=== PATIENT | female | born 1950 | race Caucasian/White ===

== ENCOUNTER 2020-08-17 14:20 | Outpatient (REF) | payer MEDICARE, OTHER, SELFPAY | END 2020-08-17 14:21 | disposition home or self-care (01) | LOC: HO.LAB 14:20 | PROVIDERS: PCP Internal Medicine; Visit Provider Internal Medicine | DX: Z20.828 Contact with and (suspected) exposure to other viral communicable diseases (principal) | CPT/HCPCS: C9803; U0003 ==

== ENCOUNTER → 2020-08-18 10:15 | Outpatient (BNVA) | payer MEDICARE, OTHER, SELFPAY | PROVIDERS: PCP Internal Medicine; Visit Provider Physician Assistant | DX: M17.12 Unilateral primary osteoarthritis, left knee (principal) | CPT/HCPCS: 20610; 99212; J1040 ==

== ENCOUNTER 2020-10-30 09:42 | Outpatient (REF) | payer MEDICARE, OTHER, SELFPAY ==
[2020-10-30 11:23] LABS: Estimated Average Glucose 154 mg/dL
[2020-10-30 11:26] LABS: Alanine Aminotransferase 20 U/L (0-31); Albumin Level 3.9 g/dL (3.5-5.0); Alkaline Phosphatase 103 U/L (39-117); Aspartate Amino Transferase 19 U/L (5-31); Bilirubin Direct 0.3 mg/dL (0.0-0.5); Bilirubin Total 0.6 mg/dL (0.0-1.0); Cholesterol 126 mg/dL; Glucose Fasting 143 mg/dL (60-99); HDL Cholesterol 45 mg/dL; LDL Cholesterol Calculated 60 mg/dl; Total Protein 6.6 g/dL (6.5-8.0); Triglycerides 105 mg/dL
[2020-10-30 12:01] LABS: Reflex LDLD? No
== END 2020-10-30 09:43 | disposition home or self-care (01) ==
LOC: HO.LAB 09:42
PROVIDERS: PCP Internal Medicine; Visit Provider Internal Medicine
DX: E11.9 Type 2 diabetes mellitus without complications (principal); I25.10 Atherosclerotic heart disease of native coronary artery without angina pectoris
CPT/HCPCS: 36415; 80061; 80076; 82947; 83036

== ENCOUNTER → 2020-12-13 09:00 | Outpatient (BNVA) | payer MEDICARE, OTHER, SELFPAY | PROVIDERS: PCP Internal Medicine; Visit Provider Physician Assistant | DX: M17.12 Unilateral primary osteoarthritis, left knee (principal) | CPT/HCPCS: 20610; 99212; J1040 ==

== ENCOUNTER → 2021-01-17 13:59 | Outpatient (BNVA) | payer MEDICARE, OTHER, SELFPAY | PROVIDERS: PCP Internal Medicine; Visit Provider Physician Assistant | DX: M17.12 Unilateral primary osteoarthritis, left knee (principal) | CPT/HCPCS: 99212 ==

== ENCOUNTER 2021-02-01 13:39 | Outpatient (REF) | payer MEDICARE, OTHER, SELFPAY ==
--- NOTE | ~2021-02-01 | XR_ITS ---
EXAMINATION: KNEE X-RAY CLINICAL INFORMATION: Right knee pain COMPARISON: Previous exam most recent February 2018 TECHNIQUE: Standing AP view of both knees and lateral and sunrise view of the left knee FINDINGS: There is leg length discrepancy. The right knee is higher than the left. There is joint space narrowing and osteophyte formation at the right medial femoral tibial joint. Left: Bone alignment is normal. No fracture or dislocation is seen. There is arthritis at the medial femoral tibial joint with joint space narrowing and osteophyte formation. There are small osteophytes at the patellofemoral joint. There is a large joint effusion. This is a heterogeneous attenuation with several lucent foci questionable for air. Fat fluid level is not seen. XR/XR knee standing BI IMPRESSION: Left knee: Arthritis at the medial femoral tibial and patellofemoral joints. Large joint effusion. Leg length discrepancy. The right knee joint is higher than the left. This is increased from February 2019 exam.
--- NOTE | ~2021-02-01 | XR_ITS ---
EXAMINATION: KNEE X-RAY CLINICAL INFORMATION: Right knee pain COMPARISON: Previous exam most recent February 2018 TECHNIQUE: Standing AP view of both knees and lateral and sunrise view of the left knee FINDINGS: There is leg length discrepancy. The right knee is higher than the left. There is joint space narrowing and osteophyte formation at the right medial femoral tibial joint. Left: Bone alignment is normal. No fracture or dislocation is seen. There is arthritis at the medial femoral tibial joint with joint space narrowing and osteophyte formation. There are small osteophytes at the patellofemoral joint. There is a large joint effusion. This is a heterogeneous attenuation with several lucent foci questionable for air. Fat fluid level is not seen. XR/XR knee LT 2V IMPRESSION: Left knee: Arthritis at the medial femoral tibial and patellofemoral joints. Large joint effusion. Leg length discrepancy. The right knee joint is higher than the left. This is increased from February 2019 exam.
== END 2021-02-01 13:40 | disposition home or self-care (01) ==
LOC: HO.HOSX 13:39
PROVIDERS: Visit Provider Physician Assistant
DX: M17.12 Unilateral primary osteoarthritis, left knee (principal); M25.562 Pain in left knee; M25.561 Pain in right knee
CPT/HCPCS: 73560; 73565; 99212

== ENCOUNTER → 2021-02-12 13:25 | Outpatient (BNVA) | payer MEDICARE, OTHER, SELFPAY | PROVIDERS: PCP Internal Medicine; Referring Provider Internal Medicine; Visit Provider Internal Medicine Cardiovascular Disease | DX: Z01.810 Encounter for preprocedural cardiovascular examination (principal); I25.10 Atherosclerotic heart disease of native coronary artery without angina pectoris | CPT/HCPCS: 93005; 99212 ==

== ENCOUNTER 2021-02-20 10:04 | Outpatient (REF) | payer MEDICARE, OTHER, SELFPAY ==
[2021-02-20 14:23] LABS: Estimated Average Glucose 163 mg/dL; Hemoglobin A1c % 7.3 %
== END 2021-02-20 10:05 | disposition home or self-care (01) ==
LOC: HO.10HDL 10:04
PROVIDERS: Visit Provider Physician Assistant
DX: E13.9 Other specified diabetes mellitus without complications (principal)
CPT/HCPCS: 36415; 83036

== ENCOUNTER → 2021-03-02 09:00 | Outpatient (REF) | payer MEDICARE, OTHER, SELFPAY ==
--- NOTE | ~2021-03-02 | NM_ITS ---
Lexiscan Myocardial perfusion study Indication: Preoperative evaluation, assess for coronary disease and ischemia Technique: The patient was brought in for a Lexiscan perfusion study on 03/02/2021 and was injected 0.4 mg of Lexiscan intravenously. Within a minute of this injection 30 mCi of sestamibi was given intravenously. Images were obtained using the SPECT gamma camera interlaced with the gating device. Images were obtained in supine position. Resting perfusion study was performed on 03/05/2021. Patient was administered 30 mCi of sestamibi intravenously at rest. Images were then obtained in supine position. Total DLP 206mGy-cm. Images were processed with the software and compared side to side in short axis, horizontal long axis and vertical long axis views. Findings: Raw acquisition was reviewed. Right arm by the patient's side. The stress perfusion study showed markedly diminished tracer uptake in the mid to distal anteroseptal wall. There is also diminished tracer uptake in the basal lateral wall. With CT attenuation correction, there is improved uptake in the mid to distal anterior septum but it does not normalize. Lateral wall also seems improved. The gated study shows normal LV systolic function with calculated LVEF of 70%. LV cavity is normal in size. The gated study shows diminished contractility in the distal anterior septum. Resting study shows no significant perfusion abnormality. Gating at rest reveals normal wall motion with ejection fraction at 54%. The findings are consistent with ischemia in the distal anterior septum. NM/NM lul perf SPECT rest & str Impression: 1. Myocardial perfusion imaging study shows probable ischemia in the distal anterior septum. Basal lateral perfusion defect could be artifactual. 2. Gated LVEF is 70% during stress and 52% during rest. 3. Transient ischemic dilatation not present. EKG component of the test reported separately.
--- NOTE | 2021-03-02 09:03 | CA_ITS ---
Acquisition Time: 2021-03-02 09:12:46 Total Exercise Time: 00:02:00 Test Indications: Screening for CAD Medications: AMLODIPINE ASA METFORMIN METOPROLOL OMEPRAZOLE PAROXETINE Protocol: LEXISCAN Max HR: 102 BPM 68% of Pred: 149 BPM Max BP: 132/080 mmHG Max Work Load: 1.0 METS Pharmacological stress test with Lexiscan injection while sitting and kicking her legs, without anginal symptoms, without arrythmia, with normotensive response to injection, with downsloping ST inferiorly with bordeline depression in setting of baseline scooping ST segements inferiorly, nondiagnostic for ischemia. Nuclear images pending. Test reviewed with Dr Christine. Referred By: Irving Grant Overread By: LEVI BRITTON
== END ==
LOC: HO.CARD 09:00
PROVIDERS: Visit Provider Internal Medicine Cardiovascular Disease
DX: Z01.810 Encounter for preprocedural cardiovascular examination (principal); Z79.82 Long term (current) use of aspirin; Z79.899 Other long term (current) drug therapy
CPT/HCPCS: 78452; 93017; A9500; J0280; J2785

== ENCOUNTER 2021-03-22 10:11 | Outpatient (REF) | payer MEDICARE, OTHER, SELFPAY ==
[2021-03-22 11:37] LABS: Iron 43 mcg/dL (30-160); Percent Iron Saturation 14 % (15-50); Total Iron Binding Capacity 309 mcg/dL (228-428); Unsaturated Iron Binding 266 ug/dL
== END 2021-03-22 10:12 | disposition home or self-care (01) ==
LOC: HO.LNP 10:11
PROVIDERS: Visit Provider Internal Medicine
DX: D50.9 Iron deficiency anemia, unspecified (principal)
CPT/HCPCS: 83540

== ENCOUNTER 2021-03-23 12:27 | Outpatient (REF) | payer MEDICARE, OTHER, SELFPAY ==
[2021-03-23 12:55] LABS: Glucose Urine UA NEG (NEG); Leukocyte Esterase Urine TRACE (NEG); Nitrite Urine POS (NEG); PH 6.5 (5.0-8.0); Specific Gravity - Urine 1.015 (1.005-1.025); Urine Blood NEG (NEG); Urine Ketones NEG (NEG); Urine Protein NEG (NEG-TRACE)
[2021-03-23 13:11] LABS: Appearance Urine HAZY; Color Urine YELLOW
[2021-03-23 13:14] LABS: Bacteria Urine 3+ /LPF; RBC Urine 0 /HPF (0)
== END 2021-03-23 12:28 | disposition home or self-care (01) ==
LOC: HO.LNP 12:27
PROVIDERS: Visit Provider Internal Medicine
DX: E11.9 Type 2 diabetes mellitus without complications (principal); I10 Essential (primary) hypertension; R35.0 Frequency of micturition
CPT/HCPCS: 81001; 87086; 87088; 87186

== ENCOUNTER 2021-04-05 10:13 | Outpatient (REF) | payer MEDICARE, OTHER, SELFPAY ==
[2021-04-05 10:58] LABS: Glucose Urine UA NEG (NEG); Leukocyte Esterase Urine NEG (NEG); Nitrite Urine NEG (NEG); PH 6.5 (5.0-8.0); Specific Gravity - Urine <= 1.005 (1.005-1.025); Urine Blood NEG (NEG); Urine Ketones NEG (NEG); Urine Protein NEG (NEG-TRACE)
[2021-04-05 11:18] LABS: Appearance Urine CLEAR; Color Urine YELLOW
== END 2021-04-05 10:14 | disposition home or self-care (01) ==
LOC: HO.LNP 10:13
PROVIDERS: Visit Provider Internal Medicine
DX: Z87.440 Personal history of urinary (tract) infections (principal)
CPT/HCPCS: 81003; 87086

== ENCOUNTER 2021-06-28 11:04 | Outpatient (REF) | payer MEDICARE, OTHER, SELFPAY ==
[2021-06-28 11:10] LABS: MANUAL DIFF FLAG NO
[2021-06-28 11:43] LABS: Basophils Percent Auto 0.7 % (0-2); Eosinophils Absolute Auto 0.1 X10*3/uL (0.0-0.4); Eosinophils Percent Auto 2.3 % (0-4); Hematocrit 37.2 % (37-47); Hemoglobin 11.5 g/dl (12.0-16.0); Imm Gran Abs Auto 0.02 X10*3/uL (0.00-0.03); Imm Gran Pct Auto 0.3 % (0.0-0.4); Lymphocytes Absolute Auto 1.3 X10*3/uL (1.2-4.9); Lymphocytes Percent Auto 21.8 % (20-40); Mean Corpuscular HGB Conc 30.9 g/dl (31.0-35.0); Mean Corpuscular Hemoglobin 25.8 pg (27.0-33.0); Mean Corpuscular Volume 83.6 fL (80-98); Mean Platelet Volume 11.8 fL (9.4-12.3); Monocytes Absolute Auto 0.6 X10*3/uL (0.1-1.2); Monocytes Percent Auto 9.9 % (2-11); Neutrophils Absolute Auto 3.9 X10*3/uL (2.0-8.3); Platelet Count 369 X10*3/uL (160-400); Red Blood Count 4.45 X10*6/uL (4.20-5.50); Red Cell Distribution Width 13.7 % (11.0-16.0); White Blood Count 6.1 X10*3/uL (4.8-10.8)
[2021-06-28 11:52] LABS: Estimated Average Glucose 140 mg/dL; Hemoglobin A1c % 6.5 %
[2021-06-28 11:57] LABS: Appearance Urine CLEAR; Color Urine YELLOW; Glucose Urine UA NEG (NEG); Leukocyte Esterase Urine 3+ (NEG); Nitrite Urine NEG (NEG); Urine Blood NEG (NEG); Urine Ketones NEG (NEG); Urine Protein NEG (NEG-TRACE)
[2021-06-28 12:03] LABS: Alanine Aminotransferase 13 U/L (0-31); Albumin Level 3.9 g/dL (3.5-5.0); Alkaline Phosphatase 91 U/L (39-117); Anion Gap 12 (12-20); Aspartate Amino Transferase 19 U/L (5-31); Bilirubin Total 0.5 mg/dL (0.0-1.0); Blood Urea Nitrogen 11 mg/dL (9-16); Calcium 9.8 mg/dL (8.4-10.2); Carbon Dioxide 30 mmol/L (22-29); Chloride 102 mmol/L (96-108); Cholesterol 120 mg/dL; Estimated Glomerular Filt Rate > 60; Glucose Fasting 139 mg/dL (60-99); HDL Cholesterol 40 mg/dL; LDL Cholesterol Calculated 55 mg/dl; Potassium 4.1 mmol/L (3.3-5.1); Sodium 140 mmol/L (135-145); Total Protein 6.7 g/dL (6.5-8.0); Triglycerides 129 mg/dL
[2021-06-28 12:04] LABS: Reflex LDLD? No
[2021-06-28 12:08] LABS: Bacteria Urine 2+ /LPF; RBC Urine 0 /HPF (0); Squamous Epithelial Cell Urine 1+ /LPF; WBC Urine 30-49 /HPF (0-4)
[2021-06-28 12:30] LABS: Creatinine Urine 56.99 mg/dL; Microalbumin Urine < 5.0 mg/L
== END 2021-06-28 11:05 | disposition home or self-care (01) ==
LOC: HO.LNP 11:04
PROVIDERS: PCP Internal Medicine; Visit Provider Internal Medicine
DX: E11.9 Type 2 diabetes mellitus without complications (principal); I10 Essential (primary) hypertension; E78.00 Pure hypercholesterolemia, unspecified; I25.10 Atherosclerotic heart disease of native coronary artery without angina pectoris; D72.829 Elevated white blood cell count, unspecified; D50.9 Iron deficiency anemia, unspecified
CPT/HCPCS: 80053; 80061; 81001; 81003; 82043; 83036; 85025

== ENCOUNTER 2021-08-06 11:16 | Outpatient (REF) | payer MEDICARE, OTHER, SELFPAY ==
--- NOTE | ~2021-08-06 | MM_ITS ---
EXAMINATION: MM SCREENING DIGITAL BREAST TOMOSYNTHESIS, BILATERAL CLINICAL INFORMATION: Screening. Asymptomatic. The lifetime risk of breast cancer based on the Tyrer-Cuzick Model is 4%. COMPARISON: Mammography: 06/02/2020, 10/15/2018, 10/06/2017 TECHNIQUE: Digital breast tomosynthesis is performed in both the craniocaudal and mediolateral oblique views along with computer-aided detection (CAD). Synthesized 2D images are generated from the tomosynthesis. Additional bilateral CC and left MLO views are provided. FINDINGS: There are scattered areas of fibroglandular density (ACR BI-RADS breast composition Category b). There are no significant masses, abnormal calcifications, or other abnormalities. There is chronic bilateral mild nipple retraction. Scattered dermal lesions are again seen overlying both breasts. There are scattered benign round and a few small ductal secretory calcifications as an incidental finding. No significant changes. MM/MM tomosynthesis screening BI IMPRESSION: No mammographic evidence of malignancy. ASSESSMENT: BI-RADS 2: Benign RECOMMENDATION: Routine annual mammography screening. This patient's information was entered into a reminder system with a target due date for their next mammogram.
== END 2021-08-06 11:17 | disposition home or self-care (01) ==
LOC: HO.MAMMO 11:16
PROVIDERS: Visit Provider Internal Medicine
DX: Z12.31 Encounter for screening mammogram for malignant neoplasm of breast (principal)
CPT/HCPCS: 77063; 77067

== ENCOUNTER 2021-12-28 10:40 | Outpatient (REF) | payer MEDICARE, OTHER, SELFPAY ==
[2021-12-28 11:08] LABS: Alanine Aminotransferase 12 U/L (0-31); Albumin Level 3.8 g/dL (3.5-5.0); Alkaline Phosphatase 86 U/L (39-117); Aspartate Amino Transferase 16 U/L (5-31); Bilirubin Direct 0.3 mg/dL (0.0-0.5); Bilirubin Total 0.7 mg/dL (0.0-1.0); Cholesterol 131 mg/dL; Estimated Average Glucose 146 mg/dL; Glucose Fasting 120 mg/dL (60-99); HDL Cholesterol 44 mg/dL; Hemoglobin A1c % 6.7 %; LDL Cholesterol Calculated 69 mg/dl; Total Protein 6.7 g/dL (6.5-8.0); Triglycerides 92 mg/dL
[2021-12-28 11:21] LABS: Reflex LDLD? No
== END 2021-12-28 10:41 | disposition home or self-care (01) ==
LOC: HO.LNP 10:40
PROVIDERS: PCP Internal Medicine; Visit Provider Internal Medicine
DX: I10 Essential (primary) hypertension (principal); E11.9 Type 2 diabetes mellitus without complications
CPT/HCPCS: 80061; 80076; 82947; 83036

== ENCOUNTER → 2022-02-12 12:22 | Outpatient (BNVA) | payer MEDICARE, OTHER, SELFPAY | PROVIDERS: PCP Internal Medicine; Referring Provider Internal Medicine; Visit Provider Internal Medicine Cardiovascular Disease | DX: I25.10 Atherosclerotic heart disease of native coronary artery without angina pectoris (principal); Z79.82 Long term (current) use of aspirin | CPT/HCPCS: 93005; 99212 ==

== ENCOUNTER 2022-07-04 11:51 | Outpatient (REF) | payer MEDICARE, OTHER, SELFPAY ==
[2022-07-04 11:55] LABS: MANUAL DIFF FLAG NO
[2022-07-04 12:11] LABS: Basophils Absolute Auto 0.1 X10*3/uL (0.0-0.2); Basophils Percent Auto 1.1 % (0-2); Eosinophils Absolute Auto 0.2 X10*3/uL (0.0-0.4); Eosinophils Percent Auto 3.4 % (0-4); Hematocrit 36.4 % (37.0-47.0); Hemoglobin 11.2 g/dl (12.0-16.0); Imm Gran Abs Auto 0.02 X10*3/uL (0.00-0.03); Imm Gran Pct Auto 0.3 % (0.0-0.4); Lymphocytes Absolute Auto 1.6 X10*3/uL (1.2-4.9); Lymphocytes Percent Auto 25.2 % (20-40); Mean Corpuscular HGB Conc 30.8 g/dl (31.0-35.0); Mean Corpuscular Hemoglobin 25.7 pg (27.0-33.0); Mean Corpuscular Volume 83.5 fL (80.0-98.0); Mean Platelet Volume 11.9 fL (9.4-12.3); Monocytes Absolute Auto 0.7 X10*3/uL (0.1-1.2); Monocytes Percent Auto 11.4 % (2-11); Neutrophils Absolute Auto 3.6 x10*3/uL (2.0-8.3); Neutrophils Percent Auto 58.6 % (45-73); Platelet Count 372 X10*3/uL (160-400); Red Blood Count 4.36 X10*6/uL (4.20-5.50); Red Cell Distribution Width 14.9 % (11.0-16.0); White Blood Count 6.2 X10*3/uL (4.8-10.8)
[2022-07-04 12:16] LABS: Appearance Urine Cloudy; Color Urine Yellow; Glucose Urine UA Negative (Negative); Leukocyte Esterase Urine Large (3+) (Negative); Nitrite Urine Negative (Negative); UMIC TRIGGER UA YES; Urine Blood Negative (Negative); Urine Ketones Negative (Negative); Urine Protein Negative (Neg-Trace)
[2022-07-04 12:19] LABS: Bacteria Urine None Seen (None Seen); Hyaline Casts Urine 0-2 /LPF (0-2); RBC Urine 0-2 /HPF (0-2); WBC Urine >50 /HPF (0-5)
[2022-07-04 12:26] LABS: Estimated Average Glucose 134 mg/dL; Hemoglobin A1c % 6.3 %
[2022-07-04 12:29] LABS: Alanine Aminotransferase 13 U/L (0-31); Albumin Level 3.9 g/dL (3.5-5.0); Alkaline Phosphatase 96 U/L (39-117); Anion Gap 14 (12-20); Aspartate Amino Transferase 21 U/L (5-31); Bilirubin Total 0.2 mg/dL (0.0-1.0); Blood Urea Nitrogen 18 mg/dL (9-16); Calcium 9.8 mg/dL (8.4-10.2); Carbon Dioxide 30 mmol/L (22-29); Chloride 100 mmol/L (96-108); Cholesterol 100 mg/dL; Estimated Glomerular Filt Rate > 60; Glucose Fasting 120 mg/dL (60-99); HDL Cholesterol 39 mg/dL; LDL Cholesterol Calculated 44 mg/dl; Sodium 140 mmol/L (135-145); Total Protein 7.2 g/dL (6.5-8.0); Triglycerides 86 mg/dL
[2022-07-04 13:09] LABS: Creatinine Urine 79.69 mg/dL; Microalbum/Creatinine Ratio Ur 13.8 ug/mg cr
== END 2022-07-04 11:52 | disposition home or self-care (01) ==
LOC: HO.LNP 11:51
PROVIDERS: Visit Provider Internal Medicine
DX: I10 Essential (primary) hypertension (principal); E11.9 Type 2 diabetes mellitus without complications; E78.00 Pure hypercholesterolemia, unspecified; D72.829 Elevated white blood cell count, unspecified; D50.9 Iron deficiency anemia, unspecified
CPT/HCPCS: 80053; 80061; 81001; 82043; 83036; 85025

== ENCOUNTER 2022-08-14 09:51 | Outpatient (REF) | payer MEDICARE, OTHER, SELFPAY ==
--- NOTE | ~2022-08-14 | MM_ITS ---
EXAMINATION: MM SCREENING DIGITAL BREAST TOMOSYNTHESIS, BILATERAL CLINICAL INFORMATION: Screening. Asymptomatic. The lifetime risk of breast cancer based on the Tyrer-Cuzick Model is 4%. COMPARISON: Mammography: 08/06/2021, 06/02/2020, 10/15/2018 TECHNIQUE: Digital breast tomosynthesis is performed in both the craniocaudal and mediolateral oblique views along with computer-aided detection (CAD). Synthesized 2D images are generated from the tomosynthesis. Additional right cleavage and left CC and views are provided. FINDINGS: There are scattered areas of fibroglandular density (ACR BI-RADS breast composition Category b). There is mild bilateral chronic rib nipple retraction similar to prior studies. Again, there are scattered benign round and some ductal secretory calcifications as well as overlying dermal lesions. Parenchymal pattern is similar to prior studies. There is no developing density or architectural abnormality. The axilla are unremarkable. No significant changes. MM/MM tomosynthesis screening BI IMPRESSION: No mammographic evidence of malignancy. ASSESSMENT: BI-RADS 2: Benign RECOMMENDATION: Routine annual mammography screening. This patient's information was entered into a reminder system with a target due date for their next mammogram.
== END 2022-08-14 09:52 | disposition home or self-care (01) ==
LOC: HO.MAMMO 09:51
PROVIDERS: Visit Provider Internal Medicine
DX: Z12.31 Encounter for screening mammogram for malignant neoplasm of breast (principal)
CPT/HCPCS: 77063; 77067

== ENCOUNTER 2022-10-07 10:00 | Outpatient (RCR) | payer MEDICARE, OTHER, SELFPAY ==
[2022-08-07 11:09] VITALS: BP 141/62; PULSE 55; O2SAT 98
== END 2022-11-05 08:34 | disposition home or self-care (01) ==
LOC: HO.PT 10:00
PROVIDERS: PCP Internal Medicine; Visit Provider Physician Assistant
DX: R60.0 Localized edema (principal); Z96.652 Presence of left artificial knee joint
CPT/HCPCS: 97110; 97140; 97161; 97530

== ENCOUNTER 2023-01-03 10:28 | Outpatient (REF) | payer MEDICARE, OTHER, SELFPAY ==
[2023-01-03 11:03] LABS: Estimated Average Glucose 131 mg/dL; Hemoglobin A1c % 6.2 %
[2023-01-03 11:27] LABS: Alanine Aminotransferase 10 U/L (0-31); Albumin Level 3.6 g/dL (3.5-5.0); Alkaline Phosphatase 89 U/L (39-117); Aspartate Amino Transferase 15 U/L (5-31); Bilirubin Direct 0.1 mg/dL (0.0-0.5); Bilirubin Total 0.4 mg/dL (0.0-1.0); Cholesterol 110 mg/dL; Glucose Fasting 110 mg/dL (60-99); HDL Cholesterol 36 mg/dL; LDL Cholesterol Calculated 61 mg/dl; Total Protein 6.3 g/dL (6.5-8.0); Triglycerides 66 mg/dL
[2023-01-03 11:56] LABS: Reflex LDLD? No
== END 2023-01-03 10:29 | disposition home or self-care (01) ==
LOC: HO.LNP 10:28
PROVIDERS: Visit Provider Internal Medicine
DX: E11.9 Type 2 diabetes mellitus without complications (principal); E78.00 Pure hypercholesterolemia, unspecified
CPT/HCPCS: 80061; 80076; 82947; 83036

== ENCOUNTER → 2023-02-13 12:15 | Outpatient (BNVA) | payer MEDICARE, OTHER, SELFPAY | PROVIDERS: PCP Internal Medicine; Referring Provider Internal Medicine; Visit Provider Internal Medicine Cardiovascular Disease | DX: I25.10 Atherosclerotic heart disease of native coronary artery without angina pectoris (principal) | CPT/HCPCS: 93005; 99212 ==

== ENCOUNTER 2023-02-25 14:59 | Outpatient (REF) | payer MEDICARE, OTHER, SELFPAY ==
--- NOTE | ~2023-02-25 | US_ITS ---
EXAMINATION: US VENOUS ULTRASOUND WITH DOPPLER LOWER EXTREMITY, LEFT CLINICAL INFORMATION: Left calf pain COMPARISON: None available. TECHNIQUE: Ultrasound of the deep veins is performed from the hip to the calf with compression sonography and color and pulse Doppler assessment. Spectral analysis with color-flow imaging is performed. FINDINGS: There is normal venous compression and respiratory variation and augmented flow. The visualized common femoral vein, superficial femoral vein, profunda femoral vein, popliteal vein, and the trifurcation region shows no evidence of deep venous thrombosis. There is a complex fluid collection in the medial proximal and mid calf measuring 10.7 x 4.1 x 3.5 cm. It is uncertain whether this represents a ruptured Bailon's cyst or could be related to a muscle tear. This could be further evaluated with MRI if clinically indicated. US/US venous duplex LE LT IMPRESSION: No DVT demonstrated in the left lower extremity. Large complex fluid collection in the medial proximal and mid calf corresponding to patient pain. Differential would include ruptured Bailon's cyst and muscle tear. Clinical correlation recommended. This could be further evaluated with MR if clinically indicated.
== END 2023-02-25 15:00 | disposition home or self-care (01) ==
LOC: HO.US 14:59
PROVIDERS: PCP Internal Medicine; Visit Provider Internal Medicine
DX: I82.412 Acute embolism and thrombosis of left femoral vein (principal)
CPT/HCPCS: 93971

== ENCOUNTER 2023-05-30 12:16 | Outpatient (REF) | payer MEDICARE, OTHER, SELFPAY ==
--- NOTE | ~2023-05-30 | US_ITS ---
EXAMINATION: US VENOUS ULTRASOUND WITH DOPPLER LOWER EXTREMITY, LEFT CLINICAL INFORMATION: Calf pain. History of Bailon's cyst. COMPARISON: Radiographs of knee from 02/01/2021. Prior ultrasound imaging from 02/25/2023. TECHNIQUE: Ultrasound of the deep veins is performed from the hip to the calf with compression sonography and color and pulse Doppler assessment. Spectral analysis with color-flow imaging is performed. FINDINGS: The common femoral vein is compressible and exhibits a normal phasic waveform; this suggests that the iliac veins are widely patent above. Within the proximal thigh, the visualized profunda femoris vein is normal. The examined greater saphenous vein and saphenofemoral junction are normal. Superficial femoral vein is patent in the proximal, mid and distal thigh. Popliteal vein is normal to the level of the trifurcation. On compression lopez scale and color Doppler images, the visualized deep calf veins are grossly patent. At the popliteal fossa, again noted is a complex septated Bailon's cyst. This tracks inferiorly into the proximal calf. The Bailon's cyst is measuring up to 3.2 cm AP at the popliteal fossa; it extends over a craniocaudal distance of approximately 11-12 cm (compared to approximately 11 cm on 02/25/2023). US/US venous duplex LE LT IMPRESSION: * No evidence of deep vein thrombosis in the left lower extremity. 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
== END 2023-05-30 12:17 | disposition home or self-care (01) ==
LOC: HO.US 12:16
PROVIDERS: PCP Internal Medicine; Visit Provider Internal Medicine
DX: M79.662 Pain in left lower leg (principal); M66.0 Rupture of popliteal cyst
CPT/HCPCS: 93971

== ENCOUNTER → 2023-08-22 10:30 | Outpatient (BNV) | payer MEDICARE, OTHER, SELFPAY | PROVIDERS: PCP Internal Medicine; Visit Provider Radiology Diagnostic Radiology | DX: Z12.31 Encounter for screening mammogram for malignant neoplasm of breast (principal) | CPT/HCPCS: 77063; 77067 ==

== ENCOUNTER 2023-08-22 10:32 | Outpatient (REF) | payer MEDICARE, OTHER, SELFPAY | END 2023-08-22 10:33 | disposition home or self-care (01) | LOC: HO.MAMMO 10:32 | PROVIDERS: PCP Internal Medicine; Visit Provider Internal Medicine | DX: Z12.31 Encounter for screening mammogram for malignant neoplasm of breast (principal) | CPT/HCPCS: 77063; 77067 ==

== ENCOUNTER 2023-09-11 10:56 | Outpatient (REF) | payer MEDICARE, OTHER, SELFPAY | END 2023-09-11 10:57 | disposition home or self-care (01) | LOC: HO.LNP 10:56 | PROVIDERS: Visit Provider Internal Medicine | DX: I10 Essential (primary) hypertension (principal); E78.00 Pure hypercholesterolemia, unspecified; E11.9 Type 2 diabetes mellitus without complications; R82.90 Unspecified abnormal findings in urine | CPT/HCPCS: 80053; 80061; 81001; 82043; 82570; 83036; 84153; 85025; 87086; 87147 ==

== ENCOUNTER 2023-10-17 11:45 | Outpatient (REF) | payer MEDICARE, OTHER, SELFPAY ==
[2023-10-17 12:09] LABS: Appearance Urine Clear; Color Urine Yellow; Glucose Urine UA Negative (Negative); Leukocyte Esterase Urine Small (1+) (Negative); Nitrite Urine Negative (Negative); UMIC TRIGGER UACC YES; Urine Blood Negative (Negative); Urine Ketones Negative (Negative); Urine Protein Negative (Neg-Trace)
[2023-10-17 12:24] LABS: Bacteria Urine None Seen (None Seen); Hyaline Casts Urine 0-2 /LPF (0-2); RBC Urine 0-2 /HPF (0-2); Squamous Epithelial Cell Urine 0-2 /HPF (0-2); UACC Culture Trigger YES; WBC Urine 0-5 /HPF (0-5)
== END 2023-10-17 11:46 | disposition home or self-care (01) ==
LOC: HO.LNP 11:45
PROVIDERS: Visit Provider Internal Medicine
DX: R31.9 Hematuria, unspecified (principal)
CPT/HCPCS: 81001; 87086; 87147

== ENCOUNTER 2024-01-19 20:55 | Emergency (ER) | payer MEDICARE, OTHER, SELFPAY ==
--- NOTE | ~2024-01-19 | CT_ITS ---
EXAMINATION: CT HEAD WITHOUT CONTRAST CT CERVICAL SPINE WITHOUT CONTRAST CT FACIAL BONES WITHOUT CONTRAST CLINICAL INFORMATION: Trauma. Pain. COMPARISON: None available. TECHNIQUE: Contiguous noncontrast CT scan images of the head, cervical spine and facial bones were obtained. Sagittal and coronal reformatted images also obtained. This CT examination was performed using dose optimization techniques as appropriate, variously including the following: *Automated exposure control *Adjustment of mA and/or kV according to patient size (this includes techniques or standardized protocols for targeted exams where dose is matched to indication/reason for exam; i.e. extremities or head) *Use of iterative reconstruction technique DLP: 1091+266 mGy-cm FINDINGS: There is mild cerebral volume loss with prominence of the lateral and the third ventricles. The cortical sulci are widened appropriately. The fourth ventricle and basal cisterns are normally outlined. There is mild bilateral periventricular and central white matter image attenuation. There is no acute territorial defect, hemorrhage or midline shift. The extra-axial spaces are unremarkable. Calvarium/scalp: Intact. Facial bones: Minimally displaced nasal bone fracture. No other fracture is seen. The maxillofacial sinuses are clear. There is apparent nasal soft tissue swelling and upper labial soft tissue swelling. Cervical spine: There is straightening of the expected cervical spine curvature. There is mild C5-C6 and C6-C7 disc degenerative change with loss of disc space, endplate change and mild posterior osteophytes associated with mild diffuse facet osteoarthritic hypertrophic change with minimal spinal canal and neural foraminal narrowing. The bony structures are osteopenic. No acute fractures seen. The soft tissues are unremarkable. The visualized upper lung esquivel are clear. CT/CT cervical spine wo IV con IMPRESSION: HEAD CT: No acute intracranial process seen. MAXILLOFACIAL CT: Minimally displaced nasal bone fracture with nasal and upper labial soft tissue swelling. CERVICAL SPINE: Straightening of the expected cervical spine curvature likely spasm. No acute fracture or dislocation seen.
--- NOTE | ~2024-01-19 | XR_ITS ---
EXAMINATION: LEFT ELBOW, LEFT KNEE CLINICAL INFORMATION: Fall COMPARISON: Left knee 02/01/2021 TECHNIQUE: 4 views left knee, 3 views left elbow FINDINGS: Left elbow: No bone, joint or soft tissue abnormality is seen. Left knee: A left total knee prosthesis is present. A small joint effusion is seen. There is no evidence of prosthetic loosening. There is a lucency through the lateral aspect of the tibia with sclerotic margins probably secondary to degenerative changes or old disease. No acute fracture is seen. XR/XR elbow LT 2V IMPRESSION: 1. No evidence of an acute osseous injury. 2. Left total knee prosthesis without evidence of loosening.
--- NOTE | ~2024-01-19 | XR_ITS ---
EXAMINATION: LEFT ELBOW, LEFT KNEE CLINICAL INFORMATION: Fall COMPARISON: Left knee 02/01/2021 TECHNIQUE: 4 views left knee, 3 views left elbow FINDINGS: Left elbow: No bone, joint or soft tissue abnormality is seen. Left knee: A left total knee prosthesis is present. A small joint effusion is seen. There is no evidence of prosthetic loosening. There is a lucency through the lateral aspect of the tibia with sclerotic margins probably secondary to degenerative changes or old disease. No acute fracture is seen. XR/XR knee LT 4V IMPRESSION: 1. No evidence of an acute osseous injury. 2. Left total knee prosthesis without evidence of loosening.
--- NOTE | ~2024-01-19 | CT_ITS ---
EXAMINATION: CT HEAD WITHOUT CONTRAST CLINICAL INFORMATION: Head trauma COMPARISON: None available. TECHNIQUE: Contiguous axial imaging was performed from the skull base to vertex without intravenous administration of contrast. This CT examination was performed using dose optimization techniques as appropriate, variously including the following: *Automated exposure control *Adjustment of mA and/or kV according to patient size (this includes techniques or standardized protocols for targeted exams where dose is matched to indication/reason for exam; i.e. extremities or head) *Use of iterative reconstruction technique DLP: 1091 mGy-cm FINDINGS: There is no evidence of intracranial hemorrhage, hemorrhagic or ischemic infarct. There are no masses, midline shift. Ventricles and sulci are appropriate for age. There is no abnormal periventricular white matter changes. There is no evidence of skull fracture. Partially visualized paranasal sinuses and mastoids are well aerated. CT/CT head/brain wo IV con IMPRESSION: No acute intracranial pathology.
[2024-01-19 21:21] VITALS: BP 183/84; PULSE 66; RESP 20; TEMP 36.6; O2SAT 98; BMI 30.2
[2024-01-19 22:14] LABS: Basophils Absolute Auto 0.1 X10*3/uL (0.0-0.2); Basophils Percent Auto 0.8 % (0-2); Eosinophils Absolute Auto 0.2 X10*3/uL (0.0-0.4); Eosinophils Percent Auto 2.3 % (0-4); Hematocrit 36.9 % (37.0-47.0); Hemoglobin 11.7 g/dl (12.0-16.0); Imm Gran Abs Auto 0.03 X10*3/uL (0.00-0.03); Imm Gran Pct Auto 0.3 % (0.0-0.4); Lymphocytes Absolute Auto 1.4 X10*3/uL (1.2-4.9); Lymphocytes Percent Auto 15.1 % (20-40); MANUAL DIFF FLAG NO; Mean Corpuscular HGB Conc 31.7 g/dl (31.0-35.0); Mean Corpuscular Hemoglobin 25.1 pg (27.0-33.0); Mean Platelet Volume 10.4 fL (9.4-12.3); Monocytes Absolute Auto 0.9 X10*3/uL (0.1-1.2); Monocytes Percent Auto 9.2 % (2-11); Neutrophils Absolute Auto 6.8 x10*3/uL (2.0-8.3); Neutrophils Percent Auto 72.3 % (45-73); Platelet Count 421 X10*3/uL (160-400); Red Blood Count 4.67 X10*6/uL (4.20-5.50); Red Cell Distribution Width 15.2 % (11.0-16.0); White Blood Count 9.4 X10*3/uL (4.8-10.8)
[2024-01-19 22:30] LABS: Alanine Aminotransferase 11 U/L (0-31); Albumin Level 4.1 g/dL (3.5-5.0); Alkaline Phosphatase 125 U/L (39-117); Anion Gap 18 (12-20); Aspartate Amino Transferase 16 U/L (5-31); Bilirubin Total 0.3 mg/dL (0.0-1.0); Blood Urea Nitrogen 18 mg/dL (9-16); Calcium 9.9 mg/dL (8.4-10.2); Carbon Dioxide 28 mmol/L (22-29); Chloride 98 mmol/L (96-108); Creatinine Clr Calc Pharmacy 77.4; Estimated Glomerular Filt Rate > 60; Glucose Random 127 mg/dL (60-115); Sodium 140 mmol/L (135-145)
[2024-01-20 00:18] VITALS: BP 182/74; PULSE 59; RESP 16; TEMP 36.9; O2SAT 99
--- OUTSIDE RECORDS SUMMARY | 2024-01-20 00:48 | XMS_ITS | Continuity of Care Document ---
Author Organization [facility] [employer] [facility] Address [address] [place] [address]- Care Team Providers Care Supervisor [employer] Name Role Phone Karen HEWITT, Homero Primary Care Physician [phone] [place] [facility] [place] [facility] [employer] [facility] [address] [place] [address]- Allergies, Adverse Reactions, Alerts Substance Reaction Severity Status NKA Active Medications acetaminophen 325 mg oral tablet 650 mg, By Mouth, Every 6 hours, May take OTC, follow dierctions on bottle, Refills 0, Maintenance,04/14/21 9:26:00 EDT, Partial fill upon patient request if the prescription is for a schedule II opioid drug. Start Date: 04/14/21 Status: Ordered Amlodipine 5 mg, By Mouth, Daily, Maintenance, 09/05/14 1:59:24 Start Date: 09/05/14 Status: Ordered aspirin 162.5 mg oral capsule, extended release = 325 mg, By Mouth, 2 times a day, enteric coated, 0 Refills, Maintenance, 04/14/21 9:26:00 EDT, ERCapsule, Partial fill upon patient request if the prescription is for a schedule II opioid drug. Start Date: 04/14/21 Status: Ordered atorvastatin 10 mg oral tablet = 40 mg, By Mouth, Daily at bedtime, 0 Refills, Maintenance, 07/21/19 11:30:01 EST Start Date: 07/21/19 Status: Ordered celecoxib 200 mg oral capsule 1 capsule = 200 mg, By Mouth, Daily, 0 Refills, Maintenance, 04/14/21 9:26:00 EDT, Capsule, Partialfill upon patient request if the prescription is for a schedule II opioid drug. Start Date: 04/14/21 Status: Ordered clobetasol 0.05% topical cream See Instructions, 1 application sparingly to affected area once a day x one week, then twice weeklyonly if needed, # 45 Gm, 2 Refills, Maintenance, 12/08/20 14:24:00 EDT, Cream, [facility]/pharmacy #[id number], 1 application sparingly to affected area once a day... Start Date: 12/08/20 Status: Ordered Colace Capsule 100 mg, 1, capsule, By Mouth, 2 times a day, hold for loose stool, Refills 0, Maintenance, :27:00 EDT, Partial fill upon patient request if the prescription is for a schedule II opioid drug. Start Date: 04/14/21 Status: Ordered Diovan HCT 12.5 mg-160 mg oral tablet 160mg/12.5 mg, By Mouth, Daily, 0 Refills, Maintenance, 07/07/12 14:41:20 EDT Start Date: 07/07/12 Status: Ordered Estrace Vaginal Cream 0.1 mg/g See Instructions, 1 gram Vaginally at bedtime twice per week, # 42 Gm, 4 Refills, Maintenance, 04/05/21 10:33:00 EDT, [facility]/pharmacy #[id number], Partial fill upon patient request if the prescription is for a schedule II opioid drug., 162.3, cm, 04/05/21 10:... Start Date: 04/05/21 Status: Ordered Maalox Plus Liquid 30 mL, By Mouth, Every 4 hours, PRN Other, Heartburn, 0 Refills, Maintenance, 04/14/21 9:26:00 EDT,Suspension, Partial fill upon patient request if the prescription is for a schedule II opioid drug. Start Date: 04/14/21 Status: Ordered metFORMIN 500 mg oral tablet 1 tablet = 500 mg, By Mouth, Daily at supper, # 60 tablet, 0 Refills, Maintenance, 04/13/21 7:27:00EDT, Tablet, Partial fill upon patient request if the prescription is for a schedule II opioid drug. Start Date: 04/13/21 Status: Ordered metformin 500 mg oral tablet = 1,000 mg, By Mouth, Daily in AM, 0 Refills, Maintenance, 07/07/12 14:40:54 EDT Start Date: 07/07/12 Status: Ordered Metoprolol Succinate ER 50 mg oral tablet, extended release 25, By Mouth, Daily, 25mg, # 30 tablet, 0 Refills, Maintenance, 10/20/13 6:35:46 EST, ER Tablet Start Date: 10/20/13 Status: Ordered Milk of Magnesia Liquid 30 mL, By Mouth, Daily, PRN Constipation, 0 Refills, Maintenance, 04/14/21 9:27:00 EDT, Suspension,Partial fill upon patient request if the prescription is for a schedule II opioid drug. Start Date: 04/14/21 Status: Ordered MiraLax Powder 1 pack/packet = 17 Gm, By Mouth, Daily, PRN Constipation, 0 Refills, Maintenance, 04/14/21 9:28:00 EDT, Powder, Partial fill upon patient request if the prescription is for a schedule II opioid drug. Start Date: 04/14/21 Status: Ordered omeprazole 40 mg oral enteric coated capsule 1 capsule = 40 mg, By Mouth, 2 times a day, # 60 capsule, 1 Refills, Maintenance, 08/30/15 10:38:48, EC Capsule, 1 capsule By Mouth 2 times a day,x30 days Start Date: 08/30/15 Stop Date: 10/29/15 Status: Ordered oxybutynin 10 mg/24 hr oral tablet, extended release 1 tablet = 10 mg, By Mouth, Daily, # 30 tablet, 5 Refills, Maintenance, 05/02/21 8:32:00 EDT, ER Tablet, [facility]/pharmacy #[id number], Partial fill upon patient request if the prescription is for a schedule IIopioid drug., 162, cm, 04/14/21 7:01:00 EDT, Height... Start Date: 05/02/21 Status: Ordered paroxetine 20 mg oral tablet 0.5 tablet = 10 mg, By Mouth, Daily, # 30 tablet, 0 Refills, Maintenance, 10/20/13 6:33:33 EST, Tablet Start Date: 10/20/13 Status: Ordered senna 187 mg oral tablet 1 tablet = 8.6 mg, By Mouth, Daily at bedtime, PRN as needed for constipation, 0 Refills, Maintenance, 04/14/21 9:28:00 EDT, Tablet, Partial fill upon patient request if the prescription is for a schedule II opioid drug. Start Date: 04/14/21 Status: Ordered Triamcinolone Once, 0 Refills, Maintenance, 04/05/21 10:19:00 EDT, Partial fill upon patient request if the prescription is for a schedule II opioid drug. Start Date: 04/05/21 Status: Ordered Problem List Condition Effective Dates Status Health Status Inform ant Abnormal cervical Papanicola ou smear with positive human papillomavirus deoxyribonucleic acid (DNA) test(Confirmed) Active Female urinary stress incontinence(Confirmed) Active Hernia, hiatal(Confirmed) Active Menopause(Confirmed) Active Pure hypercholesterolemia(Confirmed) Active Urge urinary incontinence(Confirmed) Active Social History Social History Type Response Smoking Status Former smoker; Tobac co user in household: No entered on: 03/04/16 Sex
--- OUTSIDE RECORDS SUMMARY | 2024-01-20 00:48 | XMS_ITS | Continuity of Care Document ---
Author Organization [facility] [employer] [facility] Address [address] [place] [address], [address] [place] [address]- Care Team Providers Care Supervisor Pastry Name Role Phone Karen HEWITT, Homero Primary Care Physician [phone] [id number] 11[facility]27/23 [facility] [employer] [facility] [address] [place], [place] [address] Allergies, Adverse Reactions, Alerts No Known Allergies Medications acetaminophen 325 mg oral tablet 650 [...] opioid drug. Start Date: 04/14/21 Status: Ordered Clobetasol (Eqv-Temovate) 0.05% topical cream See Instructions, APPLY SPARINGLY TO AFFECTED AREA ONCE A DAY X ONE WEEK, THEN TWICE WEEKLY ONLY IFNEEDED, # 45 Gm, 2 Refills, [id number], 30, APPLY SPARINGLY TO AFFECTED AREA ONCE A DAY X ONE WEEK, THEN TWICE WEEKLY ONLY IF NEEDED, 162, cm, 08/... Start Date: 08/08/21 Status: Ordered Colace Capsule 100 mg, 1, capsule, By Mouth, 2 times a day, hold for loose stool, Refills 0, Maintenance, 219:27:00 EDT, Partial fill upon patient request if [...] Gm, 4 Refills, Maintenance, 04/05/21 10:33:00 EDT, [facility]/pharmacy #[id number], Partial fill upon patient request if [...] mg/24 hr oral tablet, extended release 1 tablet, By Mouth, Daily, # 90 tablet, 3 Refills, Maintenance, 08/29/22 14:39:00 EST, [facility]/pharmacy#[id number], 162, cm, 04/14/21 7:01:00 EDT, Height, 91.3, kg, 04/13/21 8:10:00 EDT, Dry Weight Start Date: 08/29/22 Status: Ordered paroxetine 20 mg oral tablet [...] Date: 04/05/21 Status: Ordered Problem List Condition Confirmation Course Effective Dates Status Health Status Informant Abnormal cervical Papanicolaou smear with positive human papillomavirus deoxyribonucleic acid (DNA) test Confirmed Active Female urinary stress incontinence Confirmed Active Hernia, hiatal Confirmed Active Menopause Confirmed Active Pure hypercholesterolemia Confirmed Active Urge urinary incontinence Confirmed Active Social History Social History Type Response Smoking Status Former smoker; Tobac co user in household: No entered on: 03/04/16 Sex Patient Care team information Care Team Personnel Name: Homero Jones MD Position: Reference Physician Member Role: PCP Address: Address: [address] [place] [address] [place] [address]- Name: Milvia Ugalde RN Position: [facility] RN Member Role: Primary Care Nurse Name: Eunice Pierre RN Position: [facility] Investment Consultant Member Role: Primary Care Nurse Care Team Related Persons Name: HUGO BURRIS Name: JUAN CEDILLO Address: [address] [address]
--- OUTSIDE RECORDS SUMMARY | 2024-01-20 00:48 | XMS_ITS | Continuity of Care Document ---
Author Organization [facility] Amanaalma carlsonAuro [facility] [employer] [facility] Address [address] [place] [address], 4[address] [place] [address]- Care Team Providers Care Patient Accounts Coordinator Name Role Phone Karen HEWITT, Homero Primary Care Physician [phone] [id number] Date[facility]s): 08/20/23 - 09/19/23 [facility] Amanaalma DurhamAuro [facility] [employer] [facility] [address] [facility], [address]th [place], [place] [address] Allergies, Adverse Reactions, Alerts No Known Allergies [...] # 45 Gm, 2 Refills, [id number], 30, APPLY SPARINGLY TO AFFECTED AREA ONCE [...] Gm, 4 Refills, Maintenance, 04/05/21 10:33:00 EDT, [facility]/pharmacy #[id number], Partial fill upon patient request if [...] tablet, 3 Refills, Maintenance, 08/29/22 14:39:00 EST, [facility]/pharmacy#[id number], 162, cm, 04/14/21 7:01:00 EDT, Height, 91.3, [...] Reference Physician Member Role: PCP Address: Address: [address] [place] [address] [place] [address]- Name: Milvia Ugalde RN Position: [facility] RN Member Role: Primary Care Nurse Name: Eunice Pierre RN Position: [facility] Telecommunications Analyst Member Role: Primary Care Nurse Care Team Related Persons Name: HUGO BURRIS Name: JUAN CEDILLO Address: [address] [address]
--- OUTSIDE RECORDS SUMMARY | 2024-01-20 00:48 | XMS_ITS | Continuity of Care Document ---
Author Organization [facility] ter Address [address] [place] [address]- Care Team Providers Care Brim Flexer Name Role Phone Homero Jones MD Primary Care Physician [phone] Encounter [facility] [place] Date(s): 04/13/21 - 05/13/[address] [address]- Attending Physician: Rod Ford Admitting Physician: AdmRod mcdonald Referring Physician: AdmtrRod Allergies, Adverse Reactions, Alerts Substance Reaction Severity [...] 2 Refills, Maintenance, 12/08/20 14:24:00 EDT, Cream, [facility]/pharmacy #[id number], 1 application sparingly to affected area [...] Gm, 4 Refills, Maintenance, 04/05/21 10:33:00 EDT, [id number], Partial fill upon patient request if [...] Refills, Maintenance, 05/02/21 8:32:00 EDT, ER Tablet, [facility]/pharmacy #[id number], Partial fill upon patient [...]
--- OUTSIDE RECORDS SUMMARY | 2024-01-20 00:48 | XMS_ITS | Continuity of Care Document ---
Author Organization [facility] Address [address] [place] [address], 4[address] [place] [address]- Care Team Providers Care Machine Tracer Name Role Phone Homero Jones MD Primary Care Physician [phone] Encounter [facility] Date(s): 08/29/22 - 09/28/22 [facility] [address] [facility], 4th [place], [place] [address] Attending Physician: Rod Ford Admitting Physician: Rod Ford Referring Physician: Rod Ford Allergies, Adverse Reactions, Alerts No Known Allergies [...] # 45 Gm, 2 Refills, [id number], 30, APPLY SPARINGLY TO AFFECTED AREA ONCE [...] Gm, 4 Refills, Maintenance, 04/05/21 10:33:00 EDT, [facility]/pharmacy #[id number], Partial fill upon patient request [...] tablet, 3 Refills, Maintenance, 08/29/22 14:39:00 EST, [facility]/pharmacy#[id number], 162, cm, 04/14/21 7:01:00 EDT, Height, [...] Reference Physician Member Role: PCP Address: Address: [address] [place] [address] [place] [address]- Name: Milvia Ugalde RN Position: [facility] RN Member Role: Primary Care Nurse Name: Eunice Pierre RN Position: [facility] Hospital Glost Tile Shader Member Role: Primary Care Nurse Care Team Related Persons Name: HUGO BURRIS Name: JUAN CEDILLO Address: [address] [address]
--- OUTSIDE RECORDS SUMMARY | 2024-01-20 00:48 | XMS_ITS | Continuity of Care Document ---
Author Organization [facility] ter Address [address] [place] [address]- Care Team Providers Care Wood Fence Erector Name Role Phone Homero Jones MD Primary Care Physician [phone] [place] [facility] [place] 04/07/21 - 05/13/[address] [address]- Attending Physician: Ruddy Elise MD Admitting Physician: Ruddy Elise MD Referring Physician: Ruddy Elise MD Allergies, Adverse Reactions, Alerts Substance Reaction Severity [...] 2 Refills, Maintenance, 12/08/20 14:24:00 EDT, Cream, [facility]/pharmacy #[id number], 1 application sparingly to affected [...] Gm, 4 Refills, Maintenance, 04/05/21 10:33:00 EDT, [facility]/pharmacy #[id number], Partial fill upon patient request [...] Refills, Maintenance, 05/02/21 8:32:00 EDT, ER Tablet, [facility]/pharmacy #[id number], Partial fill upon patient request [...]
--- OUTSIDE RECORDS SUMMARY | 2024-01-20 00:48 | XMS_ITS | Continuity of Care Document ---
Author Organization [facility] Address [address] [place] [address], 4[address] [place] [address]- Care Team Providers Care Radio Interference Supervisor Name Role Phone Karen HEWITT, Homero Primary Care Physician [phone] [place] [facility] Date(s[place] 03/05/21 - 04/04/21 [facility] Durhamfro[facility] [address] [facility], [address]th [place], [place] [address] Allergies, Adverse Reactions, Alerts Substance Reaction Severity Status NKA Active Medications Amlodipine 5 mg, By Mouth, Daily, Maintenance, 09/05/14 1:59:24 Start Date: 09/05/14 Status: Ordered aspirin 81 mg oral tablet 1 tablet = 81 mg, By Mouth, Daily, # 30 tablet, 0 Refills, Maintenance, 10/20/13 6:32:34, Tablet Start Date: 10/20/13 Status: Ordered atorvastatin 10 mg oral tablet 1 tablet = 10 mg, By Mouth, Daily, 0 Refills, Maintenance, 07/21/19 11:30:01 EST Start Date: 07/21/19 Status: Ordered clobetasol 0.05% topical cream See Instructions, 1 application sparingly to affected area once a day x one week, then twice weeklyonly if needed, # 45 Gm, 2 Refills, Maintenance, 12/08/20 14:24:00 EDT, Cream, [id number], 1 application sparingly to affected area once a day... Start Date: 12/08/20 Status: Ordered Diovan HCT 12.5 mg-160 mg oral tablet 1 tablet, By Mouth, Daily, 0 Refills, Maintenance Start Date: 07/07/12 Status: Ordered metformin 500 mg oral tablet 1 tablet = 500 mg, By Mouth, 3 times a day, 0 Refills, Maintenance, 07/07/12 14:40:54 Start Date: 07/07/12 Status: Ordered Metoprolol Succinate ER 50 mg oral tablet, extended release 1 tablet = 50 mg, By Mouth, Daily, 25mg, # 30 tablet, 0 Refills, Maintenance, 10/20/13 6:35:46, ER Tablet Start Date: 10/20/13 Status: Ordered mometasone 0.1% topical lotion 1 application, Topically, Daily, # 30 mL, 3 Refills, Maintenance, 07/21/19 11:57:51 EST, Lotion, 1 application Topically Daily Start Date: 07/21/19 Status: Ordered Nitrostat 0.4 mg sublingual tablet 1 tablet = 0.4 mg, Sublingual, Every 5 minutes, PRN for chest pain, # 100 tablet, 0 Refills, Maintenance, 10/20/13 6:36:39, Tablet Start Date: 10/20/13 Status: Ordered omeprazole 40 mg oral enteric coated capsule 1 capsule = 40 mg, By Mouth, 2 times a day, # 60 capsule, 1 Refills, Maintenance, 08/30/15 10:38:48, EC Capsule, 1 capsule By Mouth 2 times a day,x30 days Start Date: 08/30/15 Stop Date: 10/29/15 Status: Ordered paroxetine 20 mg oral tablet 0.5 tablet = 10 mg, By Mouth, Daily, # 30 tablet, 0 Refills, Maintenance, 10/20/13 6:33:33, Tablet Start Date: 10/20/13 Status: Ordered Problem List Condition Effective Dates [...]
--- OUTSIDE RECORDS SUMMARY | 2024-01-20 00:48 | XMS_ITS | Continuity of Care Document ---
Author Organization [facility] Address [address] [place] [address], 4[place] [address]- Care Team Providers Care Addictions Counselor Assistant Name Role Phone Homero Jones MD Primary Care Physician [phone] En[place] [facility] [place] Date(s): 10/30/23 - 11/29/23 [facility] Lindseyalma DurhamTutti [facility] [address] [facility], [address] [place], [place] [address] Attending Physician: Rod Ford Admitting Physician: Rod Ford Referring Physician: AdmtrRod Allergies, Adverse Reactions, Alerts No Known Allergies [...] # 45 Gm, 2 Refills, [facility], 30, APPLY SPARINGLY TO AFFECTED AREA ONCE A DAY X ONE WEEK, THEN TWICE WEEKLY ONLY IF NEEDED, 162, cm, ... Start Date: 08/08/21 Status: Ordered Colace Capsule [...] Gm, 4 Refills, Maintenance, 04/05/21 10:33:00 EDT, [facility]/pharmacy #[id number], Partial fill upon [...] tablet, 3 Refills, Maintenance, 08/29/22 14:39:00 EST, [facility]/pharmacy#[id number], 162, cm, 04/14/21 7:01:00 [...] Reference Physician Member Role: PCP Address: Address: [address] [place] [address] [place] [address]- Name: Milvia Ugalde RN Position: [facility] RN Member Role: Primary Care Nurse Name: Eunice Pierre RN Position: [facility] Hospital Supervisor Carbon Electrodes Member Role: Primary Care Nurse Care Team Related Persons Name: HUGO BURRIS Name: JUAN CEDILLO Address: [address] [address]
--- OUTSIDE RECORDS SUMMARY | 2024-01-20 00:48 | XMS_ITS | Continuity of Care Document ---
Author Organization [facility] Paxton Wallace n[employer] [facility] Address [address] [place] [address], 4[place] [address]- Care Team Providers Care Passenger Locomotive Engineer Name Role Phone Homero Jones MD Primary Care Physician [phone] [id number] Date(s): 01/02[facility]24 - 01/09/24 [facility] Glen[facility]al[facility] DurhamSongHi [employer] [address] [facility], [address]th [place] [address]- Attending Physician: Sophia Arshad MD Referring Physician: Homero Jones MD Allergies, Adverse Reactions, Alerts No Known Allergies [...] ONLY IFNEEDED, # 45 Gm, 2 Refills, Physician Stop 01/02/25 14:23:00 EDT, 01/02/24 14:23:00 EDT, [facility]/pharmacy #[id number], 30, APPLY SPARINGLY TO AFFECTED AREA ONCE... Start Date: 01/02/24 Stop Date: 01/02/25 Status: Ordered Colace Capsule 100 mg, 1, [...] Gm, 4 Refills, Maintenance, 04/05/21 10:33:00 EDT, [facility]/pharmacy #[id number], Partial fill upon patient [...] tablet, 3 Refills, Maintenance, 08/29/22 14:39:00 EST, [facility]/pharmacy#0373, 162, cm, 04/14/21 7:01:00 EDT, [...] Hernia, hiatal Confirmed Active Menopause Confirmed Active Obese class I Confirmed Active Pure hypercholesterolemia Confirmed Active Urge urinary incontinence Confirmed Active Vital Signs Most recent to oldest [Reference Range]: 1 Height 162 cm (01/02/24 1:32 PM) Weight 88.18 kg (01/02/24 1:32 PM) Body Mass Index [18.5-24.99 kg/m2] 33.6 kg/m2 *>HHI* (01/02/24 1:32 PM) Blood Pressure [90-138/55-84 mm Hg] 146/ 68mm Hg *H* (01/02/24 1:32 PM) Blood pressure sites Arm, right (01/02/24 1:32 PM) Dry Weight 88.18 kg (01/02/24 1:32 PM) Weight Obtained Via Standing scale (01/02/24 1:32 PM) Dry Weight Obtained Via Standing scale (01/02/24 1:32 PM) Social History Social History Type Response Smoking Status Former smoker; Tobac co user in household: No entered on: 03/04/16 Sex Patient Care team information Care Team Personnel Name: Homero Jones MD Position: Reference Physician Member Role: PCP Address: Address: [address] [place] [address]- Name: Milvia Ugalde RN Position: [facility] RN Member Role: Primary Care Nurse Name: Eunice Pierre RN Position: [facility] Hospital Slide Developer Member Role: Primary Care Nurse Care Team Related Persons Name: HUGO BURRIS Name: JUAN CEDILLO Address: home [address] [place] [address]
--- OUTSIDE RECORDS SUMMARY | 2024-01-20 00:48 | XMS_ITS | Continuity of Care Document ---
Author Organization [facility] Durantalma carlsonSmart [employer]cosystem[employer] [facility] Address [address] [place] [address], 4[address] [place] [address]- Care Team Providers Care Railroad Hand Name Role Phone Homero Jones MD Primary Care Physician [phone] [id number] Date(s): 10/30/23 - 11/06/23 [facility] Paxtonalma DurhamSmart [employer]cosystem[employer] [facility] [address] [facility], [address] [place], [place] [address] Attending Physician: Deepali Varma MD Referring Physician: Not on Staff, Referring MD Allergies, Adverse Reactions, Alerts No Known [...] # 45 Gm, 2 Refills, [facility], 30, APPLY SPARINGLY TO AFFECTED AREA ONCE [...] 4 Refills, Maintenance, 04/05/21 10:33:00 EDT, [facility]/pharmacy #[id number], Partial fill upon patient [...] tablet, 3 Refills, Maintenance, 08/29/22 14:39:00 EST, [facility]/pharmacy#[id number], 162, cm, 04/14/21 7:01:00 EDT, Height, 91.3, [...] Reference Physician Member Role: PCP Address: Address: [address] [place] [address] [place] [address]- Name: Milvia Ugalde RN Position: [facility] RN Member Role: Primary Care Nurse Name: Eunice Pierre RN Position: [facility] Hospital Policy Loan Calculator Member Role: Primary Care Nurse Care Team Related Persons Name: HUGO BURRIS Name: JUAN CEDILLO Address: [address] [address]
--- OUTSIDE RECORDS SUMMARY | 2024-01-20 00:48 | XMS_ITS | Continuity of Care Document ---
Author Organization [facility] Paxton Wallace n[employer] [facility] Address [address] [facility], 4[address] [place] [address]- Care Team Providers Care Delivery Manager Name Role Phone Karen HEWITT, Homero Primary Care Physician [phone] [place] [facility] [place](s): 04/30/21 - 05/30/21 [facility] Paxtonalma DurhamIVFXPERTs [facility] [address] [facility], 4[address] [place] [address]- Allergies, Adverse Reactions, Alerts Substance Reaction Severity [...] 2 Refills, Maintenance, 12/08/20 14:24:00 EDT, Cream, [facility]/pharmacy #0373, 1 application sparingly to affected area [...] Gm, 4 Refills, Maintenance, 04/05/21 10:33:00 EDT, [facility]/pharmacy #[id number], Partial fill upon patient request if [...] Refills, Maintenance, 05/02/21 8:32:00 EDT, ER Tablet, [facility]/pharmacy #[id number], Partial fill upon patient request if [...]
--- OUTSIDE RECORDS SUMMARY | 2024-01-20 00:48 | XMS_ITS | Continuity of Care Document ---
Author Organization [facility] Address [address] [place] [address]- Care Team Providers Care Piping Supervisor Name Role Phone Homero Jones MD Primary Care Physician [phone] En[place] [facility] [place] Date(s): 09/18/22 - 10/18/22 [facility] [address] [place] [address] Allergies, Adverse Reactions, Alerts No Known Allergies [...] # 45 Gm, 2 Refills, [facility], 30, APPLY SPARINGLY TO AFFECTED AREA ONCE [...] 4 Refills, Maintenance, 04/05/21 10:33:00 EDT, [facility]/pharmacy #[id number], Partial fill upon patient request [...] 3 Refills, Maintenance, 08/29/22 14:39:00 EST, [facility]/pharmacy#0373, 162, cm, 04/14/21 7:01:00 EDT, Height, [...] Reference Physician Member Role: PCP Address: Address: [address] [place] [address] [place] [address]- Name: Milvia Ugalde RN Position: [facility] RN Member Role: Primary Care Nurse Name: Eunice Pierre RN Position: [facility] Hospital Pot Operator Member Role: Primary Care Nurse Care Team Related Persons Name: HUGO BURRIS Name: JUAN CEDILLO Address: [address] [address]
--- OUTSIDE RECORDS SUMMARY | 2024-01-20 00:48 | XMS_ITS | Continuity of Care Document ---
Author Organization [facility] Address [address] [place] [address], 4t [place] [address]- Care Team Providers Care Extruding Press Adjuster Name Role Phone Homero Jones MD Primary Care Physician [phone] [place] [facility] [place]): [place] - 09/05/21 [email or web address] [facility] [address] [facility], 4th [place], [place] [address] Attending Physician: Rod Ford Admitting Physician: Rod Ford Referring Physician: AdmRod mcdonald Allergies, Adverse Reactions, Alerts Substance Reaction Severity [...] # 45 Gm, 2 Refills, [facility], 30, APPLY SPARINGLY TO AFFECTED AREA ONCE [...] Gm, 4 Refills, Maintenance, 04/05/21 10:33:00 EDT, [facility]/pharmacy #[id number], Partial fill upon patient request if [...] mg, By Mouth, Daily, # 30 tablet, 11 Refills, Maintenance, 08/06/21 8:23:00 EST, ER Tablet, [facility]/pharmacy #[id number], Partial fill upon patient request if the prescription is for a schedule II opioid drug., 162, cm, 04/14/21 7:01:00 EDT, Andie. Start Date: 08/06/21 Status: Ordered paroxetine 20 mg oral tablet [...]
--- OUTSIDE RECORDS SUMMARY | 2024-01-20 00:48 | XMS_ITS | Continuity of Care Document ---
Author Organization [facility] ter Address [address] [place] [address]- Care Team Providers Care Applications Engineering Manager Name Role Phone Homero Jones MD Primary Care Physician [phone] En[place] [facility] [place] Date(s): 04/13/21 - 04/14/[address] [address]- Discharge Disposition: A-Transfer VNA/Home Health Attending Physician: Ruddy Elise MD Admitting Physician: [...] opioid drug. Start Date: 04/14/21 Status: Ordered Acetaminophen Tablet 650 mg, Tablet, By Mouth, 04/14/21 12:00:00 EDT Start Date: 04/14/21 Stop Date: 04/14/21 Status: Completed Amlodipine 5 mg, By Mouth, Daily, Maintenance, [...] 2 Refills, Maintenance, 12/08/20 14:24:00 EDT, Cream, [facility]/pharmacy #0373, 1 application sparingly to affected [...] Gm, 4 Refills, Maintenance, 04/05/21 10:33:00 EDT, [facility]/pharmacy #[id number], Partial fill upon patient [...] Date: 08/30/15 Stop Date: 10/29/15 Status: Ordered oxyCODONE 5 mg oral tablet See Instructions, PRN, Take 1-2 tablets By Mouth Every 4 hours as needed, # 84 tablet, Refills 0, Tot. Refills 0, Acute 04/21/21 9:27:00 EDT, Pain , Moderate, 04/14/21 9:27:00 EDT, Instructions Replace Required Details, Route to Pharmacy Electronicall... Start Date: 04/14/21 Stop Date: 04/21/21 Status: Ordered oxyCODONE 5 mg oral tablet 5 mg, Tablet, By Mouth, Every 4 hours, PRN for Pain , Moderate, Routine, 04/13/21 17:58:00 EDT Start Date: 04/13/21 Stop Date: 04/20/21 Status: Ordered paroxetine 20 mg oral tablet [...] Pure hypercholesterolemia(Confirmed) Active Urge urinary incontinence(Confirmed) Active Results Radiology Reports * Exam Date Time Procedure Performing Provider Status 04/13/21 10:46 PM Knee 1 or 2 Views Left Christa Alas ; Auth (Verified) Notes: (Knee 1 or 2 Views Left) Reason For Exam: Postop RESULT: Knee 1 or 2 Views Left Knee 1 or 2 Views Left Reason: Postop; Clinical Question(s): Other:; Implant Position; Special Instructions: Do today at 2200, No flexed knee in the lateral position. Keep leg straight; 2 Views COMPARISON: None. FINDINGS: Status post total left knee arthroplasty. The distal femoral and proximal tibial cemented components are well-positioned without complication. Postsurgical soft tissue changes. IMPRESSION: Total left knee arthroplasty without complication. WSN: [id number] Ordering Physician: Jonny Schuler Dictated By: Bi Alicea DO Dictated Date/Time: 04/13/21 10:57 p Reviewed By: Bi Alicea DO Signed By: Bi Alicea DO Signed Date/Time: 04/13/21 10:57 pm Transcribed By: PASCUAL Transcribed Date/Time: 04/13/21 10:57 pm Vital Signs Most recent to oldest [Reference Range]: 1 2 3 Height 162 cm (04/14/21 7:01 AM) 162 cm (04/13/21 3:34 PM) 162 cm (04/13/21 11:44 AM) Weight 91.3 kg (04/13/21 8:10 AM) 91.3 kg (04/13/21 6:49 AM) 91.3 kg (04/13/21 6:15 AM) Oxygen Saturation [94-100 %] 100 % (04/14/21 2:00 PM) 100 % (04/14/21 10:00 AM) 100 % (04/14/21 6:00 AM) Pulse Rate [55-90 bpm] 58 bpm (04/14/21 2:00 PM) 55 bpm (04/14/21 10:00 AM) 54 bpm *L* (04/14/21 7:01 AM) Body Mass Index [18.5-24.99] 34.79 *>HHI* (04/13/21 8:10 AM) 34.79 *>HHI* (04/13/21 6:49 AM) Blood Pressure [90-138/55-84 mm Hg] 115/66mm Hg (04/14/21 2:00 PM) 111/51mm Hg (04/14/21 10:00 AM) 128/55mm Hg (04/14/21 7:01 AM) Respiratory Rate [16-30 br/min] 18 br/min (04/14/21 4:27 PM) 18 br/min (04/14/21 2:00 PM) 18 br/min (04/14/21 12:42 PM) Temperature [96.8-100.4 DegF] 97.8 DegF (04/14/21 2:00 PM) 97.8 DegF (04/14/21 10:00 AM) 97.8 DegF (04/14/21 6:00 AM) Liters per Minute 4 L/min (04/13/21 8:30 AM) 4 L/min (04/13/21 8:20 AM) Mode of Delivery (Oxygen) Room air (04/14/21 2:00 PM) Room air (04/14/21 10:00 AM) Room air (04/14/21 6:00 AM) Blood pressure sites Arm, right (04/14/21 2:00 PM) Arm, right (04/14/21 10:00 AM) Arm, right (04/14/21 7:01 AM) Temperature Route Oral (04/14/21 2:00 PM) Oral (04/14/21 10:00 AM) Oral (04/14/21 6:00 AM) Dry Weight 91.3 kg (04/13/21 8:10 AM) 91.3 kg (04/13/21 6:49 AM) 91.3 kg (04/13/21 6:15 AM) Weight Obtained Via Standing scale (04/13/21 6:15 AM) Dry Weight Obtained Via Standing scale (04/13/21 6:15 AM) Social History Social History Type Response Smoking Status Former smoker; Tobac co user in household: No entered on: 03/04/16 Sex
--- OUTSIDE RECORDS SUMMARY | 2024-01-20 00:48 | XMS_ITS | Patient Health Record ---
Author Organization Homero Jones MD Address [address] [place] [phone] Care Team Providers Care Toolroom Keeper Name Role Phone Homero Jones Primary Care Provider ALLERGIES No Known Allergies RESULTS Component Value Reference Range Notes Hemoglobin A1c Reviewed date:05/30/2023 11:32:23 AM Interpretation: Performing Lab: Notes/Report: Value Hemoglobin A1c 6.3 US venous duplex LE LT Reviewed date:02/25/2023 08:49:14 PM Interpretation: Performing Lab: Notes/Report: [address] [address] Ultrasound Report Signed Patient: Swati Coreas MR#: [id number] 1 : 1950 Acct:[id number] Age/Sex: 72 / F ADM Date: 02/25/23 Loc: HO.US Attending Dr: Homero Jones MD Ordering Physician: Homero Jones MD Date of Service: 02/25/23 Procedure(s): US venous duplex LE LT Accession Number(s): [id number] cc: Homero Jones MD EXAMINATION: US VENOUS ULTRASOUND WITH DOPPLER LOWER EXTREMITY, LEFT CLINICAL INFORMATION: Left calf pain COMPARISON: None available. TECHNIQUE: Ultrasound of the deep veins is performed from the hip to the calf with compression sonography and color and pulse Doppler assessment. Spectral analysis with color-flow imaging is performed. FINDINGS: There is normal venous compression and respiratory variation and augmented flow. The visualized common femoral vein, superficial femoral vein, profunda femoral vein, popliteal vein, and the trifurcation region shows no evidence of deep venous thrombosis. There is a complex fluid collection in the medial proximal and mid calf measuring 10.7 x 4.1 x 3.5 cm. It is uncertain whether this represents a ruptured Bailon's cyst or could be related to a muscle tear. This could be further evaluated with MRI if clinically indicated. US/US venous duplex LE LT IMPRESSION: No DVT demonstrated in the left lower extremity. Large complex fluid collection in the medial proximal and mid calf corresponding to patient pain. Differential would include ruptured Bailon's cyst and muscle tear. Clinical correlation recommended. This could be further evaluated with MR if clinically indicated. Dictated By: Cielo Short MD Signed By: <Electronically signed by Cielo Short MD in OV> 02/25/23 1634 DD/ 1615 TD/TT: Equipment Records Supervisor: NAZ Diabetic Eye Exam Reviewed date:06/20/2023 11:05:13 AM Interpretation:Negative Performing Lab: Notes/Report: Negative Glucose, finger stick Reviewed date:05/30/2023 11:27:40 AM Interpretation: Performing Lab: Notes/Report: Value 154 US venous duplex LE LT Reviewed date:06/02/2023 01:57:13 PM Interpretation: Performing Lab: Notes/Report: [address] [address] Ultrasound Report Signed Patient: Swati Coreas MR#: [id number] 1 : 1950 Acct:[id number] Age/Sex: 73 / F ADM Date: 05/30/23 Loc: HO.US Attending Dr: Homero Jones MD Ordering Physician: Homero Jones MD Date of Service: 05/30/23 Procedure(s): US venous duplex LE LT Accession Number(s): [id number] cc: Homero Jones MD EXAMINATION: US VENOUS ULTRASOUND WITH DOPPLER LOWER EXTREMITY, LEFT CLINICAL INFORMATION: Calf pain. History of Bailon's cyst. COMPARISON: Radiographs of knee from 02/01/2021. Prior ultrasound imaging from 02/25/2023. TECHNIQUE: Ultrasound of the deep veins is performed from the hip to the calf with compression sonography and color and pulse Doppler assessment. Spectral analysis with color-flow imaging is performed. FINDINGS: The common femoral vein is compressible and exhibits a normal phasic waveform; this suggests that the iliac veins are widely patent above. Within the proximal thigh, the visualized profunda femoris vein is normal. The examined greater saphenous vein and saphenofemoral junction are normal. Superficial femoral vein is patent in the proximal, mid and distal thigh. Popliteal vein is normal to the level of the trifurcation. On compression lopez scale and color Doppler images, the visualized deep calf veins are grossly patent. At the popliteal fossa, again noted is a complex septated Bailon's cyst. This tracks inferiorly into the proximal calf. The Bailon's cyst is measuring up to 3.2 cm AP at the popliteal fossa; it extends over a craniocaudal distance of approximately 11-12 cm (compared to approximately 11 cm on 02/25/2023). US/US venous duplex LE LT IMPRESSION: * No evidence of deep vein thrombosis in the left lower extremity. 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 Dictated By: Lee Brock MD Signed By: <Electronically signed by Lee Brock MD in OV> 05/30/23 1543 DD/ 1330 TD/TT: Equipment Records Supervisor: PD SRINIVASAN tomosynthesis screening B I Reviewed date:09/05/2023 06:32:12 PM Interpretation: Performing Lab: Notes/Report: [facility] [address] [place] [address] Mammography Report Signed Patient: Swati Coreas MR#: [id number] 1 : 1950 Acct:[id number] Age/Sex: 73 / F ADM Date: 08/22/23 Loc: HO.MAMMO Attending Dr: Homero Jones MD Ordering Physician: Homero Jones MD Results: 1Ne gative Date of Service: 08/22/23 Follow Up: 1 Year From Orig ina Mammogram Procedure(s): MM tomosynthesis screening BI Accession Number(s): [id number] cc: Homero Jones MD EXAMINATION: MM SCREENING DIGITAL BREAST TOMOSYNTHESIS, BILATERAL CLINICAL INFORMATION: Screening. Asymptomatic. COMPARISON: Mammography: This study is compared with prior exams dating back to 2018. TECHNIQUE: Digital breast tomosynthesis is performed in both the craniocaudal and mediolateral oblique views along with computer-aided detection (CAD). Synthesized 2D images are generated from the tomosynthesis. FINDINGS: There are scattered areas of fibroglandular density (ACR BI-RADS breast composition Category b). There are no significant masses, abnormal calcifications, or other abnormalities. MM/MM tomosynthesis screening BI IMPRESSION: No mammographic evidence of malignancy. ASSESSMENT: BI-RADS BI-RADS 1 - Negative RECOMMENDATION: Routine annual mammography screening. 1 year F/U This examination should not preclude the clinical evaluation of a suspicious palpable abnormality. This patient's information was entered into a reminder system with a target due date for their next mammogram. Dictated By: Claudia Sarabia MD Signed By: <Electronically signed by Claudia Sarabia MD in OV> 09/05/23 1544 DD/ 1059 TD/TT: Equipment Records Supervisor: Urine Culture Reviewed date:09/12/2023 12:25:55 PM Interpretation: Performing Lab:[address] [address] Notes/Report: O:STRAGA Strep agalactiae (Gr p B) Urine Culture Quant Urine Culture 10,000 to 50,000 cfu/mL [place] [facility] [place] Urine Culture Susceptibility not routinely performed on this isolate. Complete Blood Count Auto Di ff Reviewed date:09/11/2023 04:24:05 PM Interpretation: Performing Lab:[address] [address] Notes/Report: White Blood Count 7.0 4.8-10.8 X10*3/uL Red Blood Count 4.56 4.20-5.50 X10*6/uL Hemoglobin 11.2 12.0-16.0 g/dl Hematocrit 37.0 37.0-47.0 % Mean Corpuscular Volume 81.1 80.0-98.0 fL Mean Corpuscular Hemoglobin 24.6 27.0-33.0 pg Mean Corpuscular HGB Conc 30.3 31.0-35.0 g/dl Red Cell Distribution Width 15.2 11.0-16.0 % Platelet Count 492 160-400 X10*3/uL Mean Platelet Volume 11.2 9.4-12.3 fL Neutrophils Percent Auto 63.6 45-73 % Imm Gran Pct Auto 0.3 0.0-0.4 % Lymphocytes Percent Auto 22.9 20-40 % Monocytes Percent Auto 10.2 2-11 % Eosinophils Percent Auto 2.3 0-4 % Basophils Percent Auto 0.7 0-2 % NRBC Pct Auto 0.0 0.0-0.2 /100WBC Neutrophils Absolute Auto 4.5 2.0-8.3 x10*3/u L Imm Gran Abs Auto 0.02 0.00-0.03 X10*3/uL Lymphocytes Absolute Auto 1.6 1.2-4.9 X10*3/u L Monocytes Absolute Auto 0.7 0.1-1.2 X10*3/uL Eosinophils Absolute Auto 0.2 0.0-0.4 X10*3/u L Basophils Absolute Auto 0.1 0.0-0.2 X10*3/uL NRBC Abs Auto 0.000 0.0-0.012 X10*3/uL Comprehensive [place]. Panel Fa st Reviewed date:09/11/2023 04:23:00 PM Interpretation: Performing Lab:[facility], [address] [place] [phone] Notes/Report: Sodium 138 135-145 mmol/L Potassium 3.9 3.3-5.1 mmol/L Chloride 101 96-108 mmol/L Carbon Dioxide 28 22-29 mmol/L Anion Gap 13 12-20 Blood Urea Nitrogen 14 9-16 mg/dL Creatinine 0.75 0.5-1.4 mg/dL Estimated Glomerular Filt Rate > 60 NOTE: For -Croatian individuals, multiply the result by 1.210. Chronic Kidney Disease: Estimated GFR < 60 mL/min/1.73m2 Severe Kidney Disease: Estimated GFR < 15 mL/min/1.73m2 Glucose Fasting 107 60-99 mg/dL A fasting glucose from 100-125 mg/dl is considered impaired (pre-diabetes). Calcium 9.8 8.4-10.2 mg/dL Bilirubin Total 0.6 0.0-1.0 mg/dL Aspartate Amino Transferase 19 5-31 U/L Alanine Aminotransferase 13 0-31 U/L Total Protein 7.4 6.5-8.0 g/dL Albumin Level 3.9 3.5-5.0 g/dL Alkaline Phosphatase 95 39-117 U/L Lipid Panel Reviewed date:09/11/2023 12:40:33 PM Interpretation: Performing Lab:[facility], [address] [place] [phone] Notes/Report: Triglycerides 64 <150 mg/dL Desirable Triglyceride: less than 150 mg/dL Borderline High Triglyceride 150-199 mg/dL High Triglyceride: 200-499 mg/dL Very High Triglyceride: greater than or equal to 5OO mg/dL Cholesterol 114 <200 mg/dL Desirable Cholesterol: less than 200 mg/dL Borderline High Cholesterol: 200-239 mg/dL High Cholesterol: greater than 239 mg/dL LDL Cholesterol Calculated 56 <100 mg/dL Desirable LDL: less than 100 mg/dL Near Optimal/Above Optimal LDL: 110-129 mg/dL Borderline High LDL: 130-159 mg/dL High LDL: 160-189 mg/dL Very High LDL: greater than or equal to 190 mg/dL HDL Cholesterol 46 >40 mg/dL Desirable HDL: greater than 40 mg/dL Note: This HDL assay may give artificially low results in patients with liver disease. PSA,Total (Free>4and<10) Reviewed date:09/11/2023 01:35:51 PM Interpretation: Performing Lab:[facility], [address] [place] [phone] Notes/Report: PSA,Total (Free>4and<10) TNP Keysha ting ordered in error Microalbumin, Random Reviewed date:09/11/2023 02:52:28 PM Interpretation: Performing Lab:[facility], [address] [place] [phone] Notes/Report: Creatinine Urine 117.26 Microalbumin Urine 12.0 Microalbum/Creatinine Ratio Ur 10.2 <30 ug/mg cr Albumin/Creatinine Ratio Reference Ranges: Normal: < 30 ug/mg creatinine Microalbuminuria: 30 - 300 ug/mg creatinine Clinical Albuminuria: > 300 ug/mg creatinine Hemoglobin A1c Reviewed date:09/11/2023 12:41:16 PM Interpretation: Performing Lab:[address] [phone] Notes/Report: Hemoglobin A1c % 6.1 <6.0 % Hemoglobin A1C Reference Range Adults: 4.8 - 6.0 % Non diabetic: < 6.0 % Goal: < 7.0 % Additional Action Suggested: > 8.0 % Note: Hemoglobin A1c results are invalid for patients with abnormal amounts of HbF. Blood transfusions may impact the HbA1c concentration in the patient sample. Estimated Average Glucose 128 eAG = Estimated average glucose which is %A1C expressed as average glucose, using the formula of the T7D-Undmrie Average Glucose study (ADAG), Diabetes Care, Vol.31,#8, 2007 UA ClnCatch+Micro w/rflx Cul t Reviewed date:09/19/2023 01:20:20 PM Interpretation:see back 09-19-23 Performing Lab:[address] [phone] Notes/Report: Urine, Clean Catch Color Urine Yellow Appearance Urine Hazy PH 6.0 5.0-9.0 Glucose Urine UA Negative Negative mg/dL Urine Blood Negative Negative Specific Reading - Urine 1.020 1.005-1.025 Urine Protein Negative Neg-Trace mg/dL Urine Ketones Negative Negative mg/dL Nitrite Urine Negative Negative Leukocyte Esterase Urine Large (3+) Negative RBC Urine 6-10 0-2 /HPF WBC Urine 21-50 0-5 /HPF Squamous Epithelial Cell Urine 6-10 0-2 /HPF Bacteria Urine None Seen None Seen Hyaline Casts Urine 0-2 0-2 /LPF Urine Culture Reviewed date:10/18/2023 06:38:38 PM Interpretation: Performing Lab:[address] [address] Notes/Report: O:STRAGA Strep agalactiae (Gr p B) Urine Culture Quant Urine Culture 10,000 to 50,000 cfu/mL Urine Culture Susc N/A Urine Culture Susceptibility not routinely performed on this isolate. UA ClnCatch+Micro w/rflx Cul t Reviewed date:10/18/2023 06:49:42 PM Interpretation: Performing Lab:[facility], [address] [place] [phone] Notes/Report: [id number] Urine, Clean Catch Color Urine Yellow Appearance Urine Clear PH 6.0 5.0-9.0 Glucose Urine UA Negative Negative mg/dL Urine Blood Negative Negative Specific Reading - Urine 1.010 1.005-1.025 Urine Protein Negative Neg-Trace mg/dL Urine Ketones Negative Negative mg/dL Nitrite Urine Negative Negative Leukocyte Esterase Urine Small (1+) Negative RBC Urine 0-2 0-2 /HPF WBC Urine 0-5 0-5 /HPF Squamous Epithelial Cell Urine 0-2 0-2 /HPF Bacteria Urine None Seen None Seen Hyaline Casts Urine 0-2 0-2 /LPF Complete Blood Count Auto Di ff (Not yet reviewed by provider) Interpretation: Performing Lab:[facility], [address] [place] [phone] Notes/Report: White Blood Count 9.4 4.8-10.8 X10*3/uL Red Blood Count 4.67 4.20-5.50 X10*6/uL Hemoglobin 11.7 12.0-16.0 g/dl Hematocrit 36.9 37.0-47.0 % Mean Corpuscular Volume 79.0 80.0-98.0 fL Mean Corpuscular Hemoglobin 25.1 27.0-33.0 pg Mean Corpuscular HGB Conc 31.7 31.0-35.0 g/dl Red Cell Distribution Width 15.2 11.0-16.0 % Platelet Count 421 160-400 X10*3/uL Mean Platelet Volume 10.4 9.4-12.3 fL Neutrophils Percent Auto 72.3 45-73 % Imm Gran Pct Auto 0.3 0.0-0.4 % Lymphocytes Percent Auto 15.1 20-40 % Monocytes Percent Auto 9.2 2-11 % Eosinophils Percent Auto 2.3 0-4 % Basophils Percent Auto 0.8 0-2 % NRBC Pct Auto 0.0 0.0-0.2 /100WBC Neutrophils Absolute Auto 6.8 2.0-8.3 x10*3/u L Imm Gran Abs Auto 0.03 0.00-0.03 X10*3/uL Lymphocytes Absolute Auto 1.4 1.2-4.9 X10*3/u L Monocytes Absolute Auto 0.9 0.1-1.2 X10*3/uL Eosinophils Absolute Auto 0.2 0.0-0.4 X10*3/u L Basophils Absolute Auto 0.1 0.0-0.2 X10*3/uL NRBC Abs Auto 0.000 0.0-0.012 X10*3/uL Comprehensive Met. Panel (No t yet reviewed by provider) Interpretation: Performing Lab:[facility], [address] [place] [phone] Notes/Report: Sodium 140 135-145 mmol/L Potassium 4.0 3.3-5.1 mmol/L Chloride 98 96-108 mmol/L Carbon Dioxide 28 22-29 mmol/L Anion Gap 18 12-20 Blood Urea Nitrogen 18 9-16 mg/dL Creatinine 0.70 0.5-1.4 mg/dL Creatinine Clr Calc Pharmacy 77.4 Provided height and weight: 167.64 cm, 84.822 kg. eGFR (calculated from the MDRD study equation) and eCrCl (calculated from the Cockcroft-Gault equation) are based on different parameters and may not yield comparable results. If eCrCl result is absurd, please check patient's height/weight. Estimated Glomerular Filt Rate > 60 NOTE: For -Croatian individuals, multiply the result by 1.210. Chronic Kidney Disease: Estimated GFR < 60 mL/min/1.73m2 Severe Kidney Disease: Estimated GFR < 15 mL/min/1.73m2 Glucose Random 127 60-115 mg/dL Calcium 9.9 8.4-10.2 mg/dL Bilirubin Total 0.3 0.0-1.0 mg/dL Aspartate Amino Transferase 16 5-31 U/L Alanine Aminotransferase 11 0-31 U/L Total Protein 8.0 6.5-8.0 g/dL Albumin Level 4.1 3.5-5.0 g/dL Alkaline Phosphatase 125 39-117 U/L XR knee LT 4V (Not yet revie wed by provider) Interpretation: Performing Lab: Notes/Report: [address] [address] XRay Report Signed Patient: Swati Coreas MR#: [id number] 1 : 1950 Acct:[id number] Age/Sex: 73 / F ADM Date: 01/19/24 Loc: HO.ED Attending Dr: Ordering Physician: Giorgi ED Physician Date of Service: 01/19/24 Procedure(s): XR knee LT 4V Accession Number(s): [id number] cc: Homero Jones MD; Generic ED Physician EXAMINATION: LEFT ELBOW, LEFT KNEE CLINICAL INFORMATION: Fall COMPARISON: Left knee 02/01/2021 TECHNIQUE: 4 views left knee, 3 views left elbow FINDINGS: Left elbow: No bone, joint or soft tissue abnormality is seen. Left knee: A left total knee prosthesis is present. A small joint effusion is seen. There is no evidence of prosthetic loosening. There is a lucency through the lateral aspect of the tibia with sclerotic margins probably secondary to degenerative changes or old disease. No acute fracture is seen. XR/XR knee LT 4V IMPRESSION: 1. No evidence of an acute osseous injury. 2. Left total knee prosthesis without evidence of loosening. Dictated By: Jhon Murray MD Signed By: <Electronically signed by Jhon Murray MD in OV> 01/19/245 DD/ 47 TD/TT: Equipment Records Supervisor: MAXIM XR elbow LT 2V (Not yet revi ewed by provider) Interpretation: Performing Lab: Notes/Report: [address] [address] XRay Report Signed Patient: Swati Coreas MR#: [id number] 1 : 1950 Acct:[id number] Age/Sex: 73 / F ADM Date: 01/19/24 Loc: HO.ED Attending Dr: Ordering Physician: Giorgi ED Physician Date of Service: 01/19/24 Procedure(s): XR elbow LT 2V Accession Number(s): [id number] cc: Homero Jones MD; Generic ED Physician EXAMINATION: LEFT ELBOW, LEFT KNEE CLINICAL INFORMATION: Fall COMPARISON: Left knee 02/01/2021 TECHNIQUE: 4 views left knee, 3 views left elbow FINDINGS: Left elbow: No bone, joint or soft tissue abnormality is seen. Left knee: A left total knee prosthesis is present. A small joint effusion is seen. There is no evidence of prosthetic loosening. There is a lucency through the lateral aspect of the tibia with sclerotic margins probably secondary to degenerative changes or old disease. No acute fracture is seen. XR/XR elbow LT 2V IMPRESSION: 1. No evidence of an acute osseous injury. 2. Left total knee prosthesis without evidence of loosening. Dictated By: Jhon Murray MD Signed By: <Electronically signed by Jhon Murray MD in OV> 01/19/24 9636 DD/ 47 TD/TT: Equipment Records Supervisor: MAXIM REASON FOR REFERRAL Reason Ruptured bakers cyst left leg Diagnosis 1 Ruptured Bakers cyst (M66.0) Referral Organization Homero Jones MD Referring Provider First Name Homero Referring Provider Last Name Karen Referring Provider Speciality Internal M edicine Referred Provider JAMES DOTSON Referred Provider [facility] General Notes Leonor Mayers 03:03:28 PM EDT > faxed when note is locked. patient is aware of Talib funes Annette 06/05/2023 02:22:07 PM EDT > info faxed Referral Priority Routine Referral Appointment Date 06/12/2023 MEDICATIONS Medication SIG (Take, Route, Frequency, Duration) Notes Start Date End Date Status amLODIPine Besylate 5 MG TAKE 1 TABLET B Y MOUTH EVERY DAY Active LORazepam 0.5 MG 1 tablet as needed Orally every 12 hrs for 5 days 01/15/2019 Not-Taking Escitalopram Oxalate 10 MG TAKE 1 TABLET BY MOUTH EVERY DAY FOR 30 DAYS Active Diprolene AF 0.05 % 1 application to affected area Externally Once a day for 20 Not-Taking Omeprazole 20 MG 1 capsule Orally Onc e a day for 90 Not-Taking Cephalexin 250 MG 1 capsule Orally twi ce a day for 5 days 09/19/2023 Active metFORMIN HCl ER 500 MG TAKE 2 TABLETS B Y MOUTH IN THE MORNING AND 1 TABLET IN THE EVENING Active Metoprolol Succinate ER 25 MG TAKE 1 TABLET BY MOUTH EVERY DAY Active Blood Glucose Test 0 One Touch test stri p In Vitro E: 11.09 tests once a day for 90 Active Valsartan-hydroCHLOROthia zide 160-12.5 MG TAKE 1 TABLET BY MOUTH EVERY DAY Active Aspir-81 81 MG 1 tablet Orally Once a day for 30 day(s) Active Ventolin HFA * 108 (90 Base) MCG/ACT 2 puffs as needed Inhalation every 4 hrs for 30 day(s) 08/12/2014 Not-Taking Atorvastatin Calcium 40 MG TAKE 1 TABLET BY MOUTH EVERY DAY for 90 Active oxyBUTYnin Chloride ER 10 MG TAKE 1 TABLET BY MOUTH EVERY DAY for 90 Active IMMUNIZATIONS Vaccine Route Administration Date Status Comme nts TDaP IM Intramuscular 12/30/2011 Administered PPSV23 (Pnemovax) IM Intramuscular 12/30/2011 Administered Flu Vaccine IM Intramuscular 10/13/2012 Administered Flu Vaccine IM Intramuscular 09/23/2013 Administered Flu Vaccine IM Intramuscular 09/12/2014 Administered Prevnar 13 IM Intramuscular 03/20/2015 Administered Fluarix Quadrivalent IM Intramuscular 06/30/2015 Administe red Fluarix Quadrivalent IM Intramuscular 06/10/2016 Administe red Fluarix Quadrivalent IM Intramuscular 06/10/2017 Administe red Fluarix Quadrivalent IM Intramuscular 06/09/2018 Administe red PPSV23 (Pnemovax) IM Intramuscular 10/02/2018 Administered Influenza High Dose IM Intramuscular 06/22/2019 Administer ed Influenza High Dose IM Intramuscular 05/18/2020 Administer ed Shingrix Unknown 09/07/2020 Administered [facility] SARS-COV-2 Pfizer Unknown 10/29/2020 Administered SARS-COV-2 Pfizer Unknown 11/13/2020 Administered SARS-COV-2 Pfizer Unknown 06/02/2021 Administered [facility] Influenza High Dose IM Intramuscular 06/28/2021 Administer ed SARS-COV-2 Pfizer Unknown 06/02/2021 Administered Shingrix Unknown 08/09/2021 Administered [facility] Influenza High Dose IM Intramuscular 07/04/2022 Administer ed Influenza High Dose IM Intramuscular 05/30/2023 Administer ed SOCIAL HISTORY Tobacco Use: Social History Observation Description Date Details (start date - stop date) Former Smoker NA - NA Sex Assigned At : Social History Observation Description Sex Assigned At Unknown Tobacco Use/Smoking Question Answer Notes Patient is a former smoker How long has it been since y ou last smoked? > 10 years Additional Findings: Tobacco Non-User Fo rmer smoker, currently using no form of tobacco Alcohol Screen Question Answer Notes Did you have a drink contain ing alcohol in the past year? Yes How often did you have a dri nk containing alcohol in the past year? Monthly or less (1 point) How many drinks did you have on a typical day when you were drinking in the past year? 1 or 2 drinks (0 point) How often did you have 6 or more drinks on one occasion in the past year? 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) Active confirmed Atheroscle rotic heart disease of enterprise coronary artery without angina pectoris (290392995459534 ) Problem Neuropathy (G62.9) Active confirmed 386 784334 Problem Other specified menopausal and perimenopausal disorders (N95.8) Active confirmed 899863734 Problem Presence of left artificial knee joint (Z96.652) Active confirmed Artificial knee joint present (061257007429) Problem Essential hypertensi on (I10) Active confirmed 83881040 Problem Type 2 diabetes mellitus without complication (E11.9) Active confirmed 71874982 Problem Non morbid obesity d ue to excess calories (E66.09) Active confirmed 734419759 Problem Stenosis of right carotid artery (I65.21) Active confirmed 937686167236674 Problem GONZALES (nonalcoholic steatohepatitis) (K75.81) Active confirmed 001897365 Problem Intrinsic eczema (L20.84) Active confirmed 28003857 Problem Acute non intractabl e tension-type headache (G44.209) Active confirmed 885687369 Problem Schatzki's ring (K22.2) Active confirmed 595769140 Problem Leukocytosis, unspecified type (D72.829) Active confirmed 471977252 Problem Dysthymia (F34.1) Active confirmed 7866 7006 Problem Pure hypercholesterolemia (E78.00) Active confirmed 026402812 Problem Microcytic anemia (D50.9) Active confirmed Microcytic anemia (650082206) Problem Mild intermittent asthmatic bronchitis with acute exacerbation (J45.21) Active confirmed 275833103 Problem Altered mental statu s, unspecified altered mental status type (R41.82) Active confirmed 453873252 VITAL SIGNS Blood pressure diastolic 60 mm Hg 09/19/2023 donte ght is down 7 pounds since 05-30-23 Height 64.5 in 09/19/2023 weight is down 7 pounds since 05-30-23 Blood pressure systolic 112 mm Hg 09/19/2023 kenia ht is down 7 pounds since 05-30-23 Weight 179 lbs 09/19/2023 weight is down 7 pounds since 05-30-23 BMI 30.25 kg/m2 09/19/2023 weight is down 7 pounds since 05-30-23 Encounters Encounter Location Date Provider Diagnosis Homero Jones MD [address] [place] [id number] 03/03/2023 Homero Jones Ruptured Bakers cyst M66.0 Homero Jones MD [address] [place] [address] Drive [address] [place] [id number] 09/19/2023 Homero Jones Acute UTI N39.0 ; Essential hypertension I10 ; Type 2 diabetes mellitus without complication E11.9 ; Pure hypercholesterolemia E78.00 and Dysthymia F34.1 Homero Jones MD [address] [place] [id number] 09/11/2023 Homero Jones Essential hypertensi on I10 ; Pure hypercholesterolemia E78.00 and Type 2 diabetes mellitus without complication E11.[address] [place] [address] [id number] 10/17/2023 Homero Jones Hematuria R31.[address] [place] [address] [id number] 02/25/2023 Homero Jones Acute deep vein thro mbosis (DVT) of femoral vein of left lower extremity I82.412 Homero Jones MD [address] [place] [address] [id number] 05/30/2023 Homero Jones Type 2 diabetes vesna itus without complication E11.9 ; Bailon's cyst, ruptured M66.0 and Encounter for immunization Z23 ASSESSMENTS Encounter Date Diagnosis Assessment Notes Treatment Notes Treatment Clinical Notes 03/03/2023 Ruptured Bakers cyst (ICD-10 - M66.0) no sign of bruising/ there is a large fluid collecition on . since there is no bruising seems less likely to be a torn muscle with bleeding. no treatment other than rest for either one/ have expained that even if it is a clot it is not in the artery or vein so it can't travel anywhere 09/19/2023 Essential hypertensi on (ICD-10 - I10) doing well 09/19/2023 Acute UTI (ICD-10 - N39.0) Patient/Caregiver verbalizes understanding of medications side effects, interactions and warnings. 09/11/2023 Essential hypertensi on (ICD-10 - I10) 09/11/2023 Pure hypercholestero lemia (ICD-10 - E78.00) 02/25/2023 Acute deep vein thrombosis (DVT) of femoral vein of left lower extremity (ICD-10 - I82.412) if positve start eliquis 15 bid for 21 days and then 20 mg per day/ being done today 02-25-23 05/30/2023 Type 2 diabetes vesna itus without complication (ICD-10 - E11.9) has been eating poorly this summer, will continue current regiment and will continue to monitor 05/30/2023 Bailon's cyst, ruptur ed (ICD-10 - M66.0) pending diagnostic testing 09/19/2023 Type 2 diabetes vesna itus without complication (ICD-10 - E11.9) good a1c 09/11/2023 Type 2 diabetes vesna itus without complication (ICD-10 - E11.9) 10/17/2023 Hematuria (ICD-10 - R31.9) 05/30/2023 Encounter for immunization (ICD-10 - Z23) high dose flu vaccine administered 09/19/2023 Pure hypercholestero lemia (ICD-10 - E78.00) 09/19/2023 Dysthymia (ICD-10 - F34.1) PLAN OF TREATMENT Pending Test Test Name Order Date US LEG LT VENOUS DOPPLER 02/25/2023 Complete Blood Count Auto Diff Comprehensive Met. Panel 01/19/2024 XR knee LT 4V 01/19/2024 XR elbow LT 2V 01/19/2024 Future Test Test Name Order Date Urinalysis and Microscopic 10/10/2023 Next Appt Details Provider Name:Homero jimenez, 03/12/2024 07:30:00 AM, [address], [address], [place], [place], [phone], Provider Name:Homero Romano ier, 03/19/2024 01:45:00 PM, [address], [address], [place], [phone], Provider Name:Homero Romano ier, 09/16/2024 07:30:00 AM, [address], [address], [place], [phone], Provider Name:Homero Romano ier, 09/23/2024 01:00:00 PM, [address], [address], [place], [phone], Insurance Providers Payer Name Payer Address Payer Phone Subscriber Number Group Number Insured Name Patient Relationship to Insured Coverage Start Date Coverage End Date MEDICARE NHIC DENYS [address] [place] [address] [id number] LyudmilaKarlaan Self - patient is the insured [facility] [address] [place] [address] [id number] Lyudmila Swati Self - patient is the insured MEDICAL (GENERAL) HISTORY Medical History History ICD Code colonoscopy 2002 colonoscopy in 2002; colonos copy done 01/12/2013 - repeat in 10 years; endoscopy 02/23/15 (Dr. Moura); colonoscopy done 11/12/[address] Moura for rectal bleeding (due to age no more testing indicated) appt with 10/04/13 [facility] [employer] [facility], [facility] ([phone]), appt Mammo & Bone density 10/14/13/, [facility] flu vac 09/23/13 Arthritis
--- OUTSIDE RECORDS SUMMARY | 2024-01-20 00:48 | XMS_ITS | Continuity of Care Document ---
Author Organization [facility] [place] [facility] Address [address], [address] [place] [address]- Care Team Providers Care Loan And Credit Manager Name Role Phone Karen HEWITT, Homero Primary Care Physician [phone] Encounter [facility] Date(s): 12/08/20 - 12/15/20 [facility] [address] [place], [place] [address] Attending Physician: Domingo HEWITT, Shea Duval Referring Physician: Not on Staff, Referring MD Allergies, Adverse Reactions, Alerts Substance Reaction [...] Refills, Maintenance, 12/08/20 14:24:00 EDT, Cream, [id number], 1 application sparingly to affected area once [...] Pure hypercholesterolemia(Confirmed) Active Urge urinary incontinence(Confirmed) Active Vital Signs Most recent to oldest [Reference Range]: 1 Height 168 cm (12/08/20 11:26 AM) Weight 95 kg (12/08/20 11:26 AM) Body Mass Index [18.5-24.99] 33.66 *>HHI* (12/08/20 11:26 AM) Blood Pressure [90-138/55-84 mm Hg] 140/ 55mm Hg *H* (12/08/20 11:26 AM) Blood pressure sites Arm, right (12/08/20 11:26 AM) Weight Obtained Via Standing scale (12/08/20 11:26 AM) Social History Social History Type Response Smoking Status Former smoker; Tobac co user in household: No entered on: 03/04/16 Sex
--- OUTSIDE RECORDS SUMMARY | 2024-01-20 00:48 | XMS_ITS | Continuity of Care Document ---
Author Organization [facility] [place] [facility] Address [address], [address] [place] [address]- Care Team Providers Care Practice Lead Name Role Phone Karen HEWITT, Homero Primary Care Physician [phone] Encounter [facility] Date(s): 12/08/20 - 01/07/21 [facility] [address] [place], [place] [address] Attending Physician: Rod Ford Admitting Physician: [...] Refills, Maintenance, 12/08/20 14:24:00 EDT, Cream, [id number], 1 application sparingly to affected area once [...]
--- OUTSIDE RECORDS SUMMARY | 2024-01-20 00:48 | XMS_ITS | Continuity of Care Document ---
Author Organization [facility] Address [address] [place] [address]- Care Team Providers Care Vegetable Farmer Name Role Phone Karen HEWITT, Homero Primary Care Physician [phone] Encounter 04/15/21 - 05/01/21 [facility] [address] [place] [address]- Discharge Disposition: GOALS MET Allergies, Adverse Reactions, Alerts Substance Reaction Severity [...] Refills, Maintenance, 12/08/20 14:24:00 EDT, Cream, [facility]/pharmacy #[id number], 1 application sparingly to affected [...] 4 Refills, Maintenance, 04/05/21 10:33:00 EDT, [facility]/pharmacy #[id number], Partial fill upon patient request [...] Refills, Maintenance, 07/07/12 14:40:54 EDT Start Date: 10/30/12 Status: Ordered Metoprolol Succinate ER 50 mg [...] opioid drug. Start Date: 04/05/21 Status: Ordered trospium 60 mg oral capsule, extended release 1 capsule = 60 mg, By Mouth, Daily in AM, # 30 capsule, 11 Refills, Maintenance, 04/25/21 9:05:00 EDT, CR Capsule, [facility]/pharmacy #[id number], Partial fill upon patient request if the prescription is for a schedule II opioid drug., 162, cm, 04/14/21 7:01:00 E... Start Date: 04/25/21 Status: Ordered Problem List Condition Effective Dates [...]
--- OUTSIDE RECORDS SUMMARY | 2024-01-20 00:48 | XMS_ITS | Continuity of Care Document ---
Author Organization [facility] Address [address] [place] [address]- Care Team Providers Care Aluminum Siding Applicator Name Role Phone Homero Jones MD Primary Care Physician [phone] Encounter [facility] Date(s): 04/13/21 - 05/13/[address] [address]- Attending Physician: Not on Staff, Attending MD Admitting Physician: Not on Staff, Admitting MD Referring Physician: Not on Staff, Referring [...] 2 Refills, Maintenance, 12/08/20 14:24:00 EDT, Cream, [facility]/pharmacy #[id number], 1 application sparingly to [...] Refills, Maintenance, 05/02/21 8:32:00 EDT, ER Tablet, [facility]/pharmacy #[id number], Partial fill upon patient [...]
--- NOTE | 2024-01-20 01:11 | ED.FALL ---
HPI - Fall General Chief Complaint: Fall Stated Complaint: fell/facial,knee,elbow Time Seen by Provider: 01/20/24 00:24 Source: patient Mode of arrival: ambulatory Limitations: no limitations History of Present Illness HPI Narrative: 73 yo female with PMH of DM, arthritis, CAD, L TKR, on aspirin but not thinners tripped in garage around 8pm hit face no LOC injured L knee and L elbow got right up. Has bloody nose and L knee pain, L elbow laceration. Unsure of Tdap. No confusion of vomiting since injury MD complaint: fall Onset (ago): hour(s) (8pm) Fall from: standing Fall witnessed: no Place fall occurred: home Loss of consciousness: none Prolonged down time: no Symptoms prior to fall: none Context: tripped/slipped Location of injury: face and mouth Location of injury - extremities: left: knee and bilateral: elbow Severity: moderate Quality: dull and aching Associated symptoms (after fall): denies Related Data Home Medications ?Medication ?Instructions ?Recorded ?Confirmed amlodipine 5 mg tablet 5 mg PO DAILY 08/18/20 02/13/23 aspirin 81 mg tablet,delayed 81 mg PO DAILY 08/18/20 02/13/23 release atorvastatin 40 mg tablet 40 mg PO DAILY 08/18/20 02/13/23 metoprolol succinate 25 mg 25 mg PO DAILY 08/18/20 02/13/23 tablet,extended release 24 hr omeprazole 20 mg capsule,delayed 20 mg PO DAILY PRN 08/18/20 02/13/23 release clobetasol 0.05 % topical cream topical 02/12/21 02/13/23 ibuprofen 600 mg tablet (IBU) 600 mg PO TID 02/12/21 02/13/23 escitalopram oxalate 10 mg tablet 10 mg PO DAILY 02/12/22 02/13/23 metformin 500 mg tablet,extended 500 mg PO TID 02/13/23 02/13/23 release 24 hr oxybutynin chloride 10 mg 10 mg PO DAILY 02/13/23 02/13/23 tablet,extended release 24 hr valsartan 160 1 tab PO DAILY 02/13/23 02/13/23 mg-hydrochlorothiazide 12.5 mg tablet Allergies Allergy/AdvReac Type Severity Reaction Status Date / Time No Known Allergies Allergy Verified 01/19/24 21:29 [No Known Allergies*] Review of Systems Review of Systems: Constitutional : No Fever, No Chills ENT/Mouth : No Ear Pain, No Hoarseness, No sore throat, pos epistaxis Eyes: No Eye Pain, No Swelling, No Redness, No Foreign Body, pos lip contusion Cardiovascular : No Chest Pain, No SOB Respiratory : No Cough, No Dyspnea Gastrointestinal : No Nausea, No Vomiting, No Diarrhea, No abdominal Pain Genitourinary : No Dysuria, No Hematuria Musculoskeletal : positive joint pain, No Myalgias, No Joint Swelling Skin : No Skin lacerations, No rash Neuro : No Weakness, No Numbness, No Loss of Consciousness, No Dizziness, No Headache Psych : No Anxiety/Panic, No Depression All other systems reviewed and are negative [facility] Past Medical History Attestation statement: The following information was validated with the patient. Source: old records reviewed Medical History Carotid stenosis Osteoarthritis of knees, bilateral Varicose veins of bilateral lower extremities with pain Diabetes Diastolic dysfunction PVC (premature ventricular contraction) HTN (hypertension) Arteriosclerosis of coronary artery Hyperlipidemia Surgical History History of cardiac catheterization History of colonoscopy Social History Social History Alcohol intake: current Alcohol intake frequency: a few times a month Advance Directives: No Advance Directives Information Provided: Yes Do you have a plan to hurt others: No Plan Current occupational status: retired Current occupation: rt handed Physical Exam Vital Signs: Vital Signs: Last Vital Signs Temp 98.4 F 01/20/24 00:18 Pulse 59 01/20/24 00:18 Resp 16 01/20/24 00:18 BP 182/74 H 01/20/24 00:18 Pulse Ox 99 01/20/24 00:18 O2 Del Method Room Air 01/20/24 00:18 BMI result Body Mass Index 30.2 Appearance: Alert. Oriented X3. No acute distress. Eyes: Pupils equal, round and reactive to light. ENT: Pharynx contused upper lip, R nare dried blood, no lewis or raccoon sign Neck: slight ttp C6-C5. CVS: Normal heart rate and rhythm. Pulses normal. Respiratory: No respiratory distress. Breath sounds normal. Abdomen: Soft and nontender. Skin: Skin warm and dry. Normal skin color. Normal skin turgor. Extremities: No lower extremity edema. L knee small to moderate effusion no obvious deformity distal NV intact, R elbow normal ROM small skin tear, L elbow normal ROM has 3cm laceration superficial does not invade joint Neuro: Oriented X 3. No motor deficit. No sensory deficit. Medications Administered Discontinued Medications Generic Name Dose Route Start Last Admin Trade Name Jameq PRN Reason Stop Dose Admin Acetaminophen 975 mg 01/20/24 02:53 01/20/24 03:00 Acetaminophen 325 Mg Tablet PO 01/20/24 02:54 975 mg ONCE ONE Administration Diphtheria/Tetanus/Acell Pertussis 0.5 ml 01/20/24 00:34 01/20/24 02:58 Diphth,Pertus(Acell),Tet Adult 0.5 Ml Syringe IM 01/20/24 00:35 0.5 ml .ONCE ONE Administration Lidocaine HCl 5 ml 01/20/24 00:33 01/20/24 02:52 Lidocaine Hcl 1 % Mpf 5 Ml Vial SUBCUT 01/20/24 00:34 5 ml ONCE ONE Administration Procedures Laceration Laceration 1: Site: upper extremity Side (If applicable): left Size (cm): 3 Description: linear Depth: simple, single layer Local Anesthetic: lidocaine 1% Amount of anesthesia used (mL): 3 Pre-repair: wound explored, irrigated extensively and deep structures intact Skin layer closed with: nylon and other Size (cm): 4-0 Number of sutures: 3 Technique: simple, interrupted Medical Decision Making Medical Decision Making [facility] Narrative: 73 yo female with PMH of DM, arthritis, CAD, L TKR, on aspirin but not thinners here s/p mechanical fall at this time given age and injury CT head/cervical spine/facial bones ordered, xrays of elbow and knee ordered will repair wound update tdap and connor wrap the knee. No preceding symptoms and currently GCS 15. Differential Diagnosis Differential Diagnoses: The differential diagnosis associated with the presentation includes fracture, ICH, soft tissue injury Admission/Observation Consideration of admission/observation: Escalation of care including admission/observation considered GCS 15 stable for DC Lab Data [facility] Lab Attestation statement: I reviewed the patient's lab results. 01/19/24 22:07 01/19/24 22:03 Labs: Lab Results 01/19/24 01/19/24 Range/Units 22:03 22:07 WBC 9.4 (4.8-10.8) X10*3/uL RBC 4.67 (4.20-5.50) X10*6/uL Hgb 11.7 L (12.0-16.0) g/dl Hct 36.9 L (37.0-47.0) % MCV 79.0 L (80.0-98.0) fL MCH 25.1 L (27.0-33.0) pg MCHC 31.7 (31.0-35.0) g/dl RDW 15.2 (11.0-16.0) % Plt Count 421 H (160-400) X10*3/uL MPV 10.4 (9.4-12.3) fL Immature Gran % (Auto) 0.3 (0.0-0.4) % Neut % (Auto) 72.3 (45-73) % Lymph % (Auto) 15.1 L (20-40) % [place] % (Auto) 9.2 (2-11) % Eos % (Auto) 2.3 (0-4) % Baso % (Auto) 0.8 (0-2) % Lymph # (Auto) 1.4 (1.2-4.9) X10*3/uL [place] # (Auto) 0.9 (0.1-1.2) X10*3/uL Eos # (Auto) 0.2 (0.0-0.4) X10*3/uL Baso # (Auto) 0.1 (0.0-0.2) X10*3/uL Abs Immat Gran (auto) 0.03 (0.00-0.03) X10*3/uL Absolute Neuts (auto) 6.8 (2.0-8.3) x10*3/uL Absolute Nucleated RBC 0.000 (0.0-0.012) X10*3/uL Nucleated RBC % (auto) 0.0 (0.0-0.2) /100WBC Sodium 140 (135-145) mmol/L Potassium 4.0 (3.3-5.1) mmol/L Chloride 98 (96-108) mmol/L Carbon Dioxide 28 (22-29) mmol/L Anion Gap 18 (12-20) BUN 18 H (9-16) mg/dL Creatinine 0.70 (0.5-1.4) mg/dL Estim Creat Clear Calc 77.4 Estimated GFR > 60 Random Glucose 127 H (60-115) mg/dL Calcium 9.9 (8.4-10.2) mg/dL Total Bilirubin 0.3 (0.0-1.0) mg/dL AST 16 (5-31) U/L ALT 11 (0-31) U/L Alkaline Phosphatase 125 H (39-117) U/L Total Protein 8.0 (6.5-8.0) g/dL Albumin 4.1 (3.5-5.0) g/dL Independent Interpretation I performed an independent interpretation of an: Plain X-Ray (no fx) and CT Scan Radiology Impression Discussion of test interpretation with radiology: I have reviewed the radiologist's reading. Independent Historian Clinical information obtained from an independent historian. History obtained from or confirmed by: Other (daughter) External Record Review External record reviewed: Office record Discharge Plan Discharge Clinical Impression: Closed fracture nasal bone Qualifiers: Encounter type: initial encounter Qualified Code(s): S02.2XXA - Fracture of nasal bones, initial encounter for closed fracture Elbow laceration Qualifiers: Encounter type: initial encounter Laterality: left Qualified Code(s): S51.012A - Laceration without foreign body of left elbow, initial encounter Head injury Qualifiers: Encounter type: initial encounter Qualified Code(s): S09.90XA - Unspecified injury of head, initial encounter Contusion of lip Qualifiers: Encounter type: initial encounter Qualified Code(s): S00.531A - Contusion of lip, initial encounter Patient Disposition: Home, Self-Care Instructions: Nasal Fracture (ED), Laceration (ED), Head Injury (ED), Contusion in Adults (ED), Hematoma (ED) Additional Instructions: no nose blowing for the next 1 week avoid aspirin for the next 5 days return for confusion, vomiting, worsening pain, nose bleeds or any other concerns monitor laceration for redness, swelling, yellow drainage wear connor wrap for 5 days - follow up with [facility] nasal bone fracture can follow up with ENT - offices in [facility] [phone] Prescriptions: No Action clobetasol 0.05 % cream topical ibuprofen [IBU] 600 mg tablet 600 mg PO TID escitalopram oxalate 10 mg tablet 10 mg PO DAILY metoprolol succinate 25 mg tablet extended release 24 hr 25 mg PO DAILY aspirin 81 mg tablet,delayed release (DR/EC) 81 mg PO DAILY omeprazole 20 mg capsule,delayed release(DR/EC) 20 mg PO DAILY PRN atorvastatin 40 mg tablet 40 mg PO DAILY amlodipine 5 mg tablet 5 mg PO DAILY metformin 500 mg tablet extended release 24 hr 500 mg PO TID valsartan-hydrochlorothiazide 160-12.5 mg tablet 1 tab PO DAILY oxybutynin chloride 10 mg tablet extended release 24hr 10 mg PO DAILY Print Language: Luxembourgish
[2024-01-20] MEDS: Lidocaine HCl 1 % MPF 5 ML VIAL SUBCUT (02:52)
[2024-01-20] MEDS: Diphth,Pertus(ACell),Tet Adult 0.5 ML SYRINGE IM (02:58)
[2024-01-20] MEDS: Acetaminophen 325 MG TABLET 975 MG PO (03:00)
[2024-01-20 04:00] VITALS: BP 149/67; PULSE 60; RESP 16; TEMP 36.8; O2SAT 95
[2024-01-20 04:10] VITALS: BP 149/67; PULSE 60; RESP 16; TEMP 36.8
== END 2024-01-20 04:12 | disposition home or self-care (01) ==
PROVIDERS: Emergency Provider Emergency Medicine; PCP Internal Medicine
DX: S02.2XXA Fracture of nasal bones, initial encounter for closed fracture (principal); S09.90XA Unspecified injury of head, initial encounter; S51.012A Laceration without foreign body of left elbow, initial encounter; S00.531A Contusion of lip, initial encounter; W01.0XXA Fall on same level from slipping, tripping and stumbling without subsequent striking against object, initial encounter; M25.462 Effusion, left knee; E11.9 Type 2 diabetes mellitus without complications; I10 Essential (primary) hypertension; E78.5 Hyperlipidemia, unspecified; Y93.9 Activity, unspecified; Y92.008 Other place in unspecified non-institutional (private) residence as the place of occurrence of the external cause; Y99.9 Unspecified external cause status; Z79.82 Long term (current) use of aspirin; Z79.02 Long term (current) use of antithrombotics/antiplatelets; Z79.84 Long term (current) use of oral hypoglycemic drugs; Z23 Encounter for immunization
CPT/HCPCS: 12002; 36415; 70450; 70486; 72125; 73070; 73564; 80053; 85025; 90471; 90715; 99284

== ENCOUNTER 2024-03-08 10:54 | Outpatient (REF) | payer MEDICARE, OTHER, SELFPAY ==
[2024-03-08 11:50] LABS: Alanine Aminotransferase 11 U/L (0-31); Albumin Level 3.7 g/dL (3.5-5.0); Alkaline Phosphatase 96 U/L (39-117); Aspartate Amino Transferase 14 U/L (5-31); Bilirubin Direct 0.1 mg/dL (0.0-0.5); Bilirubin Total 0.3 mg/dL (0.0-1.0); Cholesterol 119 mg/dL (<200); Glucose Fasting 137 mg/dL (60-99); HDL Cholesterol 46 mg/dL (>40); LDL Cholesterol Calculated 59 mg/dL (<100); Total Protein 7.1 g/dL (6.5-8.0); Triglycerides 71 mg/dL (<150)
[2024-03-08 12:10] LABS: Estimated Average Glucose 143 mg/dL; Hemoglobin A1c % 6.6 % (<6.0)
[2024-03-08 14:10] LABS: Reflex LDLD? No
== END 2024-03-08 10:55 | disposition home or self-care (01) ==
LOC: HO.LNP 10:54
PROVIDERS: Visit Provider Internal Medicine
DX: E11.9 Type 2 diabetes mellitus without complications (principal); E78.00 Pure hypercholesterolemia, unspecified
CPT/HCPCS: 80061; 80076; 82947; 83036

== ENCOUNTER 2024-03-19 15:47 | Outpatient (REF) | payer MEDICARE, OTHER, SELFPAY ==
[2024-03-19 16:30] LABS: Iron 58 mcg/dL (30-160); Percent Iron Saturation 21 % (15-50); Total Iron Binding Capacity 272 mcg/dL (228-428); Unsaturated Iron Binding 214 ug/dL
== END 2024-03-19 15:48 | disposition home or self-care (01) ==
LOC: HO.LNP 15:47
PROVIDERS: Visit Provider Internal Medicine
DX: R71.8 Other abnormality of red blood cells (principal)
CPT/HCPCS: 83540

== ENCOUNTER 2024-05-03 09:08 | Outpatient (AMB) | payer MEDICARE, OTHER, SELFPAY ==
[2024-05-03 09:13] VITALS: BP 120/62; PULSE 67; BMI 31.0
--- NOTE | 2024-05-03 09:13 | A.OFFVIS_ITS ---
Vital Signs 05/03/24 09:13 Height 5 ft 6 in Weight 191 lb 12.835 oz BMI 31.0 BP 120/62 Blood Pressure Location Lt brachial Position Sitting Pulse 67 Pulse Source Monitor Intake Visit Reasons: pre-op knee surgery dr jacki davison Cutting Machine Fixer Required: No Allergies No Known Allergies [No Known Allergies*] Allergy (Verified 05/03/24 09:15) Medication List - Last Reconciled 05/03/24 by Radha Garcia NP-C amlodipine 5 mg PO DAILY aspirin 81 mg PO DAILY atorvastatin 40 mg PO DAILY clobetasol 0.05% topical escitalopram oxalate 10 mg PO DAILY ibuprofen (IBU) 600 mg PO TID metformin ER 500 mg PO TID metoprolol succinate ER 25 mg PO DAILY omeprazole 20 mg PO DAILY PRN oxybutynin chloride ER 10 mg PO DAILY valsartan-hydrochlorothiazide 160-12.5 mg 1 tab PO DAILY HPI HPI pre-op knee surgery dr jacki davison: Details: Swati is a 73-year-old female past medical history of hypertension, hyperlipidemia, diabetes, nonobstructive coronary disease who presents for preop cardiac evaluation for knee surgery. Today she reports that she has been feeling well with no concerning cardiac symptoms. She denies chest discomfort at rest or with activity. She denies shortness of breath, PND, orthopnea or ankle edema. She does have swelling around her left knee. No palpitations, lightheadedness, presyncope, syncope, falls. Taking meds as directed. She is able to perform normal ADLs without difficulty. She has challenges with stair climbing due to knee pain. She is going to visit her son and will be back in this area on 05/11/2024. Her surgery is planned for 05/25/2024. [facility] Medical History (Updated 05/03/24 @ 10:21 by Radha Garcia, CONTINUOUS MINING OPERATOR-C) Carotid stenosis Osteoarthritis of knees, bilateral Varicose veins of bilateral lower extremities with pain Diabetes Diastolic dysfunction PVC (premature ventricular contraction) HTN (hypertension) Arteriosclerosis of coronary artery Hyperlipidemia Surgical History History of cardiac catheterization History of colonoscopy Social History Alcohol intake: current Alcohol intake frequency: a few times a month Current occupational status: retired Current occupation: rt handed Review of Systems Const All systems reviewed & are unremarkable except as noted in HPI and below ENT Denies dizziness Card Denies chest pain, Denies chest pain at rest, Denies chest pain with activity, Denies rapid heart rate, Denies pedal edema, Denies edema, Denies leg edema, Denies lightheadedness, Denies palpitations, Denies dyspnea, Denies dyspnea on exertion and Denies orthopnea Resp Denies cough, Denies dyspnea and Denies dyspnea on exertion GI Denies hematochezia and Denies change in stool character Musc Denies abnormal gait, Reports limited range of motion (left knee pain), Denies muscle cramps, Denies muscle weakness, Denies numbness, Denies radiating pain into limb, Denies stiffness and Denies tingling Neuro Denies abnormal gait, Denies dizziness, Denies numbness and Denies tingling Endo Denies palpitations Physical Exam Vital Signs: Last Vital Signs Pulse 67 05/03/24 09:13 BP 120/62 05/03/24 09:13 BMI result Body Mass Index 31.0 Const General: cooperative, healthy appearing, comfortable and no acute distress Orientation/consciousness: patient oriented x3 Neck Neck: Yes normal visual inspection and Yes no JVD Resp Effort & Inspection: normal respiratory effort Auscultation: clear to auscultation bilaterally, no crackles, no rales, no rhonchi and no wheezes Cardio Jugular venous distension: no JVD Rate: regular rate Rhythm: regular rhythm Heart sounds: S1 normal heart sound present, S2 normal heart sound present, no murmurs and no rubs Neuro General: patient oriented x3 Extrem Other: visable swelling left knee General: No no pedal edema Psych Appearance: grossly normal Mental Status: mental status grossly normal Speech and movement: Normal speech and movement present Office Procedures EKG Details: Today, read by me, sinus rhythm with PACs, low-voltage QRS, can not exclude prior anterior infarct, rate 67, QTC 424 milliseconds [id number], Complete Assessment & Plan Assessment & Plan (1) Arteriosclerosis of coronary artery: Code(s): I25.10 - Atherosclerotic heart disease of [place] coronary artery without angina pectoris Category: Medical Plan: History of nonobstructive coronary artery disease. Her last nuclear stress test was 03/02/2021 showing probable ischemia in the distal anterior septum, basal lateral defect which could be artifact. Last echocardiogram done 11/03/2017 showed EF 60-65%, no valve abnormalities. She has cardiac risk factors including hypertension, hyperlipidemia, diabetes. She has been maintained on aspirin, atorvastatin, amlodipine, metoprolol, valsartan/hydrochlorothiazide. Today she reports no anginal sounding symptoms. Activity is limited by left knee pain. She is now preop for knee surgery. EKG done today showing sinus rhythm with PAC, can not exclude prior anterior infarct, rate 67. Will update echocardiogram and nuclear stress test prior to her surgery. Plan to call her with results. Continue with strict risk factor modification. No medication changes made. Cardiology office visit in 1 year, sooner if needed or if cardiac testing warrants. (2) HTN (hypertension): Code(s): I10 - Essential (primary) hypertension Category: Medical Plan: [place] blood pressure goal less than 130 over 85. Blood pressure today 120/62. Labs done 01/19/2024 shows potassium 4, creatinine 0.7. Continue amlodipine, metoprolol, valsartan/hydrochlorothiazide. (3) Hyperlipidemia: Code(s): E78.5 - Hyperlipidemia, unspecified Category: Medical Plan: [place] LDL goal less than 70 in patient with CAD and diabetes. Labs done 03/08/2024 showed LDL 59. Continue atorvastatin 40 mg daily. (4) Preoperative cardiovascular examination: Code(s): Z01.810 - Encounter for preprocedural cardiovascular examination Category: Medical Plan: Preop for left knee surgery on 05/25/2024 with MELINDA Ha. Will be updating cardiac testing as above. This note will be updated once test results are available. Plan Time spent on chart review, documentation, interview and assessment Orders: Orders CA lexiscan stress w lul 05/12/24 E78.5 - Hyperlipidemia, unspecified, I10 - Essential (primary) hypertension, I25.10 - Atherosclerotic heart disease of [place] coronary artery without angina pectoris, Z01.810 - Encounter for preprocedural cardiovascular examination CA echo transthoracic complete 05/12/24 I25.10 - Atherosclerotic heart disease of [place] coronary artery without angina pectoris NM cardiolite stress test 05/12/24 I25.10 - Atherosclerotic heart disease of [place] coronary artery without angina pectoris Coding Level of Care Code Est Pt Level 4 (60165) Diagnoses Arteriosclerosis of coronary artery I25.10 HTN (hypertension) I10 Hyperlipidemia E78.5 Preoperative cardiovascular examination Z01.810 CPT Codes EKG - CPT: 19902-[id number], Complete ([id number]) Time Spent (min) 30
== END 2024-05-03 09:39 | disposition home or self-care (01) ==
PROVIDERS: PCP Internal Medicine; Visit Provider Nurse Practitioner Family
DX: I25.10 Atherosclerotic heart disease of native coronary artery without angina pectoris (principal); I10 Essential (primary) hypertension; E78.5 Hyperlipidemia, unspecified; Z01.810 Encounter for preprocedural cardiovascular examination
CPT/HCPCS: 93010; 99214

== ENCOUNTER → 2024-05-03 09:08 | Outpatient (BNVA) | payer MEDICARE, OTHER, SELFPAY | PROVIDERS: PCP Internal Medicine; Visit Provider Nurse Practitioner Family | DX: Z01.810 Encounter for preprocedural cardiovascular examination (principal); I25.10 Atherosclerotic heart disease of native coronary artery without angina pectoris; I10 Essential (primary) hypertension; E78.5 Hyperlipidemia, unspecified; I49.1 Atrial premature depolarization; R94.31 Abnormal electrocardiogram [ECG] [EKG] | CPT/HCPCS: 93005; 99212 ==

== ENCOUNTER → 2024-05-13 12:58 | Outpatient (REF) | payer MEDICARE, OTHER, SELFPAY ==
--- NOTE | 2024-05-13 13:04 | CA_ITS ---
Transthoracic Echocardiogram Patient (Last, First, Middle): Swati Coreas M Gender: Female Date of : 1950 Age: 73 Procedure Date: 05/13/2024 Procedure Type: Transthoracic Echocardiogram Location: OP Height: 162.56 cm Weight: 88. kg BSA: 1.93 m2 Heart Rate: bpm BP: 136 / 66 mmHg Donor Services Coordinator: MONIKA Referring MD: Radha Garcia OCCUPATIONAL THERAPIST PER DIEMRobi Symptoms: I25.10 - Atherosclerotic heart disease of [place] coronary artery without... Study Quality: Fair, contrast ECG Rhythm: Sinus Conclusions: - The left ventricular systolic function is normal. The calculated ejection fraction is 67% by biplane method. - The left atrium is moderately dilated. - No obvious valvular pathology seen on this study. Findings Procedure Information Contrast agent, definity, is being given per protocol without apparent complications. Left Ventricle Normal left ventricular cavity size. The left ventricular systolic function is normal. The calculated ejection fraction is 67% by biplane method. There is no evidence of regional wall motion abnormalities. Diastolic function is normal for age. There is mild septal and mild basal asymmetric hypertrophy. Right Ventricle Normal right ventricular cavity size and systolic function. Atria The left atrium is moderately dilated. The right atrium is normal in size. Aortic Valve There is a normal trileaflet aortic valve. There is no aortic valve stenosis. There is no aortic valve regurgitation. Mitral Valve The mitral valve appears normal. There is no mitral valve regurgitation. There is no mitral valve stenosis. Pulmonic Valve The pulmonic valve is likely normal. Tricuspid Valve There is no tricuspid valve regurgitation. Tricuspid regurgitation envelope is inadequate for calculation of right ventricular systolic pressure. Great Vessels The asc aorta is normal in size. Venous The inferior vena cava is normal in size and collapses greater than 50% with inspiration. Pericardium/Pleural There is no evidence of pericardial effusion. Prior Study Comparison No significant change compared to prior study dated: 11/03/2017. Recommendations, Care & Conclusions No obvious valvular pathology seen on this study. Measurements 2D Linear Measurements IVSd: 1.19 0.6-0.9/0.6-1.0 cm LVIDd: 4.93 3.9-5.3/4.2-5.9 cm LVIDd Index: 2.55 2.4-3.2/2.2-3.1 cm/m2 LVIDs: 3.09 2.0-3.6 cm LVPWd: 0.83 0.7-1.1 cm LA Diam: 4.40 2.7-3.8/3.0-4.0 cm LAIDs Index: 2.28 1.5-2.3 cm/m2 LV Mass: 224.36 67-162/88-224 g LV Mass Index: 116.25 43-95/49-115 g/m2 LVOT Diam: 2.00 3.0+(-)1.3 cm 2D Systolic Function EF 4C: 61.80 >55% EF 2C: 72.20 >55% EF BiP: 66.50 >55% Mitral Valve MV Pk E: 0.73 MV PK A: 0.53 MV Decel Time: 176.00 E/A: 1.40 E'Lateral: 8.81 E'Medial: 5.77 E/E' Med: 12.70 E/E' Lat: 8.30 PHT: 52.00 MVA PHT: 4.23 Decel Morrill: 4.16 Aortic Valve AoV Pk Usama: 1.37 AoV Mn Usama: 0.93 AoV VTI: 0.33 AoV Pk Grad: 8.00 Aov Mn Grad: 4.00 MYKEL Cont.VTI: 2.21 LVOT LVOT Pk Usama: 1.06 LVOT Mn Usama: 0.65 LVOT VTI: 0.23 LVOT Pk Grad: 4.00 LVOT Mn Grad: 2.00 LVOT Diam: 2.00 LVOT Area: 3.14 Diastolic Function MV Pk E: 0.73 MV Pk A: 0.53 E/A: 1.40 E'Medial: 5.77 E/E' Med: 12.70 E' Laterial: 8.81 E/E' Lat: 8.30 Right Ventricle TAPSE (mm): 24.30 TVS' Usama: 15.60 Tricuspid Valve RA Press: 3.00 Great Vessels Aorta Sinus of Valsalva: 3.37 2.0-3.5 cm Ao Asc: 3.40 2.1-3.4 cm Updated in Other Vendor System with Status of Final Tre Iyer MD electronically signed on 05/15/2024 1:21:17 PM with status of Final
== END ==
LOC: HO.CARD 12:58
PROVIDERS: Visit Provider Nurse Practitioner Family
DX: I25.10 Atherosclerotic heart disease of native coronary artery without angina pectoris (principal)
CPT/HCPCS: 93306; Q9957

== ENCOUNTER → 2024-05-13 13:04 | Outpatient (BNV) | payer MEDICARE, OTHER, SELFPAY | PROVIDERS: Visit Provider Internal Medicine | DX: I25.10 Atherosclerotic heart disease of native coronary artery without angina pectoris (principal); I42.2 Other hypertrophic cardiomyopathy | CPT/HCPCS: 93306 ==

== ENCOUNTER → 2024-05-14 07:51 | Outpatient (REF) | payer MEDICARE, OTHER, SELFPAY ==
--- NOTE | ~2024-05-14 | NM_ITS ---
Lexiscan Myocardial perfusion study Indication: Preoperative cardiovascular stratification prior CAD Technique: The patient was brought in for a Lexiscan perfusion study on 05/14/2024 and was injected 0.4 mg of Lexiscan intravenously. Within a minute of this injection 30 mCi of sestamibi was given intravenously. Images were obtained using the SPECT gamma camera interlaced with the gating device. Images were obtained in supine position. Resting perfusion study was performed on 05/17/2024. Patient was administered 30 mCi of sestamibi intravenously at rest. Images were then obtained in supine position. Images obtained without without CT attenuation. Total DLP 172 mGy-cm. Images were processed with the software and compared side to side in short axis, horizontal long axis and vertical long axis views. Findings: The stress perfusion study showed a nonattenuation images show mildly reduced uptake in the distal inferolateral and mid inferolateral wall of the myocardium could be related to attenuation artifact from the arms down position. Remainder of the LV myocardium is normally perfused. Attenuated corrected images show normal uptake of radiotracer in all segments of the myocardium. There is suggestion of left ventricular hypertrophy. The gated study shows normal LV systolic function with calculated LVEF of 67%. LV cavity is normal in size. The gated study shows normal systolic wall thickening and contraction of segments. Resting study shows on nonrotated images show mildly reduced uptake in the distal lateral wall of the LV myocardium with some patchy reduced uptake in the lateral wall of, again most likely related to on the down position. Attenuated corrected images show mildly reduced uptake in the apex of the LV myocardium. Gating at rest reveals normal systolic wall motion with ejection fraction at 56%. The findings are consistent with likely normal myocardial perfusion. NM/NM cardiolite stress test Impression: 1. Myocardial perfusion imaging study shows likely normal myocardial perfusion 2. Gated LVEF is 67% 3. Transient ischemic dilatation not present Nondiagnostic changes on EKG. Electronically signed by: Irving Grant MD 05/18/2024 04:35 PM EDT
--- NOTE | 2024-05-14 07:57 | CA_ITS ---
Acquisition Time: 2024-05-14 08:06:50 Total Exercise Time: 00:02:00 Test Indications: PREOP Medications: Protocol: LEXISCAN Max HR: 114 BPM 78% of Pred: 146 BPM Max BP: 142/074 mmHG Max Work Load: 1.6 METS Pharmacological stress test with Lexiscan injection, while walking slow on treadmill, without anginal symptoms, without arrythmia, with normotensive response to injection, with nondiagnostic EKG for ischemia. In late recovery she reported mild headache and she was given Aminophylline 75mg IVP to reverse Lexiscan with resolution of symptom. Nuclear images pending. Test reviewed with Dr Iyer. Referred By: Radha Garcia Overread By: RADHA GARCIA
== END ==
LOC: HO.CARD 07:51
PROVIDERS: PCP Internal Medicine; Visit Provider Nurse Practitioner Family
DX: Z01.810 Encounter for preprocedural cardiovascular examination (principal); I25.10 Atherosclerotic heart disease of native coronary artery without angina pectoris; E78.5 Hyperlipidemia, unspecified; I10 Essential (primary) hypertension
CPT/HCPCS: 78452; 93017; A9500; J0280; J2785

== ENCOUNTER → 2024-05-14 07:57 | Outpatient (BNV) | payer MEDICARE, OTHER, SELFPAY | PROVIDERS: PCP Internal Medicine; Visit Provider Nurse Practitioner Family | DX: I25.10 Atherosclerotic heart disease of native coronary artery without angina pectoris (principal) | CPT/HCPCS: 78452; 93016; 93018 ==

== ENCOUNTER 2024-08-10 20:38 | Emergency (ER) | payer MEDICARE, OTHER, SELFPAY ==
--- NOTE | ~2024-08-10 | CT_ITS ---
EXAMINATION: CT HEAD WITHOUT CONTRAST CT CERVICAL SPINE WITHOUT CONTRAST CLINICAL INFORMATION: Fall. Pain. COMPARISON: April 26, 2019. TECHNIQUE: Contiguous axial imaging was performed through the head and cervical spine without intravenous administration of contrast. Sagittal and coronal reformatted images also obtained. This CT examination was performed using dose optimization techniques as appropriate, variously including the following: *Automated exposure control *Adjustment of mA and/or kV according to patient size (this includes techniques or standardized protocols for targeted exams where dose is matched to indication/reason for exam; i.e. extremities or head) *Use of iterative reconstruction technique DLP: 1048 mGy-cm FINDINGS: There is mild cerebral volume loss with prominence of the lateral and the third ventricles. The cortical sulci are widened appropriately. The fourth ventricle and basal cisterns are normally outlined. There is mild bilateral periventricular and central white matter diminished attenuation. There is no acute territorial defects, hemorrhage or midline shift. The extra-axial spaces are unremarkable. Calvarium/scalp: Intact. Maxillofacial sinuses and mastoids: Clear as visualized. Cervical spine: The alignment is normal. There is diffuse mild to moderate cervical disc degenerative change most pronounced at C5-6 and C6-7 with loss of disc space, endplate change and posterior osteophytes associated with diffuse mild to moderate facet osteoarthritic hypertrophic change with multilevel mild spinal canal and neuroforaminal narrowing. The bony structures are osteopenic. No fracture is seen. The soft tissues are unremarkable. The visualized upper lung esquivel are clear. CT/CT head/brain wo IV con IMPRESSION: 1. No acute intracranial process seen. 2. Mild cerebral volume loss with chronic small vessel ischemic changes. 3. No acute cervical spine fracture or dislocation seen. There are degenerative disc changes C5-6 and C6-7 disc levels with multilevel mild spinal canal and neuroforaminal narrowing. Electronically signed by: Martin Conde MD 08/11/2024 12:22 AM [facility]
--- NOTE | ~2024-08-10 | CT_ITS ---
EXAMINATION: CT CHEST WITHOUT CONTRAST CLINICAL INFORMATION: Fall. Rib pain. COMPARISON: None available. TECHNIQUE: Multidetector volumetric CT imaging of the chest was done. Axial MIP volume rendering provided. Sagittal and coronal reformatted images were obtained. This CT examination was performed using dose optimization techniques as appropriate, variously including the following: *Automated exposure control *Adjustment of mA and/or kV according to patient size (this includes techniques or standardized protocols for targeted exams where dose is matched to indication/reason for exam; i.e. extremities or head) *Use of iterative reconstruction technique DLP: 308 mGy-cm FINDINGS: DRESS OPERATOR: Unremarkable. LUNGS: The lungs are clear with no evidence of inflammation or nodules. MEDIASTINUM: The mediastinum is normal. CORONARY ARTERY CALCIFICATION: Mild. PLEURA: There is no pleural effusion. No pleural mass or thickening. AXILLA: No lymphadenopathy. UPPER ABDOMEN: Unremarkable. OSSEOUS STRUCTURES: Unremarkable. CT/CT chest wo IV con IMPRESSION: No significant abnormality identified. Fleischner guidelines were followed. Electronically signed by: Martin Conde MD 08/11/2024 03:12 AM [facility]
--- NOTE | ~2024-08-10 | CT_ITS ---
EXAMINATION: CT HEAD WITHOUT CONTRAST CT CERVICAL SPINE WITHOUT CONTRAST CLINICAL INFORMATION: Fall. Pain. COMPARISON: April 26, 2019. TECHNIQUE: Contiguous axial imaging was performed through the head and cervical spine without intravenous administration of contrast. Sagittal and coronal reformatted images also obtained. This CT examination was performed using dose optimization techniques as appropriate, variously including the following: *Automated exposure control *Adjustment of mA and/or kV according to patient size (this includes techniques or standardized protocols for targeted exams where dose is matched to indication/reason for exam; i.e. extremities or head) *Use of iterative reconstruction technique DLP: 1048 mGy-cm FINDINGS: There is mild cerebral volume loss with prominence of the lateral and the third ventricles. The cortical sulci are widened appropriately. The fourth ventricle and basal cisterns are normally outlined. There is mild bilateral periventricular and central white matter diminished attenuation. There is no acute territorial defects, hemorrhage or midline shift. The extra-axial spaces are unremarkable. Calvarium/scalp: Intact. Maxillofacial sinuses and mastoids: Clear as visualized. Cervical spine: The alignment is normal. There is diffuse mild to moderate cervical disc degenerative change most pronounced at C5-6 and C6-7 with loss of disc space, endplate change and posterior osteophytes associated with diffuse mild to moderate facet osteoarthritic hypertrophic change with multilevel mild spinal canal and neuroforaminal narrowing. The bony structures are osteopenic. No fracture is seen. The soft tissues are unremarkable. The visualized upper lung esquivel are clear. CT/CT cervical spine wo IV con IMPRESSION: 1. No acute intracranial process seen. 2. Mild cerebral volume loss with chronic small vessel ischemic changes. 3. No acute cervical spine fracture or dislocation seen. There are degenerative disc changes C5-6 and C6-7 disc levels with multilevel mild spinal canal and neuroforaminal narrowing. Electronically signed by: Martin Conde MD 08/11/2024 12:22 AM [facility]
--- NOTE | ~2024-08-10 | XR_ITS ---
EXAMINATION: XR RIBS, RIGHT CLINICAL INFORMATION: Fall COMPARISON: Chest radiograph 09/17/2018 TECHNIQUE: Single view of the chest and 3 views of the right ribs were obtained. FINDINGS: Lungs are clear. No consolidation, pneumothorax, or pleural effusion. The cardiomediastinal silhouette and pulmonary vasculature are normal. Degenerative changes are present throughout the spine. Ribs are intact. No fractures are identified. XR/XR ribs RT min 3V w CXR1V IMPRESSION: 1. No acute pulmonary disease. 2. No rib fractures. Electronically signed by: Jhon Murray MD 08/11/2024 12:32 AM EST
[2024-08-10 21:03] VITALS: BP 115/67; PULSE 64; RESP 14; TEMP 36.6; O2SAT 97; BMI 32.5
[2024-08-10 21:20] LABS: MANUAL DIFF FLAG NO
[2024-08-10 21:21] LABS: Basophils Absolute Auto 0.1 X10*3/uL (0.0-0.2); Basophils Percent Auto 0.8 % (0-2); Eosinophils Absolute Auto 0.1 X10*3/uL (0.0-0.4); Eosinophils Percent Auto 1.1 % (0-4); Hematocrit 37.1 % (37.0-47.0); Hemoglobin 11.7 g/dl (12.0-16.0); Imm Gran Abs Auto 0.03 X10*3/uL (0.00-0.03); Imm Gran Pct Auto 0.3 % (0.0-0.4); Lymphocytes Absolute Auto 1.3 X10*3/uL (1.2-4.9); Lymphocytes Percent Auto 12.4 % (20-40); Mean Corpuscular HGB Conc 31.5 g/dl (31.0-35.0); Mean Corpuscular Hemoglobin 25.5 pg (27.0-33.0); Mean Platelet Volume 10.3 fL (9.4-12.3); Monocytes Absolute Auto 0.9 X10*3/uL (0.1-1.2); Monocytes Percent Auto 8.6 % (2-11); Neutrophils Absolute Auto 8.1 x10*3/uL (2.0-8.3); Neutrophils Percent Auto 76.8 % (45-73); Platelet Count 427 X10*3/uL (160-400); Red Blood Count 4.58 X10*6/uL (4.20-5.50); Red Cell Distribution Width 14.7 % (11.0-16.0); White Blood Count 10.5 X10*3/uL (4.8-10.8)
[2024-08-10 21:40] LABS: Alanine Aminotransferase 21 U/L (0-31); Alkaline Phosphatase 104 U/L (39-117); Anion Gap 13 (12-20); Aspartate Amino Transferase 26 U/L (5-31); Bilirubin Total 0.3 mg/dL (0.0-1.0); Blood Urea Nitrogen 16 mg/dL (9-16); Calcium 9.7 mg/dL (8.4-10.2); Carbon Dioxide 30 mmol/L (22-29); Chloride 101 mmol/L (96-108); Creatinine Clr Calc Pharmacy 72.2; Estimated Glomerular Filt Rate > 60; Glucose Random 143 mg/dL (60-115); Potassium 3.9 mmol/L (3.3-5.1); Sodium 140 mmol/L (135-145); Total Protein 7.4 g/dL (6.5-8.0)
[2024-08-10 22:54] VITALS: BP 154/68; PULSE 70; RESP 16; TEMP 37; O2SAT 98
--- NOTE | 2024-08-10 23:03 | ED.FALL ---
HPI - Fall General Chief Complaint: Fall Stated Complaint: Fall/Rib pain/nose bleed Time Seen by Provider: 08/10/24 23:03 Source: patient Mode of arrival: ambulatory Limitations: no limitations History of Present Illness ED Provider: HPI Narrative: Patient apparently came after the fall tripped on a bag on the floor fell forward hitting on the wood of the screen door at 19:00 since then patient has been bleeding from the nose also complaining of stiffness in the neck and pain in the lower right rib no loss of consciousness patient does take aspirin Related Data Home Medications ?Medication ?Instructions ?Recorded ?Confirmed amlodipine 5 mg tablet 5 mg PO DAILY 08/18/20 05/03/24 aspirin 81 mg tablet,delayed 81 mg PO DAILY 08/18/20 05/03/24 release atorvastatin 40 mg tablet 40 mg PO DAILY 08/18/20 05/03/24 metoprolol succinate 25 mg 25 mg PO DAILY 08/18/20 05/03/24 tablet,extended release 24 hr omeprazole 20 mg capsule,delayed 20 mg PO DAILY PRN 08/18/20 05/03/24 release clobetasol 0.05 % topical cream topical 02/12/21 05/03/24 ibuprofen 600 mg tablet (IBU) 600 mg PO TID 02/12/21 05/03/24 escitalopram oxalate 10 mg tablet 10 mg PO DAILY 02/12/22 05/03/24 metformin 500 mg tablet,extended 500 mg PO TID 02/13/23 05/03/24 release 24 hr oxybutynin chloride 10 mg 10 mg PO DAILY 02/13/23 05/03/24 tablet,extended release 24 hr valsartan 160 1 tab PO DAILY 02/13/23 05/03/24 mg-hydrochlorothiazide 12.5 mg tablet Allergies Allergy/AdvReac Type Severity Reaction Status Date / Time No Known Allergies Allergy Verified 08/10/24 21:06 [No Known Allergies*] Review of Systems Review of Systems: Yes all other systems are reviewed and are negative [facility] Past Medical History Medical History Carotid stenosis Osteoarthritis of knees, bilateral Varicose veins of bilateral lower extremities with pain Diabetes Diastolic dysfunction PVC (premature ventricular contraction) HTN (hypertension) Arteriosclerosis of coronary artery Hyperlipidemia Surgical History History of cardiac catheterization History of colonoscopy Social History Social History Alcohol intake: current Alcohol intake frequency: a few times a month Advance Directives: No Advance Directives Information Provided: Yes Do you have a plan to hurt others: No Plan Current occupational status: retired Current occupation: rt handed Physical Exam Vital Signs: Vital Signs: Last Vital Signs Temp 98.5 F 08/11/24 01:16 Pulse 65 08/11/24 01:16 Resp 18 08/11/24 01:16 BP 146/55 H 08/11/24 01:16 Pulse Ox 98 08/11/24 01:16 O2 Del Method Room Air 08/11/24 01:16 BMI result Body Mass Index 32.5 Appearance: Alert. Oriented X3. No acute distress. Eyes: PERRLA, No Nystagmus ENT: Pharynx normal. Oral Mucosa moist dried blood in the left nostril with no active significant bleeding Neck: Normal inspection. Neck supple. CVS: Normal heart rate and rhythm. Pulses normal. Respiratory: No respiratory distress. Equal air entry bilateral, no wheezing/rales/rhonchi tenderness right lower rib no crepitation Abdomen: Soft and nontender. Bowel sounds are present, no mass palpable, no CVA tenderness Skin: Skin warm and dry. Normal skin color. Normal skin turgor. Extremities: No lower extremity edema. No calf tenderness Neuro: Oriented X 3. No motor deficit. No sensory deficit.No cerebellar signs , cranial nerves II-XII intact Medications Administered Discontinued Medications Generic Name Dose Route Start Last Admin Trade Name Lucy PRN Reason Stop Dose Admin Ibuprofen 600 mg 08/11/24 00:47 08/11/24 01:17 Ibuprofen 600 Mg Tablet PO 08/11/24 00:48 600 mg ONCE ONE Administration Silver Nitrate 1 appl 08/10/24 23:13 08/11/24 01:00 Silver Nitrate Applicator Stick..Ea. TOPICAL 08/10/24 23:14 1 appl ONCE ONE Administration Procedures Epistaxis Control Nostril: Yes left Direct inspection: Yes anterior source identified Direct inspection method: Yes otoscope Epistaxis treatment: Yes silver nitrate cautery Medical Decision Making Medical Decision Making MDM Narrative: Patient is status post mechanical fall comes here for minor nosebleed and right rib pain CT scan of the chest is negative for rib fracture bleeding from the nostril stopped after silver nitrate Differential Diagnosis Differential Diagnoses: The differential diagnosis associated with the presentation includes Admission/Observation Consideration of admission/observation: Escalation of care including admission/observation considered Lab Data MDM Lab Attestation statement: I reviewed the patient's lab results. 08/10/24 21:15 08/10/24 21:15 Labs: Lab Results 08/10/24 Range/Units 21:15 WBC 10.5 (4.8-10.8) X10*3/uL RBC 4.58 (4.20-5.50) X10*6/uL Hgb 11.7 L (12.0-16.0) g/dl Hct 37.1 (37.0-47.0) % MCV 81.0 (80.0-98.0) fL MCH 25.5 L (27.0-33.0) pg MCHC 31.5 (31.0-35.0) g/dl RDW 14.7 (11.0-16.0) % Plt Count 427 H (160-400) X10*3/uL MPV 10.3 (9.4-12.3) fL Immature Gran % (Auto) 0.3 (0.0-0.4) % Neut % (Auto) 76.8 H (45-73) % Lymph % (Auto) 12.4 L (20-40) % Garland % (Auto) 8.6 (2-11) % Eos % (Auto) 1.1 (0-4) % Baso % (Auto) 0.8 (0-2) % Lymph # (Auto) 1.3 (1.2-4.9) X10*3/uL Garland # (Auto) 0.9 (0.1-1.2) X10*3/uL Eos # (Auto) 0.1 (0.0-0.4) X10*3/uL Baso # (Auto) 0.1 (0.0-0.2) X10*3/uL Abs Immat Gran (auto) 0.03 (0.00-0.03) X10*3/uL Absolute Neuts (auto) 8.1 (2.0-8.3) x10*3/uL Absolute Nucleated RBC 0.000 (0.0-0.012) X10*3/uL Nucleated RBC % (auto) 0.0 (0.0-0.2) /100WBC Sodium 140 (135-145) mmol/L Potassium 3.9 (3.3-5.1) mmol/L Chloride 101 (96-108) mmol/L Carbon Dioxide 30 H (22-29) mmol/L Anion Gap 13 (12-20) BUN 16 (9-16) mg/dL Creatinine 0.74 (0.5-1.4) mg/dL Estim Creat Clear Calc 72.2 Estimated GFR > 60 Random Glucose 143 H (60-115) mg/dL Calcium 9.7 (8.4-10.2) mg/dL Total Bilirubin 0.3 (0.0-1.0) mg/dL AST 26 (5-31) U/L ALT 21 (0-31) U/L Alkaline Phosphatase 104 (39-117) U/L Total Protein 7.4 (6.5-8.0) g/dL Albumin 4.0 (3.5-5.0) g/dL Independent Interpretation I performed an independent interpretation of an: CT Scan Radiology Impression Discussion of test interpretation with radiology: I have reviewed the radiologist's reading. Radiologist Impression: CT/CT chest wo IV con IMPRESSION: No significant abnormality identified. Fleischner guidelines were followed. Electronically signed by: Martin Conde MD 08/11/2024 03:12 AM [facility] [place] Discharge Clinical Impression: Acute anterior epistaxis, Contusion of rib on right side Patient Disposition: Home, Self-Care Instructions: Nosebleed (ED), Rib Contusion (ED) Additional Instructions: Local care as advised Tylenol/Motrin for pain Your CT scans of the head and C-spine are negative, no rib fracture seen in the Xray Prescriptions: No Action clobetasol 0.05 % cream topical ibuprofen [IBU] 600 mg tablet 600 mg PO TID escitalopram oxalate 10 mg tablet 10 mg PO DAILY metoprolol succinate 25 mg tablet extended release 24 hr 25 mg PO DAILY aspirin 81 mg tablet,delayed release (DR/EC) 81 mg PO DAILY omeprazole 20 mg capsule,delayed release(DR/EC) 20 mg PO DAILY PRN atorvastatin 40 mg tablet 40 mg PO DAILY amlodipine 5 mg tablet 5 mg PO DAILY metformin 500 mg tablet extended release 24 hr 500 mg PO TID valsartan-hydrochlorothiazide 160-12.5 mg tablet 1 tab PO DAILY oxybutynin chloride 10 mg tablet extended release 24hr 10 mg PO DAILY Discharge Date/Time: 08/11/24 01:25 Print Language: Maltese
--- NOTE | 2024-08-10 23:14 | PC.NURSE ---
Addendum entered by Ginny Rodriguez 08/10/24 23:17: pt to ct scan at this time. Original Note: pt ambulatory with steady gait from wr to ed1 and to bathroom and back to stretcher. MD called to bedside for evaluation, slight bleeding continues from bilat nostrils, pt reports 5/10 pain of nose, tip of nose slightly swollen. pt denies headstrike/loc, no bruising/lac noted to head/jaw. pt reports mild pain to R rib area no visible bruising/redness/swelling, tender to palp during MD eval. pt denies cp/sob/dizziness prior to fall or after, reports there was a bag on the floor and she thought she stepped over it but tripped. aspirin 81mg daily missed dose today, no other thinners. daughter at bedside, call fraser within reach.
[2024-08-11] MEDS: Silver Nitrate Applicator STICK..EA. 1 APPL TOPICAL (01:00)
[2024-08-11 01:16] VITALS: BP 146/55; PULSE 65; RESP 18; TEMP 36.9; O2SAT 98
[2024-08-11] MEDS: Ibuprofen 600 MG TABLET PO (01:17)
--- OUTSIDE RECORDS SUMMARY | 2024-08-17 16:01 | XMS_ITS ---
Author Organization Homero Jones MD Address [address] [place], [place] [id number] Care Team Providers Care Senior Production Planner Name Role Phone Homero Jones Primary Care Provider REASON FOR VISIT flu shot Encounters Encounter Location Date Provider Diagnosis Homero Jones MD [address] [facility] [address] [place] [phone] 08/13/2024 Homero Jones PLAN OF TREATMENT Next Appt Details Provider Name:Homero Romano ier, 09/16/2024 07:30:00 AM, [address] [place] [address], Suite [facility], [place], [place], [phone], Provider Name:Homero porterr, 09/23/2024 01:00:00 PM, [address] [place] [address], Suite [facility], [place], [place], [phone],
--- OUTSIDE RECORDS SUMMARY | 2024-08-17 16:01 | XMS_ITS | Patient Health Record ---
Author Organization Homero Jones MD Address [address] [place], [place] [id number] Care Team Providers Care Intramural Director Name Role Phone Homero Jones Primary Care Provider ALLERGIES No Known Allergies RESULTS Component Value Reference Range Notes MM tomosynthesis screening B I Reviewed date:09/05/2023 06:32:12 PM Interpretation: Performing Lab: Notes/Report: [address] [place] [address] Mammography Report Signed Patient: Swati Coreas MR#: [id number] 1 : 1950 Acct:[id number] Age/Sex: 73 / F ADM Date: 08/22/23 Loc: HO.MAMMO Attending Dr: Homero Jones MD Ordering Physician: Homero Jones MD Results: 1Ne gative Date of Service: 08/22/23 Follow Up: 1 Year From Orig inal Mammogram Procedure(s): MM tomosynthesis screening BI Accession Number(s): [id number] cc: Homero Jones MD EXAMINATION: MM SCREENING [...] in OV> 09/05/23 1544 DD/ 1059 TD/TT: Examination Scorer: Urine Culture Reviewed date:09/12/2023 12:25:55 PM Interpretation: Performing Lab:[address] [address] Notes/Report: O:STRAGA Strep agalactiae (Gr p B) Urine Culture Quant Urine Culture 10,000 to 50,000 cfu/mL Urine Culture Susc N/A Urine Culture Susceptibility not routinely performed on this isolate. Complete Blood Count Auto Di ff Reviewed date:09/11/2023 04:24:05 PM Interpretation: Performing Lab:[address] [address] Notes/Report: White Blood Count 7.0 4.8-10.8 X10*3/uL [...] NRBC Abs Auto 0.000 0.0-0.012 X10*3/uL Comprehensive [place]. Panel Fa st Reviewed date:09/11/2023 04:23:00 PM Interpretation: Performing Lab:[facility], [address] [place] [phone] Notes/Report: Sodium 138 135-145 mmol/L Potassium 3.9 3.3-5.1 mmol/L Chloride 101 96-108 mmol/L Carbon Dioxide 28 22-29 mmol/L Anion Gap 13 12-20 Blood Urea Nitrogen 14 9-16 mg/dL Creatinine 0.75 0.5-1.4 mg/dL Estimated Glomerular Filt Rate > 60 NOTE: For -Romanian individuals, multiply the result by 1.210. Chronic [...] Panel Reviewed date:09/11/2023 12:40:33 PM Interpretation: Performing Lab:[facility], [address] [place] [phone] Notes/Report: Triglycerides 64 <150 mg/dL Desirable Triglyceride: [...] (Free>4and<10) Reviewed date:09/11/2023 01:35:51 PM Interpretation: Performing Lab:[address] [address] Notes/Report: PSA,Total (Free>4and<10) TNP Keysha ting ordered in error Microalbumin, Random Reviewed date:09/11/2023 02:52:28 PM Interpretation: Performing Lab:[address] [address] Notes/Report: Creatinine Urine 117.26 Microalbumin Urine 12.0 Microalbum/Creatinine Ratio Ur 10.2 <30 ug/mg cr Albumin/Creatinine Ratio Reference Ranges: Normal: < 30 ug/mg creatinine Microalbuminuria: 30 - 300 ug/mg creatinine Clinical Albuminuria: > 300 ug/mg creatinine Hemoglobin A1c Reviewed date:09/11/2023 12:41:16 PM Interpretation: Performing Lab:[facility], [address] [place] [phone] Notes/Report: Hemoglobin A1c % 6.1 <6.0 % [...] average glucose, using the formula of the F8W-Ezzsjvu Average Glucose study (ADAG), Diabetes Care, Vol.31,#8, Apr. 2007 UA ClnCatch+Micro w/rflx Cul t Reviewed date:09/19/2023 01:20:20 PM Interpretation:see back 09-19-23 Performing Lab:[address] [address] Notes/Report: Urine, Clean Catch Color Urine Yellow Appearance Urine Hazy PH 6.0 5.0-9.0 Glucose Urine UA Negative Negative mg/dL Urine Blood Negative Negative Specific [place] - Urine 1.020 1.005-1.025 Urine Protein Negative Neg-Trace mg/dL Urine Ketones Negative Negative mg/dL Nitrite Urine Negative Negative Leukocyte Esterase Urine Large (3+) Negative RBC Urine 6-10 0-2 /HPF WBC Urine 21-50 0-5 /HPF Squamous Epithelial Cell Urine 6-10 0-2 /HPF Bacteria Urine None Seen None Seen Hyaline Casts Urine 0-2 0-2 /LPF Urine Culture Reviewed date:10/18/2023 06:38:38 PM Interpretation: Performing Lab:[address] [address] Notes/Report: O:STRAGA Strep agalactiae (Gr p B) Urine Culture Quant Urine Culture 10,000 to 50,000 cfu/mL Urine Culture Susc N/A Urine Culture Susceptibility not routinely performed on this isolate. UA ClnCatch+Micro w/rflx Cul t Reviewed date:10/18/2023 06:49:42 PM Interpretation: Performing Lab:[address] [address] Notes/Report: [id number] Urine, Clean Catch Color Urine Yellow Appearance Urine Clear PH 6.0 5.0-9.0 Glucose Urine UA Negative Negative mg/dL Urine Blood Negative Negative Specific [place] - Urine 1.010 1.005-1.025 Urine Protein Negative Neg-Trace mg/dL Urine Ketones Negative Negative mg/dL Nitrite Urine Negative Negative Leukocyte Esterase Urine Small (1+) Negative RBC Urine 0-2 0-2 /HPF WBC Urine 0-5 0-5 /HPF Squamous Epithelial Cell Urine 0-2 0-2 /HPF Bacteria Urine None Seen None Seen Hyaline Casts Urine 0-2 0-2 /LPF Complete Blood Count Auto Di ff Reviewed date:01/20/2024 03:05:33 PM Interpretation: Performing Lab:[facility], [address] [place] [phone] Notes/Report: White Blood Count 9.4 4.8-10.8 X10*3/uL [...] Auto 0.000 0.0-0.012 X10*3/uL Comprehensive Met. Panel Reviewed date:01/20/2024 04:17:32 PM Interpretation: Performing Lab:[facility], [address] [place] [phone] Notes/Report: Sodium 140 135-145 mmol/L Potassium 4.0 [...] Glomerular Filt Rate > 60 NOTE: For -Romanian individuals, multiply the result by 1.210. Chronic Kidney Disease: Estimated GFR < 60 mL/min/1.73m2 Severe Kidney Disease: Estimated GFR < 15 mL/min/1.73m2 Glucose Random 127 60-115 mg/dL Calcium 9.9 8.4-10.2 mg/dL Bilirubin Total 0.3 0.0-1.0 mg/dL Aspartate Amino Transferase 16 5-31 U/L Alanine Aminotransferase 11 0-31 U/L Total Protein 8.0 6.5-8.0 g/dL Albumin Level 4.1 3.5-5.0 g/dL Alkaline Phosphatase 125 39-117 U/L CT facial bones wo con Reviewed date:01/20/2024 12:40:15 PM Interpretation: Performing Lab: Notes/Report: [address] [address] [address] Scan Report Signed Patient: Swati Coreas MR#: [id number] 1 : 1950 Acct:[id number] Age/Sex: 73 / F ADM Date: 01/20/24 Loc: HO.ED Attending Dr: Ordering Physician: Navya Nguyen DO Date of Service: 01/19/24 Procedure(s): CT facial bones wo IV con Accession Number(s): [id number] cc: Homero Jones MD; Navya Nguyen DO EXAMINATION: CT HEAD WITHOUT CONTRAST CT CERVICAL SPINE WITHOUT CONTRAST CT FACIAL BONES WITHOUT CONTRAST CLINICAL INFORMATION: Trauma. Pain. COMPARISON: None available. TECHNIQUE: Contiguous noncontrast CT scan images of the head, cervical spine and facial bones were obtained. Sagittal and coronal reformatted images also obtained. This CT examination was performed using dose optimization techniques as appropriate, variously including the following: *Automated exposure control *Adjustment of mA and/or kV according to patient size (this includes techniques or standardized protocols for targeted exams where dose is matched to indication/reason for exam; i.e. extremities or head) *Use of iterative reconstruction technique DLP: 1091+266 mGy-cm FINDINGS: There is mild cerebral volume loss with prominence of the lateral and the third ventricles. The cortical sulci are widened appropriately. The fourth ventricle and basal cisterns are normally outlined. There is mild bilateral periventricular and central white matter image attenuation. There is no acute territorial defect, hemorrhage or midline shift. The extra-axial spaces are unremarkable. Calvarium/scalp: Intact. Facial bones: Minimally displaced nasal bone fracture. No other fracture is seen. The maxillofacial sinuses are clear. There is apparent nasal soft tissue swelling and upper labial soft tissue swelling. Cervical spine: There is straightening of the expected cervical spine curvature. There is mild C5-C6 and C6-C7 disc degenerative change with loss of disc space, endplate change and mild posterior osteophytes associated with mild diffuse facet osteoarthritic hypertrophic change with minimal spinal canal and neural foraminal narrowing. The bony structures are osteopenic. No acute fractures seen. The soft tissues are unremarkable. The visualized upper lung esquivel are clear. CT/CT facial bones wo IV con IMPRESSION: HEAD CT: No acute intracranial process seen. MAXILLOFACIAL CT: Minimally displaced nasal bone fracture with nasal and upper labial soft tissue swelling. CERVICAL SPINE: Straightening of the expected cervical spine curvature likely spasm. No acute fracture or dislocation seen. Dictated By: Louis Conde Signed By: <Electronically signed by Louis Conde in OV> 01/20/24 0300 DD/ 47 TD/TT: Examination Scorer: XR knee LT 4V Reviewed date:01/20/2024 12:41:05 PM Interpretation: Performing Lab: Notes/Report: [address] [address] XRay Report Signed Patient: Swati Coreas MR#: [id number] 1 : 1950 Acct:[id number] Age/Sex: 73 / F ADM Date: 01/19/24 Loc: HO.ED Attending Dr: Ordering Physician: Generic ED Physician Date of Service: 01/19/24 Procedure(s): XR knee LT 4V Accession Number(s): [id number] cc: Homero Jones MD; Generic ED Physician [...] by Jhon Murray MD in OV> 01/19/24 6005 DD/ 47 TD/TT: Examination Scorer: SS XR elbow LT 2V Reviewed date:01/20/2024 12:40:34 PM Interpretation: Performing Lab: Notes/Report: [address] [address] XRay Report Signed Patient: Swati Coreas MR#: [id number] 1 : 1950 Acct:[id number] Age/Sex: 73 / F ADM Date: 01/19/24 Loc: HO.ED Attending Dr: Ordering Physician: Generic ED Physician Date of Service: 01/19/24 Procedure(s): XR elbow LT 2V Accession Number(s): [id number] cc: Homero Jones MD; Generic ED Physician [...] MD in OV> 01/19/245 DD/ 47 TD/TT: Examination Scorer: CT cervical spine wo con Reviewed date:01/20/2024 12:36:15 PM Interpretation: Performing Lab: Notes/Report: [address] [address] [address] Scan Report Signed Patient: Swati Coreas MR#: [id number] 1 : 1950 Acct:[id number] Age/Sex: 73 / F ADM Date: 01/20/24 Loc: HO.ED Attending Dr: Ordering Physician: Navya Nguyen DO Date of Service: 01/20/24 Procedure(s): CT cervical spine wo IV con Accession Number(s): [id number] cc: Homero Jones MD; Navya Nguyen DO EXAMINATION: CT HEAD WITHOUT CONTRAST CT CERVICAL SPINE WITHOUT CONTRAST CT FACIAL BONES WITHOUT CONTRAST CLINICAL INFORMATION: Trauma. Pain. COMPARISON: None available. TECHNIQUE: Contiguous noncontrast CT scan images of the head, cervical spine and facial bones were obtained. Sagittal and coronal reformatted images also obtained. This CT examination was performed using dose optimization techniques as appropriate, variously including the following: *Automated exposure control *Adjustment of mA and/or kV according to patient size (this includes techniques or standardized protocols for targeted exams where dose is matched to indication/reason for exam; i.e. extremities or head) *Use of iterative reconstruction technique DLP: 1091+266 mGy-cm FINDINGS: There is mild cerebral volume loss with prominence of the lateral and the third ventricles. The cortical sulci are widened appropriately. The fourth ventricle and basal cisterns are normally outlined. There is mild bilateral periventricular and central white matter image attenuation. There is no acute territorial defect, hemorrhage or midline shift. The extra-axial spaces are unremarkable. Calvarium/scalp: Intact. Facial bones: Minimally displaced nasal bone fracture. No other fracture is seen. The maxillofacial sinuses are clear. There is apparent nasal soft tissue swelling and upper labial soft tissue swelling. Cervical spine: There is straightening of the expected cervical spine curvature. There is mild C5-C6 and C6-C7 disc degenerative change with loss of disc space, endplate change and mild posterior osteophytes associated with mild diffuse facet osteoarthritic hypertrophic change with minimal spinal canal and neural foraminal narrowing. The bony structures are osteopenic. No acute fractures seen. The soft tissues are unremarkable. The visualized upper lung esquivel are clear. CT/CT cervical spine wo IV con IMPRESSION: HEAD CT: No acute intracranial process seen. MAXILLOFACIAL CT: Minimally displaced nasal bone fracture with nasal and upper labial soft tissue swelling. CERVICAL SPINE: Straightening of the expected cervical spine curvature likely spasm. No acute fracture or dislocation seen. Dictated By: Louis Conde Signed By: <Electronically signed by Louis Conde in OV> 01/20/24 0300 DD/ 0050 TD/TT: Examination Scorer: CT head/brain wo con Reviewed date:02/04/2024 04:46:38 PM Interpretation: Performing Lab: Notes/Report: [address] [address] [address] Scan Report Signed Patient: Swati Coreas MR#: [id number] 1 : 1950 Acct:[id number] Age/Sex: 73 / F ADM Date: 01/20/24 Loc: HO.ED Attending Dr: Ordering Physician: Navya Nguyen DO Date of Service: 01/20/24 Procedure(s): CT head/brain wo IV con Accession Number(s): [id number] cc: Homero Jones MD; Navya Nguyen DO EXAMINATION: CT HEAD WITHOUT CONTRAST CLINICAL INFORMATION: Head trauma COMPARISON: None available. TECHNIQUE: Contiguous axial imaging was performed from the skull base to vertex without intravenous administration of contrast. This CT examination was performed using dose optimization techniques as appropriate, variously including the following: *Automated exposure control *Adjustment of mA and/or kV according to patient size (this includes techniques or standardized protocols for targeted exams where dose is matched to indication/reason for exam; i.e. extremities or head) *Use of iterative reconstruction technique DLP: 1091 mGy-cm FINDINGS: There is no evidence of intracranial hemorrhage, hemorrhagic or ischemic infarct. There are no masses, midline shift. Ventricles and sulci are appropriate for age. There is no abnormal periventricular white matter changes. There is no evidence of skull fracture. Partially visualized paranasal sinuses and mastoids are well aerated. CT/CT head/brain wo IV con IMPRESSION: No acute intracranial pathology. Dictated By: Arielle Box MD Signed By: <Electronically signed by Arielle Box MD in OV> 02/04/24 1135 DD/ 0050 TD/TT: Examination Scorer: Francesco Hsu Reviewed date:03/08/2024 12:16:21 PM Interpretation: Performing Lab:[address] [address] Notes/Report: Francesco Hsu See Note Specimen held untested for 24 hours; Call to request Chemistry testing. Liver Panel Reviewed date:03/08/2024 04:15:27 PM Interpretation: Performing Lab:[facility], [address] [place] [phone] Notes/Report: Bilirubin Total 0.3 0.0-1.0 mg/dL Bilirubin Direct 0.1 0.0-0.5 mg/dL Aspartate Amino Transferase 14 5-31 U/L Alanine Aminotransferase 11 0-31 U/L Total Protein 7.1 6.5-8.0 g/dL Albumin Level 3.7 3.5-5.0 g/dL Alkaline Phosphatase 96 39-117 U/L Glucose Fasting Reviewed date:03/08/2024 04:15:06 PM Interpretation: Performing Lab:[address], [place] [address] Notes/Report: Glucose Fasting 137 60-99 mg/dL A fasting glucose of 126 mg/dl or greater on more than one occasion is considered diagnostic of diabetes. Lipid Panel with Reflex Reviewed date:03/08/2024 04:15:17 PM Interpretation: Performing Lab:[facility], [address] [place] [phone] Notes/Report: Triglycerides 71 <150 mg/dL Desirable Triglyceride: less than 150 mg/dL Borderline High Triglyceride 150-199 mg/dL High Triglyceride: 200-499 mg/dL Very High Triglyceride: greater than or equal to 5OO mg/dL Cholesterol 119 <200 mg/dL Desirable Cholesterol: less than 200 mg/dL Borderline High Cholesterol: 200-239 mg/dL High Cholesterol: greater than 239 mg/dL LDL Cholesterol Calculated 59 <100 mg/dL Desirable LDL: less than 100 mg/dL Near Optimal/Above Optimal LDL: 110-129 mg/dL Borderline High LDL: 130-159 mg/dL High LDL: 160-189 mg/dL Very High LDL: greater than or equal to 190 mg/dL HDL Cholesterol 46 >40 mg/dL Desirable HDL: greater than 40 mg/dL Note: This HDL assay may give artificially low results in patients with liver disease. Hemoglobin A1c Reviewed date:03/08/2024 12:16:13 PM Interpretation: Performing Lab:[facility], [address] [place] [phone] Notes/Report: Hemoglobin A1c % 6.6 <6.0 % Hemoglobin A1C Reference Range Adults: 4.8 - 6.0 % Non diabetic: < 6.0 % Goal: < 7.0 % Additional Action Suggested: > 8.0 % Note: Hemoglobin A1c results are invalid for patients with abnormal amounts of HbF. Blood transfusions may impact the HbA1c concentration in the patient sample. Estimated Average Glucose 143 eAG = Estimated average glucose which is %A1C expressed as average glucose, using the formula of the D1Z-Hwxabii Average Glucose study (ADAG), Diabetes Care, Vol.31,#8, Apr. 2007 IRON PROFILE Reviewed date:03/19/2024 04:50:00 PM Interpretation: Performing Lab:[facility], [address] [place] [phone] Notes/Report: Iron 58 30-160 mcg/dL Total Iron Binding Capacity 272 228-428 mcg/dL Percent Iron Saturation 21 15-50 % Unsaturated Iron Binding 214 Diabetic Eye Exam Reviewed date:05/14/2024 01:31:37 PM Interpretation:No diabetic retinopathy Performing Lab: Notes/Report: No diabetic retinopathy NM cardiolite stress test Reviewed date:05/19/2024 08:41:11 AM Interpretation: Performing Lab: Notes/Report: [address] [address] Nuclear Medicine Report Signed Patient: Swati Coreas MR#: [id number] 1 : 1950 Acct:[id number] Age/Sex: 73 / F ADM Date: 05/14/24 Loc: DELMY Attending Dr: Radha SUAREZ Ordering Physician: Radha Garcia Date of Service: 05/14/24 Procedure(s): NM cardiolite stress test Accession Number(s): [id number] cc: Homero Jones MD; Radha Garcia Lexiscan Myocardial perfusion study Indication: Preoperative cardiovascular stratification prior CAD Technique: The patient was brought in for a Lexiscan perfusion study on 05/14/2024 and was injected 0.4 mg of Lexiscan intravenously. Within a minute of this injection 30 mCi of sestamibi was given intravenously. Images were obtained using the SPECT gamma camera interlaced with the gating device. Images were obtained in supine position. Resting perfusion study was performed on 2024. Patient was administered 30 mCi of sestamibi intravenously at rest. Images were then obtained in supine position. Images obtained without without CT attenuation. Total DLP 172 mGy-cm. Images were processed with the software and compared side to side in short axis, horizontal long axis and vertical long axis views. Findings: The stress perfusion study showed a nonattenuation images show mildly reduced uptake in the distal inferolateral and mid inferolateral wall of the myocardium could be related to attenuation artifact from the arms down position. Remainder of the LV myocardium is normally perfused. Attenuated corrected images show normal uptake of radiotracer in all segments of the myocardium. There is suggestion of left ventricular hypertrophy. The gated study shows normal LV systolic function with calculated LVEF of 67%. LV cavity is normal in size. The gated study shows normal systolic wall thickening and contraction of segments. Resting study shows on nonrotated images show mildly reduced uptake in the distal lateral wall of the LV myocardium with some patchy reduced uptake in the lateral wall of, again most likely related to on the down position. Attenuated corrected images show mildly reduced uptake in the apex of the LV myocardium. Gating at rest reveals normal systolic wall motion with ejection fraction at 56%. The findings are consistent with likely normal myocardial perfusion. NM/NM cardiolite stress test Impression: 1. Myocardial perfusion imaging study shows likely normal myocardial perfusion 2. Gated LVEF is 67% 3. Transient ischemic dilatation not present Nondiagnostic changes on EKG. Electronically signed by: Irving Grant MD 05/18/2024 04:35 PM EDT RP Dictated By: Irving Grant MD Signed By: <Electronically signed by Irving Grant MD in OV> 05/18/24 1635 DD/ 0807 TD/TT: 05/17/24 1330 Examination Scorer: Complete Blood Count Auto Di ff Reviewed date:08/12/2024 03:26:50 PM Interpretation: Performing Lab:[facility], [address] [place] [phone] Notes/Report: White Blood Count 10.5 4.8-10.8 X10*3/uL Red Blood Count 4.58 4.20-5.50 X10*6/uL Hemoglobin 11.7 12.0-16.0 g/dl Hematocrit 37.1 37.0-47.0 % Mean Corpuscular Volume 81.0 80.0-98.0 fL Mean Corpuscular Hemoglobin 25.5 27.0-33.0 pg Mean Corpuscular HGB Conc 31.5 31.0-35.0 g/dl Red Cell Distribution Width 14.7 11.0-16.0 % Platelet Count 427 160-400 X10*3/uL Mean Platelet Volume 10.3 9.4-12.3 fL Neutrophils Percent Auto 76.8 45-73 % Imm Gran Pct Auto 0.3 0.0-0.4 % Lymphocytes Percent Auto 12.4 20-40 % Monocytes Percent Auto 8.6 2-11 % Eosinophils Percent Auto 1.1 0-4 % Basophils Percent Auto 0.8 0-2 % NRBC Pct Auto 0.0 0.0-0.2 /100WBC Neutrophils Absolute Auto 8.1 2.0-8.3 x10*3/u L Imm Gran Abs Auto 0.03 0.00-0.03 X10*3/uL Lymphocytes Absolute Auto 1.3 1.2-4.9 X10*3/u L Monocytes Absolute Auto 0.9 0.1-1.2 X10*3/uL Eosinophils Absolute Auto 0.1 0.0-0.4 X10*3/u L Basophils Absolute Auto 0.1 0.0-0.2 X10*3/uL NRBC Abs Auto 0.000 0.0-0.012 X10*3/uL Comprehensive Met. Panel Reviewed date:08/12/2024 03:26:31 PM Interpretation: Performing Lab:[facility], [address] [place] [phone] Notes/Report: Sodium 140 135-145 mmol/L Potassium 3.9 3.3-5.1 mmol/L Chloride 101 96-108 mmol/L Carbon Dioxide 30 22-29 mmol/L Anion Gap 13 12-20 Blood Urea Nitrogen 16 9-16 mg/dL Creatinine 0.74 0.5-1.4 mg/dL Creatinine Clr Calc Pharmacy 72.2 Provided height and weight: 165.1 cm, 88.6 kg. eGFR (calculated from the MDRD study equation) and eCrCl (calculated from the Cockcroft-Gault equation) are based on different parameters and may not yield comparable results. If eCrCl result is absurd, please check patient's height/weight. Estimated Glomerular Filt Rate > 60 Chronic Kidney Disease: Estimated GFR < 60 mL/min/1.73m2 Severe Kidney Disease: Estimated GFR < 15 mL/min/1.73m2 Glucose Random 143 60-115 mg/dL Calcium 9.7 8.4-10.2 mg/dL Bilirubin Total 0.3 0.0-1.0 mg/dL Aspartate Amino Transferase 26 5-31 U/L Alanine Aminotransferase 21 0-31 U/L Total Protein 7.4 6.5-8.0 g/dL Albumin Level 4.0 3.5-5.0 g/dL Alkaline Phosphatase 104 39-117 U/L CT cervical spine wo con Reviewed date:08/12/2024 03:26:12 PM Interpretation: Performing Lab: Notes/Report: [address] [address] [address] Scan Report Signed Patient: Swati Coreas MR#: [id number] 1 : 1950 Acct:[id number] Age/Sex: 74 / F ADM Date: 08/10/24 Loc: HO.ED Attending Dr: Ordering Physician: Bigg Zhou MD Date of Service: 08/10/24 Procedure(s): CT cervical spine wo IV con Accession Number(s): [id number] cc: Homero Jones MD; Bigg Zhou MD EXAMINATION: CT HEAD WITHOUT CONTRAST CT CERVICAL SPINE WITHOUT CONTRAST CLINICAL INFORMATION: Fall. Pain. COMPARISON: April 26, 2019. TECHNIQUE: Contiguous axial imaging was performed through the head and cervical spine without intravenous administration of contrast. Sagittal and coronal reformatted images also obtained. This CT examination was performed using dose optimization techniques as appropriate, variously including the following: *Automated exposure control *Adjustment of mA and/or kV according to patient size (this includes techniques or standardized protocols for targeted exams where dose is matched to indication/reason for exam; i.e. extremities or head) *Use of iterative reconstruction technique DLP: 1048 mGy-cm FINDINGS: There is mild cerebral volume loss with prominence of the lateral and the third ventricles. The cortical sulci are widened appropriately. The fourth ventricle and basal cisterns are normally outlined. There is mild bilateral periventricular and central white matter diminished attenuation. There is no acute territorial defects, hemorrhage or midline shift. The extra-axial spaces are unremarkable. Calvarium/scalp: Intact. Maxillofacial sinuses and mastoids: Clear as visualized. Cervical spine: The alignment is normal. There is diffuse mild to moderate cervical disc degenerative change most pronounced at C5-6 and C6-7 with loss of disc space, endplate change and posterior osteophytes associated with diffuse mild to moderate facet osteoarthritic hypertrophic change with multilevel mild spinal canal and neuroforaminal narrowing. The bony structures are osteopenic. No fracture is seen. The soft tissues are unremarkable. The visualized upper lung esquivel are clear. CT/CT cervical spine wo IV con IMPRESSION: 1. No acute intracranial process seen. 2. Mild cerebral volume loss with chronic small vessel ischemic changes. 3. No acute cervical spine fracture or dislocation seen. There are degenerative disc changes C5-6 and C6-7 disc levels with multilevel mild spinal canal and neuroforaminal narrowing. Electronically signed by: Martin Conde MD 08/11/2024 12:22 AM [facility] Dictated By: Martin Conde MD Signed By: <Electronically signed by Martin Conde MD in OV> 08/11/24 0022 DD/ 2311 TD/TT: 08/10/24 2338 Examination Scorer: CT chest wo con Reviewed date:08/12/2024 03:24:48 PM Interpretation: Performing Lab: Notes/Report: [address] [address] [address] Scan Report Signed Patient: Swati Coreas MR#: [id number] 1 : 1950 Acct:[id number] Age/Sex: 74 / F ADM Date: 08/10/24 Loc: HO.ED Attending Dr: Ordering Physician: Bigg Zhou MD Date of Service: 08/10/24 Procedure(s): CT chest wo IV con Accession Number(s): [id number] cc: Homero Jones MD; Bigg Zhou MD EXAMINATION: CT CHEST WITHOUT CONTRAST CLINICAL INFORMATION: Fall. Rib pain. COMPARISON: None available. TECHNIQUE: Multidetector volumetric CT imaging of the chest was done. Axial MIP volume rendering provided. Sagittal and coronal reformatted images were obtained. This CT examination was performed using dose optimization techniques as appropriate, variously including the following: *Automated exposure control *Adjustment of mA and/or kV according to patient size (this includes techniques or standardized protocols for targeted exams where dose is matched to indication/reason for exam; i.e. extremities or head) *Use of iterative reconstruction technique DLP: 308 mGy-cm FINDINGS: MOLD LAMINATOR: Unremarkable. LUNGS: The lungs are clear with no evidence of inflammation or nodules. MEDIASTINUM: The mediastinum is normal. CORONARY ARTERY CALCIFICATION: Mild. PLEURA: There is no pleural effusion. No pleural mass or thickening. AXILLA: No lymphadenopathy. UPPER ABDOMEN: Unremarkable. OSSEOUS STRUCTURES: Unremarkable. CT/CT chest wo IV con IMPRESSION: No significant abnormality identified. Fleischner guidelines were followed. Electronically signed by: Martin Conde MD 08/11/2024 03:12 AM EST Dictated By: Martin Conde MD Signed By: <Electronically signed by Martin Conde MD in OV> 08/11/24311 DD/ 39 TD/TT: 08/10/242339 Examination Scorer: CT head/brain wo con Reviewed date:08/12/2024 03:25:49 PM Interpretation: Performing Lab: Notes/Report: [address] [address] [address] Scan Report Signed Patient: Swati Coreas MR#: [id number] 1 : 1950 Acct:[id number] Age/Sex: 74 / F ADM Date: 08/10/24 Loc: HO.ED Attending Dr: Ordering Physician: Bigg Zhou MD Date of Service: 08/10/24 Procedure(s): CT head/brain wo IV con Accession Number(s): [id number] cc: Homero Jones MD; Bigg Zhou MD EXAMINATION: CT HEAD WITHOUT CONTRAST CT CERVICAL SPINE WITHOUT CONTRAST CLINICAL INFORMATION: Fall. Pain. COMPARISON: April 26, 2019. TECHNIQUE: Contiguous axial imaging was performed through the head and cervical spine without intravenous administration of contrast. Sagittal and coronal reformatted images also obtained. This CT examination was performed using dose optimization techniques as appropriate, variously including the following: *Automated exposure control *Adjustment of mA and/or kV according to patient size (this includes techniques or standardized protocols for targeted exams where dose is matched to indication/reason for exam; i.e. extremities or head) *Use of iterative reconstruction technique DLP: 1048 mGy-cm FINDINGS: There is mild cerebral volume loss with prominence of the lateral and the third ventricles. The cortical sulci are widened appropriately. The fourth ventricle and basal cisterns are normally outlined. There is mild bilateral periventricular and central white matter diminished attenuation. There is no acute territorial defects, hemorrhage or midline shift. The extra-axial spaces are unremarkable. Calvarium/scalp: Intact. Maxillofacial sinuses and mastoids: Clear as visualized. Cervical spine: The alignment is normal. There is diffuse mild to moderate cervical disc degenerative change most pronounced at C5-6 and C6-7 with loss of disc space, endplate change and posterior osteophytes associated with diffuse mild to moderate facet osteoarthritic hypertrophic change with multilevel mild spinal canal and neuroforaminal narrowing. The bony structures are osteopenic. No fracture is seen. The soft tissues are unremarkable. The visualized upper lung esquivel are clear. CT/CT head/brain wo IV con IMPRESSION: 1. No acute intracranial process seen. 2. Mild cerebral volume loss with chronic small vessel ischemic changes. 3. No acute cervical spine fracture or dislocation seen. There are degenerative disc changes C5-6 and C6-7 disc levels with multilevel mild spinal canal and neuroforaminal narrowing. Electronically signed by: Martin Conde MD 08/11/2024 12:22 AM [facility] Dictated By: Martin Conde MD Signed By: <Electronically signed by Martin Conde MD in OV> 08/11/24 0022 DD/ 2311 TD/TT: 08/10/24 2338 Examination Scorer: XR ribs RT min 3V w CXR1V Reviewed date:08/11/2024 07:26:29 PM Interpretation: Performing Lab: Notes/Report: [address] [address] XRay Report Signed Patient: Swati Coreas MR#: [id number] 1 : 1950 Acct:[id number] Age/Sex: 74 / F ADM Date: 08/10/24 Loc: HO.ED Attending Dr: Ordering Physician: Bigg Zhou MD Date of Service: 08/10/24 Procedure(s): XR ribs RT min 3V w CXR1V Accession Number(s): [id number] cc: Homero Jones MD; Bigg Zhou MD EXAMINATION: XR RIBS, RIGHT CLINICAL INFORMATION: Fall COMPARISON: Chest radiograph 09/17/2018 TECHNIQUE: Single view of the chest and 3 views of the right ribs were obtained. FINDINGS: Lungs are clear. No consolidation, pneumothorax, or pleural effusion. The cardiomediastinal silhouette and pulmonary vasculature are normal. Degenerative changes are present throughout the spine. Ribs are intact. No fractures are identified. XR/XR ribs RT min 3V w CXR1V IMPRESSION: 1. No acute pulmonary disease. 2. No rib fractures. Electronically signed by: Jhon Murray MD 08/11/2024 12:32 AM [facility] Dictated By: Jhon Murray MD Signed By: <Electronically signed by Jhon Murray MD in OV> 08/11/242 DD/ 19 TD/TT: 08/10/242119 Examination Scorer: MAXIM REASON FOR REFERRAL No Information MEDICATIONS Medication SIG (Take, Route, Frequency, Duration) Notes Start Date End Date Status Escitalopram Oxalate 10 MG TAKE 1 TABLET BY MOUTH EVERY DAY FOR 30 DAYS for 90 Active oxyBUTYnin Chloride ER 10 MG TAKE 1 TABLET BY MOUTH EVERY DAY for 90 Active Blood Glucose Test 0 One Touch test stri p In Vitro E: 11.09 tests once a day for 90 Active Ventolin HFA * 108 (90 Base) MCG/ACT 2 puffs as needed Inhalation every 4 hrs for 30 day(s) 08/12/2014 Not-Taking Aspir-81 81 MG 1 tablet Orally Once a day for 30 day(s) Active LORazepam 0.5 MG 1 tablet as needed Orally every 12 hrs for 5 days 01/15/2019 Not-Taking Diprolene AF 0.05 % 1 application to affected area Externally Once a day for 20 Not-Taking Metoprolol Succinate ER 25 MG TAKE 1 TABLET BY MOUTH EVERY DAY Active Omeprazole 20 MG 1 capsule Orally Onc e a day for 90 Not-Taking Valsartan-hydroCHLOROthia zide 160-12.5 MG TAKE 1 TABLET BY MOUTH EVERY DAY Active amLODIPine Besylate 5 MG TAKE 1 TABLET B Y MOUTH EVERY DAY Active metFORMIN HCl ER 500 MG TAKE 2 TABLETS B Y MOUTH IN THE MORNING AND 1 TABLET IN THE EVENING for 90 Active Atorvastatin Calcium 40 MG TAKE 1 TABLET BY MOUTH EVERY DAY Active IMMUNIZATIONS Vaccine Route Administration Date Status [...] High Dose IM Intramuscular 05/30/2023 Administer ed Influenza High Dose IM Intramuscular 08/16/2024 Administer ed SOCIAL HISTORY Tobacco Use: Social [...] Notes Problem 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09) Active confirmed 985122727 Problem Stenosis of right carotid artery (I65.21) Active confirmed 841250726713478 Problem GONZALES (nonalcoholic steatohepatitis) (K75.81) Active confirmed 200664103 Problem Intrinsic eczema (L20.84) Active confirmed 74801837 Problem Acute non intractabl e tension-type headache (G44.209) Active confirmed 513238960 Problem Schatzki's ring (K22.2) Active confirmed 853002835 Problem Leukocytosis, unspecified type (D72.829) Active confirmed 786986544 Problem Dysthymia (F34.1) Active confirmed 7866 7006 Problem Pure hypercholesterolemia (E78.00) Active confirmed 501867645 Problem Microcytic anemia (D50.9) Active confirmed Microcytic anemia (637104896) Problem Mild intermittent asthmatic bronchitis with acute exacerbation (J45.21) Active confirmed 568806454 Problem Altered mental statu s, unspecified altered mental status type (R41.82) Active confirmed 159367185 VITAL SIGNS Blood pressure diastolic 64 mm Hg 08/16/2024 ght is down 7 pounds since 03-19-24 Height 64.5 in 08/16/2024 ght is down 7 p ounds since 03-19-24 Blood pressure systolic 118 mm Hg 08/16/2024 ght is down 7 pounds since 03-19-24 Weight 190 lbs 08/16/2024 ght is down 7 p ounds since 03-19-24 BMI 32.11 kg/m2 08/16/2024 ght is down 7 p ounds since 03-19-24 Encounters Encounter Location Date Provider Diagnosis Homero Jones MD [address] [place] [address] [id number] 09/19/2023 Homero Jones Acute UTI N39.0 ; Essential hypertension I10 ; Type 2 diabetes mellitus without complication E11.9 ; Pure hypercholesterolemia E78.00 and Dysthymia F34.1 Homero Jones MD [address] [place] [address] [id number] 09/11/2023 Homero Jones Essential hypertensi on I10 ; Pure hypercholesterolemia E78.00 and Type 2 diabetes mellitus without complication E11.9 Homero Jones MD [address] [place] [address] [id number] 10/17/2023 Homero Jones Hematuria R31.9 Homero Jones MD [address] [place] [address] [id number] 03/08/2024 Homero Jones Type 2 diabetes vesna itus without complication E11.9 and Pure hypercholesterolemia E78.00 Hom[address] MD [address] [place] [address] [id number] 08/13/2024 Homero Jones MD [address] [place] [address] [id number] 03/19/2024 Homero Jones Microcytic red blood cells R71.8 ; Essential hypertension I10 ; Type 2 diabetes mellitus without complication E11.9 and Pure hypercholesterolemia E78.00 Homero Jones MD [address] [place] [address] [id number] 01/26/2024 Homero Jones Elbow laceration, le ft, sequela S51.012S Homero Jones MD [address] [place] [address] [id number] 08/16/2024 Homero Jones Essential hypertensi on I10 ; GONZALES (nonalcoholic steatohepatitis) K75.81 ; Contusion of rib on right side, subsequent encounter S20.211D and Encounter for immunization Z23 Homero Jones MD [address] [place] [address] Drive [address] [place] [address] [id number] 08/12/2024 Homero Jones ASSESSMENTS Encounter Date Diagnosis Assessment Notes Treatment Notes Treatment Clinical Notes 09/19/2023 Essential hypertensi on (ICD-10 - I10) doing well 09/19/2023 Acute UTI (ICD-10 - N39.0) Patient/Caregiver verbalizes understanding of medications side effects, interactions and warnings. 09/11/2023 Essential hypertensi on (ICD-10 - I10) 09/11/2023 Pure hypercholestero lemia (ICD-10 - E78.00) 03/08/2024 Type 2 diabetes vesna itus without complication (ICD-10 - E11.9) 03/08/2024 Pure hypercholestero lemia (ICD-10 - E78.00) 03/19/2024 Essential hypertensi on (ICD-10 - I10) well controlled, will continue current regiment 03/19/2024 Microcytic red blood cells (ICD-10 - R71.8) pending labs 01/26/2024 Elbow laceration, le ft, sequela (ICD-10 - S51.012S) sutures removed, doing well wound well healed 08/16/2024 Essential hypertensi on (ICD-10 - I10) doing well lft's are normal, will continue current regiment 08/16/2024 GONZALES (nonalcoholic steatohepatitis) (ICD-10 - K75.81) lft's are normal 09/19/2023 Type 2 diabetes vesna itus without complication (ICD-10 - E11.9) good a1c 09/11/2023 Type 2 diabetes vesna itus without complication (ICD-10 - E11.9) 10/17/2023 Hematuria (ICD-10 - R31.9) 03/19/2024 Type 2 diabetes vesna itus without complication (ICD-10 - E11.9) doing well, will continue current regiment 08/16/2024 Contusion of rib on right side, subsequent encounter (ICD-10 - S20.211D) is minimally tender, will continue to monitor 09/19/2023 Pure hypercholestero lemia (ICD-10 - E78.00) 03/19/2024 Pure hypercholestero lemia (ICD-10 - E78.00) doing well on meds, will continue current regiment 08/16/2024 Encounter for immunization (ICD-10 - Z23) flu vaccine administered 09/19/2023 Dysthymia (ICD-10 - F34.1) PLAN OF TREATMENT Pending Test Test Name Order Date US LEG LT VENOUS DOPPLER 02/25/2023 Next Appt Details Provider Name:Homero Romano ier, 09/16/2024 07:30:00 AM, [address], [address], [place], [place], [phone], Provider Name:Homero Romano ier, 09/23/2024 01:00:00 PM, [address], [address], [place], [phone], Insurance Providers Payer Name Payer Address Payer Phone Subscriber Number Group Number Insured Name Patient Relationship to Insured Coverage Start Date Coverage End Date MEDICARE NHIC DENYS [address] [place] [address] [id number] Swati Coreas Self - patient is the insured [facility] [address] [place] [address] [id number] Swati Coreas Self - patient is the insured MEDICAL (GENERAL) HISTORY Medical History History ICD Code colonoscopy 2002 colonoscopy in 2002; colonos copy done 01/12/2013 - repeat in 10 years; endoscopy 02/23/15 (Dr. Moura); colonoscopy done 11/12/[address] 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
--- OUTSIDE RECORDS SUMMARY | 2024-08-17 16:01 | XMS_ITS ---
Author Organization Homero Jones MD Address [address] [place], [place] [id number] Care Team Providers Care Advice Clerk Name Role Phone Homero Jones Primary Care Provider [phone] ALLERGIES No Known Allergies REASON FOR VISIT F/U ERV for fall and HDF MEDICATIONS Medication SIG (Take, Route, Frequency, Duration) [...] Once a day for 30 day(s) Active IMMUNIZATIONS Vaccine Route Administration Date Status Comme nts Influenza High Dose IM Intramuscular 08/16/2024 Administer ed VITAL SIGNS BMI 32.11 kg/m2 08/16/2024 Blood pressure systolic 118 mm Hg 08/16/20 24 Blood pressure diastolic 64 mm Hg 024 Height 64.5 in 08/16/2024 Weight 190 lbs 08/16/2024 ght is down 7 pounds since Encounters Encounter Location Date Provider Diagnosis Homero Jones MD [address] [facility] [address] [facility] [address] [place], [place] [phone] 08/16/2024 Homero Jones Essential hypertension I10 ; GONZALES (nonalcoholic steatohepatitis) K75.81 ; Contusion of rib on right side, subsequent encounter S20.211D and Encounter for immunization Z23 ASSESSMENTS Encounter Date Diagnosis Assessment Notes Treatment Notes Treatment Clinical Notes 08/16/2024 Essential hypertension (ICD-10 - I10) doing well lft's are normal, will continue current regiment 08/16/2024 GONZALES (nonalcoholic steatohepatitis) (ICD-10 - K75.81) lft's are normal 08/16/2024 Contusion of rib on right side, subsequent encounter (ICD-10 - S20.211D) is minimally tender, will continue to monitor 08/16/2024 Encounter for immunization (ICD-10 - Z23) flu vaccine administered PLAN OF TREATMENT Medication Medication Name Sig Start Date Stop [...] dministered Next Appt Details Provider Name:Homero Romano germanr, 09/16/2024 07:30:00 AM, [address], [address], [place], [place], [phone], Provider Name:Homero Romano germanr, 09/23/2024 01:00:00 PM, [address], [address], [place], [place], [phone], Progress Notes * Examination Category Sub-Category Detail Notes General Examination GENERAL APPEARANCE: alert, w ell hydrated, in no distress HEAD: normocephalic HEART: regular rate and rhy thm , no murmurs, rubs, gallops LUNGS: no wheezes, rales, r honchi , good air movement , clear to auscultation bilaterally SKIN: good turgor History and Physical Notes * HPI (History of Present Illness) Category Sub-Category Detail Notes Fall Risk History Have you had any falls with injury in the past year?: Yes 08-10-24 tripped on a bag in her garage , fell against a screen door .
--- OUTSIDE RECORDS SUMMARY | 2024-08-17 16:01 | XMS_ITS ---
Author Organization Homero Jones MD Address [address] [place], [place] [id number] Care Team Providers Care Director Clinical Operations Name Role Phone Homero Jones Primary Care Provider REASON FOR VISIT ER Encounters Encounter Location Date Provider Diagnosis Homero Jones MD [address] [facility] [address] [place], [place] [phone] 08/12/2024 Homero Jones PLAN OF TREATMENT Next Appt Details Provider Name:Homero Romano ier, 09/16/2024 07:30:00 AM, [address] [place] [address], [address] [facility], [place], [place], [phone], Provider Name:Homero Romano ier, 09/23/2024 01:00:00 PM, [address] [place] [address], [place] [address], [place], [place], [phone],
== END 2024-08-11 01:25 | disposition home or self-care (01) ==
PROVIDERS: Emergency Provider Internal Medicine; PCP Internal Medicine
DX: S20.211A Contusion of right front wall of thorax, initial encounter (principal); R04.0 Epistaxis; R51.9 Headache, unspecified; R07.81 Pleurodynia; W01.10XA Fall on same level from slipping, tripping and stumbling with subsequent striking against unspecified object, initial encounter; Y93.89 Activity, other specified; Y92.098 Other place in other non-institutional residence as the place of occurrence of the external cause; Y99.8 Other external cause status; Z79.899 Other long term (current) drug therapy
CPT/HCPCS: 30901; 36415; 70450; 71101; 71250; 72125; 80053; 85025; 99283; 99284

== ENCOUNTER 2024-09-16 11:03 | Outpatient (REF) | payer MEDICARE, OTHER, SELFPAY ==
[2024-09-16 11:08] LABS: MANUAL DIFF FLAG NO
[2024-09-16 11:41] LABS: Basophils Absolute Auto 0.1 X10*3/uL (0.0-0.2); Basophils Percent Auto 0.7 % (0-2); Eosinophils Absolute Auto 0.2 X10*3/uL (0.0-0.4); Eosinophils Percent Auto 2.3 % (0-4); Hemoglobin 11.2 g/dl (12.0-16.0); Imm Gran Abs Auto 0.02 X10*3/uL (0.00-0.03); Imm Gran Pct Auto 0.3 % (0.0-0.4); Lymphocytes Absolute Auto 1.6 X10*3/uL (1.2-4.9); Lymphocytes Percent Auto 22.8 % (20-40); Mean Corpuscular HGB Conc 30.3 g/dl (31.0-35.0); Mean Corpuscular Hemoglobin 25.1 pg (27.0-33.0); Mean Corpuscular Volume 82.8 fL (80.0-98.0); Mean Platelet Volume 11.3 fL (9.4-12.3); Monocytes Absolute Auto 0.8 X10*3/uL (0.1-1.2); Monocytes Percent Auto 11.7 % (2-11); Neutrophils Absolute Auto 4.3 x10*3/uL (2.0-8.3); Neutrophils Percent Auto 62.2 % (45-73); Platelet Count 435 X10*3/uL (160-400); Red Blood Count 4.47 X10*6/uL (4.20-5.50); Red Cell Distribution Width 14.4 % (11.0-16.0); White Blood Count 6.9 X10*3/uL (4.8-10.8)
--- OUTSIDE RECORDS SUMMARY | 2024-09-16 11:45 | XMS_ITS ---
Author Organization Homero Jones MD Address [address] [place], [place] [phone] Care Team Providers Care Rotary Saw Operator Name Role Phone Homero Jones Primary Care Provider [phone] ALLERGIES No Known Allergies REASON FOR VISIT [...] Date Provider Diagnosis Homero Jones MD [address] [place], [place] [phone] 08/16/2024 Homero Jones Essential hypertension I10 ; [...] Next Appt Details Provider Name:Homero Romano germanr, 09/23/2024 01:00:00 PM, [address], [address], [place], [place], [phone], Progress Notes * Examination Category Sub-Category Detail [...]
--- OUTSIDE RECORDS SUMMARY | 2024-09-16 11:45 | XMS_ITS ---
Author Organization Homero Jones MD Address [address] [place], [place] [phone] Care Team Providers Care Rapid Outsole Stitcher Name Role Phone Homero Jones Primary Care Provider REASON FOR VISIT flu shot Encounters Encounter Location Date Provider Diagnosis Homero Jones MD [address] [place] [address] [place], [place] [phone] 08/13/2024 Homero Jones PLAN OF TREATMENT Next Appt Details Provider Name:Homero jimenez, 09/23/2024 01:00:00 PM, [address] [place] [address], [address], [place], [place], [phone],
--- OUTSIDE RECORDS SUMMARY | 2024-09-16 11:45 | XMS_ITS ---
Author Organization Homero Jones MD Address [address] [place], [place] [phone] Care Team Providers Care Metal Model Builder Name Role Phone Homero Jones Primary Care Provider RESULTS Component Value Reference Range Notes Complete Blood Count Auto Di ff (Not yet reviewed by provider) Interpretation: Performing Lab:[facility], [address] [place] [phone] Notes/Report: White Blood Count 6.9 4.8-10.8 X10*3/uL [...] X10*3/uL NRBC Abs Auto 0.000 0.0-0.012 X10*3/uL REASON FOR VISIT yearly fasting labs Encounters Encounter Location Date Provider Diagnosis Homero Jones MD [address] [place] [address] Drive [address] [place], [place] [phone] 09/16/2024 Homero Jones Essential hypertensi on I10 ; Type 2 diabetes mellitus without complication E11.9 ; Pure hypercholesterolemia E78.00 and GONZALES (nonalcoholic steatohepatitis) K75.81 ASSESSMENTS Encounter Date Diagnosis Assessment Notes Treatment Notes Treatment Clinical Notes 09/16/2024 Essential hypertensi on (ICD-10 - I10) 09/16/2024 Type 2 diabetes vesna itus without complication (ICD-10 - E11.9) 09/16/2024 Pure hypercholestero lemia (ICD-10 - E78.00) 09/16/2024 GONZALES (nonalcoholic steatohepatitis) (ICD-10 - K75.81) PLAN OF TREATMENT Pending Test Test Name Order Date Complete Blood Count Auto Diff 5 Comprehensive [place]. Panel Fast 5 Liver Panel 09/16/2024 Lipid Panel 09/16/2024 Microalbumin, Random 09/16/2024 Hemoglobin A1c 09/16/2024 UA ClnCatch+Micro w/rflx Cult 09/16/2024 Next Appt Details Provider Name:Homero jimenez, 09/23/2024 01:00:00 PM, [address] [place] [address], [address], [place], [place], [phone],
--- OUTSIDE RECORDS SUMMARY | 2024-09-16 11:46 | XMS_ITS | Patient Health Record ---
Author Organization Homero Jones MD Address [address] [place], [place] [id number] Care Team Providers Care Loan Service Officer Name Role Phone Homero Jones Primary Care Provider ALLERGIES No Known Allergies RESULTS Component Value Reference Range Notes Urine Culture Reviewed date:10/18/2023 06:38:38 PM Interpretation: Performing Lab:[facility], [address] [place] [phone] Notes/Report: O:STRAGA Strep agalactiae (Gr p B) Urine Culture Quant Urine Culture 10,000 to 50,000 cfu/mL Urine Culture Susc N/A Urine Culture Susceptibility not routinely performed on this isolate. UA ClnCatch+Micro w/rflx Cul t Reviewed date:10/18/2023 06:49:42 PM Interpretation: Performing Lab:[facility], [address] [place] [phone] Notes/Report: [id number] Urine, Clean Catch Color Urine Yellow Appearance Urine Clear PH 6.0 5.0-9.0 Glucose Urine UA Negative Negative mg/dL Urine Blood Negative Negative Specific [place] - Urine 1.010 1.005-1.025 Urine Protein Negative [...] ff Reviewed date:01/20/2024 03:05:33 PM Interpretation: Performing Lab:[facility], [address] [place] [phone] Notes/Report: White Blood Count 9.4 4.8-10.8 X10*3/uL [...] Panel Reviewed date:01/20/2024 04:17:32 PM Interpretation: Performing Lab:[facility], [address] [place] [phone] Notes/Report: Sodium 140 135-145 mmol/L Potassium 4.0 [...] Glomerular Filt Rate > 60 NOTE: For -Azerbaijani individuals, multiply the result by 1.210. Chronic [...] date:01/20/2024 12:40:15 PM Interpretation: Performing Lab: Notes/Report: [address] [address] [address] Scan Report Signed Patient: Swati Coreas MR#: [id number] 1 : 1950 Acct:[id number] Age/Sex: 73 / F ADM Date: 01/20/24 Loc: HO.ED Attending Dr: Ordering Physician: Navya Nguyen DO Date of Service: 01/19/24 Procedure(s): CT facial bones wo IV con Accession Number(s): [id number] cc: Homero Jones MD; Navya Nguyen DO [...] in OV> 01/20/24 0300 DD/ 47 TD/TT: Drafter Apprentice: FABIOLA horne LT 4V Reviewed date:01/20/2024 12:41:05 PM Interpretation: Performing Lab: Notes/Report: [address] [address] XRay Report Signed Patient: Swati Coreas MR#: [id number] 1 : 1950 Acct:[id number] Age/Sex: 73 / F ADM Date: 01/19/24 Loc: HO.ED Attending Dr: Ordering Physician: Generic ED Physician Date of Service: 01/19/24 Procedure(s): XR knee LT 4V Accession Number(s): [id number] cc: Homero Jones MD; Generic ED Physician [...] Jhon Murray MD in OV> 01/19/245 DD/ TD/TT: Drafter Apprentice: SS XR elbow LT 2V Reviewed date:01/20/2024 12:40:34 PM Interpretation: Performing Lab: Notes/Report: [address] [address] XRay Report Signed Patient: Swati Coreas MR#: [id number] 1 : 1950 Acct:[id number] Age/Sex: 73 / F ADM Date: 01/19/24 Loc: HO.ED Attending Dr: Ordering Physician: Generic ED Physician Date of Service: 01/19/24 Procedure(s): XR elbow LT 2V Accession Number(s): [id number] cc: Homero Jones MD; Generic ED Physician [...] signed by Jhon Murray MD in OV> 01/19/242354 DD/ 47 TD/TT: Drafter Apprentice: MAXIM CT cervical spine wo con Reviewed date:01/20/2024 12:36:15 PM Interpretation: Performing Lab: Notes/Report: [address] [address] [address] Scan Report Signed Patient: Swati Coreas MR#: [id number] 1 : 1950 Acct:[id number] Age/Sex: 73 / F ADM Date: 01/20/24 Loc: HO.ED Attending Dr: Ordering Physician: Navya Nguyen DO Date of Service: 01/20/24 Procedure(s): CT cervical spine wo IV con Accession Number(s): [id number] cc: Homero Jones MD; Navya Nguyen DO [...] in OV> 01/20/24 0300 DD/ 0050 TD/TT: Drafter Apprentice: CT head/brain wo con Reviewed date:02/04/2024 04:46:38 PM Interpretation: Performing Lab: Notes/Report: [address] [address] [address] Scan Report Signed Patient: Swati Coreas MR#: [id number] 1 : 1950 Acct:[id number] Age/Sex: 73 / F ADM Date: 01/20/24 Loc: HO.ED Attending Dr: Ordering Physician: Navya Nguyen DO Date of Service: 01/20/24 Procedure(s): CT head/brain wo IV con Accession Number(s): [id number] cc: Homero Jones MD; Navya Nguyen DO [...] in OV> 02/04/24 1135 DD/ 0050 TD/TT: Drafter Apprentice: Francesco Hsu Reviewed date:03/08/2024 12:16:21 PM Interpretation: Performing Lab:[facility], [address] [place] [phone] Notes/Report: Francesco Hsu See Note Specimen held untested for 24 hours; Call to request Chemistry testing. Liver Panel Reviewed date:03/08/2024 04:15:27 PM Interpretation: Performing Lab:[facility], [address] [place] [phone] Notes/Report: Bilirubin Total 0.3 0.0-1.0 mg/dL Bilirubin Direct 0.1 0.0-0.5 mg/dL Aspartate Amino Transferase 14 5-31 U/L Alanine Aminotransferase 11 0-31 U/L Total Protein 7.1 6.5-8.0 g/dL Albumin Level 3.7 3.5-5.0 g/dL Alkaline Phosphatase 96 39-117 U/L Glucose Fasting Reviewed date:03/08/2024 04:15:06 PM Interpretation: Performing Lab:[facility], [address] [place] [phone] Notes/Report: Glucose Fasting 137 60-99 mg/dL A fasting glucose of 126 mg/dl or greater on more than one occasion is considered diagnostic of diabetes. Lipid Panel with Reflex Reviewed date:03/08/2024 04:15:17 PM Interpretation: Performing Lab:[facility], [address] [place] [phone] Notes/Report: Triglycerides 71 <150 mg/dL Desirable Triglyceride: [...] A1c Reviewed date:03/08/2024 12:16:13 PM Interpretation: Performing Lab:[facility], [address] [place] [phone] Notes/Report: Hemoglobin A1c % 6.6 <6.0 % [...] average glucose, using the formula of the H3O-Szyxtzj Average Glucose study (ADAG), Diabetes Care, Vol.31,#8, 2007 IRON PROFILE Reviewed date:03/19/2024 04:50:00 PM Interpretation: Performing Lab:[facility], [address] [place] [phone] Notes/Report: Iron 58 30-160 mcg/dL Total Iron Binding Capacity 272 228-428 mcg/dL Percent Iron Saturation 21 15-50 % Unsaturated Iron Binding 214 Diabetic Eye Exam Reviewed date:05/14/2024 01:31:37 PM Interpretation:No diabetic retinopathy Performing Lab: Notes/Report: No diabetic retinopathy NM cardiolite stress test Reviewed date:05/19/2024 08:41:11 AM Interpretation: Performing Lab: Notes/Report: [address] [address] Nuclear Medicine Report Signed Patient: Swati Coreas MR#: [id number] 1 : 1950 Acct:[id number] Age/Sex: 73 / F ADM Date: 05/14/24 Loc: [facility] Attending Dr: Radha SUAREZ Ordering Physician: Radha Garcia Date of Service: 05/14/24 Procedure(s): NM cardiolite stress test Accession Number(s): [id number] cc: Homero Jones MD; Radha Garcia Lexiscan [...] Irving Grant MD 05/18/2024 04:35 PM EDT Dictated By: Irving Grant MD Signed By: <Electronically signed by Irving Grant MD in OV> 05/18/24 1635 DD/ 0807 TD/TT: 05/17/24 1330 Drafter Apprentice: Complete Blood Count Auto Di ff Reviewed date:08/12/2024 03:26:50 PM Interpretation: Performing Lab:[facility], [address] [place] [phone] Notes/Report: White Blood Count 10.5 4.8-10.8 X10*3/uL [...] Panel Reviewed date:08/12/2024 03:26:31 PM Interpretation: Performing Lab:[facility], [address] [place] [phone] Notes/Report: Sodium 140 135-145 mmol/L Potassium 3.9 [...] date:08/12/2024 03:26:12 PM Interpretation: Performing Lab: Notes/Report: [address] [address] [address] Scan Report Signed Patient: Swati Coreas MR#: [id number] 1 : 1950 Acct:[id number] Age/Sex: 74 / F ADM Date: 08/10/24 Loc: HO.ED Attending Dr: Ordering Physician: Bigg Zhou MD Date of Service: 08/10/24 Procedure(s): CT cervical spine wo IV con Accession Number(s): [id number] cc: Homero Jones MD; Bigg Zhou MD [...] by: Martin Conde MD 08/11/2024 12:22 AM [facility] Dictated By: Martin Conde MD Signed By: <Electronically signed by Martin Conde MD in OV> 08/11/24 0022 DD/ TD/TT: 08/10/24 2338 Drafter Apprentice: CT chest wo con Reviewed date:08/12/2024 03:24:48 PM Interpretation: Performing Lab: Notes/Report: [address] [address] [address] Scan Report Signed Patient: Swati Coreas MR#: [id number] 1 : 1950 Acct:[id number] Age/Sex: 74 / F ADM Date: 08/10/24 Loc: HO.ED Attending Dr: Ordering Physician: Bigg Zhou MD Date of Service: 08/10/24 Procedure(s): CT chest wo IV con Accession Number(s): [id number] cc: Homero Jones MD; Bigg Zhou MD [...] iterative reconstruction technique DLP: 308 mGy-cm FINDINGS: SOUND PRINTER: Unremarkable. LUNGS: The lungs are clear with [...] by: Martin Conde MD 08/11/2024 03:12 AM [facility] Dictated By: Martin Conde MD Signed By: <Electronically signed by Martin Conde MD in OV> 08/11/24311 DD/ 39 TD/TT: 08/10/242339 Drafter Apprentice: CT head/brain wo con Reviewed date:08/12/2024 03:25:49 PM Interpretation: Performing Lab: Notes/Report: [address] [address] [address] Scan Report Signed Patient: Swati Coreas MR#: [id number] 1 : 1950 Acct:[id number] Age/Sex: 74 / F ADM Date: 08/10/24 Loc: HO.ED Attending Dr: Ordering Physician: Bigg Zhou MD Date of Service: 08/10/24 Procedure(s): CT head/brain wo IV con Accession Number(s): [id number] cc: Homero Jones MD; Bigg Zhou MD [...] by: Martin Conde MD 08/11/2024 12:22 AM [facility] Dictated By: Martin Conde MD Signed By: <Electronically signed by Martin Conde MD in OV> 08/11/24 0022 DD/ 2311 TD/TT: 08/10/24 2338 Drafter Apprentice: XR ribs RT min 3V w CXR1V Reviewed date:08/11/2024 07:26:29 PM Interpretation: Performing Lab: Notes/Report: [place] [address] XRay Report Signed Patient: Swati Coreas MR#: [id number] 1 : 1950 Acct:[id number] Age/Sex: 74 / F ADM Date: 08/10/24 Loc: HO.ED Attending Dr: Ordering Physician: Bigg Zhou MD Date of Service: 08/10/24 Procedure(s): XR ribs RT min 3V w CXR1V Accession Number(s): [id number] cc: Homero Jones MD; Bigg Zhou MD [...] by: Jhon Murray MD 08/11/2024 12:32 AM EST Dictated By: Jhon Murray MD Signed By: <Electronically signed by Jhon Murray MD in OV> 08/11/2431 DD/ 19 TD/TT: 08/10/242119 Drafter Apprentice: SS Complete Blood Count Auto Di ff (Not yet reviewed by provider) Interpretation: Performing Lab:[facility], [address] [place] [phone] Notes/Report: White Blood Count 6.9 4.8-10.8 X10*3/uL [...] Abs Auto 0.000 0.0-0.012 X10*3/uL REASON FOR REFERRAL No Information MEDICATIONS Medication [...] Notes Problem 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) Active confirmed Atheroscle rotic heart disease of [place] coronary artery without angina pectoris (390029923656930 ) Problem Neuropathy (G62.9) Active confirmed 386 390259 Problem Other specified menopausal and perimenopausal disorders (N95.8) Active confirmed 274889160 Problem Presence of left artificial knee joint (Z96.652) Active confirmed Artificial knee joint present (378906986226) Problem Essential hypertensi on (I10) Active confirmed 61645127 Problem Type 2 diabetes mellitus without complication (E11.9) Active confirmed 79763827 Problem Non morbid obesity d ue to excess calories (E66.09) Active confirmed 049036635 Problem Stenosis of right carotid artery (I65.21) Active confirmed 368041212922495 Problem GONZALES (nonalcoholic steatohepatitis) (K75.81) Active confirmed 888775085 Problem Intrinsic eczema (L20.84) Active confirmed 41896955 Problem Acute non intractabl e tension-type headache (G44.209) Active confirmed 996615133 Problem Schatzki's ring (K22.2) Active confirmed 436709013 Problem Leukocytosis, unspecified type (D72.829) Active confirmed 739669951 Problem Dysthymia (F34.1) Active confirmed 7866 7006 Problem Pure hypercholesterolemia (E78.00) Active confirmed 706664498 Problem Microcytic anemia (D50.9) Active confirmed Microcytic anemia (128504333) Problem Mild intermittent asthmatic bronchitis with acute exacerbation (J45.21) Active confirmed 719852421 Problem Altered mental statu s, unspecified altered mental status type (R41.82) Active confirmed 531509871 VITAL SIGNS Blood pressure diastolic 64 mm [...] Homero Jones MD [address] [place] [id number] 09/19/2023 Homero Jones Acute UTI N39.0 ; Essential hypertension I10 ; Type 2 diabetes mellitus without complication E11.9 ; Pure hypercholesterolemia E78.00 and Dysthymia F34.1 Homero Jones MD [address] [place] [id number] 10/17/2023 Homero Jones Hematuria R31.9 Homero Jones MD [address] [place] [id number] 03/08/2024 Homero Jones Type 2 diabetes vesna itus without complication E11.9 and Pure hypercholesterolemia E78.00 Homero Jones MD [address] [place] [address] [id number] 09/16/2024 Homero Jones Essential hypertensi on I10 ; Type 2 diabetes mellitus without complication E11.9 ; Pure hypercholesterolemia E78.00 and GONZALES (nonalcoholic steatohepatitis) K75.81 Homero Jones MD [address] [place] [address] [id number] 08/13/[address] [place] [address] [id number] 03/19/2024 Homero Jones Microcytic red blood cells R71.8 ; Essential hypertension I10 ; Type 2 diabetes mellitus without complication E11.9 and Pure hypercholesterolemia E78.00 [address] [place] [id number] 01/26/2024 Homero Jones Elbow laceration, le ft, sequela S51.012S Homero Jones MD [address] [place] [address] [id number] 08/16/2024 Homero Jones Essential hypertensi on I10 ; GONZALES (nonalcoholic steatohepatitis) K75.81 ; Contusion of rib on right side, subsequent encounter S20.211D and Encounter for immunization Z23 Homero Jones MD [address] [place] [address] [id number] 08/12/2024 Homero Jones ASSESSMENTS Encounter Date Diagnosis Assessment Notes Treatment Notes Treatment Clinical Notes 09/19/2023 Essential hypertensi on (ICD-10 - I10) doing well 09/19/2023 Acute UTI (ICD-10 - N39.0) Patient/Caregiver verbalizes understanding of medications side effects, interactions and warnings. 03/08/2024 Type 2 diabetes vesna itus without complication (ICD-10 - E11.9) 03/08/2024 Pure hypercholestero lemia (ICD-10 - E78.00) 09/16/2024 Essential hypertensi on (ICD-10 - I10) 03/19/2024 Essential hypertensi on (ICD-10 - I10) [...] without complication (ICD-10 - E11.9) good a1c 10/17/2023 Hematuria (ICD-10 - R31.9) 09/16/2024 Type 2 diabetes vesna itus without complication (ICD-10 - E11.9) 03/19/2024 Type 2 diabetes vesna itus without complication (ICD-10 - E11.9) doing well, will continue current regiment 08/16/2024 Contusion of rib on right side, subsequent encounter (ICD-10 - S20.211D) is minimally tender, will continue to monitor 09/19/2023 Pure hypercholestero lemia (ICD-10 - E78.00) 09/16/2024 Pure hypercholestero lemia (ICD-10 - E78.00) 03/19/2024 Pure hypercholestero lemia (ICD-10 - E78.00) doing well on meds, will continue current regiment 08/16/2024 Encounter for immunization (ICD-10 - Z23) flu vaccine administered 09/19/2023 Dysthymia (ICD-10 - F34.1) 09/16/2024 GONZALES (nonalcoholic steatohepatitis) (ICD-10 - K75.81) PLAN OF TREATMENT Pending Test Test Name Order Date US LEG LT VENOUS DOPPLER 02/25/2023 Complete Blood Count Auto Diff 5 Comprehensive Robinson. Panel Fast 5 Liver Panel 09/16/2024 Lipid Panel 09/16/2024 Microalbumin, Random 09/16/2024 Hemoglobin A1c 09/16/2024 UA ClnCatch+Micro w/rflx Cult 09/16/2024 Next Appt Details Provider Name:Homero Romano ier, 09/23/2024 01:00:00 PM, [address], [address], [place], [place], [id number], Insurance Providers Payer Name Payer Address Payer Phone Subscriber Number Group Number Insured Name Patient Relationship to Insured Coverage Start Date Coverage End Date MEDICARE NHIC DENYS [address] [place] [address] [id number] Swati Coreas Self - patient is the insured [facility] [id number] [place] [address] [id number] Swati Coreas Self - patient is the insured MEDICAL (GENERAL) HISTORY Medical History History ICD Code colonoscopy 2002 colonoscopy in 2002; colonos copy done 01/12/2013 - repeat in 10 years; endoscopy 02/23/15 (Dr. Moura); colonoscopy done 11/12/[address] Moura for rectal bleeding (due to age no more testing indicated) appt with 10/04/13 REMOTE SENSING TECHNOLOGIST, [facility] [phone]), appt Mammo & Bone density 10/14/13/, [facility] flu vac 09/23/13 Arthritis
[2024-09-16 11:56] LABS: Estimated Average Glucose 143 mg/dL; Hemoglobin A1c % 6.6 % (<6.0)
[2024-09-16 13:07] LABS: Alanine Aminotransferase 13 U/L (0-31); Albumin Level 3.7 g/dL (3.5-5.0); Alkaline Phosphatase 91 U/L (39-117); Anion Gap 11 (12-20); Aspartate Amino Transferase 25 U/L (5-31); Bilirubin Direct 0.2 mg/dL (0.0-0.5); Bilirubin Total 0.5 mg/dL (0.0-1.0); Blood Urea Nitrogen 11 mg/dL (9-16); Calcium 9.4 mg/dL (8.4-10.2); Carbon Dioxide 31 mmol/L (22-29); Chloride 104 mmol/L (96-108); Cholesterol 102 mg/dL (<200); Estimated Glomerular Filt Rate > 60; Glucose Fasting 130 mg/dL (60-99); HDL Cholesterol 38 mg/dL (>40); LDL Cholesterol Calculated 46 mg/dL (<100); Potassium 4.1 mmol/L (3.3-5.1); Sodium 142 mmol/L (135-145); Total Protein 6.9 g/dL (6.5-8.0); Triglycerides 94 mg/dL (<150)
== END 2024-09-16 11:04 | disposition home or self-care (01) ==
LOC: HO.LNP 11:03
PROVIDERS: Visit Provider Internal Medicine
DX: I10 Essential (primary) hypertension (principal); E11.9 Type 2 diabetes mellitus without complications; E78.00 Pure hypercholesterolemia, unspecified; K75.81 Nonalcoholic steatohepatitis (NASH)
CPT/HCPCS: 80053; 80061; 80076; 82248; 83036; 85025

== ENCOUNTER 2024-09-28 13:00 | Outpatient (REF) | payer MEDICARE, OTHER, SELFPAY ==
[2024-09-28 15:34] LABS: Appearance Urine Cloudy; Color Urine Dark Yellow; Glucose Urine UA Negative (Negative); Leukocyte Esterase Urine Large (3+) (Negative); Nitrite Urine Negative (Negative); Specific Gravity - Urine >= 1.030 (1.005-1.025); UMIC TRIGGER UACC YES; Urine Blood Negative (Negative); Urine Ketones Negative (Negative); Urine Protein Trace mg/dL (Neg-Trace)
[2024-09-28 15:46] LABS: Bacteria Urine Trace (None Seen); Calcium Oxalate Crystals Urine Present; Hyaline Casts Urine 0-2 /LPF (0-2); RBC Urine 0-2 /HPF (0-2); UACC Culture Trigger YES; WBC Urine >50 /HPF (0-5)
[2024-09-28 16:07] LABS: Creatinine Urine 186.13 mg/dL; Microalbum/Creatinine Ratio Ur 7.5 ug/mg cr (<30)
== END 2024-09-28 13:01 | disposition home or self-care (01) ==
LOC: HO.LNP 13:00
PROVIDERS: Visit Provider Internal Medicine
DX: E11.9 Type 2 diabetes mellitus without complications (principal); I10 Essential (primary) hypertension
CPT/HCPCS: 81001; 82043; 82570; 87086; 87147

== ENCOUNTER 2024-09-29 08:57 | Outpatient (REF) | payer MEDICARE, OTHER, SELFPAY | END 2024-09-29 08:58 | disposition home or self-care (01) | LOC: HO.MAMMO 08:57 | PROVIDERS: PCP Internal Medicine; Visit Provider Internal Medicine | DX: Z12.31 Encounter for screening mammogram for malignant neoplasm of breast (principal) | CPT/HCPCS: 77063; 77067 ==

== ENCOUNTER → 2024-09-29 09:00 | Outpatient (BNV) | payer MEDICARE, OTHER, SELFPAY | PROVIDERS: PCP Internal Medicine; Visit Provider Internal Medicine | DX: Z12.31 Encounter for screening mammogram for malignant neoplasm of breast (principal) | CPT/HCPCS: 77063; 77067 ==

== ENCOUNTER 2025-03-22 10:43 | Outpatient (REF) | payer MEDICARE, OTHER, SELFPAY ==
--- OUTSIDE RECORDS SUMMARY | 2025-03-22 04:00 | XMS_ITS ---
Author Organization Homero Jones MD Address [address] [place], [place] [phone] Care Team Providers Care Corporate Development Manager Name Role Phone Homero Jones Primary Care Provider [phone] Results Component Value Reference Range Notes Liver Panel (Not yet reviewe d by provider) Interpretation: Performing Lab:[facility], [address] [place] [phone] Notes/Report: Bilirubin Total 0.3 0.0-1.0 mg/dL Bilirubin Direct 0.2 0.0-0.5 mg/dL Aspartate Amino Transferase 25 5-31 U/L Alanine Aminotransferase 12 0-31 U/L Total Protein 7.2 6.5-8.0 g/dL Albumin Level 4.2 3.5-5.0 g/dL Alkaline Phosphatase 90 39-117 U/L Glucose Fasting (Not yet rev iewed by provider) Interpretation: Performing Lab:[address] [phone] Notes/Report: Glucose Fasting 157 60-99 mg/dL A fasting glucose of 126 mg/dl or greater on more than one occasion is considered diagnostic of diabetes. Lipid Panel with Reflex (Not yet reviewed by provider) Interpretation: Performing Lab:[facility] [address], [place] [phone] Notes/Report: Triglycerides 51 <150 mg/dL Desirable Triglyceride: [...] in patients with liver disease. Hemoglobin A1c (Not yet revi ewed by provider) Interpretation: Performing Lab:[address] [phone] Notes/Report: Hemoglobin A1c % 6.3 <6.0 % [...] average glucose, using the formula of the N8F-Abswtix Average Glucose study (ADAG), Diabetes Care, Vol.31,#8, Apr. 2007 REASON FOR VISIT fasting lipids Encounters Encounter Location Date Provider Diagnosis Homero Jones MD [address] [place] [address] Drive [address] [place], [place] [phone] 03/22/2025 Homero Jones Type 2 diabetes vesna itus without complication E11.9 and Pure hypercholesterolemia E78.00 Assessments Encounter Date Diagnosis (ICD Code) Assessment Notes Treatment Notes Treatment Clinical Notes Section Notes 03/22/2025 Type 2 diabetes vesna itus without complication (ICD-10 - E11.9) 03/22/2025 Pure hypercholesterolemia (ICD-10 - E78.00) Plan Of Treatment Pending Test Test Name Order Date Liver Panel 03/22/2025 Glucose Fasting 03/22/2025 Lipid Panel with Reflex 03/22/2025 Hemoglobin A1c 03/22/2025 Next Appt Details Provider Name:Homero Romano ier, 03/28/2025 10:00:00 AM, [address] [facility], [address], [place], [place], [phone], Provider Name:Homero Romano ier, 09/23/2025 07:45:00 AM, [address] [facility], [address], [place], [place], [phone], Provider Name:Homero Romano ier, 09/30/2025 11:00:00 AM, [address] [facility], [address] [facility], [place], [place], [phone], Progress Notes * Swati JORGENSEN MDOB:1950 (74 yo F)Acc No.[id number]:03/22/2025 Progress Note Patient: Swati VIEIRA Provider: Avis Jones MD :1950 A ge:74 Y S ex:Female Date:03/22/2025 Address:[address] [place], [place] [phone] Subjective: * Chief Complaints: * 1 . [...] & Time - 03/22/2025 08:00 AM) * * The named appointment provid er may or may not be the originator of this progress note, and it is not deemed complete until electronically signed by the appointment provider. Sign off status: Pending * Provider: Avis Jones MD Date: 0 03/22/2025 Generated for Becky lucia/Linda/Daisyitting on: 0 03/22/2025 12:05 PM EDT
[2025-03-22 11:12] LABS: Hemoglobin A1C 141.6498 umol/L; Total Hemoglobin (HGBA1C) 3096.9840 umol/L
[2025-03-22 11:14] LABS: Alanine Aminotransferase 12 U/L (0-31); Albumin Level 4.2 g/dL (3.5-5.0); Alkaline Phosphatase 90 U/L (39-117); Aspartate Amino Transferase 25 U/L (5-31); Cholesterol 130 mg/dL (<200); HDL Cholesterol 57 mg/dL (>40); Total Protein 7.2 g/dL (6.5-8.0); Triglycerides 51 mg/dL (<150)
[2025-03-22 11:46] LABS: Reflex LDLD? No
--- OUTSIDE RECORDS SUMMARY | 2025-03-22 12:06 | XMS_ITS | Data Portability ---
Author Organization [facility] Teo Mcfarlane [facility], [facility] Address [address] [place] [address] Care Team Providers Care Watch Train Assembler Name Role Phone DAPHNIE ANG Primary Care Provider Assessment Encounter Date Assessment Date Assessment LastModified by Organization Details LastModified Time 05/19/2024 05/19/2024 PRIMARY DIAGNOSIS: Unstable left total knee arthroplasty. REASON FOR ADMISSION: The patient is being admitted for revision left total knee arthroplasty with Dr. Elise on 05/25/2024. HISTORY OF PRESENT ILLNESS: The patient is a 74-year-old female presenting today with unstable left total knee arthroplasty. She had her left total knee arthroplasty done with Dr. Elise in 04/2021. She was doing well initially. Unfortunately, in the past year, she has started developing symptoms of instability and sustained falls where she had a nasal fracture. Her symptoms occur primarily with climbing and descending stairs. She has intermittent swelling. The patient reports intermittent pain for which she takes Tylenol with diminishing relief. She has had multiple courses of physical therapy, which did not improve her symptoms. The patient does utilize a knee sleeve, which potentially reduces her symptoms. She has had an intra-articular corticosteroid injection in her right knee, which reduced her pain as well. However, she feels that her left knee is still inhibiting conservative treatment of her right knee. She states that she is now ready for revision left total knee arthroplasty with Dr. Elise on 05/25/2024. PAST MEDICAL HISTORY: 1. Unstable left total knee arthroplasty. 2. Obesity with BMI of 32.0. 3. Hypertension. 4. Hyperlipidemia. 5. Multiple falls due to left knee instability after which she developed a nasal fracture. 6. Mild asthma. 7. Diabetes type 2. 8. Glaucoma. 9. GERD. 10. Varicose veins. 11. Anxiety. 12. Nonobstructive coronary artery disease with cardiac catheterization years ago. 13. Mild carotid stenosis. 14. Degenerative disk disease. 15. Varicose veins. 16. Urge urinary incontinence. 17. Hiatal hernia. 18. Menopause. PAST SURGICAL HISTORY: 1. Left total knee arthroplasty with Dr. Elise in 04/2021. 2. Right varicose vein procedure in 2019. 3. Cardiac catheterization to find nonobstructive coronary artery disease with no stent in place. 4. Right shoulder ORIF. 5. Cholecystectomy. 6. Left knee meniscectomy. 7. Bladder suspension. 8. Cataract surgery. CURRENT MEDICATION LIST: 1. Metformin extended release 500 mg at 2:00 in the morning and 1:00 p.m. 2. Escitalopram 10 mg daily in the morning. 3. Oxybutynin 10 mg daily in the morning. 4. Amlodipine 5 mg daily in the morning. 5. Valsartan/hydrochlor othiazide 160/25 mg daily in the morning. 6. Metoprolol 25 mg daily in the morning. 7. Atorvastatin 40 mg daily at bedtime. 8. Baby aspirin. 9. PreserVision, which she had stopped in preparation for the surgery. ALLERGIES: The patient has no known drug allergies. SOCIAL HISTORY: The patient reports rare use of alcoholic beverages. She denies any use of tobacco products or illicit drug use. She is single. She lives at home alone. PHYSICAL EXAMINATION: VITAL SIGNS: Weight 194 pounds. GENERAL: The patient is alert and oriented. Normal insight, affect, and grooming. HEENT: Normocephalic. Conjunctivae pink. Sclerae are anicteric. SKIN: Intact without rash or lesions. Nails without clubbing or cyanosis. NECK: Supple. Trachea midline. No lymphadenopathy. CHEST: Lungs are clear to auscultation bilaterally. Breathing is unlabored. CARDIOVASCULAR: Heart has a regular rate and rhythm with normal S1, S2. No murmurs, rubs or gallops appreciated. No JVD. Carotid pulses without bruits. ABDOMEN: Soft, nontender with normal bowel sounds. No hepatosplenomegaly or masses noted. No bruits appreciated. EXTREMITIES: The patient has negative straight leg raise test bilaterally. Bilateral hips have full range of motion with no pain, no trochanteric tenderness. Left knee has well-healed incision. Neutral alignment. Range of motion is 0-120 degrees. Knee does have some slight lateral laxity. There is no moderate anterior, posterior glide. There is no significant erythema, redness or signs of infection. The knee is otherwise stable to varus and valgus stresses with firm endpoints. Motor sensation screening is intact. Calves supple and nontender. Ankle motion is satisfactory. Pedal pulse palpable bilaterally. Skin on her feet is intact. PREOPERATIVE DIAGNOSTIC DATA: EKG is pending. Orthopedic x-rays demonstrate appropriate position of the left total knee arthroplasty. Overall, limb alignment is neutral. Implant positions are satisfactory. Patellar tracking is midline. Bone implant interfaces are intact with no evidence of fracture or osteolysis. LABORATORY DATA: CBC shows a hemoglobin of 10.7, hematocrit 34.8. Coagulation studies show PT of 12. Electrolytes show glucose level of 260. A1c 6.9. ASSESSMENT AND PLAN: The patient has unstable left total knee arthroplasty and is now scheduled for revision left total knee arthroplasty with Dr. Elise on 05/25/2024. The patient was seen by the medical consultative preoperative clinic, who stated that the patient is at low risk for perioperative cardiovascular and pulmonary complications. She is at low risk for delirium. The patient will receive intravenous tranexamic acid. She will be on aspirin postoperatively for DVT prophylaxis. We will monitor her point of cares and order sliding scale insulin. Discharge plans will be to home the next day. The patient is not a candidate for same day discharge. The patient has been counseled regarding the risks and benefits of proposed surgery. Her questions have been answered and he acknowledges understanding. The patient wished to proceed with surgery and has signed consents. Prescriptions for Celebrex were given to her at this office visit. The patient will require prescriptions for aspirin, Colace, pantoprazole and pain medications filled at [facility] prior to discharge. The patient will receive 1 week of in-home physical therapy postoperatively. CONTACTS: Her [id number]-vqu, Lisa, with a cell phone [phone]. jean Not available 05/19/2024 13:12:46 06/28/2024 06/28/2024 I am seeing the patient today under the supervision of Dr. Yuridia Edge was available but who did not see the patient. HISTORY OF PRESENT ILLNESS The patient presents today for a follow-up, now four weeks status post Left total knee Revision. Continues to be happy with the results. No recent trauma. No significant complaints of pain. No neurovascular changes.Continues to progress nicely with physical therapy. ROM 7-125 with Therapy is degrees. PAST MEDICAL/SURGICAL HISTORY Reviewed today, otherwise unchanged per intake sheet. REVIEW OF SYSTEMS Systemic: No fever and no chills. Cardiovascular: No chest pain or discomfort. Pulmonary: No dyspnea. PHYSICAL FINDINGS General Appearance: Well developed. In no acute distress. Musculoskeletal System: Lower Leg: General/bilateral: Calves of both lower legs were not tender on palpation. Neurological: Oriented to time, place, and person. Gait And Stance: A left-sided antalgic gait was observed with assistive device. Psychiatric: Mood was appropriate to the affect. Skin: Skin: Physical examination of the knee reveals the incision to be healing nicely, no eyrthema or drainage, no evidence of infection. ROM is as above. Moderate effusion noted Stable to varus.valgus stress. Extensor mechanism continues to be intact without an extensor lag. Normal sensation bilateral lower extremities Contralateral side shows no warmth, erythema, soft tissue swelling or effusion. TESTS . ASSESSMENT Progressing nicely four weeks status post Left total knee Revision She is currently struggling with extension. She continues to work on it daily. She is going to a physical therapist outside of the [facility] institution. PLAN The patient is going to continue total knee precautions. Continue to work on range of motion and strengthening exercises with physical therapy.Continue to monitor for any evidence of infection. Follow-up At 3 months for re-evaluation, sooner if there are any complications. laine Not available 06/28/2024 13:00:55 09/16/2024 09/16/2024 PROBLEM: Status post Left revison total knee arthroplasty performed on 05/25/24 for instability HPI: Patient returns today for follow-up of their total knee arthroplasty. They report they have returned to most activities of daily living. The patient has no specific concerns today in the office. They have completed outpatient physical therapy. Past family, medical, social history and review of systems has been reviewed, updated and is located in the patient s chart. EXAM: The patient ambulates with a non-antalgic gait. The surgical wound is well-healed. There is no erythema, redness, or signs of infection. Left knee range of motion 0-130 . There is no significant sub-patellar crepitus. There is expected postoperative swelling but no significant effusion. The knee is stable to varus and valgus loading at 0 and 90 without evidence of significant instability. IMAGING: Previously obtained X-rays reviewed in the office today on [facility] PACS: Weightbearing AP of both knees, lateral of the left knee, and sunrise view of both knees demonstrate; Show appropriate position of the patient's left total knee arthroplasty. Overall limb alignment is neutral. Implant position is satisfactory. Patellar tracking is midline. Bone implant interfaces are intact and no evidence of fracture or osteolysis. There is a TS insert. IMPRESSION: Status post Left revision total knee arthroplasty PLAN: At this point, the patient is doing extremely well following their revision total knee arthroplasty. I encouraged them to continue a home exercise and walking program. We discussed activity modification, dental prophylaxis, and the importance of long-term follow-up. Patient has had a substantial probing or instability. She is very satisfied with her outcome to this point I encouraged them to return to the office periodically for routine follow-up; sooner if any issues arise. I attempted to answer all of their questions today in the office. [employer] Simple speech recognition tabulating supervisor software was used to create portions of this document. An attempt at proofreading has been made to minimize errors. Please call for corrections. Not available 09/16/2024 09:19:33 Plan of Treatment Reminders Order Date Submit Date Provider Last Modified By Organization Details Last Modified Time Details Appointments None record ed. Lab None record ed. Referral None record ed. Procedures None record ed. Surgeries None record ed. Imaging XR, knee, 3 view - ROOM 209, 1st PO REV LTKR 4 SJK 024 06/10/20 24 [email or web address] 47 [facility], [address], [place], [address], 4 16:11:45 Medication Orders None record ed. Patient TargetsNo targets recorded. Patient InstructionsNo instructions recorded. Reason for Referral None Reported. Results Created Date Observation Date Name Description Value Unit Range Abnormal Flag Note LastModifiedBy Organization Detail LastModifiedTime 05/21/20 24 05/14/2024 cardi ac clear ance* No observ ation record ed. [email or web address] [facility] (Medical Records) [address], [place], [address], 05/21/2024 13:33:33 05/25/20 24 05/25/2024 XR, knee, 1 or 2 view No observ ation record ed. nhulse [facility] [address], [place], [address], 05/26/2024 08:41:58 06/10/20 24 06/10/2024 XR, knee, 3 view [email or web address] ?Encry pted=s hAaTro YD8dLq bEUv6g %2BXZw aYqtaq 0bqfl% 2Fg9IQ a4ajBk vP9nXo QUaueC m3YtLR FvZlJ JJ8mAn HZtai3 8u0177 AC0Kqa 3%2BGV 6WkKiQ trMwF INTERFACE [facility] [address] [facility] [address], [place], [address], 06/10/2024 16:02:29 06/10/20 24 06/10/2024 XR, knee, 3 view [email or web address] ?Encry pted=s hAaTro YD8dLq bEUv6g %2BXZw aYqtaq 0bqfl% 2Fg9IQ a4ajBk vP9nXo QUaueC m3YtLR FvZl J8mAn tai3 8i0082 AC0Kqa 3%2BGV 6WkKiQ trMwF INTERFACE [facility] [address] [facility] [address], [place], [address], 06/10/2024 16:02:31 Result Notes Documentation Provider Name and Address Organization Details Recorded Time Xr, Knee, 3 View : [email or web address]? Encrypted=vaJmXrwCR8kHjaQ Uv6g%7WAIsxUklln9sfdw%2Fg 5SYr7kmUtsG1cNvZHihwZk7Ir KNEfAdcUIO7nUqIScge08o511 4AQ1Icy4%3MCA6HtFbUhbWdU Not Available [facility] 06/10/2024 16:0 2:29 Xr, Knee, 3 View : [email or web address] Encrypted=prSdDtfFU7nOoiN Uv6g%1ZWJldLtbji5wwym%2Fg 7MVo0jbNmdG9dQrJOurzPb7Hg PPOnGlgAVF8uQfXWcbi53b072 4RU6Hnz9%5UEE9LxSaPhlMyT Not Available [facility] 06/10/2024 16:0 2:31 Problems Name Problem SNOMED Code Status Onset Date Resolution Date Notes Provider Name and Address Organization Details Recorded Time Osteoarthri tis of right knee joint 2770150015708 00 Active 2023 Jennifer Minaya PA-C [address], [place], [address], [facility] 19:26:02 Problem Notes None recorded. Procedures Surgical History Date Name Laterality Status Provider Name and Address Organization Details Recorded Time Knee Kenalog 1cc L/R completed Jennifer Minaya PA-C [address], [place], [address], [facility] 03/21/2025 19:25:54 Imaging Results None recorded. Procedure Notes None recorded. Medical Equipment None Reported. Allergies No known drug allergies Medications Name Sig Start Date Stop Date Status Note LastModified by Organization Details LastModified Time celecoxib 200 mg capsule TAKE 1 CAPSULE BY MOUTH EVERY DAY active Not Available Not Available No t Available atorvastati n 40 mg tablet TAKE 1 TABLET BY MOUTH EVERY DAY active Not Available Not Available No t Available oxybutynin chloride ER 10 mg tablet,exte nded release 24 hr TAKE 1 TABLET BY MOUTH EVERY DAY active Not Available Not Available No t Available cephalexin 250 mg capsule TAKE 1 CAPSULE BY MOUTH TWICE A DAY FOR 5 DAYS active Not Available Not Available No t Available ondansetron HCl 4 mg tablet TAKE 1 TABLET BY MOUTH EVERY 8 HOURS NEEDED FOR NAUSEA AND VOMITING active Not Available Not Available No t Available valsartan 160 mg-hydrochl orothiazide 12.5 mg tablet TAKE 1 TABLET BY MOUTH EVERY DAY active Not Available Not Available No t Available clobetasol 0.05 % topical cream APPLY SPARINGLY TO AFFECTED AREA ONCE A DAY FOR 1 WEEK, THEN TWICE WEEKLY ONLY IF NEEDED active Not Available Not Available No t Available amlodipine 5 mg tablet TAKE 1 TABLET BY MOUTH EVERY DAY active Not Available Not Available No t Available tramadol 50 mg tablet TAKE 1 TO 2 TABLETS BY MOUTH EVERY 6 HOURS NEEDED FOR MODERATE PAIN. DO NOT EXCEED 8 TABLETS (400MG) PER DAY. active Not Available Not Available No t Available amoxicillin 500 mg tablet TAKE 4 TABLETS BY MOUTH 1HR BEFORE APPT 02/25 completed Not Available Not Available Not Available lorazepam 0.5 mg tablet TAKE 1 TABLET BY MOUTH EVERY 12 HOURS FOR 5 DAYS NEEDED active Not Available Not Available No t Available pantoprazol e 40 mg tablet,shirley yed release TAKE 1 TABLET BY MOUTH EVERY DAY active Not Available Not Available No t Available metoprolol succinate ER 25 mg tablet,exte nded release 24 hr TAKE 1 TABLET BY MOUTH EVERY DAY active Not Available Not Available No t Available hydromorpho ne 4 mg tablet TAKE 1/2 (HALF) TO 1 TABLET BY MOUTH EVERY 4 HOURS NEEDED FOR SEVERE PAIN active Not Available Not Available No t Available metformin ER 500 mg tablet,exte nded release 24 hr TAKE 2 TABLETS BY MOUTH IN THE MORNING AND 1 TABLET IN THE EVENING active Not Available Not Available No t Available escitalopra m 10 mg tablet TAKE 1 TABLET BY MOUTH EVERY DAY FOR 30 DAYS active Not Available Not Available No t Available valsartan-h ydrochlorot hiazide Valsartan -hydroCHL OROthiazi de 160-12.5M G Tablet 12/31 completed Statu s: 'Disc ontin ued'; Not Available Not Available Not Available PreserVisio n AREDS PreserVis ion AREDS Capsule 12/31 completed Statu s: 'Disc ontin ued'; Not Available Not Available Not Available Vitals Date Recorded Body height Body mass index (BMI) Body weight Provider Name and Address Organization Details Last Updated DateTime 03/21/2025 165.1 cm 32.3 kg/m2 12346.92 g SIVA ROSEMARIE [facility] 03/21/2025 13:19:35 Date Recorded Body height Body mass index (BMI) Body weight Provider Name and Address Organization Details Last Updated DateTime 05/19/2024 165.1 cm 32.3 kg/m2 28339.92 g JONNY SHELTON [facility] 05/19/2024 10:15:11 Date Recorded Body height Body mass index (BMI) Body weight Provider Name and Address Organization Details Last Updated DateTime 06/10/2024 165.1 cm 32.3 kg/m2 25373.92 g Giles Condon [facility] 06/10/2024 15:46:30 Date Recorded Body height Provider Name an d Address Organization Details Last Updated DateTime 06/28/2024 165.1 cm JONNY SHELTON [facility] 06/28/2024 11:17:15 Social History None recorded. Functional Status None recorded. Mental Status None recorded. Family History Nothing Reported. Medical History Condition Response Allergies/Hayfever N Coronary Artery Disease N Anxiety/Depression N Breathing or lung disorders N Emphysema N Nerve Disorders N Thyroid Problems N COPD N Pacemaker N Anemia N Kidney/Bladder Problems N Vascular Disease N Heart Trouble Y Heart Attack (OR) N Gastrointestinal Disease N Cholesterol Y Diabetes Y Autoimmune disease N Bleeding Disorder N Inflammatory Joint disease N Orthotics N Arthritis N Seizures/Epilepsy N Blood Clot N AIDS/HIV N Congestive Heart Failure (CHF) N Acid Reflux (GERD) N Cancer N Stroke N Asthma N Circulation Problems N Peripheral Vascular Disease N Sleep Apnea N Hepatitis N Heart Disease N Rheumatoid Arthritis N Arrhythmia N Pulmonary Embolism N Headaches N Fibromyalgia N Hypertension Y Osteoporosis N Gynecological HistoryNo gynecological history recorded. Obstetrics History GPAL:G 0 P 0 0 0 0 Past Encounters Encounter ID Performer Location Encounter Start Date Encounter Closed Date Diagnosis/Indication Diagnosis SNOMED-CT Code Diagnosis ICD10 Code Diagnosis Note [id number] KAMI Sarabia [address] [place] [address] 02/06/2024 13:11:09 02/27/2024 12:49:29 Pain of bilateral knee joints 2182594625 29292 M25.561 M25.562 Pain of le ft knee joint 4180214952 15153 M25.562 Knee joint prosthesis present 4394326604 02 Z96.652 Osteoarthr itis of right knee joint 0421762569 84260 M17.11 [id number] Ruddy Elise MD [facility] [address] [place] [address] 02/26/2024 08:40:53 03/23/2024 14:36:00 History of left total knee replacement 5088053598 504107 Z96.649 [id number] Liz Seaycliffe, CAB SUPERVISOR [facility] [address] [place] [address] 05/19/2024 10:08:44 06/01/2024 15:08:10 [id number] Ruddy Elise MD [facility] [address] [place] [address] 05/19/2024 12:28:04 06/11/2024 04:05:00 [id number] Savage Kidd PA-C [facility] [address] [place] [address] 06/10/2024 15:27:48 06/10/2024 16:11:45 Postoperative care 697629625 Z48.89 History of left total knee replacement 9272666243 211049 Z96.634 [id number] Jose R Conde NP [facility] [address] [place] [address] 06/28/2024 11:11:19 07/19/2024 14:18:19 [id number] Ruddy Elise MD [facility] [address] [place] [address] 09/16/2024 08:41:52 09/28/2024 14:51:06 History of left total knee replacement 5834805779 813502 Z96.632 [id number] Jennifer Minaya PA-C [facility] [address] [place] [address] 03/21/2025 12:40:47 03/21/2025 19:26:25 Osteoarthritis of right knee joint 1613840315 25671 M17.11 Health Concerns Section Related Observation LastModified by Organization Detai ls LastModified Time None Recorded Concern Status LastModified by Organization Details LastModified Time None Recorded Advance Directives Directive None Recorded Payers Insurance Date Sequence Insurance Name Policy Number Policy Atkinson Covered Member ID Atkinson Member ID Guarantor Name 03/18/2025 2 [facility] (MEDICARE SUPPLEMENT) Swati Coreas [id number] Swati Coreas 03/21/2025 1 MEDICARE B-[place]: [facility] [employer] Swati Coreas [id number] Swati Coreas Notes Date Note Type Note Provider Name and Address Organization Details Recorded Time 06/10/2024 text/html I am seeing the patient today under the supervision of Dane who was available but who did not see the patient. HPI: Patient returns follow-up 2 weeks postop rev. left total knee replacement. Patient seems to be progressing well with therapy. Patient's pain seems to be controlled. Past family, medical, social history and review of systems has been reviewed, updated and is located in the patient s chart. Examination: No significant swelling warmth erythema about the left total knee. Incision is healing well. Range of motion of the left total knee: Extension 0, and flexion 115. Good stability about the left total knee. Peripheral, vascular, lymphatic examination, skin, neurological, coordination, reflexes, sensation are within normal limits. X-rays ordered, obtained and reviewed at [facility] 3 views of the left total knee demonstrate good implant interfaces in good alignment. Impression: 2 weeks status post rev. left total knee replacement Plan: Reviewed x-rays. Reviewed postop protocols with the patient today in the office. Continue with formal therapy. Patient can wean from a walker to a cane as safe. Follow-up in 2 weeks to recheck the total knee replacement. Savage Kidd PA-C [address] [place] [address] [address], [place], [address], [facility] 06/10/2024 16:07:39 03/21/2025 text/html I am seeing the patient today under the supervision of Dr. Pal who was available but who did not see the patient. HPI: Patient presenting today with known osteoarthritis of the right knee. Has been responding favorably to conservative treatment. Here today for a cortisone injection. Denies recent injury. No new systemic complaints. Past family, medical, social history and review of systems has been reviewed, updated, and is located in the patient s chart. Examination: Examination of the right knee reveals no effusion, erythema, or warmth. Injection site benign. Decreased range of motion. Point tender medial joint line. Calf is soft and nontender. 5/5 strength knee flexion and extension. Impression: Right knee osteoarthritis Plan: The patient was thoroughly counseled today regarding their knee condition, its natural history, and conservative versus surgical treatment options. The patient is interested in receiving an injection with corticosteroid. The right knee was prepped sterilely and an injection was administered utilizing 40mg of Kenalog and 4cc of 0.25% Marcaine. The patient tolerated the procedure well. Post-injection precautions were discussed. Recommended avoiding strenuous activity over the next 24-48 hours. Encouraged elevation of the leg, applying ice, and taking over the counter medication as needed. The patient is aware that the injection can be repeated as often as every 3 months. Jennifer Minaya PA-C [address], [place], [address], [facility] 03/21/2025 19:26:24 OBGyn Episode No OBEpisode recorded.
--- OUTSIDE RECORDS SUMMARY | 2025-03-22 12:06 | XMS_ITS | Patient Health Record ---
Author Organization [facility] Address [address] [place] [address] Care Team Providers Care Manpower Development Advisor Name Role Phone Homero Jones MD Primary Care Provider Louis Lino Unavailable [phone] Irving Grant Unavailable Unavailable Reason For Referral No Information Medications Medication SIG (Take, Route, Frequency, Duration) Notes Start Date End Date Status Metoprolol Tartrate 5 MG/5ML 1 tablet with food Intravenous once a day Active Paxil 20 MG 1 tablet in the morn ing Orally Once a day Active Atorvastatin Calcium 40 MG 1 tablet Orally Once a day for 30 day(s) Active amLODIPine Besylate 10 MG 1 tablet Orall y Once a day Active PreserVision AREDS - as directed Orally Active Omeprazole 20 MG 1 capsule Orally Onc e a day for 90 days Just prn 01/09/2016 Active metFORMIN HCl 500mg 2 tablets 2 in am 1 in pm bid Active Aspir-81 81mg once a day Activ e Valsartan-hydroCHLOROthia zide 160/12.5mg 1 tablet Orally Once a day Active Immunizations Vaccine Route Administration Date Status Comme nts Flu vaccine no Preserv 3 and > Unknown 07/12/2014 Admin istered Flu vaccine no Preserv 3 and > Unknown 07/12/2014 Admin istered Influenza Unknown 06/08/2019 Administered Pneumococcal Unknown 06/08/2019 Administered Social History Tobacco Use: Social History Observation Description Date Details (start date - stop date) Former Smoker NA - NA Tobacco Use/Smoking Question Answer Notes Patient is a former smoker When did you stop smoking? over 40 years ago How long has it been since you last smoked? > 10 years Section Notes: Nonsmoker; occasional alcoho l Nonsmoker; occasional alcoho l Nonsmoker; occasional alcoho l Nonsmoker; occasional alcoho l Problems Problem Type SNOMED Code ICD Code Onset Dates Problem Status W/U Status Risk Notes Problem 15870300 Rectal bleeding (K62.5) Active confirmed Problem 183470176 History of adeno matous polyp of colon (Z86.010) Active confirmed Problem 58069400 Constipation, unspecified constipation type (K59.00) Active confirmed Problem 34994391 Pharyngoesophage al dysphagia (R13.14) Active confirmed Problem 814906959 Schatzki's ring (K22.2) Active confirmed Plan Of Treatment Pending Test Test Name Order Date XR BARIUM SWALLOW-ESOPHAGUS 02/23/2020 Future Test Test Name Order Date UPPER GI ENDOSCOPY 12/29/2014 COLONOSCOPY 08/26/2019 Next Appt Details Provider Name:Louis Moura , 05/31/2025 10:50:00 AM, [address] [place] [address], [address], [place], [address], Insurance Providers Payer Name Payer Address Payer Phone Subscriber Number Group Number Insured Name Patient Relationship to Insured Coverage Start Date Coverage End Date MEDICARE OF [place] [address] [place] [address] [phone] [id number] CHRISTINE JORGENSEN Self - patient is the insured [employer] [address] [place] [phone] [id number] CHRISTINE JORGENSEN Self - patient is the insured Medical (General) History Medical History History ICD Code NIDDM HTN Denies [place],CVA,Lung disease,renal disease Hyperlipidemia Anxiety Negative screening colonosco py [place] [address] Bates and in January of 2013 with me, other than diverticulosis and hemorrhoids. Chest discomfort-sees Dr. Alexei luna--has had ETT's--had a neg. cardiac cath in 2013 EGD 2014 with a small HH--no esophagitis nor Sanford's Urinary incontinence-mild Prolapsed rectum per her [employer]CILLARY SERVICES MANAGER MD Colonoscopy 11/2019--small tu bular adenoma removed, int/ext hemorrhoids, diverticulosis Schatzki's ring and hiatal h ernia seen on 09/2014 Barium swallow--no obstruction to a Barium tablet Surgical History Surgery Date(Month/Year) cholecystectomy bladder suspension knee surgery right leg varicose veins
== END 2025-03-22 10:44 | disposition home or self-care (01) ==
LOC: HO.LNP 10:43
PROVIDERS: Visit Provider Internal Medicine
DX: E11.9 Type 2 diabetes mellitus without complications (principal); E78.00 Pure hypercholesterolemia, unspecified
CPT/HCPCS: 80061; 80076; 82947; 83036

== ENCOUNTER 2025-05-05 09:17 | Outpatient (AMB) | payer MEDICARE, OTHER, SELFPAY ==
--- OUTSIDE RECORDS SUMMARY | 2024-11-15 10:50 | XMS_ITS ---
Author Organization Homero Jones MD Address [address] [place] [phone] Care Team Providers Care Shear Grinder Operator Name Role Phone Homero Jones Primary Care Provider REASON FOR VISIT Lorazepam Medications Medication SIG (Take, Route, Fr equency, Duration) Notes Start Date End Date Status LORazepam 0.5 MG 1 tablet as needed O rally every 12 hrs for 5 days 11/16/2024 Active Encounters Encounter Location Date Provider Diagnosis Homero Jones MD [address] [place] [phone] 11/15/2024 Homero Jones Plan Of Treatment Medication Medication Name Sig Start Date Stop Date Notes LORazepam 0.5 MG 1 tablet as needed O rally every 12 hrs for 5 days 11/16/2024 Next Appt Details Provider Name:Homero jimenez, 09/23/2025 07:45:00 AM, [address] [place] [address], [address] [place] [address], [phone], Provider Name:Homero jimenez, 09/30/2025 11:00:00 AM, [address] [place] [address], [address], [phone], Progress Notes * Swati JORGENSEN MDOB:1950 (74 yo F)Acc No.[id number]:11/15/2024 Patient: Antonella CORTES Swati Mendoza :1950 A ge:74 Y S ex:Female Address:[address] [place] [address] * Refills Refill LORazepam Tablet, 0.5 MG, Orally, 10 Tablet, 1 tablet as needed, every 12 hrs, 5 days * true * Date: Generated for Becky lucia/Linda/Marielasmitting on: 0 05/05/2025 10:18 AM EDT
--- OUTSIDE RECORDS SUMMARY | 2025-03-22 04:00 | XMS_ITS ---
Author Organization Homero Jones MD Address [address] [place], [place] [phone] Care Team Providers Care Second Floor Operator Name Role Phone Homero Jones Primary Care Provider Results Component Value Reference Range Notes Liver Panel Reviewed date:03/22/2025 12:18:31 PM Interpretation: Performing Lab:[facility], [address] [place] [phone] Notes/Report: Bilirubin Total 0.3 0.0-1.0 mg/dL Bilirubin Direct 0.2 0.0-0.5 mg/dL Aspartate Amino Transferase 25 5-31 U/L Alanine Aminotransferase 12 0-31 U/L Total Protein 7.2 6.5-8.0 g/dL Albumin Level 4.2 3.5-5.0 g/dL Alkaline Phosphatase 90 39-117 U/L Glucose Fasting Reviewed date:03/22/2025 12:18:24 PM Interpretation: Performing Lab:[facility], [address] [place] [phone] Notes/Report: Glucose Fasting 157 60-99 mg/dL A fasting glucose of 126 mg/dl or greater on more than one occasion is considered diagnostic of diabetes. Lipid Panel with Reflex Reviewed date:03/22/2025 12:21:16 PM Interpretation: Performing Lab:[facility], [address] [place] [phone] Notes/Report: Triglycerides 51 <150 mg/dL Desirable Triglyceride: [...] A1c Reviewed date:03/22/2025 12:20:57 PM Interpretation: Performing Lab:[facility], [address] [place] [phone] Notes/Report: Hemoglobin A1c % 6.3 <6.0 % [...] average glucose, using the formula of the Q5D-Vqhewxg Average Glucose study (ADAG), Diabetes Care, Vol.31,#8, Apr. 2007 REASON FOR VISIT fasting lipids Encounters Encounter Location Date Provider Diagnosis Homero Jones MD [address] [place] [address] Drive [address] [place], [place] [phone] 03/22/2025 Homero Jones Type 2 diabetes vesna [...] 07:45:00 AM, [address], [address], [place], [phone], Provider Name:Homero Romano ier, 09/30/2025 11:00:00 AM, [address], [address], [place], [phone], Progress Notes * Swati JORGENSEN MDOB:1950 (74 yo F)Acc No.[id number]:03/22/2025 Progress Note Patient: Swati VIEIRA Provider: Avis Jones MD :1950 A ge:74 Y S ex:Female Date:03/22/2025 Address:[address] [place], [place] [phone] Subjective: * Chief Complaints: * 1 . [...] 0 03/22/2025 Generated for Zekei ng/Facolumbag/eTransmitting on: 0 05/05/2025 10:18 AM EDT
--- OUTSIDE RECORDS SUMMARY | 2025-03-28 06:00 | XMS_ITS ---
Author Organization Homero Jones MD Address [address] [place], [place] [phone] Care Team Providers Care Attractions Associate Name Role Phone Homero Jones Primary Care [...] Diagnosis Homero Jones MD [address] [place] [id number] 03/28/2025 Homero Jones Type 2 diabetes vesna [...] Details Provider Name:Homero jimenez, 09/23/2025 07:45:00 AM, [address] [place] [address], [address] [facility], [place], [place], [phone], Provider Name:Homero jimenez, 09/30/2025 11:00:00 AM, [address] [place] [address], [address] [facility], [place], [place], [phone], Progress Notes * Swati JORGENSEN MDOB:1950 (74 yo F)Acc No.[id number]:03/28/2025 Progress Notes Patient: Swati VIEIRA Provider: Avis Jones MD :1950 A ge:74 Y S ex:Female Date:03/28/2025 Address:[address] [place] [address], [facility] Subjective: * Chief Complaints: * 6 month [...] 03/28/2025 Generated for Becky lucia/Linda/Daisyitting on: 0 05/05/2025 10:18 AM EDT History and Physical Notes * HPI [...]
[2025-05-05 09:30] VITALS: BP 120/72; PULSE 67; BMI 30.8
--- NOTE | 2025-05-05 09:30 | MHC.OFFVIS ---
Vital Signs 05/05/25 09:30 Height 5 ft 5 in Weight 185 lb 3.013 oz BMI 30.8 BP 120/72 Blood Pressure Location Lt brachial Position Sitting Pulse 67 Intake Visit Reasons: 1 yr f./up Intake Note: 1 year follow-up with ekg feeling good Vp [employer] Required: No Allergies No Known Allergies (No Known Allergies*) Allergy (Verified 08/10/24 21:06) Medication List - Last Reconciled 05/05/25 by Irving Grant MD amlodipine 5 mg PO DAILY aspirin 81 mg PO DAILY atorvastatin 40 mg PO DAILY clobetasol 0.05% topical escitalopram oxalate 10 mg PO DAILY ibuprofen (IBU) 600 mg PO TID metformin ER 500 mg PO TID metoprolol succinate ER 25 mg PO DAILY omeprazole 20 mg PO DAILY PRN oxybutynin chloride ER 10 mg PO DAILY valsartan-hydrochlorothiazide 160-12.5 mg 1 tab PO DAILY HPI Comments Details: Swati comes for follow-up. She has been doing well. She has had issues with her left knee which she underwent surgery and redo to need repair which she is doing better. Has issues with balance and going up and down the stairs. She does not exercise as much as she would like to. She is taking all her medications. Her LDL is well optimized. She denies any exertional chest pain or shortness of breath. Denies any orthopnea, PND, leg edema. No lightheadedness, syncope. No prolonged palpitations or irregular heartbeat. ON LICENSE OF [facility] Medical History (Updated 05/05/25 @ 09:53 by Irving Grant MD) Carotid stenosis Osteoarthritis of knees, bilateral Varicose veins of bilateral lower extremities with pain Diabetes Diastolic dysfunction PVC (premature ventricular contraction) HTN (hypertension) Arteriosclerosis of coronary artery Hyperlipidemia Surgical History History of cardiac catheterization History of colonoscopy Social History Alcohol intake: current Alcohol intake frequency: a few times a month Current occupational status: retired Current occupation: rt handed Review of Systems Const Denies chills, Denies fatigue, Denies fever(s), Denies frequent falls, Denies weakness, Denies weight gain and Denies weight loss ENT Denies dizziness Card Denies chest pain, Denies leg edema, Denies lightheadedness, Denies palpitations, Denies dyspnea, Denies dyspnea on exertion, Denies orthopnea and Denies other (loss of consciousness) Resp Denies cough, Denies dyspnea and Denies dyspnea on exertion GI Denies hematochezia and Denies change in stool character Musc Denies abnormal gait, Denies muscle weakness, Denies numbness, Denies radiating pain into limb and Denies tingling Neuro Denies abnormal gait, Denies dizziness, Denies frequent falls, Denies numbness, Denies tingling and Denies weakness Endo Denies fatigue and Denies palpitations Physical Exam Vital Signs: Last Vital Signs Pulse 67 05/05/25 09:30 BP 120/72 05/05/25 09:30 BMI result Body Mass Index 30.8 Const General: cooperative, healthy appearing, comfortable and no acute distress Orientation/consciousness: patient oriented x3 Neck Neck: Yes normal visual inspection and Yes no JVD Resp Effort & Inspection: normal respiratory effort Auscultation: clear to auscultation bilaterally, no crackles, no rales, no rhonchi and no wheezes Cardio Jugular venous distension: no JVD Rate: regular rate Rhythm: regular rhythm Heart sounds: S1 normal heart sound present, S2 normal heart sound present, no murmurs and no rubs Neuro General: patient oriented x3 Extrem Other: visable swelling left knee General: No no pedal edema Psych Appearance: grossly normal Mental Status: mental status grossly normal Speech and movement: Normal speech and movement present Office Procedures EKG Details: EKG shows normal sinus rhythm with low-voltage QRS with poor R-wave progression most likely lead placement and body habitus [id number], Complete Assessment & Plan Assessment & Plan (1) Arteriosclerosis of coronary artery: Code(s): I25.10 - Atherosclerotic heart disease of [place] coronary artery without angina pectoris Category: Medical Plan: Nonobstructive CAD without any new obvious symptoms. At this point time no further workup is indicated except for just aggressive medical therapy. Continue low-dose aspirin therapy. Continue high-intensity statin therapy with well optimized LDL at this point time. Continue aggressive blood pressure control, see below. Continue aggressive diabetes management which is being pursue through office with goal hemoglobin A1c less than 7%. Encouraged to increase activity level and participate in weight loss program. She understands and agrees. (2) PVC (premature ventricular contraction): Code(s): I49.3 - Ventricular premature depolarization Category: Medical Plan: PVCs in the past without any obvious symptoms at this point time. Has done well on metoprolol therapy. Continue the same. Importance of metoprolol therapy was discussed. Avoidance of stimulants was discussed. Stress mitigation strategies were discussed. (3) HTN (hypertension): Code(s): I10 - Essential (primary) hypertension Category: Medical Plan: Hypertension which is currently well optimized on current therapy with metoprolol amlodipine. Importance of good blood pressure control was discussed. Target goal blood pressure less than 130/84. Low-salt diet was discussed. Stress mitigation strategies were discussed. Will follow up in the clinic in 1 year's time, sooner PRN. Thank you for allowing me to partake in her care Coding Level of Care Code Est Pt Level 4 (59107) Complex EM visit Add On G2211 Diagnoses Arteriosclerosis of coronary artery I25.10 PVC (premature ventricular contraction) I49.3 HTN (hypertension) I10 CPT Codes EKG - CPT: 05247-Libpsrryeylctyxom, Complete ([id number])
--- OUTSIDE RECORDS SUMMARY | 2025-05-05 10:18 | XMS_ITS | Clinical Summary ---
Author Organization [facility] Address [address] [place] [id number] Phone Care Team Providers Care Jewel Oliving Machine Operator Name Role Phone Homero Jones MD Primary Care Provider Allergies No known active allergies Medications valsartan-hydroC HLOROthiazide (DIOVAN-HCT) 160-12.5 mg per tablet Take 1 tablet by mouth daily. Active hydroCHLOROthiaz dina (HYDRODIURIL) 25 MG tablet Take 25 mg by mouth daily. Active metoprolol succinate (TOPROL-XL) 25 MG 24 hr tablet Take 25 mg by mouth daily. Active amLODIPine (NORVASC) 2.5 MG tablet Take 2.5 mg by mouth daily. Active PARoxetine (PAXIL-CR) 25 MG 24 hr tablet Take 25 mg by mouth every morning. Active atorvastatin (LIPITOR) 40 MG tablet Take 40 mg by mouth daily. Active metFORMIN (RIOMET) 500 mg/5 mL Soln Take 500 mg by mouth 3 (three) times a day. Active aspirin 81 MG EC tablet Take 81 mg by mouth daily. Active Social History Tobacco Use Types Packs/Day Years Used Date Smoking Tobacco: Never Smokeless Tobacco: Never Alcohol Use Standard Drinks/Week Comments Not Currently 0 (1 standard drink = 0.6 oz pur e alcohol) ocassionally Education Answer Date Recorded Are you interested in more education? Not on pooja e 01/03/2023 Are you concerned about learning? Not on file 01/03/2023 No 01/03/2023 No 01/03/2023 Digital Access Answer Date Recorded No 02/01/2023 No 02/01/2023 No 02/01/2023 Reliable internet access at home? Not on file 02/01/2023 Device with a working camera? Not on file Comments Unknown Sex and Gender Information Value Date Recorded Sex Assigned at Not on file Legal Sex Female 12:45 PM EST Gender Identity Not on file Sexual Orientation Not on file Last Filed Vital Signs Vital Sign Reading Time Taken Comments Blood Pressure - - Pulse 75 10/20/2019 12:58 PM EST Temperature 36.8 C (98.3 F) 10/20/2019 12:58 PM EST Respiratory Rate 18 10/20/2019 12:58 PM EST Oxygen Saturation 96% 10/20/2019 12:58 PM EST Inhaled Oxygen Concentration - - Weight 97.1 kg (214 lb) 10/20/2019 12:58 PM EST Height 165.1 cm (5' 5 ) 10/20/2019 12:58 PM EST Body Mass Index 35.61 10/20/2019 12:58 PM EST Plan of Treatment Health Maintenance Due Date Last Done Comments Adult Td,Tdap Booster 1949 CREATININE LEVEL 1949 LIPID PANEL 1949 POTASSIUM LEVEL 1949 DEPRESSION SCREENING 1961 HEPATITIS C SCREENING 1967 COLOGUARD 1994 COLONOSCOPY 1994 COLORECTAL CANCER SCREENING 1994 FIT TEST 1994 FOBT 1994 SIGMOIDOSCOPY 1994 VIRTUAL COLONOSCOPY 1994 OSTEOPOROSIS SCREENING INITI AL (ONE-TIME) 2014 PNEUMOCOCCAL VACCINES (50+ years) (2 of 2 - PCV) 10/02/2019 10/02/2018 ZOSTER VACCINES (2 of 2) 11/02/2020 09/07/2020 COVID-19 VACCINE (3 - 2023-2 5 season) 2024 11/13/2020, 10/23/2020 RSV VACCINE (1 - 1-dose 75+ series) 2024 SMOKING STATUS SCREENING (On ce After 26 Yrs) Completed 10/20/2019 HEPATITIS A VACCINES Aged Out No long er eligible based on patient's age to complete this topic HIB VACCINES Aged Out No longer eligi ble based on patient's age to complete this topic MENINGOCOCCAL VACCINES (ACWY) Aged Out No longer eligible based on patient's age to complete this topic MENINGOCOCCAL VACCINES (B) Aged Out N o longer eligible based on patient's age to complete this topic Medical Devices Not on file Insurance MEDICARE PART A & B Member Subscriber Plan / Payer ( fective 2014-Present) Name:Swati Coreas Member ID:[id number] Relation to Subscriber:Self Name:Swati Coreas Subscriber ID:[id number] Payer ID:[id number] Group ID:Not on file Type:Medicare Address: [employer] [address] [place] [id number] [place] [address] MEDICARE ENHANCE SUPPLEMENT MEDICARE PART A & B [facility] MEDICARE ENHANCE SUPPLEMENT [facility] Address[facility] [id number] [place] [id number] MEDICARE PART A & B [facility] MEDICARE ENHANCE SUPPLEMENT [facility] Address[facility] [id number] JON[place] BARLOW [id number] MEDICARE PART A & B [facility] MEDICARE ENHANCE SUPPLEMENT [facility] Address[facility] [id number] J[place] BARLOW [id number] MEDICARE ENHANCE SUPPLEMENT [facility] Address: [facility] [id number] J[place] BARLOW [id number] MEDICARE PART A & B [facility] MEDICARE ENHANCE SUPPLEMENT [facility] Address: [address] [id number] MEDICARE PART A & B [facility] MEDICARE ENHANCE SUPPLEMENT MEDICARE PART A & B [facility] MEDICARE ENHANCE SUPPLEMENT MEDICARE PART A & B [facility] MEDICARE ENHANCE SUPPLEMENT Care Teams Jewel Oliving Machine Operator Relationship Specialty Start Date End Date Homero Jones MD [address] [place] [address] [place] [id number] PCP - General Internal Medicine 10/20/19 Additional Source Comments The information contained in this document represents components of the legal health record. It is not the complete legal health record.[facility]
--- OUTSIDE RECORDS SUMMARY | 2025-05-05 10:18 | XMS_ITS | Patient Health Record ---
Author Organization [facility] Address [address] [place] [address] Care Team Providers Care Receiving Barn Custodian Name Role Phone Homero Jones MD Primary Care Provider Louis Lino Unavailable [phone] Irving Grant Unavailable Unavailable Reason For Referral [...] Problem Status W/U Status Risk Notes Problem 58429348 Rectal bleeding (K62.5) Active confirmed Problem 460072765 History of adeno matous polyp of colon (Z86.010) Active confirmed Problem 26315657 Constipation, unspecified constipation type (K59.00) Active confirmed Problem 88810845 Pharyngoesophage al dysphagia (R13.14) Active confirmed Problem [id number] Schatzki's ring (K22.2) Active confirmed Plan Of Treatment Pending Test Test Name Order Date XR BARIUM SWALLOW-ESOPHAGUS 02/23/2020 Future Test Test Name Order Date UPPER GI ENDOSCOPY 12/29/2014 COLONOSCOPY 08/26/2019 Next Appt Details Provider Name:Louis Moura , 05/31/2025 10:50:00 AM, [address] [place] [address], [address], [place], [address], Insurance Providers Payer Name Payer Address Payer Phone Subscriber Number Group Number Insured Name Patient Relationship to Insured Coverage Start Date Coverage End Date MEDICARE OF [place] [address] [place] [address] [id number] CHRISTINE JORGENSEN Self - patient is the insured [employer] [address] [place] [address] [id number] CHRISTINE JORGENSEN Self - patient is the insured Medical (General) History Medical History History ICD Code NIDDM HTN Denies MT,CVA,Lung disease,renal disease Hyperlipidemia Anxiety Negative screening colonosco [place] [address] Bates and in January of 2013 with me, other than diverticulosis and hemorrhoids. Chest discomfort-sees Dr. Alexei luna--has had ETT's--had a neg. cardiac cath in 2013 EGD 2014 with a small HH--no esophagitis nor Sanford's Urinary incontinence-mild Prolapsed rectum per her DIRECTOR TRAFFIC AND PLANNING MD Colonoscopy 11/2019--small tu bular adenoma removed, int/ext hemorrhoids, diverticulosis Schatzki's ring and hiatal h ernia seen on 09/2014 Barium swallow--no obstruction to a Barium tablet Surgical History Surgery Date(Month/Year) cholecystectomy bladder suspension knee surgery right leg varicose veins
--- OUTSIDE RECORDS SUMMARY | 2025-05-05 10:18 | XMS_ITS | Patient Health Record ---
Author Organization Homero Jones MD Address [address] [place], [place] [id number] Care Team Providers Care Revenue Manager Name Role Phone Homero Jones Primary Care Provider Allergies No Known Allergies Results Component Value Reference Range Notes Complete Blood Count Auto Di ff Reviewed date:09/16/2024 06:03:36 PM Interpretation: Performing Lab:[facility], [address] [place] [phone] Notes/Report: White Blood Count 6.9 4.8-10.8 X10*3/uL [...] NRBC Abs Auto 0.000 0.0-0.012 X10*3/uL Comprehensive [place]. Panel Fa st Reviewed date:09/16/2024 05:59:17 PM Interpretation: Performing Lab:[facility], [address] [place] [phone] Notes/Report: Sodium 142 135-145 mmol/L Potassium 4.1 [...] Panel Reviewed date:09/16/2024 06:00:30 PM Interpretation: Performing Lab:[facility], [address] [place] [phone] Notes/Report: Bilirubin Direct 0.2 0.0-0.5 mg/dL Lipid Panel Reviewed date:09/16/2024 06:10:58 PM Interpretation: Performing Lab:[facility], [address] [place] [phone] Notes/Report: Triglycerides 94 <150 mg/dL Desirable Triglyceride: [...] A1c Reviewed date:09/16/2024 12:26:07 PM Interpretation: Performing Lab:[facility], [address] [place] [address] Notes/Report: Hemoglobin A1c % 6.6 <6.0 % [...] average glucose, using the formula of the A0Z-Afxvbav Average Glucose study (ADAG), Diabetes Care, Vol.31,#8, Apr. 2007 Liver Panel Reviewed date:03/22/2025 12:18:31 PM Interpretation: Performing Lab:[facility], [address] [place] [phone] Notes/Report: Bilirubin Total 0.3 0.0-1.0 mg/dL Bilirubin Direct 0.2 0.0-0.5 mg/dL Aspartate Amino Transferase 25 5-31 U/L Alanine Aminotransferase 12 0-31 U/L Total Protein 7.2 6.5-8.0 g/dL Albumin Level 4.2 3.5-5.0 g/dL Alkaline Phosphatase 90 39-117 U/L Glucose Fasting Reviewed date:03/22/2025 12:18:24 PM Interpretation: Performing Lab:[address] [address] Notes/Report: Glucose Fasting 157 60-99 mg/dL A fasting glucose of 126 mg/dl or greater on more than one occasion is considered diagnostic of diabetes. Lipid Panel with Reflex Reviewed date:03/22/2025 12:21:16 PM Interpretation: Performing Lab:[address] [address] Notes/Report: Triglycerides 51 <150 mg/dL Desirable Triglyceride: [...] A1c Reviewed date:03/22/2025 12:20:57 PM Interpretation: Performing Lab:[address] [address] Notes/Report: Hemoglobin A1c % 6.3 <6.0 % [...] average glucose, using the formula of the X1T-Ismjfcj Average Glucose study (ADAG), Diabetes Care, Vol.31,#8, Apr. 2007 Occult Blood, Stool, Guaiac Reviewed date:09/28/2024 01:28:39 PM Interpretation:Negative Performing Lab: Notes/Report: Negative Occult Blood, Stool, Guaiac Neg Microalbumin, Random Reviewed date:09/28/2024 04:28:47 PM Interpretation: Performing Lab:[facility], [address] [place] [address] Notes/Report: Creatinine Urine 186.13 Microalbumin Urine 14.0 Microalbum/Creatinine Ratio Ur 7.5 <30 ug/mg cr Albumin/Creatinine Ratio Reference Ranges: Normal: < 30 ug/mg creatinine Microalbuminuria: 30 - 300 ug/mg creatinine Clinical Albuminuria: > 300 ug/mg creatinine UA ClnCatch+Micro w/rflx Cul t Reviewed date:09/28/2024 04:31:48 PM Interpretation: Performing Lab:[facility], [address] [place] [phone] Notes/Report: [id number] Urine, Clean Catch Color Urine Dark Yellow Appearance Urine Cloudy PH 6.0 5.0-9.0 Glucose Urine UA Negative Negative mg/dL Urine Blood Negative Negative Specific [place] - Urine >= 1.030 1.005-1.025 Urine Protein Trace Neg-Trace mg/dL Urine Ketones Negative Negative mg/dL Nitrite Urine Negative Negative Leukocyte Esterase Urine Large (3+) Negative RBC Urine 0-2 0-2 /HPF WBC Urine >50 0-5 /HPF Squamous Epithelial Cell Urine 6-10 0-2 /HPF Calcium Oxalate Crystals Urine Present Bacteria Urine Trace None Seen Hyaline Casts Urine 0-2 0-2 /LPF NM cardiolite stress test Reviewed date:05/19/2024 08:41:11 AM Interpretation: Performing Lab: Notes/Report: [address] [address] Nuclear Medicine Report Signed Patient: Swati Coreas MR#: [id number] 1 : 1950 Acct:[id number] Age/Sex: 73 / F ADM Date: 05/14/24 Loc: LENCHO Attending Dr: Radha SUAREZ Ordering Physician: Radha Garcia Date of Service: 05/14/24 Procedure(s): NM cardiolite stress test Accession Number(s): [id number] cc: Homero Jones MD; Radha Garcia Lexiscan [...] 05/18/24 1635 DD/ 0807 TD/TT: 05/17/24 1330 Carnival Worker: [place] [address] Nuclear Medicine Report Signed Patient: Swati Coreas MR#: [id number] 1 : 1950 Acct:[id number] Age/Sex: 73 / F ADM Date: 05/14/24 Loc: DELMY Attending Dr: Radha SUAREZ Ordering Physician: Radha Garcia Date of Service: 05/14/24 Procedure(s): NM cardiolite stress test Accession Number(s): [id number] cc: Homero Jones MD; Radha Garcia Lexiscan Myocardial perfusion study Indication: Preoperative cardiovascular stratification prior CAD Technique: The patient was brou t in for a Lexiscan perfusion study on 05/14/2024 and was injected 0.4 mg of Lexiscan intravenously. Within a minute of this injection 30 mC i of sestamibi was given intravenously. Images were obtained using the [employer] gamma camera interlaced with the gating device. Images were obtained in supine position. Resting perfusion st udy was performed on 2024. Patient was administered 30 mCi of sestamibi intravenously at rest. Images were then obtained in sup ine position. Images obtained with out without CT attenuation. Total DLP 172 mGy-cm. Images were processe d with the software and compared side to side in short axis, horizont al long axis and vertical long axis views. Findings: The stress perfusion study showed a nonattenuation images show mildly reduced uptake in th e distal inferolateral and mid inferolateral wall of the myocardium co uld be related to attenuation artifact from the arms down position. Remainder of the LV myocardium is normally perfused. Attenuated corrected images show normal uptake of radiotracer in all segments of t he myocardium. There is suggestion of left ventricular hypertro phy. The gated study shows normal LV systolic function with calcul ated LVEF of 67%. LV cavity is normal in size. The gated study shows no rmal systolic wall thickening and contraction of segments. Resting study shows on nonrotated images show mildly reduced uptake in the distal lateral w all of the LV myocardium with some patchy reduced uptake in the latera l wall of, again most likely related to on the down position. Attenuated corrected images show mildly reduced uptake in the apex of the LV myocardium. Gating at rest reveals normal systolic wall motion with ejection fraction at 56%. The findings are consistent with likely normal myocardial perfusion. N M/NM cardiolite stress test Impression: 1. Myocardial perfus ion imaging study shows likely normal myocardial perfusion 2. Gated LVEF is 67% 3. Transient ischemi c dilatation not present Nondiagnostic change s on EKG. Electronically isidro d by: Irving Grant MD 05/18/2024 04:35 PM EDT RP Dictated By: Mercedes Grant MD Signed By: <Electronically signed by rIving Grant MD in OV> 05/18/24 1635 DD/ 0807 TD/TT: 05/17/24 1330 Carnival Worker: Complete Blood Count Auto Di ff Reviewed date:08/12/2024 03:26:50 PM Interpretation: Performing Lab:[facility], [address] [place] [phone] Notes/Report: White Blood Count 10.5 4.8-10.8 X10*3/uL [...] Panel Reviewed date:08/12/2024 03:26:31 PM Interpretation: Performing Lab:[facility], [address] [place] [phone] Notes/Report: Sodium 140 135-145 mmol/L Potassium 3.9 [...] date:08/12/2024 03:26:12 PM Interpretation: Performing Lab: Notes/Report: [address] [address] [address] Scan Report Signed Patient: Swati Coreas MR#: [id number] 1 : 1950 Acct:[id number] Age/Sex: 74 / F ADM Date: 08/10/24 Loc: HO.ED Attending Dr: Ordering Physician: Bigg Zhou MD Date of Service: 08/10/24 Procedure(s): CT cervical spine wo IV con Accession Number(s): [id number] cc: Homero Jones MD; Bigg Zhou MD [...] by: Martin Conde MD 08/11/2024 12:22 AM [facility] [place] By: Martin Conde MD Signed By: <Electronically signed by Martin Conde MD in OV> 08/11/24 0022 DD/ 2311 TD/TT: 08/10/24 2338 Carnival Worker: [place] [address] [address] Scan Report Signed Patient: Swati Coreas MR#: [id number] 1 : 1950 Acct:[id number] Age/Sex: 74 / F ADM Date: 08/10/24 Loc: HO.ED Attending Dr: Ordering Physician: Bigg Zhou MD Date of Service: 08/10/24 Procedure(s): CT cervical spine wo IV con Accession Number(s): [id number] cc: Homero Jones MD; Bigg Zhou MD EXAMINATION: CT HEAD WITHOUT CONTRAST CT CERVICAL SPINE WITHOUT CONTRAST CLINICAL INFORMATION: Fall. Pain. COMPARISON: April 26, 2019. TECHNIQUE: Contiguous axial giovanny ging was performed through the head and cervical spine without intravenous administration of contrast. Sagittal and coronal reformatted images also obtained. This CT examination was performed using dose optimization techniques as appropriate, various ly including the following: *Automated exposure control *Adjustment of mA an d/or kV according to patient size (this includes techniques or standardized protocols for targeted exams where dose is matched to indication/reason for exam; i.e. extremities or head) *Use of iterative reconstruction technique DLP: 1048 mGy-cm FINDINGS: There is mild cerebr al volume loss with prominence of the lateral and the third ventricles . The cortical sulci are widened appropriately. The fourth ventricle and basal cisterns are normally outlined. There is mild bilateral periventricular and central white matter diminished attenuation. There i s no acute territorial defects, hemorrhage or midline shift. The extra-axial spaces are unremarkable. Calvarium/scalp: Intact. Maxillofacial sinuse s and mastoids: Clear as visualized. Cervical spine: The alignment is normal. There is diffuse mild to moderate cervical di sc degenerative change most pronounced at C5-6 and C6-7 with loss of di sc space, endplate change and posterior osteophytes associated with diff use mild to moderate facet osteoarthritic hypertrophic change with multilevel mild spinal canal and neuroforaminal narrowing. The bony structures are osteopenic. No fracture is seen. Th e soft tissues are unremarkable. The visualized upper lung esquivel ar e clear. C T/CT cervical spine wo IV con IMPRESSION: 1. No acute intracra nial process seen. 2. Mild cerebral vol ume loss with chronic small vessel ischemic changes. 3. No acute cervical spine fracture or dislocation seen. There are degenerative disc changes C5-6 and C6-7 disc levels with multilevel mild spinal canal an d neuroforaminal narrowing. Electronically isidro d by: Martin Conde MD 08/11/2024 12:22 AM [facility] [place]ict[place] By: Frances Conde MD Signed By: <Electronically signed by Martin Conde MD in OV> 08/11/24 0022 DD/ 2311 TD/TT: 08/10/24 2338 Carnival Worker: CT chest wo con Reviewed date:08/12/2024 03:24:48 PM Interpretation: Performing Lab: Notes/Report: [address] [address] [address] Scan Report Signed Patient: Swati Coreas MR#: [id number] 1 : 1950 Acct:[id number] Age/Sex: 74 / F ADM Date: 08/10/24 Loc: HO.ED Attending Dr: Ordering Physician: Bigg Zhou MD Date of Service: 08/10/24 Procedure(s): CT chest wo IV con Accession Number(s): [id number] cc: Homero Jones MD; Bigg Zhou MD [...] iterative reconstruction technique DLP: 308 mGy-cm FINDINGS: RADAR ENGINEER: Unremarkable. LUNGS: The lungs are clear with [...] by: Martin Conde MD 08/11/2024 03:12 AM [facility] [place]ictated By: Martin Conde MD Signed By: <Electronically signed by Martin Conde MD in OV> 08/11/242 DD/ 39 TD/TT: 08/10/242339 Carnival Worker: [place] [address] CT Scan Report Signed Patient: Swati Coreas MR#: [id number] 1 : 1950 Acct:[id number] Age/Sex: 74 / F ADM Date: 08/10/24 Loc: HO.ED Attending Dr: Ordering Physician: Bigg Zhou MD Date of Service: 08/10/24 Procedure(s): CT beth st wo IV con Accession Number(s): [id number] cc: Homero Jones MD; Bigg Zhou MD EXAMINATION: CT CHEST WITHOUT CONTRAST CLINICAL INFORMATION: Fall. Rib pain. COMPARISON: None available. TECHNIQUE: Multidetector volume tric CT imaging of the chest was done. Axial MIP volume rendering provided. Sagittal and coronal reformatted images were obtained. This CT examination was performed using dose optimization techniques as appropriate, various ly including the following: *Automated exposure control *Adjustment of mA an d/or kV according to patient size (this includes techniques or standardized protocols for targeted exams where dose is matched to indication/reason for exam; i.e. extremities or head) *Use of iterative reconstruction technique DLP: 308 mGy-cm FINDINGS: RADAR ENGINEER: Unremarkable. LUNGS: The lungs are clear with no evidence of inflammation or nodules. MEDIASTINUM: The mediastinum is normal. CORONARY ARTERY CALCIFICATION: Mild. PLEURA: There is no pleural effusion. No pleural mass or thickening. AXILLA: No lymphadenopathy. UPPER ABDOMEN: Unremarkable. OSSEOUS STRUCTURES: Unremarkable. C T/CT chest wo IV con IMPRESSION: No significant abnormality identified. Fleischner guideline s were followed. Electronically isidro d by: Martin Conde MD 08/11/2024 03:12 AM [facility] [place]ict[place] By: Frances Conde MD Signed By: <Electronically signed by Martin Conde MD in OV> 08/11/24311 DD/ 39 TD/TT: 08/10/242339 Carnival Worker: CT head/brain wo con Reviewed date:08/12/2024 03:25:49 PM Interpretation: Performing Lab: Notes/Report: [address] [address] [address] Scan Report Signed Patient: Swati Coreas MR#: [id number] 1 : 1950 Acct:[id number] Age/Sex: 74 / F ADM Date: 08/10/24 Loc: HO.ED Attending Dr: Ordering Physician: Bigg Zhou MD Date of Service: 08/10/24 Procedure(s): CT head/brain wo IV con Accession Number(s): [id number] cc: Homero Jones MD; Bigg Zhou MD [...] by: Martin Conde MD 08/11/2024 12:22 AM [facility] [place]ict[place] By: Martin Conde MD Signed By: <Electronically signed by Martin Conde MD in OV> 08/11/24 0022 DD/ 2311 TD/TT: 08/10/24 2338 Carnival Worker: [address] [address] [address] Scan Report Signed Patient: Swati Coreas MR#: [id number] 1 : 1950 Acct:[id number] Age/Sex: 74 / F ADM Date: 08/10/24 Loc: HO.ED Attending Dr: Ordering Physician: Bigg Zhou MD Date of Service: 08/10/24 Procedure(s): CT head/brain wo IV con Accession Number(s): [id number] cc: Homero Jones MD; Bigg Zhou MD EXAMINATION: CT HEAD WITHOUT CONTRAST CT CERVICAL SPINE WITHOUT CONTRAST CLINICAL INFORMATION: Fall. Pain. COMPARISON: April 26, 2019. TECHNIQUE: Contiguous axial giovanny ging was performed through the head and cervical spine without intravenous administration of contrast. Sagittal and coronal reformatted images also obtained. This CT examination was performed using dose optimization techniques as appropriate, various ly including the following: *Automated exposure control *Adjustment of mA an d/or kV according to patient size (this includes techniques or standardized protocols for targeted exams where dose is matched to indication/reason for exam; i.e. extremities or head) *Use of iterative reconstruction technique DLP: 1048 mGy-cm FINDINGS: There is mild cerebr al volume loss with prominence of the lateral and the third ventricles . The cortical sulci are widened appropriately. The fourth ventricle and basal cisterns are normally outlined. There is mild bilateral periventricular and central white matter diminished attenuation. There i s no acute territorial defects, hemorrhage or midline shift. The extra-axial spaces are unremarkable. Calvarium/scalp: Intact. Maxillofacial sinuse s and mastoids: Clear as visualized. Cervical spine: The alignment is normal. There is diffuse mild to moderate cervical di sc degenerative change most pronounced at C5-6 and C6-7 with loss of di sc space, endplate change and posterior osteophytes associated with diff use mild to moderate facet osteoarthritic hypertrophic change with multilevel mild spinal canal and neuroforaminal narrowing. The bony structures are osteopenic. No fracture is seen. Th e soft tissues are unremarkable. The visualized upper lung esquivel ar e clear. C T/CT head/brain wo IV con IMPRESSION: 1. No acute intracra nial process seen. 2. Mild cerebral vol ume loss with chronic small vessel ischemic changes. 3. No acute cervical spine fracture or dislocation seen. There are degenerative disc changes C5-6 and C6-7 disc levels with multilevel mild spinal canal an d neuroforaminal narrowing. Electronically isidro d by: Martin Conde MD 08/11/2024 12:22 AM EST RP Dictated By: Frances Conde MD Signed By: <Electronically signed by Martin Conde MD in OV> 08/11/2421 DD/ TD/TT: 08/10/248 Carnival Worker: XR ribs RT min 3V w CXR1V Reviewed date:08/11/2024 07:26:29 PM Interpretation: Performing Lab: Notes/Report: [address] [address] XRay Report Signed Patient: Swati Coreas MR#: [id number] 1 : 1950 Acct:[id number] Age/Sex: 74 / F ADM Date: 08/10/24 Loc: HO.ED Attending Dr: Ordering Physician: Bigg Zhou MD Date of Service: 08/10/24 Procedure(s): XR ribs RT min 3V w CXR1V Accession Number(s): [id number] cc: Homero Jones MD; Bigg Zhou MD [...] Jhon Murray MD 08/11/2024 12:32 AM EST RP Dictated By: Jhon Murray MD Signed By: <Electronically signed by Jhon Murray MD in OV> 08/11/2431 DD/ 19 TD/TT: 08/10/242119 Carnival Worker: [address] [address] XRay Report Signed Patient: Swati Coreas MR#: [id number] 1 : 1950 Acct:[id number] Age/Sex: 74 / F ADM Date: 08/10/24 Loc: HO.ED Attending Dr: Ordering Physician: Bigg Zhou MD Date of Service: 08/10/24 Procedure(s): XR rib s RT min 3V w CXR1V Accession Number(s): [id number] cc: Homero Jones MD; Bigg Zhou MD EXAMINATION: XR RIBS, RIGHT CLINICAL INFORMATION: Fall COMPARISON: Chest radiograph 09/17/2018 TECHNIQUE: Single view of the c hest and 3 views of the right ribs were obtained. FINDINGS: Lungs are clear. No consolidation, pneumothorax, or pleural effusion. The cardiomediastina l silhouette and pulmonary vasculature are normal. Degenerative changes are present throughout the spine. Ribs are intact. No fractures are identified. X R/XR ribs RT min 3V w CXR1V IMPRESSION: 1. No acute pulmonar y disease. 2. No rib fractures. Electronically isidro d by: Jhon Murray MD 08/11/2024 12:32 AM [facility] [place]ict[place] By: Jhon Murray MD Signed By: <Electronically signed by Jhon Murray MD in OV> 08/11/2431 DD/ 19 TD/TT: 08/10/242119 Carnival Worker: SS Urine Culture Reviewed date:09/30/2024 05:49:01 PM Interpretation: Performing Lab:[facility], [address] [place] [phone] Notes/Report: O:STRAGA Strep agalactiae (Grp B) Urine Culture Quant Urine Culture > 100,000 cfu/mL Urine Culture Susc N/A Urine Culture Susceptibility not routinely performed on this isolate. UA CC w/rflx Micro + Cult Reviewed date:09/28/2024 04:34:36 PM Interpretation: Performing Lab:[facility], [address] [place] [phone] Notes/Report: [id number] Urine, Clean Catch Color Urine Dark Yellow Appearance Urine Cloudy PH 6.0 5.0-9.0 Glucose Urine UA Negative Negative mg/dL Urine Blood Negative Negative Specific [place] - Urine >= 1.030 1.005-1.025 Urine Protein Trace Neg-Trace mg/dL Urine Ketones Negative Negative mg/dL Nitrite Urine Negative Negative Leukocyte Esterase Urine Large (3+) Negative MM tomosynthesis screening B I Reviewed date:10/07/2024 04:55:48 PM Interpretation: Performing Lab: Notes/Report: [facility] [address] [place] [address] Mammography Report Signed Patient: Swati Coreas MR#: [id number] 1 : 1950 Acct:[id number] Age/Sex: 74 / F ADM Date: 09/29/24 Loc: HO.MAMMO Attending Dr: Homero Jones MD Ordering Physician: Homero Jones MD Results: 1Ne gative Date of Service: 09/29/24 Follow Up: 1 Year From Orig inal Mammogram Procedure(s): MM tomosynthesis screening BI Accession Number(s): [id number] cc: Homero Jones MD EXAMINATION: MM SCREENING DIGITAL BREAST TOMOSYNTHESIS, BILATERAL CLINICAL INFORMATION: Screening. Asymptomatic. COMPARISON: Mammography: Comparison is made with available priors TECHNIQUE: Digital breast mammography with tomosynthesis is performed in both the craniocaudal and mediolateral oblique views along with computer-aided detection (CAD). FINDINGS: There are scattered areas of fibroglandular [...] target due date for their next mammogram. Electronically signed by: Jacki Nathan DO 10/07/2024 01:53 PM [facility] [place]ict[place] By: Jacki Nathan DO Signed By: <Electronically signed by Jacki Nathan DO in OV> 10/07/24 1353 DD/ TD/TT: 09/29/249[address] Carnival Worker: [facility] [address] [place] [address] Mammography Report Signed Patient: Swati Coreas MR#: [id number] 1 : 1950 Acct:[id number] Age/Sex: 74 / F ADM Date: 09/29/24 Loc: HO.MAMMO Attending Dr: Homero Jones MD Ordering Physician: Homero Jones MD Results: 1Ne gative Date of Service: 09/29/24 Follow Up: 1 Year From Orig inal Mammogram Procedure(s): MM tomosynthesis screening BI Accession Number(s): [id number] cc: Homero Jones MD EXAMINATION: MM SCREENING DIGITAL BREAST TOMOSYNTHESIS, BILATERAL CLINICAL INFORMATION: Screening. Asymptomatic. COMPARISON: Mammography: Compari son is made with available priors TECHNIQUE: Digital breast mammography with tomosynthesis is performed in both the craniocaudal and mediolateral oblique views along with computer-aided detection (CAD). FINDINGS: There are scattered areas of fibroglandular density (ACR BI-RADS breast composition Category b). There are no signifi cant masses, abnormal calcifications, or other abnormalities. M M/MM tomosynthesis screening BI IMPRESSION: No mammographic evid ence of malignancy. ASSESSMENT: BI-RADS BI-RADS 1 - Negative RECOMMENDATION: Routine annual mammography screening. 1 year F/U This examination shae uld not preclude the clinical evaluation of a suspicious palpable abnormality. This patient's information was entered into a reminder system with a target due date for their next mammogram. Electronically isidro d by: Jacki Nathan DO 10/07/2024 01:53 PM [facility] [place]ictated By: Jacki Nathan DO Signed By: <Electronically signed by Jacki Nathan DO in OV> 10/07/24 1353 DD/ TD/TT: 09/29/[address] Carnival Worker: Francesco Cancino date:03/22/2025 12:18:08 PM Interpretation: Performing Lab:[facility], [address] [place] [phone] Notes/Report: Hold Gold See Note Specimen held untested for 24 hours; Call to request Chemistry testing. Reason For Referral Reason skin lesion see no te attached Diagnosis 1 Skin lesion (L98.9) Referral Organization Homero Jones MD Referring Provider First Name Homero Referring Provider Last Name Karen Referring Provider Speciality Internal M edicine Referred Provider Teo Mcfarlane Dermatol Teo carlson Referred Provider Specialty Dermatology General Notes Leonor Mayers 0 10/08/2024 12:09:59 PM >letter faxed on 09-27-24, Leonor Mayers 10/08/2024 12:10:14 PM >refaxed letter, Leonor Mayers 10/11/2024 02:17:01 PM > patient is aware of appt Referral Priority Routine Referral Appointment Date 10/14/2024 Medications Medication SIG (Take, Route, Frequency, Duration) Notes Start Date End Date Status Atorvastatin Calcium 40 MG TAKE 1 TABLET BY MOUTH EVERY DAY Active metFORMIN HCl ER 500 MG TAKE 2 TABLETS B Y MOUTH IN THE MORNING AND 1 TABLET IN THE EVENING Active LORazepam 0.5 MG 1 tablet as needed Orally every 12 hrs for 5 days 11/16/2024 Active Metoprolol Succinate ER 25 MG TAKE 1 TABLET BY MOUTH EVERY DAY Active oxyBUTYnin Chloride ER 10 MG TAKE 1 TABLET BY MOUTH EVERY DAY for 90 Active Valsartan-hydroCHLOROthia zide 160-12.5 MG TAKE 1 TABLET BY MOUTH EVERY DAY Active amLODIPine Besylate 5 MG TAKE 1 TABLET B Y MOUTH EVERY DAY Active Ventolin HFA * 108 (90 Base) MCG/ACT 2 puffs as needed Inhalation every 4 hrs for 30 day(s) 08/12/2014 Not-Taking Diprolene AF 0.05 % 1 application to affected area Externally Once a day for 20 Not-Taking Omeprazole 20 MG 1 capsule Orally Onc e a day for 90 Not-Taking Aspir-81 81 MG 1 tablet Orally Once a day for 30 day(s) Active Escitalopram Oxalate 10 MG TAKE 1 TABLET BY MOUTH EVERY DAY FOR 30 DAYS for 90 Active Blood Glucose Test 0 One Touch test stri p In Vitro E: 11.09 tests once a day for 90 Active Immunizations Vaccine Route Administration Date Status [...] High Dose IM Intramuscular 08/16/2024 Administer ed Social History Tobacco Use: Social History Observation [...] Never (0 point) Points 1 Interpretation Negative Problems Problem Type SNOMED Code ICD Code Onset Dates Problem Status W/U Status Risk Notes Problem Atherosclerotic heart disease of [place] coronary artery without angina pectoris (435133302126512) Atherosclerotic heart disease of [place] coronary artery without angina pectoris (I25.10) Active confirmed Problem 023911800 Neuropathy (G62.9) Active confirmed Problem 236082803 Other specified menopausal and perimenopausal disorders (N95.8) Active confirmed Problem Artificial knee joint present (276431113356) Presence of left artificial knee joint (Z96.652) Active confirmed Problem 10804686 Essential hypert ension (I10) Active confirmed Problem 53964294 Type 2 diabetes mellitus without complication (E11.9) Active confirmed Problem 716547170 Non morbid obesi ty due to excess calories (E66.09) Active confirmed Problem 595738669483500 Stenosis of righ t carotid artery (I65.21) Active confirmed Problem 607708668 GONZALES (nonalcohol ic steatohepatitis) (K75.81) Active confirmed Problem 21281508 Intrinsic eczema (L20.84) Active confirmed Problem 715353314 Acute non intrac table tension-type headache (G44.209) Active confirmed Problem 920518060 Schatzki's ring (K22.2) Active confirmed Problem 090901374 Leukocytosis, unspecified type (D72.829) Active confirmed Problem 33981545 Dysthymia (F34.1) Active confirmed Problem 661571039 Pure hypercholesterolemia (E78.00) Active confirmed Problem Microcytic anemia (790685378) Microcytic anemia (D50.9) Active confirmed Problem 012740150 Mild intermitten t asthmatic bronchitis with acute exacerbation (J45.21) Active confirmed Problem 708341136 Altered mental s tatus, unspecified altered mental status type (R41.82) Active confirmed Vital Signs Blood pressure diastolic 64 mm Hg 03/28/2025 Height 64.5 in 03/28/2025 Blood pressure systolic 118 mm Hg 03/28/2025 Weight 189 lbs 03/28/2025 BMI 31.94 kg/m2 03/28/2025 Encounters Encounter Location Date Provider Diagnosis Homero Jones MD [address] [place] [address] [id number] 09/16/2024 Homero Jones Essential hypertensi on I10 ; Type 2 diabetes mellitus without complication E11.9 ; Pure hypercholesterolemia E78.00 and GONZALES (nonalcoholic steatohepatitis) K75.81 Homero Jones MD [address] [place] [address] [id number] 03/22/2025 Homero Jones Type 2 diabetes vesna itus without complication E11.9 and Pure hypercholesterolemia E78.00 Homero Jones MD [address] [place] [address] [id number] 08/16/2024 Homero Jones Essential hypertensi on I10 ; GONZALES (nonalcoholic steatohepatitis) K75.81 ; Contusion of rib on right side, subsequent encounter S20.211D and Encounter for immunization Z23 Homero Jones MD [address] [place] [address] [id number] 09/28/2024 Homero Jones Type 2 diabetes vesna itus without complication E11.9 ; Essential hypertension I10 ; Skin lesion L98.9 ; Pure hypercholesterolemia E78.00 ; Microcytic anemia D50.9 ; Colon cancer screening Z12.11 and Depression screening Z13.31 Homero Jones MD [address] [id number] 03/28/2025 Homero Jones Type 2 diabetes vesna itus without complication E11.9 ; Pure hypercholesterolemia E78.00 and Essential hypertension I10 Homero Jones MD [address] [place] [address] [id number] 08/12/2024 Homero Jones MD [address] [place] [address] [id number] 11/15/2024 Homero Jones Assessments Encounter Date Diagnosis (ICD Code) Assessment Notes Treatment Notes Treatment Clinical Notes Section Notes 09/16/2024 Essential hypertensi on (ICD-10 - I10) 09/16/2024 Type 2 diabetes mellitus without complication (ICD-10 - E11.9) 03/22/2025 Type 2 diabetes mellitus without complication (ICD-10 - E11.9) 08/16/2024 Essential hypertensi on (ICD-10 - I10) doing well lft's are normal, will continue current regiment 08/16/2024 GONZALES (nonalcoholic steatohepatitis) (ICD-10 - K75.81) lft's are normal 09/28/2024 Type 2 diabetes mellitus without complication (ICD-10 - E11.9) doing well with good a1c, will contnue current regiment 09/28/2024 Essential hypertensi on (ICD-10 - I10) stable, will contnue current regiment 03/28/2025 Type 2 diabetes mellitus without complication (ICD-10 - E11.9) doing well with good a1c 09/16/2024 Pure hypercholesterolemia (ICD-10 - E78.00) 03/22/2025 Pure hypercholesterolemia (ICD-10 - E78.00) 08/16/2024 Contusion of rib on right side, subsequent encounter (ICD-10 - S20.211D) is minimally tender, will continue to monitor 09/28/2024 Skin lesion (ICD-10 - L98.9) referral to ne derm 03/28/2025 Pure hypercholesterolemia (ICD-10 - E78.00) well controlled 09/16/2024 GONZALES (nonalcoholic steatohepatitis) (ICD-10 - K75.81) 08/16/2024 Encounter for immunization (ICD-10 - Z23) flu vaccine administered 09/28/2024 Pure hypercholesterolemia (ICD-10 - E78.00) 03/28/2025 Essential hypertensi on (ICD-10 - I10) 09/28/2024 Microcytic anemia (ICD-10 - D50.9) will cntnue to monitor 09/28/2024 Colon cancer screeni ng (ICD-10 - Z12.11) guaiac negative 09/28/2024 Depression screening (ICD-10 - Z13.31) negative screen Plan Of Treatment Pending Test Test Name Order Date US LEG LT VENOUS DOPPLER 02/25/2023 Next Appt Details Provider Name:Homero Romano ier, 09/23/2025 07:45:00 AM, [address] [place] [address], [address], [place], [place], [phone], Provider Name:Homero Romano ier, 09/30/2025 11:00:00 AM, [address] [place] [address], [address], [place], [place], [id number], Insurance Providers Payer Name Payer Address Payer Phone Subscriber Number Group Number Insured Name Patient Relationship to Insured Coverage Start Date Coverage End Date MEDICARE NHIC DENYS [address] [place] [address] [id number] Swati Coreas Self - patient is the insured [facility] [id number] [place] [id number] Swati Coreas Self - patient is the insured Medical (General) History Medical History History ICD Code colonoscopy 2002 colonoscopy in 2002; colonos copy done 01/12/2013 - repeat in 10 years; endoscopy 02/23/15 (Dr. Moura); colonoscopy done 11/12/[address] 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
== END 2025-05-05 09:53 | disposition home or self-care (01) ==
LOC: HO.HCS 09:18
PROVIDERS: PCP Internal Medicine; Visit Provider Internal Medicine Cardiovascular Disease
DX: I25.10 Atherosclerotic heart disease of native coronary artery without angina pectoris (principal); I49.3 Ventricular premature depolarization; I10 Essential (primary) hypertension
CPT/HCPCS: 93010; 99214; G2211

== ENCOUNTER → 2025-05-05 09:17 | Outpatient (BNVA) | payer MEDICARE, OTHER, SELFPAY | PROVIDERS: PCP Internal Medicine; Visit Provider Internal Medicine Cardiovascular Disease | DX: I25.10 Atherosclerotic heart disease of native coronary artery without angina pectoris (principal); I49.3 Ventricular premature depolarization; I10 Essential (primary) hypertension; R94.31 Abnormal electrocardiogram [ECG] [EKG] | CPT/HCPCS: 93005; 99212 ==

== ENCOUNTER 2025-06-02 11:08 | Outpatient (REF) | payer MEDICARE, OTHER, SELFPAY ==
--- OUTSIDE RECORDS SUMMARY | 2024-09-28 09:00 | XMS_ITS ---
Author Organization Homero Jones MD Address [address] [place], [place] [phone] Care Team Providers Care Sheet Roller Operator Name Role Phone Homero Jones Primary Care Provider [phone] Allergies No Known Allergies Results Component Value Reference Range Notes Occult Blood, Stool, Guaiac Reviewed date:09/28/2024 01:28:39 PM Interpretation:Negative Performing Lab: Notes/Report: Negative Occult Blood, Stool, Guaiac Neg Microalbumin, Random Reviewed date:09/28/2024 04:28:47 PM Interpretation: Performing Lab:[facility], [address] [place] [phone] Notes/Report: Creatinine Urine 186.13 Microalbumin Urine 14.0 Microalbum/Creatinine Ratio Ur 7.5 <30 ug/mg cr Albumin/Creatinine Ratio Reference Ranges: Normal: < 30 ug/mg creatinine Microalbuminuria: 30 - 300 ug/mg creatinine Clinical Albuminuria: > 300 ug/mg creatinine UA ClnCatch+Micro w/rflx Cul t Reviewed date:09/28/2024 04:31:48 PM Interpretation: Performing Lab:[facility], [address] [place] [phone] Notes/Report: [id number] 1300 Urine, Clean Catch Color Urine Dark Yellow Appearance Urine Cloudy PH 6.0 5.0-9.0 Glucose Urine UA Negative Negative mg/dL Urine Blood Negative Negative Specific [place] - Urine >= 1.030 1.005-1.025 Urine Protein [...] Provider Speciality Internal M edicine Referred Provider [facility] [place] Referred Provider Specialty Dermatology General Notes Leonor [...] Location Date Provider Diagnosis Homero Jones MD [address] [place] [address] [place] [phone] 09/28/2024 Homero Jones Type 2 diabetes vesna [...] nue current regiment Skin lesion referral to de derm Microcytic anemia will cntnue to monit or Colon cancer screening guaiac negative Depression screening negative screen Referrals Referral Date Details 09/28/2024 09/28/2024, skin les ion see note attached, [facility] Next Appt Details Follow Up: 6 Months, Reason: Provider Name:Homero jimenez, 09/23/2025 07:45:00 AM, [address] [place] [address], Suite [facility], [place], [place], [phone], Provider Name:Homero jimenez, 09/30/2025 11:00:00 AM, [address] [place] [address], [address], [place], [place], [phone], Progress Notes * Swati JORGENSEN MDOB:1950 (74 yo F)Acc No.[id number]:09/28/2024 Patient: Antonella ETHANGUICHOSwati Provider: Avis Jones MD :1950 A ge:74 Y S ex:Female Date:09/28/2024 Address:[address] [place], [place] [phone] Subjective: * Chief Complaints: * C omp [...] Auto 0.000 0.0-0.012 - X10*3/uL L ab:Comprehensive [place]. Panel Fast (Order Date - 09/16/2024) (Collection [...] lesion Notes: referral to ne derm Referral To:[facility] Dermatology Reason:skin lesion see note [...] Procedure Codes: 8 2270 TEST FOR BLOOD, [id number] Complex e/m visit add on * Preventive [...] 0 09/28/2024 Generated for Becky lucia/Linda/Kimberly on: 0 06/02/2025 03:40 PM EDT History and Physical Notes * HPI (History [...] Provider Not es 09/28/2024 [facility], [place] skin lesion see note attached
--- OUTSIDE RECORDS SUMMARY | 2024-11-15 10:50 | XMS_ITS ---
Author Organization Homero Jones MD Address [address] [place] [phone] Care Team Providers Care Wine Sales Representative Name Role Phone Homero Jones Primary Care Provider REASON FOR VISIT Lorazepam Medications Medication SIG (Take, Route, Fr equency, Duration) Notes Start Date End Date Status LORazepam 0.5 MG 1 tablet as needed O rally every 12 hrs for 5 days 11/16/2024 Active Encounters Encounter Location Date Provider Diagnosis Homero Jones MD [address] [facility] [address] [place] [phone] 11/15/2024 Homero Jones Plan Of Treatment Medication Medication Name Sig Start Date Stop Date Notes LORazepam 0.5 MG 1 tablet as needed O rally every 12 hrs for 5 days 11/16/2024 Next Appt Details Provider Name:Homero jimenez, 09/23/2025 07:45:00 AM, [address] [place] [address], [address] [place] [address], [phone], Provider Name:Homero jimenez, 09/30/2025 11:00:00 AM, [address] [place] [address], [address], [phone], Progress Notes * Swati JORGENSEN MDOB:1950 (74 yo F)Acc No.[id number]:11/15/2024 Patient: Antonella CORTES Swati Mendoza :1950 A ge:74 Y S ex:Female Address:[address] [place] [address] * Refills Refill LORazepam Tablet, 0.5 MG, Orally, 10 Tablet, 1 tablet as needed, every 12 hrs, 5 days * true * Date: Generated for Becky lucia/Linda/Marielasmitting on: 0 06/02/2025 03:41 PM EDT
--- OUTSIDE RECORDS SUMMARY | 2025-03-22 04:00 | XMS_ITS ---
Author Organization Homero Jones MD Address [address] [place], [place] [phone] Care Team Providers Care Machine Tester Name Role Phone Homero Jones Primary Care Provider [phone] Results Component Value Reference Range Notes Liver Panel Reviewed date:03/22/2025 12:18:31 PM Interpretation: Performing Lab:[facility], [address] [place] [phone] Notes/Report: Bilirubin Total 0.3 0.0-1.0 mg/dL Bilirubin Direct 0.2 0.0-0.5 mg/dL Aspartate Amino Transferase 25 5-31 U/L Alanine Aminotransferase 12 0-31 U/L Total Protein 7.2 6.5-8.0 g/dL Albumin Level 4.2 3.5-5.0 g/dL Alkaline Phosphatase 90 39-117 U/L Glucose Fasting Reviewed date:03/22/2025 12:18:24 PM Interpretation: Performing Lab:[facility], [address] [place] [phone] Notes/Report: Glucose Fasting 157 60-99 mg/dL A fasting glucose of 126 mg/dl or greater on more than one occasion is considered diagnostic of diabetes. Lipid Panel with Reflex Reviewed date:03/22/2025 12:21:16 PM Interpretation: Performing Lab:[facility], [address] [place] [phone] Notes/Report: Triglycerides 51 <150 mg/dL Desirable Triglyceride: [...] A1c Reviewed date:03/22/2025 12:20:57 PM Interpretation: Performing Lab:[facility], [address] [place] [phone] Notes/Report: Hemoglobin A1c % 6.3 <6.0 % [...] average glucose, using the formula of the B5S-Psytwdp Average Glucose study (ADAG), Diabetes Care, Vol.31,#8, Apr. 2007 REASON FOR VISIT fasting lipids Encounters Encounter Location Date Provider Diagnosis Homero Jones MD [address] [place] [address] Drive [address] [place], [place] [phone] 03/22/2025 Homero Jones Type 2 diabetes vesna [...] 07:45:00 AM, [address], [address], [place], [phone], Provider Name:Homero Romano ier, 09/30/2025 11:00:00 AM, [address], [address], [place], [phone], Progress Notes * Swati JORGENSEN MDOB:1950 (75 yo F)Acc No.[id number]:03/22/2025 Progress Note Patient: Swati VIEIRA Provider: Avis Jones MD :1950 A ge:74 Y S ex:Female Date:03/22/2025 Address:[address] [place], [place] [phone] Subjective: * Chief Complaints: * 1 . [...] MD Date: 0 03/22/2025 Generated for Zekei ng/Faxing/eTransmitting on: 0 06/02/2025 03:41 PM EDT
--- OUTSIDE RECORDS SUMMARY | 2025-03-28 06:00 | XMS_ITS ---
Author Organization Homero Jones MD Address [address] [place], [place] [phone] Care Team Providers Care Contracts Officer Name Role Phone Homero Jones Primary [...] Diagnosis Homero Jones MD [address] [place] [id number] 03/28/2025 Homero Jones Type 2 diabetes vesna [...] Details Provider Name:Homero jimenez, 09/23/2025 07:45:00 AM, [address] [place] [address], Suite [facility], [place], [place], [phone], Provider Name:Homero jimenez, 09/30/2025 11:00:00 AM, [address] [place] [address], Suite [facility], [place], [place], [phone], Progress Notes * Swati JORGENSEN MDOB:1950 (74 yo F)Acc No.[id number]:03/28/2025 Progress Notes Patient: Swati VIEIRA Provider: Avis Jones MD :1950 A ge:74 Y S ex:Female Date:03/28/2025 Address:[address] [place] [address], [facility] Subjective: * Chief Complaints: * 6 month [...] MD Date: 0 03/28/2025 Generated for Becky lucia/Linda/Daisyitting on: 0 06/02/2025 03:41 PM EDT History and Physical Notes * [...]
--- OUTSIDE RECORDS SUMMARY | 2025-05-31 06:50 | XMS_ITS ---
Author Organization [facility] Address [address] [place] [address] Care Team Providers Care Operater Name Role Phone Karen HEWITT, Homero Primary Care Provider Louis Lino Unavailable [phone] Irving Grant Unavailable Unavailable REASON FOR VISIT Patient presents today for a colon recall Medications Medication SIG (Take, Route, Frequency, Duration) Notes Start Date End Date Status oxyBUTYnin Chloride ER 10 MG TAKE 1 TABLET BY MOUTH EVERY DAY Oral for 90 Days Active Escitalopram Oxalate 10 MG TAKE 1 TABLET BY MOUTH EVERY DAY FOR 30 DAYS Oral for 90 Days Active Omeprazole 20 MG 1 capsule Orally Onc e a day for 90 days Just prn 01/09/2016 Active PreserVision AREDS - as directed Orally Active Atorvastatin Calcium 40 MG 1 tablet Orally Once a day for 30 day(s) Active amLODIPine Besylate 10 MG 1 tablet Orall y Once a day Active Metoprolol Tartrate 5 MG/5ML 1 tablet with food Intravenous once a day Active Paxil 20 MG 1 tablet in the morn ing Orally Once a day Active Aspir-81 81mg once a day Activ e Valsartan-hydroCHLOROthia zide 160/12.5mg 1 tablet Orally Once a day Active metFORMIN HCl 500mg 2 tablets 2 in am 1 in pm bid Active Omeprazole 20 MG 1 Orally Once a day for reflux and heartburn for 90 days 05/31/2025 Active Social History Tobacco Use: Social History Observation Description Date Details (start date - stop date) Former Smoker NA - NA Tobacco Use/Smoking Question Answer Notes Patient is a former smoker When did you stop smoking? over 40 years ago How long has it been since you last smoked? > 10 years Section Notes: Nonsmoker; occasional alcoho l Problems Problem Type SNOMED Code ICD Code Onset Dates Problem Status W/U Status Risk Notes Problem Gastroesophageal reflux disease (299311956) GERD (gastroesopha geal reflux disease) (K21.9) Active confirmed Problem Colon cancer screening (256529842) Colon cancer screening (Z12.11) Active confirmed Problem Family History of Cancer of Colon (Situation) (663955557) Family history of colon cancer (Z80.0) Active confirmed Vital Signs Temperature 97.7 degrees Fahrenheit 05/31/20 25 Blood pressure systolic 001 mm Hg 05/31/20 25 Blood pressure diastolic 01 mm Hg 025 Height 65 in 05/31/2025 Weight 194.4 lbs 05/31/2025 BMI 32.35 kg/m2 05/31/2025 Procedures Procedure Date Ordered Date Performed Result Body Sit e COLONOSCOPY 05/31/2025 N/A Encounters Encounter Location Date Provider Diagnosis [facility] [address] [place] [address] 05/31/2025 Louis Moura History of adenomato us polyp of colon Z86.010 ; GERD (gastroesophageal reflux disease) K21.9 ; Colon cancer screening Z12.11 and Family history of colon cancer Z80.0 Assessments Encounter Date Diagnosis (ICD Code) Assessment Notes Treatment Notes Treatment Clinical Notes Section Notes 05/31/2025 History of adenomatous polyp of colon (ICD-10 - Z86.010) Overall, Christine appears quite well. She is not having any new or worrisome GI complaints. Her reflux seems to be quite stable by watching her diet and using occasional omeprazole. I did advise her to continue that. I do not think she requires a repeat upper endoscopy at this time given no persistent reflux symptoms, no worrisome upper GI complaints, and her good response to just occasional omeprazole. I did recommend a follow-up colonoscopy for further screening given her history of a tubular adenoma removed over 5 years ago, her family history of colon cancer in her father, her age, and her good clinical appearance. We did review the rationale for this in regard to colorectal cancer prevention. Full consent has been taken for this, including risks of bleeding and perforation. The procedure will be done with monitored anesthesia care. She was given the below instructions regarding adjustment of her medications for the procedure. Christine was comfortable with this plan. Thank you again for allowing me to participate in Christine's care. I shall continue to keep you advised of her progress. 05/31/2025 GERD (gastroesophage al reflux disease) (ICD-10 - K21.9) Continue the omeprazole Overall, Christine appears quite well. She is not having any new or worrisome GI complaints. Her reflux seems to be quite stable by watching her diet and using occasional omeprazole. I did advise her to continue that. I do not think she requires a repeat upper endoscopy at this time given no persistent reflux symptoms, no worrisome upper GI complaints, and her good response to just occasional omeprazole. I did recommend a follow-up colonoscopy for further screening given her history of a tubular adenoma removed over 5 years ago, her family history of colon cancer in her father, her age, and her good clinical appearance. We did review the rationale for this in regard to colorectal cancer prevention. Full consent has been taken for this, including risks of bleeding and perforation. The procedure will be done with monitored anesthesia care. She was given the below instructions regarding adjustment of her medications for the procedure. Christine was comfortable with this plan. Thank you again for allowing me to participate in Christine's care. I shall continue to keep you advised of her progress. 05/31/2025 Colon cancer screening (ICD-10 - Z12.11) Overall, Christine appears quite well. She is not having any new or worrisome GI complaints. Her reflux seems to be quite stable by watching her diet and using occasional omeprazole. I did advise her to continue that. I do not think she requires a repeat upper endoscopy at this time given no persistent reflux symptoms, no worrisome upper GI complaints, and her good response to just occasional omeprazole. I did recommend a follow-up colonoscopy for further screening given her history of a tubular adenoma removed over 5 years ago, her family history of colon cancer in her father, her age, and her good clinical appearance. We did review the rationale for this in regard to colorectal cancer prevention. Full consent has been taken for this, including risks of bleeding and perforation. The procedure will be done with monitored anesthesia care. She was given the below instructions regarding adjustment of her medications for the procedure. Christine was comfortable with this plan. Thank you again for allowing me to participate in Christine's care. I shall continue to keep you advised of her progress. 05/31/2025 Family history of colon cancer (ICD-10 - Z80.0) Overall, Christine appears quite well. She is not having any new or worrisome GI complaints. Her reflux seems to be quite stable by watching her diet and using occasional omeprazole. I did advise her to continue that. I do not think she requires a repeat upper endoscopy at this time given no persistent reflux symptoms, no worrisome upper GI complaints, and her good response to just occasional omeprazole. I did recommend a follow-up colonoscopy for further screening given her history of a tubular adenoma removed over 5 years ago, her family history of colon cancer in her father, her age, and her good clinical appearance. We did review the rationale for this in regard to colorectal cancer prevention. Full consent has been taken for this, including risks of bleeding and perforation. The procedure will be done with monitored anesthesia care. She was given the below instructions regarding adjustment of her medications for the procedure. Christine was comfortable with this plan. Thank you again for allowing me to participate in Christine's care. I shall continue to keep you advised of her progress. Plan Of Treatment Medication Medication Name Sig Start Date Stop Date Notes Omeprazole 20 MG 1 Orally Once a day for reflux and heartburn for 90 days 05/31/2025 Treatment Notes Assessment Notes GERD (gastroesophageal reflux disease) C ontinue the omeprazole Pending Test Test Name Order Date COLONOSCOPY 05/31/2025 Next Appt Details Provider Name:Louis Moura , 08/26/2025 11:00:00 AM, [address] [place] [address], [phone], Progress Notes * ELROY JORGENSENOB:1950 ( 75 yo F)Acc No.[id number]:05/31/2025 Progress Notes Patient: CHRISTINE VIEIRA Provider: Frances Moura MD :1950 A ge:75 Y S ex:Female Date:05/31/2025 Address:[address] [place], [place] [id number] Pcp:Homero Jones MD Subjective: * Chief Complaints: * 1 . Patient presents today for a colon recall. * HPI: i ncontinence: I saw Christine in consultation today [facility] for the evaluation of her intermittent gastroesophageal reflux, personal history of a tubular adenoma of the colon, family history of colon cancer, and need for colorectal cancer screening. I last saw Christine in February 2020 with a telehealth visit during the pandemic. Since that time she reports that she has been feeling well from a GI standpoint. She uses omeprazole just as needed for reflux symptoms. This is not daily. Her previous upper endoscopy did not reveal any significant esophagitis or Sanford's esophagus. She finds that the reflux tends to be more dietary related. She denies any dysphagia, anorexia, early satiety, nausea, nor vomiting. Her bowel movements have been regular and without any signs of bleeding. She denies any abdominal pain, jaundice, nor unintentional weight loss. Her family history is that of her father having had colon cancer. * Medical History: N IDDM, HTN, Denies HI,CVA,Lung disease,renal disease, Hyperlipidemia, Anxiety, Negative screening colonoscopy in [address] Bates and in January of 2013 with me, other than diverticulosis and hemorrhoids., Chest discomfort-sees Dr. Grant--has had ETT's--had a neg. cardiac cath in 2013, EGD 2014 with a small HH--no esophagitis nor Sanford's, Urinary incontinence-mild, Prolapsed rectum per her LETTUCE TRIMMER MD, Colonoscopy 11/2019--small tubular adenoma removed, int/ext hemorrhoids, diverticulosis, Schatzki's ring and hiatal hernia seen on 09/2014 Barium swallow--no obstruction to a Barium tablet. * Surgical History: c holecystectomy , bladder suspension , left knee replacement with a revision , right leg varicose veins . * Family History: F ather: , prostate cancer/lung cancer/colon cancer, diagnosed with Colon cancer. M other: , diagnosed with Heart disease, HTN (hypertension). Father had colon cancer at age 85. Brother 2019 primary liver cancer(EtOH). * Social History: T obacco Use: T obacco Use/Smoking P atient is a f ormer smoker, W hen did you stop smoking??over 40 years ago, H ow long has it been since you last smoked? > 10 years. D rugs/Alcohol: A lcohol Screen P oints: 2, Interpretation: Negative. M iscellaneous: M arital status: . Occupation: Retired. N onsmoker; occasional alcohol. * Medications: T aking metFORMIN HCl 500mg 2 tablets 2 in am 1 in pm bid , Taking Valsartan-hydroCHLOROthiazide 160/12.5mg 1 tablet Orally Once a day , Taking Aspir-81 81mg once a day , Taking Paxil 20 MG Tablet 1 tablet in the morning Orally Once a day , Taking Metoprolol Tartrate 5 MG/5ML Solution 1 tablet with food Intravenous once a day , Taking amLODIPine Besylate 10 MG Tablet 1 tablet Orally Once a day , Taking Atorvastatin Calcium 40 MG Tablet 1 tablet Orally Once a day , Taking PreserVision AREDS - Tablet as directed Orally , Taking Omeprazole 20 MG Capsule Delayed Release 1 capsule Orally Once a day , Notes to Pharmacist: Just prn, Taking Escitalopram Oxalate 10 MG Tablet TAKE 1 TABLET BY MOUTH EVERY DAY FOR 30 DAYS Oral , Taking oxyBUTYnin Chloride ER 10 MG Tablet Extended Release 24 Hour TAKE 1 TABLET BY MOUTH EVERY DAY Oral Objective: * Vitals: W t: 194.4 lbs, Ht: 65 in, BMI: 32.35 Index, BP: 001/01 mm Hg, Temp: 97.7, Wt-k.18. Assessment: * Assessment: 1. H istory of adenomatous polyp of colon - Z86.010 (Primary) 2 . G ERD (gastroesophageal reflux disease) - K21.9 3 . C olon cancer screening - Z12.11 4 . F amily history of colon cancer - Z80.0 Overall, Christine appears quite well. She is not having any new or worrisome GI complaints. Her reflux seems to be quite stable by watching her diet and using occasional omeprazole. I did advise her to continue that. I do not think she requires a repeat upper endoscopy at this time given no persistent reflux symptoms, no worrisome upper GI complaints, and her good response to just occasional omeprazole. I did recommend a follow-up colonoscopy for further screening given her history of a tubular adenoma removed over 5 years ago, her family history of colon cancer in her father, her age, and her good clinical appearance. We did review the rationale for this in regard to colorectal cancer prevention. Full consent has been taken for this, including risks of bleeding and perforation. The procedure will be done with monitored anesthesia care. She was given the below instructions regarding adjustment of her medications for the procedure. Christine was comfortable with this plan. Thank you again for allowing me to participate in Christine's care. I shall continue to keep you advised of her progress. Plan: * Treatment: 2.?GERD (gastroesophageal reflux disease)? Start Omeprazole Capsule Delayed Release, 20 MG, 1, Orally, Once a day for reflux and heartburn, 90days, 90, Refills 3.?? Notes: Continue the omeprazole??3.?Colon cancer screening?Procedure: COLONOSCOPY* With MAC. sched for 08/26/25 at 11:00 am, MiralaxDo not take the Metformin the night before or on the morning of the colonoscopy.Stop aspirin for three days before the colonoscopy. 4.?Family history of colon cancer?Procedure: COLONOSCOPY* With MAC. sched for 08/26/25 at 11:00 am, MiralaxDo not take the Metformin the night before or on the morning of the colonoscopy.Stop aspirin for three days before the colonoscopy. * Procedure Codes: 4 5378 DIAGNOSTIC COLONOSCOPY * Preventive Medicine: Counseling: C are goal follow-up plan: A emma Normal BMI Follow-up D ietary management education, guidance, and counseling, B HI management provided Y es. Urinary Incontinence: U rinary Incontinence A ssessment: P resent, P jarrod of care documented: N o, reason not specified. Screenings: F all Risk Screening F all Risk Assessment: T wo or more falls with injury in the past year, S creening: T wo or more falls with injury in the past year,?Assessment: N ot performed, no reason specified, P jarrod of Care: D ocumented, T ype of fall plan of care: B alance, strength and gait training or instruction provided. * * The named appointment provid er may or may not be the originator of this progress note, and it is not deemed complete until electronically signed by the appointment provider. Sign off status: Pending * Provider: Frances Moura MD Date: 05/31/2025 Generated for Becky lucia/Linda/Daisyitting on: 06/02/2025 03:41 PM EDT History and Physical Notes * HPI (History of Present Illness) Category Sub-Category Detail Notes Category Not es incontinence I saw Christine in consultation today [facility] for the evaluation of her intermittent gastroesophageal reflux, personal history of a tubular adenoma of the colon, family history of colon cancer, and need for colorectal cancer screening. I last saw Christine in February 2020 with a telehealth visit during the pandemic. Since that time she reports that she has been feeling well from a GI standpoint. She uses omeprazole just as needed for reflux symptoms. This is not daily. Her previous upper endoscopy did not reveal any significant esophagitis or Sanford's esophagus. She finds that the reflux tends to be more dietary related. She denies any dysphagia, anorexia, early satiety, nausea, nor vomiting. Her bowel movements have been regular and without any signs of bleeding. She denies any abdominal pain, jaundice, nor unintentional weight loss. Her family history is that of her father having had colon cancer.
--- OUTSIDE RECORDS SUMMARY | 2025-06-02 04:15 | XMS_ITS ---
Author Organization Homero Jones MD Address [address] [place], [place] [phone] Care Team Providers Care Hand Striper Name Role Phone Homero Jones Primary Care Provider Results Component Value Reference Range Notes UA ClnCatch+Micro w/rflx Cul t Reviewed date:06/02/2025 12:40:18 PM Interpretation: Performing Lab:[facility], [address] [place] [phone] Notes/Report: Urine, Clean Catch Color Urine Yellow Appearance Urine Clear PH 6.0 5.0-9.0 Glucose Urine UA Negative Negative mg/dL Urine Blood Negative Negative Specific [place] - Urine 1.015 1.005-1.025 Urine Protein Negative [...] Jones MD [address] [place], [place] [phone] 06/02/2025 Homero Jones UTI (urinary tract infection) N39.0 and Encounter for administration of vaccine Z23 Assessments Encounter Date Diagnosis (ICD Code) Assessment Notes Treatment Notes Treatment Clinical Notes Section Notes 06/02/2025 UTI (urinary tract infection) (ICD-10 - N39.0) 06/02/2025 Encounter for administration of vaccine (ICD-10 - Z23) Plan Of Treatment Next Appt Details Provider Name:Homero jimenez, 09/23/2025 07:45:00 AM, [address] [facility], Suite [facility], [place], [place], [phone], Provider Name:Homero jimenez, 09/30/2025 11:00:00 AM, [address] [place] [address], Suite [facility], [place], [place], [phone], Progress Notes * Swati JORGENSEN MDOB:1950 (75 yo F)Acc No.[id number]:06/02/2025 Progress Note Patient: Swati VIEIRA Provider: Avis Jones MD :1950 A ge:75 Y S ex:Female Date:06/02/2025 Address:[address] [place], [place] [phone] Subjective: * Chief Complaints: * 1 . U/A. * Medical History: Objective: * Vitals: Assessment: * Assessment: 1. U TI (urinary tract infection) - N39.0 2 . E ncounter for administration of vaccine - Z23 Plan: * Treatment: * Immunizations: Influenza High [...] MD Date: 0 06/02/2025 Generated for Becky lucia/Linda/Daisyitting on: 0 06/02/2025 03:42 PM EDT
[2025-06-02 11:18] LABS: Appearance Urine Clear; Glucose Urine UA Negative (Negative); PH 6.0 (5.0-9.0); Specific Gravity - Urine 1.015 (1.005-1.025); UMIC TRIGGER UACC YES
[2025-06-02 11:37] LABS: UACC Culture Trigger YES
--- OUTSIDE RECORDS SUMMARY | 2025-06-02 15:41 | XMS_ITS | Data Portability ---
Author Organization [facility] Teo Mcfarlane [facility], [facility] Address [address] [place] [address] Care Team Providers Care Lpn Instructor Name Role Phone DAPHNIE ANG Primary Care [...] Colace, pantoprazole and pain medications filled at [facility] prior to discharge. The patient will receive 1 week of in-home physical therapy postoperatively. CONTACTS: Her cllroe-nk-nig, Lisa, with a cell phone [phone]. jean Not available 05/19/2024 13:12:46 06/28/2024 06/28/2024 [...] to a physical therapist outside of the [facility] institution. PLAN The patient is going to [...] X-rays reviewed in the office today on [facility] PACS: Weightbearing AP of both knees, lateral [...] of their questions today in the office. Chromatin speech recognition director of counseling software was used to create portions of [...] 4 SJK 024 06/10/20 24 [email or web address] [address] [facility] Office, [address], [place], [address], 4 16:11:45 Medication Orders None record ed. Patient TargetsNo targets recorded. Patient InstructionsNo instructions recorded. Reason for Referral None Reported. Results Created Date Observation Date Name Description Value Unit Range Abnormal Flag Note LastModifiedBy Organization Detail LastModifiedTime 05/21/20 24 05/14/2024 cardi ac clear ance* No observ ation record ed. zradclluiza [facility] (Medical Records) [address] [facility], [place], [address], 05/21/2024 13:33:33 05/25/20 24 05/25/2024 XR, knee, 1 or 2 view No observ ation record ed. nhulse [facility] [address], [place], [address], 05/26/2024 08:41:58 06/10/20 24 06/10/2024 XR, knee, 3 view [email or web address] ?Encry pted=s hAaTro YD8dLq bEUv6g %2BXZw aYqtaq 0bqfl% 2Fg9IQ a4ajBk vP9nXo QUaueC m3YtLR FvZlJ JJ8mAn HZtai3 6g4603 AC0Kqa 3%2BGV 6WkKiQ trMwF INTERFACE [facility] [address] [facility] [address], [place], [address], 06/10/2024 16:02:29 06/10/20 24 06/10/2024 XR, knee, 3 view [email or web address] ?Encry pted=s hAaTro YD8dLq bEUv6g %2BXZw aYqtaq 0bqfl% 2Fg9IQ a4ajBk vP9nXo QUaueC m3YtLR FvZl J8mAn tai3 0u2858 AC0Kqa 3%2BGV 6WkKiQ trMwF INTERFACE [facility] [address] [facility] [address], [place], [address], 06/10/2024 16:02:31 Result Notes Documentation Provider Name and Address Organization Details Recorded Time Xr, Knee, 3 View : [email or web address]? Encrypted=mjXiAexPU5dAvzS Uv6g%9SPFpeBkjea1pest%2Fg 4BTt8hcZcoX6gMsLTattWz4Na ZZXyHwnDFC0gRyYSbyx78l556 8IP7Rgn4%8XGE0VkSkSmvBwH Not Available [facility] 06/10/2024 16:0 2:29 Xr, Knee, 3 View : [email or web address] Encrypted=zrZrRmgAT4rPbsH Uv6g%3RUSoaAyxtg8dnft%2Fg 5PIl8eeShoG6yVwBIbvaKd3Hm RBOdHfsYBV4mKgYDnse46r387 1LT1Bal3%2BSW7PjYvWkfAzO Not Available [facility] 06/10/2024 16:0 2:31 Problems Name Problem SNOMED Code Status Onset Date Resolution Date Notes Provider Name and Address Organization Details Recorded Time Osteoarthri tis of right knee joint 7718726628330 00 Active 2023 Jennifer Minaya PA-C [address], [place], [address], [facility] 19:26:02 Problem Notes None recorded. Procedures Surgical History Date Name Laterality Status Provider Name and Address Organization Details Recorded Time Knee Kenalog 1cc L/R completed Jennifer Minaya PA-C [address], [place], [address], [facility] 03/21/2025 19:25:54 Imaging Results [...] Updated DateTime 03/21/2025 165.1 cm 32.3 kg/m2 28928.92 g SIVA ROSEMARIE [facility] 03/21/2025 13:19:35 Date Recorded Body height Body mass index (BMI) Body weight Provider Name and Address Organization Details Last Updated DateTime 05/19/2024 165.1 cm 32.3 kg/m2 42336.92 g JONNY SHELTON [facility] 05/19/2024 10:15:11 Date Recorded Body height Body mass index (BMI) Body weight Provider Name and Address Organization Details Last Updated DateTime 06/10/2024 165.1 cm 32.3 kg/m2 91108.92 g Giles Condon [facility] 06/10/2024 15:46:30 Date Recorded Body height Provider Name an d Address Organization Details Last Updated DateTime 06/28/2024 165.1 [facility] 06/28/2024 11:17:15 Social History None recorded. Functional Status None recorded. Mental Status None recorded. Family History Nothing Reported. Medical History Condition Response Allergies/Hayfever N Coronary Artery Disease N Anxiety/Depression N Breathing or lung disorders N Emphysema N Nerve Disorders N Thyroid Problems N COPD N Pacemaker N Anemia N Kidney/Bladder Problems N Vascular Disease N Heart Trouble Y Heart Attack (NM) N Gastrointestinal Disease N Cholesterol Y Diabetes [...] Diagnosis SNOMED-CT Code Diagnosis ICD10 Code Diagnosis IMO Codes Diagnosis Note [id number] KAMI Sarabia [address] [place] [address] 02/06/2024 13:11:09 02/27/2024 12:49:29 Pain of bilateral knee joints 3753834815 65589 M25.561 M25.562 Pain of le ft knee joint 1195964862 05425 M25.562 Knee joint prosthesis present 2961854512 02 Z96.652 Osteoarthr itis of right knee joint 7755638786 99532 M17.11 [id number] MD Robby Leenishabnam [address] [place], [place] [address] 02/26/2024 08:40:53 03/23/2024 14:36:00 History of left total knee replacement 2332895413 204192 Z96.538 [id number] Enderkhushbooteresa Jolly, PEDIATRIC RN [facility] [address] [place] [address] 05/19/2024 10:08:44 06/01/2024 15:08:10 [id number] Ruddy Elise MD [facility] [address] [place] [address] 05/19/2024 12:28:04 06/11/2024 04:05:00 [id number] KAMI Elainenishabnam [address] [place] [address] 06/10/2024 15:27:48 06/10/2024 16:11:45 Postoperative care 861469138 Z48.89 History of left total knee replacement 2164757546 152947 Z96.160 [id number] Jose R Conde NP [facility] [address] [place] [address] 06/28/2024 11:11:19 07/19/2024 14:18:19 [id number] MD JUANA Lee [facility] [address] [place] [address] 09/16/2024 08:41:52 09/28/2024 14:51:06 History of left total knee replacement 3010332872 254988 Z96.652 [id number] Jennifer Minaya PA-C JUANA - [facility] [address] [place] [address] 03/21/2025 12:40:47 03/30/2025 13:21:37 Osteoarthritis of right knee joint 7516776647 89761 M17.11 [id number] Health Concerns Section Related Observation LastModified by Organization Detai ls LastModified Time None Recorded Concern Status LastModified by Organization Details LastModified Time None Recorded Advance Directives Directive None Recorded Payers Insurance Date Sequence Insurance Name Policy Number Policy Atkinson Covered Member ID Atkinson Member ID Guarantor Name 03/30/2025 2 [facility] (MEDICARE SUPPLEMENT) Swati Coreas [id number] Swati Coreas 03/21/2025 1 MEDICARE [place]: [employer] Swati Coreas [id number] Swati Coreas Notes Date Note Type [...] limits. X-rays ordered, obtained and reviewed at [facility] 3 views of the left total knee [...] the total knee replacement. Savage Kidd PA-C [address] [place], [place] [address] [address], [place], [address], [facility] 06/10/2024 16:07:39 03/21/2025 text/html [...] as every 3 months. Jennifer Minaya PA-C [address] [place], [place] [address] [address], [place], [address], [facility] 03/21/2025 19:26:24 OBGyn Episode No OBEpisode recorded.
--- OUTSIDE RECORDS SUMMARY | 2025-06-02 15:43 | XMS_ITS | Patient Health Record ---
Author Organization [facility] Address [address] [place] [address] Care Team Providers Care [place] Processing Factory Worker Name Role Phone Homero Jones MD Primary Care Provider Louis Lino Unavailable [phone] Irving Grant Unavailable Unavailable Reason For Referral No Information Medications Medication SIG (Take, Route, Frequency, Duration) Notes Start Date End Date Status metFORMIN HCl 500mg 2 tablets 2 in am 1 in pm bid Active oxyBUTYnin Chloride ER 10 MG TAKE 1 TABLET BY MOUTH EVERY DAY Oral for 90 Days Active Escitalopram Oxalate 10 MG TAKE 1 TABLET BY MOUTH EVERY DAY FOR 30 DAYS Oral for 90 Days Active Omeprazole 20 MG 1 capsule Orally Onc e a day for 90 days Just prn 01/09/2016 Active Omeprazole 20 MG 1 Orally Once a day for reflux and heartburn for 90 days 05/31/2025 Active PreserVision AREDS - as directed Orally [...] Unknown 06/08/2019 Administered Pneumococcal Unknown 06/08/2019 Administered Influenza Unknown 05/31/2024 Administered Social History Tobacco Use: Social History [...] Problem Status W/U Status Risk Notes Problem Colon cancer screening (044539040) Colon cancer screening (Z12.11) Active confirmed Problem 99668778 Rectal bleeding (K62.5) Active confirmed Problem 832345628 History of adenomatous polyp of colon (Z86.010) Active confirmed Problem Family History of Cancer of Colon (Situation) (757986942) Family history of colon cancer (Z80.0) Active confirmed Problem 45157491 Constipation, unspecified constipation type (K59.00) Active confirmed Problem 62621856 Pharyngoesophage al dysphagia (R13.14) Active confirmed Problem Gastroesophageal reflux disease (290686715) GERD (gastroesophageal reflux disease) (K21.9) Active confirmed Problem 508088611 Schatzki's ring (K22.2) Active confirmed Vital Signs Temperature 97.7 degrees Fahrenheit 05/31/2025 Blood pressure diastolic 01 mm Hg 05/31/2025 Height 65 in 05/31/2025 Blood pressure systolic 001 mm Hg 05/31/2025 Weight 194.4 lbs 05/31/2025 BMI 32.35 kg/m2 05/31/2025 Procedures Procedure Date Ordered Date Performed Result Body Sit e COLONOSCOPY 05/31/2025 N/A Encounters Encounter Location Date Provider Diagnosis [facility] [address] [place] [address] 05/31/2025 Louis Moura History of adenomato us [...] advised of her progress. Plan Of Treatment Pending Test Test Name Order Date COLONOSCOPY 05/31/2025 XR BARIUM SWALLOW-ESOPHAGUS 02/23/2020 Future Test Test Name Order Date UPPER GI ENDOSCOPY 12/29/2014 COLONOSCOPY 08/26/2019 Next Appt Details Provider Name:Louis Moura , 08/26/2025 11:00:00 AM, [address] [place] [address] , [place], [place], [phone], Insurance Providers Payer Name Payer Address Payer Phone Subscriber Number Group Number Insured Name Patient Relationship to Insured Coverage Start Date Coverage End Date MEDICARE OF [place] [address] [place] [address] [id number] CHRISTINE JORGENSEN Self - patient is the insured W[employer] [address] [place] [phone] [id number] CHRISTINE JORGENSEN Self - patient is the insured Medical (General) History Medical History History ICD Code NIDDM HTN Denies [place],CVA,Lung disease,renal disease Hyperlipidemia Anxiety Negative screening colonosco [place] [address] Bates and in January of 2013 with me, other than diverticulosis and hemorrhoids. Chest discomfort-sees Dr. Alexei luna--has had ETT's--had a neg. 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
--- OUTSIDE RECORDS SUMMARY | 2025-06-02 15:43 | XMS_ITS | Patient Health Record ---
Author Organization Homero Jones MD Address [address] [place], [place] [id number] Care Team Providers Care Metal Dealer Name Role Phone Homero Jones Primary Care Provider [phone] Allergies No Known Allergies Results Component Value Reference Range Notes Complete Blood Count Auto Di ff Reviewed date:09/16/2024 06:03:36 PM Interpretation: Performing Lab:[facility], [address] [place] [phone] Notes/Report: White Blood Count 6.9 4.8-10.8 X10*3/uL [...] NRBC Abs Auto 0.000 0.0-0.012 X10*3/uL Comprehensive [place]. Panel Fa st Reviewed date:09/16/2024 05:59:17 PM Interpretation: Performing Lab:[facility], [address] [place] [phone] Notes/Report: Sodium 142 135-145 mmol/L Potassium 4.1 [...] Panel Reviewed date:09/16/2024 06:00:30 PM Interpretation: Performing Lab:[facility], [address] [place] [phone] Notes/Report: Bilirubin Direct 0.2 0.0-0.5 mg/dL Lipid Panel Reviewed date:09/16/2024 06:10:58 PM Interpretation: Performing Lab:[facility], [address] [place] [phone] Notes/Report: Triglycerides 94 <150 mg/dL Desirable Triglyceride: [...] A1c Reviewed date:09/16/2024 12:26:07 PM Interpretation: Performing Lab:[facility], [address] [place] [phone] Notes/Report: Hemoglobin A1c % 6.6 <6.0 % [...] average glucose, using the formula of the V1L-Wbevjjj Average Glucose study (ADAG), Diabetes Care, Vol.31,#8, Apr. 2007 Liver Panel Reviewed date:03/22/2025 12:18:31 PM Interpretation: Performing Lab:[facility], [address] [place] [phone] Notes/Report: Bilirubin Total 0.3 0.0-1.0 mg/dL Bilirubin Direct 0.2 0.0-0.5 mg/dL Aspartate Amino Transferase 25 5-31 U/L Alanine Aminotransferase 12 0-31 U/L Total Protein 7.2 6.5-8.0 g/dL Albumin Level 4.2 3.5-5.0 g/dL Alkaline Phosphatase 90 39-117 U/L Glucose Fasting Reviewed date:03/22/2025 12:18:24 PM Interpretation: Performing Lab:[address] [address] Notes/Report: Glucose Fasting 157 60-99 mg/dL A fasting glucose of 126 mg/dl or greater on more than one occasion is considered diagnostic of diabetes. Lipid Panel with Reflex Reviewed date:03/22/2025 12:21:16 PM Interpretation: Performing Lab:[address] [address] Notes/Report: Triglycerides 51 <150 mg/dL Desirable Triglyceride: [...] A1c Reviewed date:03/22/2025 12:20:57 PM Interpretation: Performing Lab:[address] [address] Notes/Report: Hemoglobin A1c % 6.3 <6.0 % [...] average glucose, using the formula of the B3K-Tuyxvmu Average Glucose study (ADAG), Diabetes Care, Vol.31,#8, Apr. 2007 UA ClnCatch+Micro w/rflx Cul t Reviewed date:06/02/2025 12:40:18 PM Interpretation: Performing Lab:[facility], [address] [place] [phone] Notes/Report: Urine, Clean Catch Color Urine Yellow Appearance Urine Clear PH 6.0 5.0-9.0 Glucose Urine UA Negative Negative mg/dL Urine Blood Negative Negative Specific Zoar - Urine 1.015 1.005-1.025 Urine Protein Negative Neg-Trace mg/dL Urine Ketones Negative Negative mg/dL Nitrite Urine Negative Negative Leukocyte Esterase Urine Small (1+) Negative RBC Urine 0-2 0-2 /HPF WBC Urine 0-5 0-5 /HPF Squamous Epithelial Cell Urine 0-2 0-2 /HPF Bacteria Urine None Seen None Seen Hyaline Casts Urine 0-2 0-2 /LPF Occult Blood, Stool, Guaiac Reviewed date:09/28/2024 01:28:39 PM Interpretation:Negative Performing Lab: Notes/Report: Negative Occult Blood, Stool, Guaiac Neg Microalbumin, Random Reviewed date:09/28/2024 04:28:47 PM Interpretation: Performing Lab:[facility], [address] [place] [phone] Notes/Report: Creatinine Urine 186.13 Microalbumin Urine 14.0 Microalbum/Creatinine Ratio Ur 7.5 <30 ug/mg cr Albumin/Creatinine Ratio Reference Ranges: Normal: < 30 ug/mg creatinine Microalbuminuria: 30 - 300 ug/mg creatinine Clinical Albuminuria: > 300 ug/mg creatinine UA ClnCatch+Micro w/rflx Cul t Reviewed date:09/28/2024 04:31:48 PM Interpretation: Performing Lab:[address] [address] Notes/Report: [id number] 1300 Urine, Clean Catch Color Urine Dark Yellow Appearance Urine Cloudy PH 6.0 5.0-9.0 Glucose Urine UA Negative Negative mg/dL Urine Blood Negative Negative Specific Zoar - Urine >= 1.030 1.005-1.025 Urine Protein [...] ff Reviewed date:08/12/2024 03:26:50 PM Interpretation: Performing Lab:[facility], [address] [place] [phone] Notes/Report: White Blood Count 10.5 4.8-10.8 X10*3/uL [...] Panel Reviewed date:08/12/2024 03:26:31 PM Interpretation: Performing Lab:[facility], [address] [place] [phone] Notes/Report: Sodium 140 135-145 mmol/L Potassium 3.9 [...] date:08/12/2024 03:26:12 PM Interpretation: Performing Lab: Notes/Report: [address] [address] [address] Scan Report Signed Patient: Swati Coreas MR#: [id number] 1 : 1950 Acct:[id number] Age/Sex: 74 / F ADM Date: 08/10/24 Loc: HO.ED Attending Dr: Ordering Physician: Bigg Zhou MD Date of Service: 08/10/24 Procedure(s): CT cervical spine wo IV con Accession Number(s): [id number] cc: Homero Jones MD; Bigg Zhou MD [...] by: Martin Conde MD 08/11/2024 12:22 AM [facility] [place] By: Martin Conde MD Signed By: <Electronically signed by Martin Conde MD in OV> 08/11/24 0022 DD/ 2311 TD/TT: 08/10/24 7508 Dog Handler: [address] [address] [address] Scan Report Signed Patient: Swati Coreas MR#: [id number] 1 : 1950 Acct:[id number] Age/Sex: 74 / F ADM Date: 08/10/24 Loc: HO.ED Attending Dr: Ordering Physician: Bigg Zhou MD Date of Service: 08/10/24 Procedure(s): CT cervical spine wo IV con Accession Number(s): [id number] cc: Homero Jones MD; Bigg Zhou MD [...] by: Martin Conde MD 08/11/2024 12:22 AM [facility] [place]ict[place] By: Frances Conde MD Signed By: <Electronically signed by Martin Conde MD in OV> 08/11/24 0022 DD/ 2311 TD/TT: 08/10/24 2338 Dog Handler: CT chest wo con Reviewed date:08/12/2024 03:24:48 PM Interpretation: Performing Lab: Notes/Report: [address] [address] [address] Scan Report Signed Patient: Swati Coreas MR#: [id number] 1 : 1950 Acct:[id number] Age/Sex: 74 / F ADM Date: 08/10/24 Loc: HO.ED Attending Dr: Ordering Physician: Bigg Zhou MD Date of Service: 08/10/24 Procedure(s): CT chest wo IV con Accession Number(s): [id number] cc: Homero Jones MD; Bigg Zhou MD [...] iterative reconstruction technique DLP: 308 mGy-cm FINDINGS: TEMPORARY ADMINISTRATIVE ASSISTANT: Unremarkable. LUNGS: The lungs are clear with [...] in OV> 08/11/242 DD/ 39 TD/TT: 08/10/242339 Dog Handler: [address] [address] [address] Scan Report Signed Patient: Swati Coreas MR#: [id number] 1 : 1950 Acct:[id number] Age/Sex: 74 / F ADM Date: 08/10/24 Loc: HO.ED Attending Dr: Ordering Physician: Bigg Zhou MD Date of Service: 08/10/24 Procedure(s): CT beth st wo IV con Accession Number(s): [id number] cc: Homero Jones MD; Bigg Zhou MD [...] iterative reconstruction technique DLP: 308 mGy-cm FINDINGS: TEMPORARY ADMINISTRATIVE ASSISTANT: Unremarkable. LUNGS: The lungs are clear with [...] by: Martin Conde MD 08/11/2024 03:12 AM [facility] [place]ict[place] By: Frances Conde MD Signed By: <Electronically signed by Martin Conde MD in OV> 08/11/242 DD/ 39 TD/TT: 08/10/242339 Dog Handler: CT head/brain wo con Reviewed date:08/12/2024 03:25:49 PM Interpretation: Performing Lab: Notes/Report: [address] [address] [address] Scan Report Signed Patient: Swati Coreas MR#: [id number] 1 : 1950 Acct:[id number] Age/Sex: 74 / F ADM Date: 08/10/24 Loc: HO.ED Attending Dr: Ordering Physician: Bigg Zhou MD Date of Service: 08/10/24 Procedure(s): CT head/brain wo IV con Accession Number(s): [id number] cc: Homero Jones MD; Bigg Zhou MD [...] by: Martin Conde MD 08/11/2024 12:22 AM [facility] [place]ict[place] By: Martin Conde MD Signed By: <Electronically signed by Martin Conde MD in OV> 08/11/24 0022 DD/ 2311 TD/TT: 08/10/24 2338 Dog Handler: [place] [address] [address] Scan Report Signed Patient: Swati Coreas MR#: [id number] 1 : 1950 Acct:[id number] Age/Sex: 74 / F ADM Date: 08/10/24 Loc: .ED Attending Dr: Ordering Physician: Bigg Zhou MD Date of Service: 08/10/24 Procedure(s): CT head/brain wo IV con Accession Number(s): [id number] cc: Homero Jones MD; Bigg Zhou MD [...] by: Martin Conde MD 08/11/2024 12:22 AM [facility] [place] Dictated By: Frances Conde MD Signed By: <Electronically signed by Martin Conde MD in OV> 08/11/24 0022 DD/ 2311 TD/TT: 08/10/24 2338 Dog Handler: XR ribs RT min 3V w CXR1V Reviewed date:08/11/2024 07:26:29 PM Interpretation: Performing Lab: Notes/Report: [address] [address] XRay Report Signed Patient: Swati Coreas MR#: [id number] 1 : 1950 Acct:[id number] Age/Sex: 74 / F ADM Date: 08/10/24 Loc: HO.ED Attending Dr: Ordering Physician: Bigg Zhou MD Date of Service: 08/10/24 Procedure(s): XR ribs RT min 3V w CXR1V Accession Number(s): [id number] cc: Homero Jones MD; Bigg Zhou MD [...] by: Jhon Murray MD 08/11/2024 12:32 AM [facility] [place] Dictated By: Jhon Murray MD Signed By: <Electronically signed by Jhon Murray MD in OV> 08/11/24 0032 DD/ 19 TD/TT: 08/10/242119 Dog Handler: [place] [address] XRay Report Signed Patient: Swati Coreas MR#: [id number] 1 : 1950 Acct:[id number] Age/Sex: 74 / F ADM Date: 08/10/24 Loc: .ED Attending Dr: Ordering Physician: Bigg Zhou MD Date of Service: 08/10/24 Procedure(s): XR rib s RT min 3V w CXR1V Accession Number(s): [id number] cc: Homero Jones MD; Bigg Zhou MD [...] signed by Jhon Murray MD in OV> 08/11/24 003 DD/ 19 TD/TT: 08/10/242119 Dog Handler: MAXIM Urine Culture Reviewed date:09/30/2024 05:49:01 PM Interpretation: Performing Lab:[facility], [address] [place] [phone] Notes/Report: O:STRAGA Strep agalactiae (Grp B) Urine Culture Quant Urine Culture > 100,000 cfu/mL Urine Culture Susc N/A Urine Culture Susceptibility not routinely performed on this isolate. UA CC w/rflx Micro + Cult Reviewed date:09/28/2024 04:34:36 PM Interpretation: Performing Lab:[address] [address] Notes/Report: [id number] 1300 Urine, Clean Catch Color Urine Dark Yellow Appearance Urine Cloudy PH 6.0 5.0-9.0 Glucose Urine UA Negative Negative mg/dL Urine Blood Negative Negative Specific Zoar - Urine >= 1.030 1.005-1.025 Urine Protein Trace Neg-Trace mg/dL Urine Ketones Negative Negative mg/dL Nitrite Urine Negative Negative Leukocyte Esterase Urine Large (3+) Negative MM tomosynthesis screening B I Reviewed date:10/07/2024 04:55:48 PM Interpretation: Performing Lab: Notes/Report: [facility] [address] [place] [address] Mammography Report Signed Patient: Swati Coreas MR#: [id number] 1 : 1950 Acct:[id number] Age/Sex: 74 / F ADM Date: 09/29/24 Loc: HO.MAMMO Attending Dr: Homero Jones MD Ordering Physician: Homero Jones MD Results: 1Ne gative Date of Service: 09/29/24 Follow Up: 1 Year From Orig inal Mammogram Procedure(s): MM tomosynthesis screening BI Accession Number(s): [id number] cc: Homero Jones MD EXAMINATION: MM SCREENING [...] by: Jacki Nathan DO 10/07/2024 01:53 PM [facility] [place]ictated By: Jacki Nathan DO Signed By: <Electronically signed by Jacki Nathan DO in OV> 10/07/24 1353 DD/ 0910 TD/TT: 09/29/24 0920 Dog Handler: [facility] [address] [place] [address] [place] [address] Mammography Report Signed Patient: Swati Coreas MR#: [id number] 1 : 1950 Acct:[id number] Age/Sex: 74 / F ADM Date: 09/29/24 Loc: MAMMYuridia Attending Dr: Homero Jones MD Ordering Physician: Homero Jones MD Results: 1Ne gative Date of Service: 09/29/24 Follow Up: 1 Year From Orig inal Mammogram Procedure(s): MM tomosynthesis screening BI Accession Number(s): [id number] cc: Homero Jones MD EXAMINATION: MM SCREENING [...] by: Jacki Nathan DO 10/07/2024 01:53 PM [facility] [place] Dictated By: Jacki Nathan DO Signed By: <Electronically signed by Jacki Nathan DO in OV> 10/07/24 1353 DD/ 0910 TD/TT: 09/29/24 0920 Dog Handler: Francesco Hsu Reviewed date:03/22/2025 12:18:08 PM Interpretation: Performing Lab:[facility], [address] [place] [address] Notes/Report: Francesco Hsu See Note Specimen held [...] BY MOUTH EVERY DAY for 90 Active Ventolin HFA * 108 [...] tests once a day for 90 Active amLODIPine Besylate 5 MG TAKE 1 TABLET B Y MOUTH EVERY DAY for 90 Active Valsartan-hydroCHLOROthia zide 160-12.5 MG TAKE 1 TABLET BY MOUTH EVERY DAY for 90 Active Immunizations Vaccine Route Administration [...] Administered SARS-COV-2 Pfizer Unknown 06/02/2021 Administered [facility] Influenza High Dose IM Intramuscular 06/28/2021 Administer ed SARS-COV-2 Pfizer Unknown 06/02/2021 Administered Shingrix Unknown 08/09/2021 Administered [facility] Influenza High Dose IM Intramuscular 07/04/2022 Administer ed Influenza High Dose IM Intramuscular 05/30/2023 Administer ed Influenza High Dose IM Intramuscular 08/16/2024 Administer ed Influenza High Dose IM Intramuscular 06/02/2025 Administer ed Social History Tobacco Use: Social [...] Risk Notes Problem Atherosclerotic heart disease of hopi coronary artery without angina pectoris (346181699547194) 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 confirmed Problem 307059792 Neuropathy (G62.9) Active confirmed Problem 695446346 Other specified menopausal and perimenopausal disorders (N95.8) Active confirmed Problem Artificial knee joint present (076479678666) Presence of left artificial knee joint (Z96.652) Active confirmed Problem 85227454 Essential hypert ension (I10) Active confirmed Problem 19103247 Type 2 diabetes mellitus without complication (E11.9) Active confirmed Problem 023021959 Non morbid obesi ty due to excess calories (E66.09) Active confirmed Problem 081372431805347 Stenosis of righ t carotid artery (I65.21) Active confirmed Problem 253694690 GONZALES (nonalcohol ic steatohepatitis) (K75.81) Active confirmed Problem 43863322 Intrinsic eczema (L20.84) Active confirmed Problem 927766877 Acute non intrac table tension-type headache (G44.209) Active confirmed Problem 492726416 Schatzki's ring (K22.2) Active confirmed Problem 842839382 Leukocytosis, unspecified type (D72.829) Active confirmed Problem 36544902 Dysthymia (F34.1) Active confirmed Problem 437438899 Pure hypercholesterolemia (E78.00) Active confirmed Problem Microcytic anemia (730586177) Microcytic anemia (D50.9) Active confirmed Problem 685904788 Mild intermitten t asthmatic bronchitis with acute exacerbation (J45.21) Active confirmed Problem 987518173 Altered mental s tatus, unspecified altered mental status type (R41.82) Active confirmed Vital Signs Blood pressure diastolic 64 mm Hg 03/28/2025 Height 64.5 in 03/28/2025 Blood pressure systolic 118 mm Hg 03/28/2025 Weight 189 lbs 03/28/2025 BMI 31.94 kg/m2 03/28/2025 Encounters Encounter Location Date Provider Diagnosis Homero Jones MD [address] [place] [id number] 09/16/2024 Homero Jones Essential hypertensi on I10 ; Type 2 diabetes mellitus without complication E11.9 ; Pure hypercholesterolemia E78.00 and GONZALES (nonalcoholic steatohepatitis) K75.81 Homero Jones MD [address] [place] [id number] 03/22/2025 Homero Jones Type 2 diabetes vesna itus without complication E11.9 and Pure hypercholesterolemia E78.00 Homero Jonse MD [address] [place] [id number] 06/02/2025 Homero Jones UTI (urinary tract infection) N39.0 and Encounter for administration of vaccine Z23 Homero Jones MD [address] [place] [id number] 08/16/2024 Homero Jones Essential hypertensi on I10 ; GONZALES (nonalcoholic steatohepatitis) K75.81 ; Contusion of rib on right side, subsequent encounter S20.211D and Encounter for immunization Z23 Homero Jones MD [address] [place] [id number] 09/28/2024 Homero Jones Type 2 diabetes vesna itus without complication E11.9 ; Essential hypertension I10 ; Skin lesion L98.9 ; Pure hypercholesterolemia E78.00 ; Microcytic anemia D50.9 ; Colon cancer screening Z12.11 and Depression screening Z13.31 Homero Jones MD [address] [place] [id number] 03/28/2025 Homero Jones Type 2 diabetes vesna itus without complication E11.9 ; Pure hypercholesterolemia E78.00 and Essential hypertension I10 Homero Jones MD [address] [place] [id number] 08/12/2024 Homero Jones MD [address] [place] [id number] 11/15/2024 Homero Jones Assessments Encounter Date Diagnosis (ICD Code) Assessment Notes Treatment Notes Treatment Clinical Notes Section Notes 09/16/2024 Essential hypertensi on (ICD-10 - I10) 09/16/2024 Type 2 diabetes mellitus without complication (ICD-10 - E11.9) 03/22/2025 Type 2 diabetes mellitus without complication (ICD-10 - E11.9) 06/02/2025 UTI (urinary tract infection) (ICD-10 - N39.0) 08/16/2024 Essential hypertensi on (ICD-10 - I10) [...] E78.00) 03/22/2025 Pure hypercholesterolemia (ICD-10 - E78.00) 06/02/2025 Encounter for administration of vaccine (ICD-10 - Z23) 08/16/2024 Contusion of rib on right side, [...] Provider Name:Homero Romano ier, 09/23/2025 07:45:00 AM, [address] [place] [address], [place] [address], [place], [place], [phone], Provider Name:Homero Romano ier, 09/30/2025 11:00:00 AM, [address] [place] [address], [address], [phone], Insurance Providers Payer Name Payer Address Payer Phone Subscriber Number Group Number Insured Name Patient Relationship to Insured Coverage Start Date Coverage End Date [employer] [address] [place] [address] [id number] Swati Coreas Self - patient is the insured [facility] [address] [place] [id number] Swati Coreas Self - patient is the insured Medical (General) History Medical History History ICD Code colonoscopy 2003 colonoscopy in 2002; colonos copy done 01/12/2013 - repeat in 10 years; endoscopy 02/23/15 (Dr. Moura); colonoscopy done 11/12/[address] Moura for rectal bleeding (due to age no more testing indicated) appt with 10/04/13 MANAGER PLACEMENT, [facility] ([phone]), appt [facility]o [facility] [place]14[place] [facility] [place] Arthritis
== END 2025-06-02 11:09 | disposition home or self-care (01) ==
LOC: HO.LNP 11:08
PROVIDERS: Visit Provider Internal Medicine
DX: N39.0 Urinary tract infection, site not specified (principal)
CPT/HCPCS: 81001; 87086

== ENCOUNTER 2025-08-26 09:05 | Day surgery (SDC) | payer MEDICARE, OTHER, SELFPAY ==
--- OUTSIDE RECORDS SUMMARY | 2024-03-19 08:45 | XMS_ITS ---
Author Organization Homero Jones MD Address [address] [place], [place] [id number] Care Team Providers Care Corporate Quality Manager Name Role Phone Homero Jones Primary Care Provider Allergies No Known Allergies Results Component Value Reference Range Notes IRON PROFILE Reviewed date:03/19/2024 04:50:00 PM Interpretation: Performing Lab:[facility], [address] [place] [phone] Notes/Report: Iron 58 30-160 mcg/dL Total Iron Binding Capacity 272 228-428 mcg/d L Percent Iron Saturation 21 15-50 % Unsaturated Iron Binding 214 REASON FOR VISIT 6 month Medications Medication SIG (Take, Route, Frequency, Duration) Notes Start Date End Date Status Atorvastatin Calcium 40 MG TAKE 1 TABLET BY MOUTH EVERY DAY Active oxyBUTYnin Chloride ER 10 MG TAKE 1 TABLET BY MOUTH EVERY DAY for 90 Active metFORMIN HCl ER 500 MG TAKE [...] 1 TABLET BY MOUTH EVERY DAY Active Ventolin HFA * 108 (90 Base) MCG/ACT 2 puffs as needed Inhalation every 4 hrs for 30 day(s) 08/12/2014 Not-Taking Aspir-81 81 MG 1 tablet Orally Once a day for 30 day(s) Active LORazepam 0.5 MG 1 tablet as needed Orally every 12 hrs for 5 days 01/15/2019 Not-Taking amLODIPine Besylate 5 MG TAKE 1 TABLET B Y MOUTH EVERY DAY Active Omeprazole 20 MG 1 capsule Orally Onc e a day for Not-Taking Escitalopram Oxalate 10 MG TAKE 1 TABLET BY MOUTH EVERY DAY FOR 30 DAYS for 90 Active Diprolene AF 0.05 % 1 application to affected area Externally Once a day for 20 Not-Taking Vital Signs Blood pressure systolic 122 mm Hg 03/19/20 24 Blood pressure diastolic 60 mm Hg 024 Height 64.5 in 03/19/2024 Weight 197 lbs 03/19/2024 BMI 33.29 kg/m2 03/19/2024 weight is up 6 pounds since 01-26-24 Encounters Encounter Location Date Provider Diagnosis Homero Jones MD [address] [place] [address] [place] [phone] 03/19/2024 Homero Jones Microcytic red blood cells R71.8 ; Essential hypertension I10 ; Type 2 diabetes mellitus without complication E11.9 and Pure hypercholesterolemia E78.00 Assessments Encounter Date Diagnosis (ICD Code) Assessment Notes Treatment Notes Treatment Clinical Notes Section Notes 03/19/2024 Microcytic red blood cells (ICD-10 - R71.8) pending labs 03/19/2024 Essential hypertensi on (ICD-10 - I10) well controlled, will continue current regiment 03/19/2024 Type 2 diabetes vesna itus without complication (ICD-10 - E11.9) doing well, will continue current regiment 03/19/2024 Pure hypercholesterolemia (ICD-10 - E78.00) doing well on meds, will continue current regiment Plan Of Treatment Medication Medication Name Sig Start Date Stop Date Notes Atorvastatin Calcium 40 MG TAKE 1 TABLET BY MOUTH EVERY DAY metFORMIN HCl ER 500 MG TAKE 2 TABLETS B Y MOUTH IN THE MORNING AND 1 TABLET IN THE EVENING Metoprolol Succinate ER 25 MG TAKE 1 TAB LET BY MOUTH EVERY DAY Valsartan-hydroCHLOROthiazid e 160-12.5 MG TAKE 1 TABLET BY MOUTH EVERY DAY amLODIPine Besylate 5 MG TAKE 1 TABLET B Y MOUTH EVERY DAY Treatment Notes Assessment Notes Microcytic red blood cells pending labs Essential hypertension well controlled, will continue current regiment Type 2 diabetes mellitus without complic ation doing well, will continue current regiment Pure hypercholesterolemia doing well on meds, will continue current regiment Next Appt Details Provider Name:Homero Romano ier, 09/23/2025 07:45:00 AM, [address], [address], [place], [place], [id number], Provider Name:Homero Romano ier, 09/30/2025 11:00:00 AM, [address], [address], [place], [place], [id number], Progress Notes * Swati JORGENSEN MDOB:1950 (73 yo F)Acc No.[id number]:03/19/2024 Progress Notes Patient: Antonella andreagiovanniSwati Provider: Avis Jones MD :1950 A ge:73 Y S ex:Female Date:03/19/2024 Address:[address] [place], [place] [id number] Subjective: * Chief Complaints: * 6 month * HPI: S ymptom(s): patient is a 73 yo female here for 6 month follow up visit, feels she has no energy. * ROS: G eneral/Constitutional: Denies C hills. D enies F atigue. D enies F ever. D enies H eadache. E NT: Patient denies d ecreased sense of smell, any loss of taste, sore throat. D enies S ore throat. E ndocrine: Denies D ifficulty sleeping. D enies D izziness.?Denies E xcessive sweating. D enies E xcessive thirst. D enies F requent urination. R espiratory: Denies C ough. D enies S hortness of breath at rest. D enies S hortness of breath with exertion. G astrointestinal: Denies D iarrhea. D enies N ausea. M usculoskeletal: Patient denies m uscle aches. P eripheral Vascular: Patient denies r ed and blue toes. * Medical History: * Surgical History: * Hospitalization/Major Diagno stic Procedure: * Medications: T akingAspir-81 81 MG Tablet Delayed Release 1 tablet Orally Once a dayBlood Glucose Test 0 Strip One Touch test strip In Vitro E: 07.17 tests once a dayamLODIPine Besylate 5 MG Tablet TAKE 1 TABLET BY MOUTH EVERY DAY Valsartan- hydroCHLOROthiazide 160-12.5 MG Tablet TAKE 1 TABLET BY MOUTH EVERY DAY Metoprolol Succinate ER 25 MG Tablet Extended Release 24 Hour TAKE 1 TABLET BY MOUTH EVERY DAY metFORMIN HCl ER 500 MG Tablet Extended Release 24 Hour TAKE 2 TABLETS BY MOUTH IN THE MORNING AND 1 TABLET IN THE EVENING oxyBUTYnin Chloride ER 10 MG Tablet Extended Release 24 Hour TAKE 1 TABLET BY MOUTH EVERY DAY Atorvastatin Calcium 40 MG Tablet TAKE 1 TABLET BY MOUTH EVERY DAY Escitalopram Oxalate 10 MG Tablet TAKE 1 TABLET BY MOUTH EVERY DAY FOR 30 DAYS Taking Aspir-81 81 MG Tablet Delayed Release 1 tablet Orally Once a dayTaking Blood Glucose Test 0 Strip One Touch test strip In Vitro E: 07.17 tests once a dayTaking amLODIPine Besylate 5 MG Tablet TAKE 1 TABLET BY MOUTH EVERY DAY Taking Valsartan-hydroCHLOROthiazide 160-12.5 MG Tablet TAKE 1 TABLET BY MOUTH EVERY DAY Taking Metoprolol Succinate ER 25 MG Tablet Extended Release 24 Hour TAKE 1 TABLET BY MOUTH EVERY DAY Taking metFORMIN HCl ER 500 MG Tablet Extended Release 24 Hour TAKE 2 TABLETS BY MOUTH IN THE MORNING AND 1 TABLET IN THE EVENING Taking oxyBUTYnin Chloride ER 10 MG Tablet Extended Release 24 Hour TAKE 1 TABLET BY MOUTH EVERY DAY Taking Atorvastatin Calcium 40 MG Tablet TAKE 1 TABLET BY MOUTH EVERY DAY Taking Escitalopram Oxalate 10 MG Tablet TAKE 1 TABLET BY MOUTH EVERY DAY FOR 30 DAYS Not-Taking/PRNOmeprazole 20 MG Capsule Delayed Release 1 capsule Orally Once a dayDiprolene AF 0.05 % Cream 1 application to affected area Externally Once a dayLORazepam 0.5 MG Tablet 1 tablet as needed Orally every 12 hrsVentolin HFA * 108 (90 Base) MCG/ACT Aerosol Solution 2 puffs as needed Inhalation every 4 hrsMedication List reviewed and reconciled with the patientNot-Taking/PRN Omeprazole 20 MG Capsule Delayed Release 1 capsule Orally Once a dayNot-Taking/PRN Diprolene AF 0.05 % Cream 1 application to affected area Externally Once a dayNot-Taking/PRN LORazepam 0.5 MG Tablet 1 tablet as needed Orally every 12 hrsNot-Taking/PRN Ventolin HFA * 108 (90 Base) MCG/ACT Aerosol Solution 2 puffs as needed Inhalation every 4 hrsMedication List reviewed and reconciled with the patient * Allergies: N .K.D.A.yes[Allergies Verified] Objective: * Vitals: H t: 64.5, Wt:197, BMI:33.29, BP:122/60 weight is up 6 pounds since 01-26-24. * P ast Orders: L ab:Glucose Fasting (Order Date - 03/08/2024) (Collection Date - 03/08/2024) Value Reference Range Glucose Fasting 137 H 60-99 - mg/dL L ab:Lipid Panel with Reflex (Order Date - 03/08/2024) (Collection Date - 03/08/2024) Value Reference Range Triglycerides 71 <150 - mg/dL Cholesterol 119 <200 - mg/dL LDL Cholesterol Calculated 59 <100 - mg/dL HDL Cholesterol 46 >40 - mg/dL L ab:Hemoglobin A1c (Order Date - 03/08/2024) (Collection Date - 03/08/2024) Value Reference Range Hemoglobin A1c % 6.6 H <6.0 - % Estimated Average Glucose 143 - mg/dL L ab:Liver Panel (Order Date - 03/08/2024) (Collection Date - 03/08/2024) Value Reference Range Bilirubin Total 0.3 0.0-1.0 - mg/dL Bilirubin Direct 0.1 0.0-0.5 - mg/dL Aspartate Amino Transferase 14 5-31 - U/L Alanine Aminotransferase 11 0-31 - U/L Total Protein 7.1 6.5-8.0 - g/dL Albumin Level 3.7 3.5-5.0 - g/dL Alkaline Phosphatase 96 39-117 - U/L * Examination: G eneral Examination: GENERAL APPEARANCE: alert, well hydrated, in no distress female. HEAD: normocephalic. SKIN: good turgor. HEART: regular rate and rhythm no murmurs, rubs, gallops.? LUNGS: no wheezes, rales, rhonchi good air movement clear to auscultation bilaterally. Assessment: * Assessment: 1. M icrocytic red blood cells - R71.8 (Primary) 2 . E ssential hypertension - I10 3 . T ype 2 diabetes mellitus without complication - E11.9 4 . P ure hypercholesterolemia - E78.00 Plan: * Treatment: 2. E ssential hypertension Continue amLODIPine Besylate Tablet, 5 MG, TAKE 1 TABLET BY MOUTH EVERY DAY; C ontinue Valsartan-hydroCHLOROthiazide Tablet, 160-12.5 MG, TAKE 1 TABLET BY MOUTH EVERY DAY; C ontinue Metoprolol Succinate ER Tablet Extended Release 24 Hour, 25 MG, TAKE 1 TABLET BY MOUTH EVERY DAY. Notes: well controlled, will continue current regiment. 3. T ype 2 diabetes mellitus without complication Continue metFORMIN HCl ER Tablet Extended Release 24 Hour, 500 MG, TAKE 2 TABLETS BY MOUTH IN THE MORNING AND 1 TABLET IN THE EVENING. Notes: doing well, will continue current regiment. 4. P ure hypercholesterolemia Continue Atorvastatin Calcium Tablet, 40 MG, TAKE 1 TABLET BY MOUTH EVERY DAY. Notes: doing well on meds, will continue current regiment. * Procedure Codes: 3 6415 VENIPUNCT, ROUTINE* * * Sign off status: Completed true * Provider: Avis Jones MD Date: 0 03/19/2024 Generated for Becky lucia/Linda/Kimberly on: 09/27/2024 05:55 PM EST History and Physical Notes * HPI (History of Present Illness) Category Sub-Category Detail Notes Category Not es Symptom(s) patient is a 73 yo female here for 6 month follow up visit, feels she has no energy. Examination Category Sub-Category Detail Notes Category Not es General Examination GENERAL APPEARANCE: alert, w ell hydrated, in no distress female HEAD: normocephalic HEART: regular rate and rhy thm no murmurs, rubs, gallops LUNGS: no wheezes, rales, r [place] good air movement clear to auscultation bilaterally SKIN: good turgor
--- OUTSIDE RECORDS SUMMARY | 2024-08-12 06:57 | XMS_ITS ---
Author Organization Homero Jones MD Address [address] [place] [address] [phone] Care Team Providers Care Stull Installer Name Role Phone Homero Jones Primary Care Provider [phone] REASON FOR VISIT ER Encounters Encounter Location Date Provider Diagnosis Homero Jones MD [facility] [address] [place] [address] [phone] 08/12/2024 Homero Jones Plan Of Treatment Next Appt Details Provider Name:Homero Romano ier, 09/23/2025 07:45:00 AM, [address] [place] [address], [address] [place] [address], [phone], Provider Name:Homero Romano ier, 09/30/2025 11:00:00 AM, [address] [place] [address], [address], [phone], Progress Notes * Swati JORGENSEN MDOB:1950 (74 yo F)Acc No.[id number]:08/12/2024 Patient: Antonella Swati villa :1950 A ge:74 Y S ex:Female Address:[address], [place] [address] * true * Date: Generated for Becky lucia/Linda/Kimberly on: 09/27/2024 05:55 PM EST
--- OUTSIDE RECORDS SUMMARY | 2024-08-13 02:00 | XMS_ITS ---
Author Organization Homero Jones MD Address [address] [place] [phone] Care Team Providers Care Materials Inspector Name Role Phone Homero Jones Primary Care Provider REASON FOR VISIT flu shot Encounters Encounter Location Date Provider Diagnosis Homero Jones MD [address] [facility] [address] [place] [address] [phone] 08/13/2024 Homero Jones Plan Of Treatment Next Appt Details Provider Name:Homero Romano ier, 09/23/2025 07:45:00 AM, [address] [place] [address], [address] [place] [address], [phone], Provider Name:Homero Romano ier, 09/30/2025 11:00:00 AM, [address] [place] [address], [address] [place] [address], [phone], Progress Notes * Swati JORGENSEN MDOB:1950 (75 yo F)Acc No.[id number]:08/13/2024 Progress Note Patient: Antonella Swati CORTES Provider: Avis Jones MD :1950 A ge:74 Y S ex:Female Date:08/13/2024 Address:[address] [place] [address], [id number] Subjective: * Chief Complaints: * 1 . Flu shot. * Medical History: Objective: * Vitals: Assessment: Plan: * Treatment: * * The named appointment provid er may or may not be the originator of this progress note, and it is not deemed complete until electronically signed by the appointment provider. Sign off status: Pending * Provider: Avis Jones MD Date: 10/14/2023 Generated for Becky lucia/Linda/Daisyitting on: 09/27/2024 05:55 PM EST
--- OUTSIDE RECORDS SUMMARY | 2024-08-16 08:45 | XMS_ITS ---
Author Organization Homero Jones MD Address [address] [place], [place] [id number] Care Team Providers Care Senior Project Coordinator Name Role Phone Homero Jones Primary Care Provider Allergies No Known Allergies REASON FOR VISIT F/U ERV for fall and HDF Medications Medication SIG (Take, Route, Frequency, Duration) Notes Start Date End Date Status Ventolin HFA * 108 (90 Base) MCG/ACT 2 puffs as needed Inhalation every 4 hrs for 30 day(s) 08/12/2014 Not-Taking LORazepam 0.5 MG 1 tablet as needed Orally every 12 hrs for 5 days 01/15/2019 Not-Taking Metoprolol Succinate ER 25 MG TAKE 1 TABLET BY MOUTH EVERY DAY Active Valsartan-hydroCHLOROthia zide 160-12.5 MG TAKE 1 TABLET BY MOUTH EVERY DAY Active amLODIPine Besylate 5 MG TAKE 1 TABLET B Y MOUTH EVERY DAY Active Escitalopram Oxalate 10 MG TAKE 1 TABLET BY MOUTH EVERY DAY FOR 30 DAYS for 90 Active Diprolene AF 0.05 % 1 application to affected area Externally Once a day for 20 Not-Taking Omeprazole 20 MG 1 capsule Orally Onc e a day for 90 Not-Taking metFORMIN HCl ER 500 MG TAKE 2 TABLETS B Y MOUTH IN THE MORNING AND 1 TABLET IN THE EVENING for 90 Active Atorvastatin Calcium 40 MG TAKE 1 TABLET BY MOUTH EVERY DAY Active oxyBUTYnin Chloride ER 10 MG TAKE 1 TABLET BY MOUTH EVERY DAY for 90 Active Blood Glucose Test 0 One Touch test stri p In Vitro E: 11. tests once a day for 90 Active Aspir-81 81 MG 1 tablet Orally Once a day for 30 day(s) Active Immunizations Vaccine Route Administration Date Status Comme nts Influenza High Dose IM Intramuscular 08/16/2024 Administer ed Vital Signs Blood pressure systolic 118 mm Hg 08/16/20 24 Blood pressure diastolic 64 mm Hg 024 Height 64.5 in 08/16/2024 Weight 190 lbs 08/16/2024 BMI 32.11 kg/m2 08/16/2024 ght is down 7 pounds since Encounters Encounter Location Date Provider Diagnosis Homero Jones MD [address] [place] [address] [address] [place], [place] [phone] 08/16/2024 Homero Jones Essential hypertension I10 ; GONZALES (nonalcoholic steatohepatitis) K75.81 ; Contusion of rib on right side, subsequent encounter S20.211D and Encounter for immunization Z23 Assessments Encounter Date Diagnosis (ICD Code) Assessment Notes Treatment Notes Treatment Clinical Notes Section Notes 08/16/2024 Essential hypertension (ICD-10 - I10) doing well lft's are normal, will continue current regiment 08/16/2024 GONZALES (nonalcoholic steatohepatitis) (ICD-10 - K75.81) lft's are normal 08/16/2024 Contusion of rib on right side, subsequent encounter (ICD-10 - S20.211D) is minimally tender, will continue to monitor 08/16/2024 Encounter for immunization (ICD-10 - Z23) flu vaccine administered Plan Of Treatment Medication Medication Name Sig Start Date Stop Date Notes Metoprolol Succinate ER 25 MG TAKE 1 TAB LET BY MOUTH EVERY DAY Valsartan-hydroCHLOROthiazid e 160-12.5 MG TAKE 1 TABLET BY MOUTH EVERY DAY amLODIPine Besylate 5 MG TAKE 1 TABLET B Y MOUTH EVERY DAY Treatment Notes Assessment Notes Essential hypertension doing well lft's are normal, will continue current regiment GONZALES (nonalcoholic steatohepatitis) lft' s are normal Contusion of rib on right si de, subsequent encounter is minimally tender, will continue to monitor Encounter for immunization flu vaccine a dministered Next Appt Details Provider Name:Homero Romano ier, 09/23/2025 07:45:00 AM, [address], [address], [place], [place], [phone], Provider Name:Homero Romano ier, 09/30/2025 11:00:00 AM, [address], [address], [place], [place], [phone], Progress Notes * Swati JORGENSEN MDOB:1950 (74 yo F)Acc No.[id number]:08/16/2024 Progress Notes Patient: Swati Guillaume Provider: Avis Jones MD :1950 A ge:74 Y S ex:Female Date:08/16/2024 Address:[address] [place], [place] [phone] Subjective: * Chief Complaints: * F /U ERV for fall and HDF * HPI: F all Risk: History H ave you had any falls with injury in the past year? Y es 1224 tripped on a bag in her garage , fell against a screen door .. patient is a 74 yo female here for follow up from recent ER visit, had a fall. fell on face and hurt ribs. nose is sore still and feels like it is congested. * ROS: G eneral/Constitutional: Denies C hills. D enies F atigue. D enies F ever. D enies H eadache. E NT: Patient denies d ecreased sense of smell , any loss of taste , sore throat. D enies S ore throat. R espiratory: Denies C ough. D enies [...] In Vitro E: 07.17 tests once a dayoxyBUTYnin Chloride ER 10 MG Tablet Extended Release 24 Hour TAKE 1 TABLET BY MOUTH EVERY DAY Escitalopram Oxalate 10 MG Tablet TAKE 1 TABLET BY MOUTH EVERY DAY FOR 30 DAYS Atorvastatin Calcium 40 MG Tablet TAKE 1 TABLET BY MOUTH EVERY DAY metFORMIN HCl ER 500 MG Tablet Extended Release 24 Hour TAKE 2 TABLETS BY MOUTH IN THE MORNING AND 1 TABLET IN THE EVENING amLODIPine Besylate 5 MG Tablet TAKE 1 TABLET BY MOUTH EVERY DAY Valsartan-hydroCHLOROthiazide 160-12.5 MG Tablet TAKE 1 TABLET BY MOUTH EVERY DAY Metoprolol Succinate ER 25 MG Tablet Extended Release 24 Hour TAKE 1 TABLET BY MOUTH EVERY DAY Taking Aspir-81 81 MG Tablet Delayed Release 1 tablet Orally Once a dayTaking Blood Glucose Test 0 Strip One Touch test strip In Vitro E: 07.17 tests once a dayTaking oxyBUTYnin Chloride ER 10 MG Tablet Extended Release 24 Hour TAKE 1 TABLET BY MOUTH EVERY DAY Taking Escitalopram Oxalate 10 MG Tablet TAKE 1 TABLET BY MOUTH EVERY DAY FOR 30 DAYS Taking Atorvastatin Calcium 40 MG Tablet TAKE 1 TABLET BY MOUTH EVERY DAY Taking metFORMIN HCl ER 500 MG Tablet Extended Release 24 Hour TAKE 2 TABLETS BY MOUTH IN THE MORNING AND 1 TABLET IN THE EVENING Taking amLODIPine Besylate 5 MG Tablet TAKE 1 TABLET BY MOUTH EVERY DAY Taking Valsartan-hydroCHLOROthiazide 160-12.5 MG Tablet TAKE 1 TABLET BY MOUTH EVERY DAY Taking Metoprolol Succinate ER 25 MG Tablet Extended Release 24 Hour TAKE 1 TABLET BY MOUTH EVERY DAY Not-Taking/PRNOmeprazole 20 MG Capsule Delayed Release 1 [...] Verified] Objective: * Vitals: H t: 64.5, Wt:190, BMI:32.11, BP:118/64 ght is down 7 pounds since 03-19-24. * Examination: G eneral Examination: GENERAL APPEARANCE: a lert, well hydrated, in no distress.? HEAD: n ormocephalic. SKIN: g ood turgor. HEART: r egular rate and rhythm , no murmurs, rubs, gallops. LUNGS: n o wheezes, rales, rhonchi , good air movement , clear to auscultation bilaterally. Assessment: * Assessment: 1. E ssential hypertension - I10 (Primary) 2 . N YONATAN (nonalcoholic steatohepatitis) - K75.81 3 . C ontusion of rib on right side, subsequent encounter - S20.211D 4 . E ncounter for immunization - Z23 Plan: * Treatment: 2. N YONATAN (nonalcoholic steatohepatitis) Notes: lft's are normal 3. C ontusion of rib on right side, subsequent encounter Notes: is minimally tender, will continue to monitor 4. E ncounter for immunization Notes: flu vaccine administered * Immunizations: Influenza High Dose : 0.5 mL (Dose No:1) (Route: Intramuscular) given by Nelda Corona on Right Deltoid * Procedure Codes: 9 0662 FLU VACC PRSV FREE INC [id number] ADMN FLU VAC NO FEE SCHED SAME DAY * Preventive Medicine: Immunizations: I nfluenza H ave you had a flu shot since the most recent May 09? Y es. * * Sign off status: Completed true * Provider: Avis Jones MD Date: 10/17/2023 Generated for Becky lucia/Linda/Daisyitting on: 09/27/2024 05:55 PM EST History and Physical Notes * HPI (History of Present Illness) Category Sub-Category Detail Notes Category Not es Fall Risk History Have you had any falls with injury in the past year?: Yes 08-10-24 tripped on a bag in her garage , fell against a screen door . patient is a 74 yo female here for follow up from recent ER visit, had a fall. fell on face and hurt ribs. nose is sore still and feels like it is congested. Examination Category Sub-Category Detail Notes Category Not es General Examination GENERAL APPEARANCE: alert, w ell hydrated, in no distress HEAD: normocephalic HEART: regular rate and rhy thm , no murmurs, rubs, gallops LUNGS: no wheezes, rales, r honchi , good air movement , clear to auscultation bilaterally SKIN: good turgor
--- OUTSIDE RECORDS SUMMARY | 2024-09-16 02:30 | XMS_ITS ---
Author Organization Homero Jones MD Address [address] [place], [place] [id number] Care Team Providers Care Counseling Services Manager Name Role Phone Homero Jones Primary Care Provider Results Component Value Reference Range Notes Complete Blood Count Auto Di ff Reviewed date:09/16/2024 06:03:36 PM Interpretation: Performing Lab:[facility], [address] [place] [phone] Notes/Report: White Blood Count 6.9 4.8-10.8 X10*3/uL Red Blood Count 4.47 4.20-5.50 X10*6/uL Hemoglobin 11.2 12.0-16.0 g/dl Hematocrit 37.0 37.0-47.0 % Mean Corpuscular Volume 82.8 80.0-98.0 fL Mean Corpuscular Hemoglobin 25.1 27.0-33.0 pg Mean Corpuscular HGB Conc 30.3 31.0-35.0 g/dl Red Cell Distribution Width 14.4 11.0-16.0 % Platelet Count 435 160-400 X10*3/uL Mean Platelet Volume 11.3 9.4-12.3 fL Neutrophils Percent Auto 62.2 45-73 % Imm Gran Pct Auto 0.3 0.0-0.4 % Lymphocytes Percent Auto 22.8 20-40 % Monocytes Percent Auto 11.7 2-11 % Eosinophils Percent Auto 2.3 0-4 % Basophils Percent Auto 0.7 0-2 % NRBC Pct Auto 0.0 0.0-0.2 /100WBC Neutrophils Absolute Auto 4.3 2.0-8.3 x10*3/u L Imm Gran Abs Auto 0.02 0.00-0.03 X10*3/uL Lymphocytes Absolute Auto 1.6 1.2-4.9 X10*3/u L Monocytes Absolute Auto 0.8 0.1-1.2 X10*3/uL Eosinophils Absolute Auto 0.2 0.0-0.4 X10*3/u L Basophils Absolute Auto 0.1 0.0-0.2 X10*3/uL NRBC Abs Auto 0.000 0.0-0.012 X10*3/uL Comprehensive [place]. Panel Fa st Reviewed date:09/16/2024 05:59:17 PM Interpretation: Performing Lab:[facility], [address] [place] [phone] Notes/Report: Sodium 142 135-145 mmol/L Potassium 4.1 3.3-5.1 mmol/L Chloride 104 96-108 mmol/L Carbon Dioxide 31 22-29 mmol/L Anion Gap 11 12-20 Blood Urea Nitrogen 11 9-16 mg/dL Creatinine 0.68 0.5-1.4 mg/dL Estimated Glomerular Filt Rate > 60 Chronic Kidney Disease: Estimated GFR < 60 mL/min/1.73m2 Severe Kidney Disease: Estimated GFR < 15 mL/min/1.73m2 Glucose Fasting 130 60-99 mg/dL A fasting glucose of 126 mg/dl or greater on more than one occasion is considered diagnostic of diabetes. Calcium 9.4 8.4-10.2 mg/dL Bilirubin Total 0.5 0.0-1.0 mg/dL Aspartate Amino Transferase 25 5-31 U/L Alanine Aminotransferase 13 0-31 U/L Total Protein 6.9 6.5-8.0 g/dL Albumin Level 3.7 3.5-5.0 g/dL Alkaline Phosphatase 91 39-117 U/L Liver Panel Reviewed date:09/16/2024 06:00:30 PM Interpretation: Performing Lab:[facility], [address] [place] [phone] Notes/Report: Bilirubin Direct 0.2 0.0-0.5 mg/dL Lipid Panel Reviewed date:09/16/2024 06:10:58 PM Interpretation: Performing Lab:[facility], [address] [place] [phone] Notes/Report: Triglycerides 94 <150 mg/dL Desirable Triglyceride: less than 150 mg/dL Borderline High Triglyceride 150-199 mg/dL High Triglyceride: 200-499 mg/dL Very High Triglyceride: greater than or equal to 5OO mg/dL Cholesterol 102 <200 mg/dL Desirable Cholesterol: less than 200 mg/dL Borderline High Cholesterol: 200-239 mg/dL High Cholesterol: greater than 239 mg/dL LDL Cholesterol Calculated 46 <100 mg/dL Desirable LDL: less than 100 mg/dL Near Optimal/Above Optimal LDL: 110-129 mg/dL Borderline High LDL: 130-159 mg/dL High LDL: 160-189 mg/dL Very High LDL: greater than or equal to 190 mg/dL HDL Cholesterol 38 >40 mg/dL Desirable HDL: greater than 40 mg/dL Note: This HDL assay may give artificially low results in patients with liver disease. Hemoglobin A1c Reviewed date:09/16/2024 12:26:07 PM Interpretation: Performing Lab:[facility], [address] [place] [phone] Notes/Report: Hemoglobin A1c % 6.6 <6.0 % [...] average glucose, using the formula of the L8A-Oolcens Average Glucose study (ADAG), Diabetes Care, Vol.31,#8, Apr. 2007 REASON FOR VISIT yearly fasting labs Encounters Encounter Location Date Provider Diagnosis Homero Jones MD [address] [place] [address] [address] [place], [place] [phone] 09/16/2024 Homero Jones Essential hypertensi on I10 ; Type 2 diabetes mellitus without complication E11.9 ; Pure hypercholesterolemia E78.00 and GONZALES (nonalcoholic steatohepatitis) K75.81 Assessments Encounter Date Diagnosis (ICD Code) Assessment Notes Treatment Notes Treatment Clinical Notes Section Notes 09/16/2024 Essential hypertensi on (ICD-10 - I10) 09/16/2024 Type 2 diabetes vesna itus without complication (ICD-10 - E11.9) 09/16/2024 Pure hypercholesterolemia (ICD-10 - E78.00) 09/16/2024 GONZALES (nonalcoholic steatohepatitis) (ICD-10 - K75.81) Plan Of Treatment Next Appt Details Provider Name:Homero Romano ier, 09/23/2025 07:45:00 AM, [address], [address], [place], [id number], Provider Name:Homero Romano ier, 09/30/2025 11:00:00 AM, [address] [place] [address], [address], [place], [place], [phone], Progress Notes * Swati JORGENSEN MDOB:1950 (75 yo F)Acc No.[id number]:09/16/2024 Progress Note Patient: Swati VIEIRA Provider: Avis Jones MD :1950 A ge:74 Y S ex:Female Date:09/16/2024 Address:[address] [place], [place] [phone] Subjective: * Chief Complaints: * 1 . Yearly fasting labs. * Medical History: Objective: * Vitals: Assessment: * Assessment: 1. E ssential hypertension - I10 (Primary) 2 . T ype 2 diabetes mellitus without complication - E11.9 3 . P ure hypercholesterolemia - E78.00 ?4. N YONATAN (nonalcoholic steatohepatitis) - K75.81 Plan: * Treatment: 2. T ype 2 diabetes mellitus without complication L AB: Microalbumin, Random (Order Cancelled) L AB: UA ClnCatch+Micro w/rflx Cult (Order Cancelled) L AB: Complete Blood Count Auto Diff (Collection Date & Time - 09/16/2024 07:30 AM) L AB: Comprehensive [place]. Panel Fast (Collection Date & Time - 09/16/2024 07:30 AM) L AB: Liver Panel (Collection Date & Time - 09/16/2024 07:30 AM) L AB: Lipid Panel (Collection Date & Time - 09/16/2024 07:30 AM) L AB: Hemoglobin A1c (Collection Date & Time - 09/16/2024 07:30 AM) 3. P ure hypercholesterolemia L AB: Microalbumin, Random (Order Cancelled) L AB: UA ClnCatch+Micro w/rflx Cult (Order Cancelled) L AB: Complete Blood Count Auto Diff (Collection Date & Time - 09/16/2024 07:30 AM) L AB: Comprehensive [place]. Panel Fast (Collection Date & Time - 09/16/2024 07:30 AM) L AB: Liver Panel (Collection Date & Time - 09/16/2024 07:30 AM) L AB: Lipid Panel (Collection Date & Time - 09/16/2024 07:30 AM) L AB: Hemoglobin A1c (Collection Date & Time - 09/16/2024 07:30 AM) 4. N YONATAN (nonalcoholic steatohepatitis) L AB: Microalbumin, Random (Order Cancelled) L AB: UA ClnCatch+Micro w/rflx Cult (Order Cancelled) L AB: Complete Blood Count Auto Diff (Collection Date & Time - 09/16/2024 07:30 AM) L AB: Comprehensive [place]. Panel Fast (Collection Date & Time - 09/16/2024 07:30 AM) L AB: Liver Panel (Collection Date & Time - 09/16/2024 07:30 AM) L AB: Lipid Panel (Collection Date & Time - 09/16/2024 07:30 AM) L AB: Hemoglobin A1c (Collection Date & Time - 09/16/2024 07:30 AM) * Procedure Codes: 3 6415 VENIPUNCT, ROUTINE* * * The named appointment provid er may or may not be the originator of this progress note, and it is not deemed complete until electronically signed by the appointment provider. Sign off status: Pending * Provider: Avis Jones MD Date: 0 09/16/2024 Generated for Becky lucia/Linda/Daisyitting on: 09/27/2024 05:54 PM EST
--- OUTSIDE RECORDS SUMMARY | 2024-09-28 08:00 | XMS_ITS ---
Author Organization Homero Jones MD Address [address] [place], [place] [phone] Care Team Providers Care Banana Expert Name Role Phone Homero Jones Primary Care Provider Allergies No Known Allergies Results Component Value Reference Range Notes Occult Blood, Stool, Guaiac Reviewed date:09/28/2024 01:28:39 PM Interpretation:Negative Performing Lab: Notes/Report: Negative Occult Blood, Stool, Guaiac Neg Microalbumin, Random Reviewed date:09/28/2024 04:28:47 PM Interpretation: Performing Lab:[facility], [address] [place] [phone] Notes/Report: Creatinine Urine 186.13 Microalbumin Urine 14.0 Microalbum/Creatinine Ratio Ur 7.5 <30 ug/mg cr Albumin/Creatinine Ratio Reference Ranges: Normal: < 30 ug/mg creatinine Microalbuminuria: 30 - 300 ug/mg creatinine Clinical Albuminuria: > 300 ug/mg creatinine UA ClnCatch+Micro w/rflx Cul t Reviewed date:09/28/2024 04:31:48 PM Interpretation: Performing Lab:[facility], [address] [place] [phone] Notes/Report: [id number] Urine, Clean Catch Color Urine Dark Yellow Appearance Urine Cloudy PH 6.0 5.0-9.0 Glucose Urine UA Negative Negative mg/dL Urine Blood Negative Negative Specific [place] - Urine >= 1.030 1.005-1.025 Urine Protein Trace Neg-Trace mg/dL Urine Ketones Negative Negative mg/dL Nitrite Urine Negative Negative Leukocyte Esterase Urine Large (3+) Negative RBC Urine 0-2 0-2 /HPF WBC Urine >50 0-5 /HPF Squamous Epithelial Cell Urine 6-10 0-2 /HPF Calcium Oxalate Crystals Urine Present Bacteria Urine Trace None Seen Hyaline Casts Urine 0-2 0-2 /LPF Reason For Referral Reason skin lesion see no te attached Diagnosis 1 Skin lesion (L98.9) Referral Organization Homero Jones MD Referring Provider First Name Homero Referring Provider Last Name Karen Referring Provider Speciality Internal M edicine Referred Provider [facility]yn [place] Referred Provider Specialty Dermatology General Notes Leonor Mayers 0 10/08/2024 12:09:59 PM >letter faxed on 09-27-24Talib Annette 10/08/2024 12:10:14 PM >refaxed letterTalib Annette 10/11/2024 02:17:01 PM > patient is aware of appt Referral Priority Routine Referral Appointment Date 10/14/2024 REASON FOR VISIT comp visit Medications Medication SIG (Take, Route, Frequency, Duration) Notes Start Date End Date Status Blood Glucose Test 0 One Touch test stri p In Vitro E: 11.09 tests once a day for 90 Active Metoprolol Succinate ER 25 MG TAKE 1 TABLET BY MOUTH EVERY DAY Active Valsartan-hydroCHLOROthia zide 160-12.5 MG TAKE 1 TABLET BY MOUTH EVERY DAY Active Aspir-81 81 MG 1 tablet Orally Once a day for 30 day(s) Active amLODIPine Besylate 5 MG TAKE 1 TABLET B Y MOUTH EVERY DAY Active Ventolin HFA * 108 (90 Base) MCG/ACT 2 puffs as needed Inhalation every 4 hrs for 30 day(s) 08/12/2014 Not-Taking LORazepam 0.5 MG 1 tablet as needed Orally every 12 hrs for 5 days 01/15/2019 Not-Taking Diprolene AF 0.05 % 1 application to affected area Externally Once a day for 20 Not-Taking Atorvastatin Calcium 40 MG TAKE 1 TABLET BY MOUTH EVERY DAY Active metFORMIN HCl ER 500 MG TAKE 2 TABLETS B Y MOUTH IN THE MORNING AND 1 TABLET IN THE EVENING Active oxyBUTYnin Chloride ER 10 MG TAKE 1 TABLET BY MOUTH EVERY DAY for 90 Active Escitalopram Oxalate 10 MG TAKE 1 TABLET BY MOUTH EVERY DAY FOR 30 DAYS for 90 Active Omeprazole 20 MG 1 capsule Orally Onc e a day for 90 Not-Taking Social History Tobacco Use: Social History Observation Description Date Details (start date - stop date) Former Smoker NA - NA Tobacco Use/Smoking Question Answer Notes Patient is [...] Never (0 point) Points 1 Interpretation Negative Vital Signs Blood pressure systolic 122 mm Hg 09/28/19 25 Blood pressure diastolic 70 mm Hg 025 Height 64.5 in 09/28/2024 Weight 190 lbs 09/28/2024 BMI 32.11 kg/m2 09/28/2024 Encounters Encounter Location Date Provider Diagnosis Homero Jones MD [address] [place] [address] [place] [phone] 09/28/2024 Homero Jones Type 2 diabetes vesna itus without complication E11.9 ; Essential hypertension I10 ; Skin lesion L98.9 ; Pure hypercholesterolemia E78.00 ; Microcytic anemia D50.9 ; Colon cancer screening Z12.11 and Depression screening Z13.31 Assessments Encounter Date Diagnosis (ICD Code) Assessment Notes Treatment Notes Treatment Clinical Notes Section Notes 09/28/2024 Type 2 diabetes vesna itus without complication (ICD-10 - E11.9) doing well with good a1c, will contnue current regiment 09/28/2024 Essential hypertensi on (ICD-10 - I10) stable, will contnue current regiment 09/28/2024 Skin lesion (ICD-10 - L98.9) referral to ne derm 09/28/2024 Pure hypercholesterolemia (ICD-10 - E78.00) 09/28/2024 Microcytic anemia (ICD-10 - D50.9) will cntnue to monitor 09/28/2024 Colon cancer screeni ng (ICD-10 - Z12.11) guaiac negative 09/28/2024 Depression screening (ICD-10 - Z13.31) negative screen Plan Of Treatment Medication Medication Name Sig Start Date Stop Date Notes Metoprolol Succinate ER 25 MG TAKE 1 TAB LET BY MOUTH EVERY DAY Valsartan-hydroCHLOROthiazid e 160-12.5 MG TAKE 1 TABLET BY MOUTH EVERY DAY amLODIPine Besylate 5 MG TAKE 1 TABLET B Y MOUTH EVERY DAY Atorvastatin Calcium 40 MG TAKE 1 TABLET BY MOUTH EVERY DAY metFORMIN HCl ER 500 MG TAKE 2 TABLETS B Y MOUTH IN THE MORNING AND 1 TABLET IN THE EVENING Treatment Notes Assessment Notes Type 2 diabetes mellitus without complic ation doing well with good a1c, will contnue current regiment Essential hypertension stable, will cont nue current regiment Skin lesion referral to [place] Microcytic anemia will cntnue to monit or Colon cancer screening guaiac negative Depression screening negative screen Referrals Referral Date Details 09/28/2024 09/28/2024, skin les ion see note attached, [facility] Next Appt Details Follow Up: 6 Months, Reason: Provider Name:Homero jimenez, 09/23/2025 07:45:00 AM, [address] [place] [address], Suite [facility], [place], [place], [phone], Provider Name:Homero jimenez, 09/30/2025 11:00:00 AM, [address] [place] [address], [address], [place], [place], [phone], Progress Notes * Swati JORGENSEN MDOB:1950 (74 yo F)Acc No.[id number]:09/28/2024 Patient: Antonella ETHANGUICHOSwati Provider: Avis Jones MD :1950 A ge:74 Y S ex:Female Date:09/28/2024 Address:[address] [place], [place] [phone] Subjective: * Chief Complaints: * C omp visit * HPI: D epression Screening: PHQ-9 L ittle interest or pleasure in doing things N ot at all, F eeling down, depressed, or hopeless N ot at all, T rouble falling or staying asleep, or sleeping too much N ot at all, F eeling tired or having little energy N ot at all, P oor appetite or overeating N ot at all, F eeling bad about yourself or that you are a failure, or have let yourself or your family down N ot at all, T rouble concentrating on things, such as reading the newspaper or watching television N ot at all, M oving or speaking so slowly that other people could have noticed; or the opposite, being so fidgety or restless that you have been moving around a lot more than usual N ot at all, T houghts that you would be better off or of hurting yourself in some way N ot at all, T otal Score 0 . I nterpretation and Intervention D epression Screening Findings N egative, F ollow-Up for Depression : review of PHQ-9 found negative result, no follow-up needed. here for evaluation. C ommunication Needs: Communication Needs D oes the patient have a hearing impairment N o, D oes the patient have a vision impairment? Y es, I f yes, what is the vision impairment? G lasses, D oes the patient have a cognition impairment? N o. S SOL Questions: SDOH Questions I n the past year have you been worried about losing housing? N o, I n the past year have you or any family members you live with been unable to get any of the following when it was really needed? Check all that apply: N one. * ROS: G eneral/Constitutional: Change in appetite d enies. C hills d enies. F ever d enies. O phthalmologic: Blurred vision d enies. D ischarge d enies. P ain d enies. E NT: Decreased hearing d enies. S ore throat d enies.?Swollen glands d enies. E ndocrine: Cold intolerance d enies. E xcessive thirst d enies. H eat intolerance d enies. W eight loss d enies. R espiratory: Cough d enies. S hortness of breath at rest d enies. S hortness of breath with exertion d enies. W heezing d enies. C ardiovascular: Chest pain at rest d enies. C hest pain with exertion?denies. I rregular heartbeat d enies. S hortness of breath d enies. ? G astrointestinal: Abdominal pain d enies. C hange in bowel habits d enies. D iarrhea d enies. N ausea d enies. R ectal bleeding d enies. V omiting d enies . G enitourinary: Blood in urine d enies. D ifficulty urinating d enies. F requent urination d enies. U rinary incontinence D enies. M usculoskeletal: Painful joints d enies. W eakness d enies. ? S kin: Patient complaining of s ore on aabdomen for a coiuple months comes and goes. D ry skin d enies. I tching d enies. D enies M ole(s),? changes in moles, new moles or any lesions of concern. D enies P hotosensitivity. R juan d enies. N eurologic: Dizziness d enies. F ainting d enies. H eadache?denies. * Medical History: * Surgical History: * Hospitalization/Major Diagno stic Procedure: * Family History: F ather: 85 yrs, colon, lung and prostate cancer, family history unknown . M other: 78 yrs, CHF, diagnosed with CHF, Hypertension. 2 brother(s) , 1 sister(s) - healthy. 1 son(s) , 2 daughter(s) . . two children have had Hodgkins and lymphoma. Daughters have thyroid problems., Denies mental health/substance abuse family history, Denies mental health/substance abuse family history, Denies mental health/substance abuse family history, No pertinent family medical history. * Social History: T obacco Use: T obacco Use/Smoking P atient is a f ormer smoker, H ow long has it been since you last smoked? > 10 years, A dditional Findings: Tobacco Non-User F ormer smoker, currently using no form of tobacco. D rugs/Alcohol: A lcohol Screen D id you have a drink containing alcohol in the past year? Y es, H ow often did you have a drink containing alcohol in the past year? M onthly or less (1 point), H ow many drinks did you have on a typical day when you were drinking in the past year? 1 or 2 drinks (0 point), H ow often did you have 6 or more drinks on one occasion in the past year? N ever (0 point), P oints 1 , I nterpretation N egative. M iscellaneous: C affeine: no. Children: yes. Exercise: no. Home smoke detector use: yes. Living with: alone. Marital status: . Pets: none. Travel outside of the [place]: yes, [place]. * Medications: T akingAspir-81 81 MG Tablet Delayed Release 1 tablet Orally Once a day Blood Glucose Test 0 Strip One Touch test strip In Vitro E: 07.17 tests once a day oxyBUTYnin Chloride ER 10 MG Tablet Extended [...] Delayed Release 1 tablet Orally Once a day Taking Blood Glucose Test 0 Strip One Touch test strip In Vitro E: 07.17 tests once a day Taking oxyBUTYnin Chloride ER 10 MG Tablet [...] Delayed Release 1 capsule Orally Once a day Diprolene AF 0.05 % Cream 1 application to affected area Externally Once a day LORazepam 0.5 MG Tablet 1 tablet as needed Orally every 12 hrs Ventolin HFA * 108 (90 Base) MCG/ACT Aerosol Solution 2 puffs as needed Inhalation every 4 hrs Medication List reviewed and reconciled with the patientNot-Taking/PRN Omeprazole 20 MG Capsule Delayed Release 1 capsule Orally Once a day Not-Taking/PRN Diprolene AF 0.05 % Cream 1 application to affected area Externally Once a day Not-Taking/PRN LORazepam 0.5 MG Tablet 1 tablet as needed Orally every 12 hrs Not-Taking/PRN Ventolin HFA * 108 (90 Base) MCG/ACT Aerosol Solution 2 puffs as needed Inhalation every 4 hrs Medication List reviewed and reconciled with the patient * Allergies: N .K.D.A.yes[Allergies Verified] Objective: * Vitals: H t: 64.5, Wt: 190, BMI:32.11, BP:122/70, Wt-k.18. * P ast Orders: L ab:Complete Blood Count Auto Diff (Order Date - 09/16/2024) (Collection Date & Time - 09/16/2024 07:30 AM) Value Reference Range White Blood Count 6.9 4.8-10.8 - X10*3/uL Red Blood Count 4.47 4.20-5.50 - X10*6/uL Hemoglobin 11.2 L 12.0-16.0 - g/dl Hematocrit 37.0 37.0-47.0 - % Mean Corpuscular Volume 82.8 80.0-98.0 - fL Mean Corpuscular Hemoglobin 25.1 L 27.0-33.0 - pg Mean Corpuscular HGB Conc 30.3 L 31.0-35.0 - g/ dl Red Cell Distribution Width 14.4 11.0-16.0 - % Platelet Count 435 H 160-400 - X10*3/uL Mean Platelet Volume 11.3 9.4-12.3 - fL Neutrophils Percent Auto 62.2 45-73 - % Imm Gran Pct Auto 0.3 0.0-0.4 - % Lymphocytes Percent Auto 22.8 20-40 - % Monocytes Percent Auto 11.7 H 2-11 - % Eosinophils Percent Auto 2.3 0-4 - % Basophils Percent Auto 0.7 0-2 - % NRBC Pct Auto 0.0 0.0-0.2 - /100WBC Neutrophils Absolute Auto 4.3 2.0-8.3 - x10* 3/uL Imm Gran Abs Auto 0.02 0.00-0.03 - X10*3/uL Lymphocytes Absolute Auto 1.6 1.2-4.9 - X10* 3/uL Monocytes Absolute Auto 0.8 0.1-1.2 - X10*3/ uL Eosinophils Absolute Auto 0.2 0.0-0.4 - X10* 3/uL Basophils Absolute Auto 0.1 0.0-0.2 - X10*3/ uL NRBC Abs Auto 0.000 0.0-0.012 - X10*3/uL L ab:Comprehensive [place]. Panel Fast (Order Date - 09/16/2024) (Collection Date & Time - 09/16/2024 07:30 AM) Value Reference Range Sodium 142 135-145 - mmol/L Bilirubin Total 0.5 0.0-1.0 - mg/dL Aspartate Amino Transferase 25 5-31 - U/L Alanine Aminotransferase 13 0-31 - U/L Total Protein 6.9 6.5-8.0 - g/dL Albumin Level 3.7 3.5-5.0 - g/dL Alkaline Phosphatase 91 39-117 - U/L Potassium 4.1 3.3-5.1 - mmol/L Chloride 104 96-108 - mmol/L Carbon Dioxide 31 H 22-29 - mmol/L Anion Gap 11 L 12-20 - Blood Urea Nitrogen 11 9-16 - mg/dL Creatinine 0.68 0.5-1.4 - mg/dL Estimated Glomerular Filt Rate > 60 - Glucose Fasting 130 H 60-99 - mg/dL Calcium 9.4 8.4-10.2 - mg/dL L ab:Liver Panel (Order Date - 09/16/2024) (Collection Date & Time - 09/16/2024 07:30 AM) Value Reference Range Bilirubin Direct 0.2 0.0-0.5 - mg/dL L ab:Lipid Panel (Order Date - 09/16/2024) (Collection Date & Time - 09/16/2024 07:30 AM) Value Reference Range Triglycerides 94 <150 - mg/dL Cholesterol 102 <200 - mg/dL LDL Cholesterol Calculated 46 <100 - mg/dL HDL Cholesterol 38 L >40 - mg/dL L ab:Hemoglobin A1c (Order Date - 09/16/2024) (Collection Date & Time - 09/16/2024 07:30 AM) Value Reference Range Hemoglobin A1c % 6.6 H <6.0 - % Estimated Average Glucose 143 - mg/dL * Examination: G eneral Examination: GENERAL APPEARANCE: w ell developed, well nourished, in no acute distress. HEAD: n ormocephalic, atraumatic. EYES: p upils equal, round, reactive to light and accommodation, sclera non-icteric. EARS: n ormal. ORAL CAVITY: m ucosa moist. THROAT: c lear. NECK/THYROID: n ofelia supple, full range of motion, no cervical lymphadenopathy, no bruits. SKIN: w arm and dry, , abnormal with a lesion on ant abdominal wall suspicious for a basal cell. HEART: r egular rate and rhythm, S1, S2 normal, no murmurs.? LUNGS: c lear to auscultation bilaterally. BREASTS: N o mass, no lump. ABDOMEN: s oft, nontender, nondistended, bowel sounds present, normal, no organomegaly , no masses palpable. RECTAL EXAM: s tool guaiac negative , external hemorrhoids present has a papilloma on her buttocks that is light brown. . FEMALE GENITOURINARY: n ot done. EXTREMITIES: n o clubbing, cyanosis, or edema. NEUROLOGIC: n onfocal, motor strength normal upper and lower extremities, sensory exam intact. Assessment: * Assessment: 1. T ype 2 diabetes mellitus without complication - E11.9 (Primary) 2 . E ssential hypertension - I10 3 . S kin lesion - L98.9 4 . P ure hypercholesterolemia - E78.00 5 . M icrocytic anemia - D50.9 6 . C olon cancer screening - Z12.11 7 . D epression screening - Z13.31 ? Plan: * Treatment: 2. E ssential hypertension Continue amLODIPine Besylate Tablet, 5 MG, TAKE 1 TABLET BY MOUTH EVERY DAY; C ontinue Valsartan-hydroCHLOROthiazide Tablet, 160-12.5 MG, TAKE 1 TABLET BY MOUTH EVERY DAY; C ontinue Metoprolol Succinate ER Tablet Extended Release 24 Hour, 25 MG, TAKE 1 TABLET BY MOUTH EVERY DAY. L AB: Microalbumin, Random (Collection Date & Time - 09/28/2024 01:00 PM) L AB: UA ClnCatch+Micro w/rflx Cult (Collection Date & Time - 09/28/2024 01:00 PM) Notes: stable, will contnue current regiment 3. S kin lesion Notes: referral to ne derm Referral To:[facility] Dermatology Reason:skin lesion see note attached 4. P ure hypercholesterolemia Continue Atorvastatin Calcium Tablet, 40 MG, TAKE 1 TABLET BY MOUTH EVERY DAY. 5. M icrocytic anemia Notes: will cntnue to monitor 6. C olon cancer screening L AB: Occult Blood, Stool, Guaiac (Collection Date & Time - 09/28/2024) N egative Value Reference Range O ccult Blood, Stool, Guaiac Neg Notes: guaiac negative??7.?Depression screening? Notes: negative screen?? * Procedure Codes: 8 2270 TEST FOR BLOOD, [id number] Complex e/m visit add on * Preventive Medicine: Counseling: C are goal follow-up plan: C ounseling for abnormal BMI provided?Yes, A emma Normal BMI Follow-up G iving encouragement to exercise. Diabetes Care Plan: P atient Lifestyle Goals N eeds to maintain diet control.?Treatment Goals A 1C< 7. B arriers N o specific barriers, doing well. S elf-Managment Plan I ncrease light exercise to 3 times a week for 30 minutes. E xpected Outcome ultimately aiming to live a full and active life despite having diabetes. * Follow Up: 6 Months * * Sign off status: Completed true * Provider: Avis Jones MD Date: 0 09/28/2024 Generated for Becky lucia/Linda/Kimberly on: 09/27/2024 05:56 PM EST History and Physical Notes * HPI (History of Present Illness) Category Sub-Category Detail Notes Category Not es Depression Screening PHQ-9 Little inte rest or pleasure in doing things: Not at all here for evaluation Feeling down, depressed, or hopeless: No t at all Trouble falling or staying asleep, or sl eeping too much: Not at all Feeling tired or having little energy: N ot at all Poor appetite or overeating: Not at all Feeling bad about yourself o r that you are a failure, or have let yourself or your family down: Not at all Trouble concentrating on thi ngs, such as reading the newspaper or watching television: Not at all Moving or speaking so slowly that other people could have noticed; or the opposite, being so fidgety or restless that you have been moving around a lot more than usual: Not at all Thoughts that you would be b alfonso off or of hurting yourself in some way: Not at all Total Score: 0 Interpretation and Intervention Depression Jesi brown Findings: Negative Follow-Up for Depression: : review of PH Q-9 found negative result, no follow-up needed SDOH Questions SDOH Questions In the past year have you been worried about losing housing?: No In the past year have you or any family members you live with been unable to get any of the following when it was really needed? Check all that apply:: None Communication Needs Communication Needs Does the patient have a hearing impairment: No Does the patient have a vision impairmen t?: Yes If yes, what is the vision impairment?: Glasses Does the patient have a cognition impair ment?: No Examination Category Sub-Category Detail Notes Category Not es General Examination GENERAL APPEARANCE: well dev eloped, well nourished, in no acute distress HEAD: normocephalic, atrau matic EYES: pupils equal, round, reactive to light and accommodation, sclera non-icteric EARS: normal THROAT: clear NECK/THYROID: neck supple, full ra nge of motion, no cervical lymphadenopathy, no bruits HEART: regular rate and rhy thm, S1, S2 normal, no murmurs LUNGS: clear to auscultatio n bilaterally ABDOMEN: soft, nontender, non distended, bowel sounds present, normal, no organomegaly , no masses palpable NEUROLOGIC: nonfocal, motor stre ngth normal upper and lower extremities, sensory exam intact SKIN: warm and dry, , abno rmal with a lesion on ant abdominal wall suspicious for a basal cell EXTREMITIES: no clubbing, cyanosi s, or edema BREASTS: No mass, no lump RECTAL EXAM: stool guaiac negativ e , external hemorrhoids present has a papilloma on her buttocks that is light brown. FEMALE GENITOURINARY: not done ORAL CAVITY: mucosa moist Consultation Request Notes Referral Date Referring Provider Referred Provider Not es 09/28/2024 [facility] [place] skin lesion see note attached
--- OUTSIDE RECORDS SUMMARY | 2024-11-15 09:50 | XMS_ITS ---
Author Organization Homero Jones MD Address [address] [place] [phone] Care Team Providers Care Printed Circuit Board Reworker Name Role Phone Homero Jones Primary Care Provider REASON FOR VISIT Lorazepam Medications Medication SIG (Take, Route, Fr equency, Duration) Notes Start Date End Date Status LORazepam 0.5 MG 1 tablet as needed O rally every 12 hrs for 5 days 11/16/2024 Active Encounters Encounter Location Date Provider Diagnosis Homero Jones MD [address] [place] [phone] 11/15/2024 Homero Jones Plan Of Treatment Medication Medication Name Sig Start Date Stop Date Notes LORazepam 0.5 MG 1 tablet as needed O rally every 12 hrs for 5 days 11/16/2024 Next Appt Details Provider Name:Homero jimenez, 09/23/2025 07:45:00 AM, [address] [place] [address], [address] [place] [address], [phone], Provider Name:Homero jimenez, 09/30/2025 11:00:00 AM, [address] [place] [address], [address], [phone], Progress Notes * Swati JORGENSEN MDOB:1950 (74 yo F)Acc No.[id number]:11/15/2024 Patient: Antonella CORTES Swati Mendoza :1950 A ge:74 Y S ex:Female Address:[address] [place] [address] * Refills Refill LORazepam Tablet, 0.5 MG, Orally, 10 Tablet, 1 tablet as needed, every 12 hrs, 5 days * true * Date: Generated for Becky lucia/Linda/Marielasmitting on: 09/27/2024 05:56 PM EST
--- OUTSIDE RECORDS SUMMARY | 2025-03-22 03:00 | XMS_ITS ---
Author Organization Homero Jones MD Address [address] [place], [place] [phone] Care Team Providers Care Personal Property Assessor Name Role Phone Homero Jones Primary Care Provider Results Component Value Reference Range Notes Liver Panel Reviewed date:03/22/2025 12:18:31 PM Interpretation: Performing Lab:[facility], [address] [place] [phone] Notes/Report: Bilirubin Total 0.3 0.0-1.0 mg/dL Bilirubin Direct 0.2 0.0-0.5 mg/dL Aspartate Amino Transferase 25 5-31 U/L Alanine Aminotransferase 12 0-31 U/L Total Protein 7.2 6.5-8.0 g/dL Albumin Level 4.2 3.5-5.0 g/dL Alkaline Phosphatase 90 39-117 U/L Glucose Fasting Reviewed date:03/22/2025 12:18:24 PM Interpretation: Performing Lab:[facility], [address] [place] [phone] Notes/Report: Glucose Fasting 157 60-99 mg/dL A fasting glucose of 126 mg/dl or greater on more than one occasion is considered diagnostic of diabetes. Lipid Panel with Reflex Reviewed date:03/22/2025 12:21:16 PM Interpretation: Performing Lab:[facility], [address] [place] [phone] Notes/Report: Triglycerides 51 <150 mg/dL Desirable Triglyceride: less than 150 mg/dL Borderline High Triglyceride 150-199 mg/dL High Triglyceride: 200-499 mg/dL Very High Triglyceride: greater than or equal to 5OO mg/dL Cholesterol 130 <200 mg/dL Desirable Cholesterol: less than 200 mg/dL Borderline High Cholesterol: 200-239 mg/dL High Cholesterol: greater than 239 mg/dL LDL Cholesterol Calculated 63 <100 mg/dL Desirable LDL: less than 100 mg/dL Near Optimal/Above Optimal LDL: 110-129 mg/dL Borderline High LDL: 130-159 mg/dL High LDL: 160-189 mg/dL Very High LDL: greater than or equal to 190 mg/dL HDL Cholesterol 57 >40 mg/dL Desirable HDL: greater than 40 mg/dL Note: This HDL assay may give artificially low results in patients with liver disease. Hemoglobin A1c Reviewed date:03/22/2025 12:20:57 PM Interpretation: Performing Lab:[facility], [address] [place] [phone] Notes/Report: Hemoglobin A1c % 6.3 <6.0 % Hemoglobin A1C Reference Range Adults: 4.8 - 6.0 % Non diabetic: < 6.0 % Goal: < 7.0 % Additional Action Suggested: > 8.0 % Note: Hemoglobin A1c results are invalid for patients with abnormal amounts of HbF. Blood transfusions may impact the HbA1c concentration in the patient sample. Estimated Average Glucose 134 eAG = Estimated average glucose which is %A1C expressed as average glucose, using the formula of the E4D-Spvzjbk Average Glucose study (ADAG), Diabetes Care, Vol.31,#8, Apr. 2007 REASON FOR VISIT fasting lipids Encounters Encounter Location Date Provider Diagnosis Homero Jones MD [address] [place] [address] Drive [address] [place], [place] [phone] 03/22/2025 Homero Jones Type 2 diabetes vesna itus without complication E11.9 and Pure hypercholesterolemia E78.00 Assessments Encounter Date Diagnosis (ICD Code) Assessment Notes Treatment Notes Treatment Clinical Notes Section Notes 03/22/2025 Type 2 diabetes vesna itus without complication (ICD-10 - E11.9) 03/22/2025 Pure hypercholesterolemia (ICD-10 - E78.00) Plan Of Treatment Next Appt Details Provider Name:Homero Romano ier, 09/23/2025 07:45:00 AM, [address], [address], [place], [phone], Provider Name:Homero Romano ier, 09/30/2025 11:00:00 AM, [address], [address], [place], [phone], Progress Notes * Swati JORGENSEN MDOB:1950 (75 yo F)Acc No.[id number]:03/22/2025 Progress Note Patient: Swati VIEIRA Provider: Avis Jones MD :1950 A ge:74 Y S ex:Female Date:03/22/2025 Address:[address] [place], [place] [phone] Subjective: * Chief Complaints: * 1 . Fasting lipids. * Medical History: Objective: * Vitals: Assessment: * Assessment: 1. T ype 2 diabetes mellitus without complication - E11.9 (Primary) 2 . P ure hypercholesterolemia - E78.00 Plan: * Treatment: 2. P ure hypercholesterolemia L AB: Liver Panel (Collection Date & Time - 03/22/2025 08:00 AM) L AB: Glucose Fasting (Collection Date & Time - 03/22/2025 08:00 AM) L AB: Lipid Panel with Reflex (Collection Date & Time - 03/22/2025 08:00 AM) L AB: Hemoglobin A1c (Collection Date & Time - 03/22/2025 08:00 AM) * Procedure Codes: 3 6415 VENIPUNCT, ROUTINE* * * The named appointment provid er may or may not be the originator of this progress note, and it is not deemed complete until electronically signed by the appointment provider. Sign off status: Pending * Provider: Avis Jones MD Date: 0 03/22/2025 Generated for Zekei ng/Facolumbag/eTransmitting on: 1 09/27/2024 05:54 PM EST
--- OUTSIDE RECORDS SUMMARY | 2025-03-28 05:00 | XMS_ITS ---
Author Organization Homero Jones MD Address [address] [place], [place] [id number] Care Team Providers Care Prefitter Name Role Phone Homero Jones Primary Care Provider [phone] Allergies No Known Allergies REASON FOR VISIT 6 month Medications Medication SIG (Take, Route, Frequency, Duration) Notes Start Date End Date Status LORazepam 0.5 MG 1 tablet as needed Orally every 12 hrs for 5 days 11/16/2024 Active Metoprolol Succinate ER 25 MG TAKE 1 TABLET BY MOUTH EVERY DAY Active oxyBUTYnin Chloride ER 10 MG TAKE 1 TABLET BY MOUTH EVERY DAY for 90 Active Diprolene AF 0.05 % 1 application to affected area Externally Once a day for 20 Not-Taking Omeprazole 20 MG 1 capsule Orally Onc e a day for 90 Not-Taking Atorvastatin Calcium 40 MG TAKE 1 TABLET BY MOUTH EVERY DAY Active metFORMIN HCl ER 500 MG TAKE 2 TABLETS B Y MOUTH IN THE MORNING AND 1 TABLET IN THE EVENING Active Escitalopram Oxalate 10 MG TAKE 1 TABLET BY MOUTH EVERY DAY FOR 30 DAYS for 90 Active Valsartan-hydroCHLOROthia zide 160-12.5 MG TAKE 1 TABLET BY MOUTH EVERY DAY Active amLODIPine Besylate 5 MG TAKE 1 TABLET B Y MOUTH EVERY DAY Active Aspir-81 81 MG 1 tablet Orally Once a day for 30 day(s) Active Blood Glucose Test 0 One Touch test stri p In Vitro E: 11.09 tests once a day for 90 Active Ventolin HFA * 108 (90 Base) MCG/ACT 2 puffs as needed Inhalation every 4 hrs for 30 day(s) 08/12/2014 Not-Taking Vital Signs Blood pressure systolic 118 mm Hg 03/28/20 25 Blood pressure diastolic 64 mm Hg 025 Height 64.5 in 03/28/2025 Weight 189 lbs 03/28/2025 BMI 31.94 kg/m2 03/28/2025 Encounters Encounter Location Date Provider Diagnosis Homero Jones MD [address] [place] [id number] 03/28/2025 Homero Jones Type 2 diabetes vesna itus without complication E11.9 ; Pure hypercholesterolemia E78.00 and Essential hypertension I10 Assessments Encounter Date Diagnosis (ICD Code) Assessment Notes Treatment Notes Treatment Clinical Notes Section Notes 03/28/2025 Type 2 diabetes vesna itus without complication (ICD-10 - E11.9) doing well with good a1c 03/28/2025 Pure hypercholesterolemia (ICD-10 - E78.00) well controlled 03/28/2025 Essential hypertensi on (ICD-10 - I10) Plan Of Treatment Medication Medication Name Sig Start Date Stop Date Notes Metoprolol Succinate ER 25 MG TAKE 1 TAB LET BY MOUTH EVERY DAY Atorvastatin Calcium 40 MG TAKE 1 TABLET BY MOUTH EVERY DAY metFORMIN HCl ER 500 MG TAKE 2 TABLETS B Y MOUTH IN THE MORNING AND 1 TABLET IN THE EVENING Valsartan-hydroCHLOROthiazid e 160-12.5 MG TAKE 1 TABLET BY MOUTH EVERY DAY amLODIPine Besylate 5 MG TAKE 1 TABLET B Y MOUTH EVERY DAY Treatment Notes Assessment Notes Type 2 diabetes mellitus without complic ation doing well with good a1c Pure hypercholesterolemia well controlle d Next Appt Details Provider Name:Homero jimenez, 09/23/2025 07:45:00 AM, [address] [place] [address], Suite [facility], [place], [place], [phone], Provider Name:Homero jimenez, 09/30/2025 11:00:00 AM, [address] [place] [address], Suite [facility], [place], [place], [phone], Progress Notes * Swati JORGENSEN MDOB:1950 (74 yo F)Acc No.[id number]:03/28/2025 Progress Notes Patient: Swati VIEIRA Provider: Avis Jones MD :1950 A ge:74 Y S ex:Female Date:03/28/2025 Address:[address] [place] [address], [facility] Subjective: * Chief Complaints: * 6 month * HPI: S ymptom(s): patient is a 74 yo female here for 6 month follow up visit/ had a recent cortisone shot in knee and is doing well so far. * ROS: G eneral/Constitutional: Denies C hills. D enies F atigue. D enies F ever. D enies H eadache. E NT: Denies S ore throat. E ndocrine: Denies D ifficulty sleeping. D enies D izziness.?Denies E xcessive sweating. D enies E xcessive thirst. D enies F requent urination. R espiratory: Denies C ough. D enies S hortness of breath at rest. D enies S hortness of breath with exertion. C ardiovascular: Denies C hest pain at rest. D enies C hest pain with exertion. D enies D izziness. D enies P alpitations. D enies S hortness of breath. G astrointestinal: Denies D iarrhea. D enies N ausea. * Medical History: * Surgical History: * Hospitalization/Major Diagno stic Procedure: * Medications: T akingAspir-81 81 MG Tablet Delayed Release 1 tablet Orally Once a day Blood Glucose Test 0 Strip One Touch test strip In Vitro E: 11.09 tests once a day Escitalopram Oxalate 10 MG Tablet TAKE 1 TABLET BY MOUTH EVERY DAY FOR 30 DAYS metFORMIN HCl ER 500 MG Tablet Extended [...] TAKE 1 TABLET BY MOUTH EVERY DAY oxyBUTYnin Chloride ER 10 MG Tablet Extended Release 24 Hour TAKE 1 TABLET BY MOUTH EVERY DAY LORazepam 0.5 MG Tablet 1 tablet as needed Orally every 12 hrs Atorvastatin Calcium 40 MG Tablet TAKE 1 TABLET BY MOUTH EVERY DAY Taking Aspir- 81 81 MG Tablet Delayed Release 1 tablet Orally Once a day Taking Blood Glucose Test 0 Strip One Touch test strip In Vitro E: 11.09 tests once a day Taking Escitalopram Oxalate 10 MG Tablet TAKE 1 TABLET BY MOUTH EVERY DAY FOR 30 DAYS Taking metFORMIN HCl ER 500 MG Tablet [...] 1 TABLET BY MOUTH EVERY DAY Taking oxyBUTYnin Chloride ER 10 MG Tablet Extended Release 24 Hour TAKE 1 TABLET BY MOUTH EVERY DAY Taking LORazepam 0.5 MG Tablet 1 tablet as needed Orally every 12 hrs Taking Atorvastatin Calcium 40 MG Tablet TAKE 1 TABLET BY MOUTH EVERY DAY Not-Taking/PRNOmeprazole 20 MG Capsule Delayed Release 1 capsule Orally Once a day Diprolene AF 0.05 % Cream 1 application to affected area Externally Once a day Ventolin HFA * 108 (90 Base) MCG/ACT Aerosol Solution 2 puffs as needed Inhalation every 4 hrs Medication List reviewed and reconciled with the patientNot-Taking/PRN Omeprazole 20 MG Capsule Delayed Release 1 capsule Orally Once a day Not-Taking/PRN Diprolene AF 0.05 % Cream 1 application to affected area Externally Once a day Not-Taking/PRN Ventolin HFA * 108 (90 Base) MCG/ACT Aerosol Solution 2 puffs as needed Inhalation every 4 hrs Medication List reviewed and reconciled with the patient * Allergies: N .K.D.A.yes[Allergies Verified] Objective: * Vitals: H t: 64.5, Wt: 189, BMI:31.94, BP:118/64, Wt-k.73. * P ast Orders: L ab:Liver Panel (Order Date - 03/22/2025) (Collection Date & Time - 03/22/2025 08:00 AM) Value Reference Range Bilirubin Total 0.3 0.0-1.0 - mg/dL Bilirubin Direct 0.2 0.0-0.5 - mg/dL Aspartate Amino Transferase 25 5-31 - U/L Alanine Aminotransferase 12 0-31 - U/L Total Protein 7.2 6.5-8.0 - g/dL Albumin Level 4.2 3.5-5.0 - g/dL Alkaline Phosphatase 90 39-117 - U/L L ab:Glucose Fasting (Order Date - 03/22/2025) (Collection Date & Time - 03/22/2025 08:00 AM) Value Reference Range Glucose Fasting 157 H 60-99 - mg/dL L ab:Lipid Panel with Reflex (Order Date - 03/22/2025) (Collection Date & Time - 03/22/2025 08:00 AM) Value Reference Range Triglycerides 51 <150 - mg/dL Cholesterol 130 <200 - mg/dL LDL Cholesterol Calculated 63 <100 - mg/dL HDL Cholesterol 57 >40 - mg/dL L ab:Hemoglobin A1c (Order Date - 03/22/2025) (Collection Date & Time - 03/22/2025 08:00 AM) Value Reference Range Hemoglobin A1c % 6.3 H <6.0 - % Estimated Average Glucose 134 - mg/dL * Examination: G eneral Examination: GENERAL APPEARANCE: a lert, well hydrated, in no distress.? HEAD: n ormocephalic. SKIN: g ood turgor. HEART: n o murmurs, no murmurs, rubs, gallops. LUNGS: c lear to auscultation bilaterally. Assessment: * Assessment: 1. T ype 2 diabetes mellitus without complication - E11.9 (Primary) 2 . P ure hypercholesterolemia - E78.00 3 . E ssential hypertension - I10 ? Plan: * Treatment: 2. P ure hypercholesterolemia Continue Atorvastatin Calcium Tablet, 40 MG, TAKE 1 TABLET BY MOUTH EVERY DAY. Notes: well controlled 3. E ssential hypertension Continue amLODIPine Besylate Tablet, 5 MG, TAKE 1 TABLET BY MOUTH EVERY DAY; C ontinue Valsartan-hydroCHLOROthiazide Tablet, 160-12.5 MG, TAKE 1 TABLET BY MOUTH EVERY DAY; C ontinue Metoprolol Succinate ER Tablet Extended Release 24 Hour, 25 MG, TAKE 1 TABLET BY MOUTH EVERY DAY. * Procedure Codes: * * Sign off status: Completed true * Provider: Avis Jones MD Date: 0 03/28/2025 Generated for Becky lucia/Linda/Kimberly on: 1 09/27/2024 05:54 PM EST History and Physical Notes * HPI (History of Present Illness) Category Sub-Category Detail Notes Category Not es Symptom(s) patient is a 74 yo female here for 6 month follow up visit/ had a recent cortisone shot in knee and is doing well so far. Examination Category Sub-Category Detail Notes Category Not es General Examination GENERAL APPEARANCE: alert, w ell hydrated, in no distress HEAD: normocephalic HEART: no murmurs, no murmu rs, rubs, gallops LUNGS: clear to auscultatio n bilaterally SKIN: good turgor
--- OUTSIDE RECORDS SUMMARY | 2025-06-02 03:15 | XMS_ITS ---
Author Organization Hoemro Jones MD Address [address] [place], [place] [phone] Care Team Providers Care Mender Hand Name Role Phone Homero Jones Primary Care Provider Results Component Value Reference Range Notes UA ClnCatch+Micro w/rflx Cul t Reviewed date:06/02/2025 12:40:18 PM Interpretation: Performing Lab:[facility], [address] [place] [id number] Notes/Report: Urine, Clean Catch Color Urine Yellow Appearance Urine Clear PH 6.0 5.0-9.0 Glucose Urine UA Negative Negative mg/dL Urine Blood Negative Negative Specific [place] - Urine 1.015 1.005-1.025 Urine Protein Negative Neg-Trace mg/dL Urine Ketones Negative Negative mg/dL Nitrite Urine Negative Negative Leukocyte Esterase Urine Small (1+) Negative RBC Urine 0-2 0-2 /HPF WBC Urine 0-5 0-5 /HPF Squamous Epithelial Cell Urine 0-2 0-2 /HPF Bacteria Urine None Seen None Seen Hyaline Casts Urine 0-2 0-2 /LPF REASON FOR VISIT U/A Immunizations Vaccine Route Administration Date Status Comme nts Influenza High Dose IM Intramuscular 06/02/2025 Administer ed Encounters Encounter Location Date Provider Diagnosis Homero Jones MD [address] [place], [place] [phone] 06/02/2025 Homero Jones UTI (urinary tract infection) N39.0 and Encounter for administration of vaccine Z23 Assessments Encounter Date Diagnosis (ICD Code) Assessment Notes Treatment Notes Treatment Clinical Notes Section Notes 06/02/2025 UTI (urinary tract infection) (ICD-10 - N39.0) 06/02/2025 Encounter for administration of vaccine (ICD-10 - Z23) Plan Of Treatment Next Appt Details Provider Name:Homero jimenez, 09/23/2025 07:45:00 AM, [address] [facility], Suite [facility], [place], [place], [phone], Provider Name:Homero jimenez, 09/30/2025 11:00:00 AM, [address] [place] [address], Suite [facility], [place], [place], [phone], Progress Notes * Swati JORGENSEN MDOB:1950 (75 yo F)Acc No.[id number]:06/02/2025 Progress Note Patient: Swati VIEIRA Provider: Avis Jones MD :1950 A ge:75 Y S ex:Female Date:06/02/2025 Address:[address] [place], [place] [phone] Subjective: * Chief Complaints: * 1 . U/A. * Medical History: Objective: * Vitals: Assessment: * Assessment: 1. E ncounter for administration of vaccine - Z23 (Primary) 2 . U TI (urinary tract infection) - N39.0 Plan: * Treatment: * Immunizations: Influenza High Dose : 0.5 mL (Dose No:1) (Route: Intramuscular) given by Nelda Corona , Office Staff on Left Deltoid * Procedure Codes: 9 0662 FLU VACC PRSV FREE INC ANTIG, G0008 ADMN FLU VAC NO FEE SCHED SAME DAY * * The named appointment provid er may or may not be the originator of this progress note, and it is not deemed complete until electronically signed by the appointment provider. Sign off status: Pending * Provider: Avis Jones MD Date: 0 06/02/2025 Generated for Becky lucia/Linda/Kimberly on: 1 09/27/2024 05:54 PM EST
--- OUTSIDE RECORDS SUMMARY | 2025-07-28 17:55 | XMS_ITS | Clinical Summary ---
Author Organization [facility] Address [address] [facility] [address] [place] [address] Phone Care Team Providers Care Cad Administrator Name Role Phone Homero Jones MD Primary [...] DEPRESSION SCREENING 1961 HEPATITIS C SCREENING 1967 OSTEOPOROSIS SCREENING INITIAL (ONE-TIME) 2014 PNEUMOCOCCAL VACCINES (50+ years) (2 of 2 - PCV) 10/02/2019 10/02/2018 ZOSTER VACCINES (2 of 2) 11/02/2020 09/07/2020 RSV VACCINE (1 - 1-dose 75+ series) 2024 INFLUENZA VACCINE (#1) 2025 0, 06/22/2019, 06/09/2018, Additional history exists COVID-19 VACCINE (3 - 2024- season) 2025 11/13/2020, 10/23/2020 SMOKING STATUS SCREENING (Once After 26 Yrs) Completed 10/20/2019 HEPATITIS A [...] file Insurance MEDICARE PART A & B [facility] MEDICARE ENHANCE SUPPLEMENT MEDICARE PART A & B [facility] MEDICARE ENHANCE SUPPLEMENT MEDICARE PART A & [place] [address] [address] [address] MEDICARE ENHANCE SUPPLEMENT Member Subscriber Plan / P[facility] Name:Swati Coreas Relation to Subscriber:Self Name:Swati Coreas Payer ID:[id number] (NAIC) Group ID:Not on file Type:[facility] Address: [facility] [address] [place] [address] MEDICARE PART A & B [facility] MEDICARE ENHANCE SUPPLEMENT [facility] Address: [address] [place] [id number] MEDICARE PART A & B [facility] MEDICARE ENHANCE SUPPLEMENT [facility] Address: [facility] [id number] [place] [id number] MEDICARE PART A & B [facility] MEDICARE ENHANCE SUPPLEMENT MEDICARE PART A & B [facility] MEDICARE ENHANCE SUPPLEMENT [facility] Address: [facility] [address] [place] [address] MEDICARE PART A & B Member Subscriber Plan / Payer ( fective 2014-Present) Name:Lyudmila Swati Member ID:[id number] Relation to Subscriber:Self Name:Swati Coreas Subscriber ID:[id number] Payer ID:[id number] Group ID:Not on file Type:Medicare Address: [employer] [address] [place] [phone] [facility] MEDICARE ENHANCE SUPPLEMENT MEDICARE PART A & B [facility] MEDICARE ENHANCE SUPPLEMENT Care Teams Cad Administrator Relationship Specialty Start Date End Date Homero Jones MD [address] [place] [address] Dr Melanie [place] [phone] PCP - General Internal Medicine 10/20/19 Additional Source Comments The information contained in this document represents components of the legal health record. It is not the complete legal health record.[facility]
--- OUTSIDE RECORDS SUMMARY | 2025-07-28 17:56 | XMS_ITS | Patient Health Record ---
Author Organization [facility] Address [address] [place] [address] Care Team Providers Care Vending Manager Name Role Phone Homero Jones MD Primary Care Provider Louis Lino Unavailable [phone] Irving Grant Unavailable Unavailable Reason For Referral No Information Medications Medication SIG (Take, Route, Frequency, Duration) Notes Start Date End Date Status metFORMIN HCl 500mg 2 tablets 2 in am 1 in pm bid Active oxyBUTYnin Chloride ER 10 MG Tablet Extended Release 24 Hour TAKE 1 TABLET BY MOUTH EVERY DAY Oral; Duration: 90 Days Active Escitalopram Oxalate 10 MG Tablet TAKE 1 TABLET BY MOUTH EVERY DAY FOR 30 DAYS Oral; Duration: 90 Days Active Omeprazole 20 MG Capsule Delayed Release 1 capsule Orally Once a day; Duration: 90 days Just prn 01/09/2016 Active Omeprazole 20 MG Capsule Delayed Release 1 Orally Once a day for reflux and heartburn; Duration: 90 days 05/31/2025 Active PreserVision AREDS - Tablet as directed Orally Active Atorvastatin Calcium 40 MG Tablet 1 tablet Orally Once a day; Duration: 30 day(s) Active amLODIPine Besylate 10 MG Tablet 1 tablet Orally Once a day Active Metoprolol Tartrate 5 MG/5ML Solution 1 tablet with food Intravenous once a day Active Paxil 20 MG Tablet 1 tablet in the morn ing Orally Once a day Active Aspir-81 81mg once a day Activ e Valsartan-hydroCHLOROthia zide 160/12.5mg 1 tablet Orally Once a day Active Immunizations Vaccine Route Administration Date Status Comme nts Flu vaccine no Preserv 3 and > Unknown 07/12/2014 Admin istered Flu vaccine no Preserv 3 and > Unknown 07/12/2014 Admin istered Influenza Unknown 06/08/2019 Administered Influenza Unknown 05/31/2024 Administered Pneumococcal Unknown 06/08/2019 Administered Social History Tobacco Use: Social History Observation Description Date Details (start date - stop date) Former Smoker NA - NA Social History Tobacco Use: Social Info Question Answer Notes Tobacco Use/Smoking Patient is a former smoker When did you stop smoking? over 40 years ago How long has it been since you last smoked? > 10 years Additional Details Category Social Info Options Details Miscellaneous: Marital status: Occupation: Retired Section Notes: Nonsmoker; occasional alcoho l Nonsmoker; occasional alcoho l Nonsmoker; occasional alcoho l Nonsmoker; occasional alcoho l Nonsmoker; occasional alcoho l Problems Problem Type SNOMED Code ICD Code Onset Dates Problem Status W/U Status Risk Notes Problem Colon cancer screening (871378422) Colon cancer screening (Z12.11) Active confirmed Problem Rectal bleeding (56419948) Rectal bleeding (K62.5) Active confirmed Problem History of adenomatous polyp of colon (496409131) History of adenomatous polyp of colon (Z86.010) Active confirmed Problem Family History of Cancer of Colon (Situation) (644661387) Family history of colon cancer (Z80.0) Active confirmed Problem Constipation (12480989) Constipation, unspecified constipation type (K59.00) Active confirmed Problem Dysphagia (97548039) Pharyngoesophageal dysphagia (R13.14) Active confirmed Problem Gastroesophageal reflux disease (309587980) GERD (gastroesophageal reflux disease) (K21.9) Active confirmed Problem Schatzki's ring (20092058) Schatzki's ring (K22.2) Active confirmed Vital Signs Temperature 97.7 degrees Fahrenheit 05/31/2025 Blood pressure diastolic 01 mm Hg 05/31/2025 Height 65 in 05/31/2025 Blood pressure systolic 001 mm Hg 05/31/2025 Weight 194.4 lbs 05/31/2025 BMI 32.35 kg/m2 05/31/2025 Procedures Procedure Date Ordered Date Performed Result Body Sit e COLONOSCOPY 05/31/2025 N/A Encounters Encounter Location Date Provider Diagnosis [facility] [address] [place] [address] 05/31/2025 Louis Moura History of adenomato us [...] Provider Name:Louis Moura , 08/26/2025 11:00:00 AM, [address] [place] [address] , [place], [place], [id number], Insurance Providers Payer Name Payer Address Payer Phone Subscriber Number Group Number Insured Name Patient Relationship to Insured Coverage Start Date Coverage End Date MEDICARE OF [place] [address] [place] [address] [id number] CHRISTINE JORGENSEN Self - patient is the insured [employer] [address] [place] [phone] [id number] CHRISTINE JORGENSEN Self - patient is the insured Medical (General) History Medical History History ICD Code NIDDM HTN Denies [place],CVA,Lung disease,renal disease Hyperlipidemia Anxiety Negative screening colonosco [place] [address] Bates and in January of 2013 with me, other than diverticulosis and hemorrhoids. Chest discomfort-sees Dr. Alexei luna--has had ETT's--had a neg. cardiac cath in 2013 EGD 2014 with a small HH--no esophagitis nor Sanford's Urinary incontinence-mild Prolapsed rectum per her PREP MANAGER MD Colonoscopy 11/2019--small tu bular adenoma removed, int/ext hemorrhoids, diverticulosis Schatzki's ring and hiatal h ernia seen on 09/2014 Barium swallow--no obstruction to a Barium tablet Surgical History Surgery Date(Month/Year) cholecystectomy bladder suspension left knee replacement with a revision right leg varicose veins
--- OUTSIDE RECORDS SUMMARY | 2025-07-28 17:56 | XMS_ITS | Patient Health Record ---
Author Organization Homero Jones MD Address [address] [place], [place] [id number] Care Team Providers Care Manager Park Name Role Phone Homero Jones Primary Care Provider Allergies No Known Allergies Results Component Value Reference Range Notes Complete Blood Count Auto Di ff Reviewed date:09/16/2024 06:03:36 PM Interpretation: Performing Lab:[facility], [address] [place] [phone] Notes/Report: White Blood Count 6.9 4.8-10.8 X10*3/uL [...] st Reviewed date:09/16/2024 05:59:17 PM Interpretation: Performing Lab:[facility], [address] [place] [phone] Notes/Report: Sodium 142 135-145 mmol/L Potassium 4.1 [...] Panel Reviewed date:09/16/2024 06:00:30 PM Interpretation: Performing Lab:[facility], [address] [place] [phone] Notes/Report: Bilirubin Direct 0.2 0.0-0.5 mg/dL Lipid Panel Reviewed date:09/16/2024 06:10:58 PM Interpretation: Performing Lab:[facility], [address] [place] [phone] Notes/Report: Triglycerides 94 <150 mg/dL Desirable Triglyceride: [...] A1c Reviewed date:09/16/2024 12:26:07 PM Interpretation: Performing Lab:[facility], [address] [place] [phone] Notes/Report: Hemoglobin A1c % 6.6 <6.0 % [...] average glucose, using the formula of the A8W-Bmeinrj Average Glucose study (ADAG), Diabetes Care, Vol.31,#8, Apr. 2007 Liver Panel Reviewed date:03/22/2025 12:18:31 PM Interpretation: Performing Lab:[facility], [address] [place] [phone] Notes/Report: Bilirubin Total 0.3 0.0-1.0 mg/dL Bilirubin Direct 0.2 0.0-0.5 mg/dL Aspartate Amino Transferase 25 5-31 U/L Alanine Aminotransferase 12 0-31 U/L Total Protein 7.2 6.5-8.0 g/dL Albumin Level 4.2 3.5-5.0 g/dL Alkaline Phosphatase 90 39-117 U/L Glucose Fasting Reviewed date:03/22/2025 12:18:24 PM Interpretation: Performing Lab:[address] [address] Notes/Report: Glucose Fasting 157 60-99 mg/dL A fasting glucose of 126 mg/dl or greater on more than one occasion is considered diagnostic of diabetes. Lipid Panel with Reflex Reviewed date:03/22/2025 12:21:16 PM Interpretation: Performing Lab:[address] [address] Notes/Report: Triglycerides 51 <150 mg/dL Desirable Triglyceride: [...] A1c Reviewed date:03/22/2025 12:20:57 PM Interpretation: Performing Lab:[address] [address] Notes/Report: Hemoglobin A1c % 6.3 <6.0 % [...] average glucose, using the formula of the N5C-Eoqffdy Average Glucose study (ADAG), Diabetes Care, Vol.31,#8, Apr. 2007 UA ClnCatch+Micro w/rflx Cul t Reviewed date:06/02/2025 12:40:18 PM Interpretation: Performing Lab:[facility], [address] [place] [phone] Notes/Report: Urine, Clean Catch Color Urine Yellow Appearance Urine Clear PH 6.0 5.0-9.0 Glucose Urine UA Negative Negative mg/dL Urine Blood Negative Negative Specific [place] - Urine 1.015 1.005-1.025 Urine Protein Negative [...] Random Reviewed date:09/28/2024 04:28:47 PM Interpretation: Performing Lab:[facility], [address] [place] [address] Notes/Report: Creatinine Urine 186.13 Microalbumin Urine 14.0 Microalbum/Creatinine Ratio Ur 7.5 <30 ug/mg cr Albumin/Creatinine Ratio Reference Ranges: Normal: < 30 ug/mg creatinine Microalbuminuria: 30 - 300 ug/mg creatinine Clinical Albuminuria: > 300 ug/mg creatinine UA ClnCatch+Micro w/rflx Cul t Reviewed date:09/28/2024 04:31:48 PM Interpretation: Performing Lab:[address] [address] Notes/Report: [id number] 1300 Urine, Clean Catch Color Urine Dark Yellow Appearance Urine Cloudy PH 6.0 5.0-9.0 Glucose Urine UA Negative Negative mg/dL Urine Blood Negative Negative Specific [place] - Urine >= 1.030 1.005-1.025 Urine Protein [...] ff Reviewed date:08/12/2024 03:26:50 PM Interpretation: Performing Lab:[facility], [address] [place] [phone] Notes/Report: White Blood Count 10.5 4.8-10.8 X10*3/uL [...] Panel Reviewed date:08/12/2024 03:26:31 PM Interpretation: Performing Lab:[facility], [address] [place] [phone] Notes/Report: Sodium 140 135-145 mmol/L Potassium 3.9 [...] date:08/12/2024 03:26:12 PM Interpretation: Performing Lab: Notes/Report: [address] [address] [address] Scan Report Signed Patient: Swati Coreas MR#: [id number] 1 : 1950 Acct:[id number] Age/Sex: 74 / F ADM Date: 08/10/24 Loc: HO.ED Attending Dr: Ordering Physician: Bigg Zhou MD Date of Service: 08/10/24 Procedure(s): CT cervical spine wo IV con Accession Number(s): [id number] cc: Homero Jones MD; Bigg Zhou MD [...] MD 08/11/2024 12:22 AM [facility] [place]: Martin Conde MD Signed By: <Electronically signed by Martin Conde MD in OV> 08/11/24 0022 DD/ 2311 TD/TT: 08/10/24 7898 [employer] Specialist: [address] [address] [address] Scan Report Signed Patient: Swati Coreas MR#: [id number] 1 : 1950 Acct:[id number] Age/Sex: 74 / F ADM Date: 08/10/24 Loc: HO.ED Attending Dr: Ordering Physician: Bigg Zhou MD Date of Service: 08/10/24 Procedure(s): CT cervical spine wo IV con Accession Number(s): [id number] cc: Homero Jones MD; Bigg Zhou MD [...] MD 08/11/2024 12:22 AM [facility] [place]ict[place] By: Frances Conde MD Signed By: <Electronically signed by Martin Conde MD in OV> 08/11/24 0022 DD/ 2311 TD/TT: 08/10/24 2338 Learning [employer] Specialist: CT chest wo con Reviewed date:08/12/2024 03:24:48 PM Interpretation: Performing Lab: Notes/Report: [address] [address] [address] Scan Report Signed Patient: Swati Coreas MR#: [id number] 1 : 1950 Acct:[id number] Age/Sex: 74 / F ADM Date: 08/10/24 Loc: HO.ED Attending Dr: Ordering Physician: Bigg Zhou MD Date of Service: 08/10/24 Procedure(s): CT chest wo IV con Accession Number(s): [id number] cc: Homero Jones MD; Bigg Zhou MD [...] iterative reconstruction technique DLP: 308 mGy-cm FINDINGS: CRANE HOIST OR LIFT OPERATOR: Unremarkable. LUNGS: The lungs are clear with [...] in OV> 08/11/242 DD/ 39 TD/TT: 08/10/242339 [employer] Specialist: [address] [address] [address] Scan Report Signed Patient: Swati Coreas MR#: [id number] 1 : 1950 Acct:[id number] Age/Sex: 74 / F ADM Date: 08/10/24 Loc: HO.ED Attending Dr: Ordering Physician: Bigg Zhou MD Date of Service: 08/10/24 Procedure(s): CT beth st wo IV con Accession Number(s): [id number] cc: Homero Jones MD; Bigg Zhou MD [...] iterative reconstruction technique DLP: 308 mGy-cm FINDINGS: CRANE HOIST OR LIFT OPERATOR: Unremarkable. LUNGS: The lungs are clear with [...] MD 08/11/2024 03:12 AM [facility] [place] By: Frances Conde MD Signed By: <Electronically signed by Martin Conde MD in OV> 08/11/242 DD/ 39 TD/TT: 08/10/242339 Learning [employer] Specialist: CT head/brain wo con Reviewed date:08/12/2024 03:25:49 PM Interpretation: Performing Lab: Notes/Report: [address] [address] [address] Scan Report Signed Patient: Swati Coreas MR#: [id number] 1 : 1950 Acct:[id number] Age/Sex: 74 / F ADM Date: 08/10/24 Loc: HO.ED Attending Dr: Ordering Physician: Bigg Zhou MD Date of Service: 08/10/24 Procedure(s): CT head/brain wo IV con Accession Number(s): [id number] cc: Homero Jones MD; Bigg Zhou MD [...] MD 08/11/2024 12:22 AM [facility] [place]ict[place] By: Martin Conde MD Signed By: <Electronically signed by Martin Conde MD in OV> 08/11/24 0022 DD/ 2311 TD/TT: 08/10/24 2338 [employer] Specialist: [place] [address] [address] Scan Report Signed Patient: Swati Coreas MR#: [id number] 1 : 1950 Acct:[id number] Age/Sex: 74 / F ADM Date: 08/10/24 Loc: .ED Attending Dr: Ordering Physician: Bigg Zhou MD Date of Service: 08/10/24 Procedure(s): CT head/brain wo IV con Accession Number(s): [id number] cc: Homero Jones MD; Bigg Zhou MD [...] MD 08/11/2024 12:22 AM [facility] [place] By: Frances Conde MD Signed By: <Electronically signed by Martin Conde MD in OV> 08/11/24 0022 DD/ 2311 TD/TT: 08/10/24 2338 [employer] Specialist: XR ribs RT min 3V w CXR1V Reviewed date:08/11/2024 07:26:29 PM Interpretation: Performing Lab: Notes/Report: [address] [address] XRay Report Signed Patient: Swati Coreas MR#: [id number] 1 : 1950 Acct:[id number] Age/Sex: 74 / F ADM Date: 08/10/24 Loc: HO.ED Attending Dr: Ordering Physician: Bigg Zhou MD Date of Service: 08/10/24 Procedure(s): XR ribs RT min 3V w CXR1V Accession Number(s): [id number] cc: Homero Jones MD; Bigg Zhou MD [...] by: Jhon Murray MD 08/11/2024 12:32 AM [facility] [place]ict[place] By: Jhon Murray MD Signed By: <Electronically signed by Jhon Murray MD in OV> 08/11/24 0032 DD/ 19 TD/TT: 08/10/242119 [employer] Specialist: [place] [address] XRay Report Signed Patient: Swati Coreas MR#: [id number] 1 : 1950 Acct:[id number] Age/Sex: 74 / F ADM Date: 08/10/24 Loc: .ED Attending Dr: Ordering Physician: Bigg Zhou MD Date of Service: 08/10/24 Procedure(s): XR rib s RT min 3V w CXR1V Accession Number(s): [id number] cc: Homero Jones MD; Bigg Zhou MD [...] OV> 08/11/24 003 DD/ 19 TD/TT: 08/10/242119 [employer] Specialist: MAXIM Urine Culture Reviewed date:09/30/2024 05:49:01 PM Interpretation: Performing Lab:[facility], [address] [place] [phone] Notes/Report: O:STRAGA Strep agalactiae (Grp B) Urine Culture Quant Urine Culture > 100,000 cfu/mL Urine Culture Susc N/A Urine Culture Susceptibility not routinely performed on this isolate. UA CC w/rflx Micro + Cult Reviewed date:09/28/2024 04:34:36 PM Interpretation: Performing Lab:[address] [address] Notes/Report: [id number] 1300 Urine, Clean Catch Color Urine Dark Yellow Appearance Urine Cloudy PH 6.0 5.0-9.0 Glucose Urine UA Negative Negative mg/dL Urine Blood Negative Negative Specific [place] - Urine >= 1.030 1.005-1.025 Urine Protein Trace Neg-Trace mg/dL Urine Ketones Negative Negative mg/dL Nitrite Urine Negative Negative Leukocyte Esterase Urine Large (3+) Negative MM tomosynthesis screening B I Reviewed date:10/07/2024 04:55:48 PM Interpretation: Performing Lab: Notes/Report: [facility] [address] [place] [address] Mammography Report Signed Patient: Swati Coreas MR#: [id number] 1 : 1950 Acct:[id number] Age/Sex: 74 / F ADM Date: 09/29/24 Loc: HO.MAMMO Attending Dr: Homero Jones MD Ordering Physician: Homero Jones MD Results: 1Ne gative Date of Service: 09/29/24 Follow Up: 1 Year From Orig inal Mammogram Procedure(s): MM tomosynthesis screening BI Accession Number(s): [id number] cc: Homero Jones MD EXAMINATION: MM SCREENING [...] by: Jacki Nathan DO 10/07/2024 01:53 PM [facility] [place]ict[place] By: Jacki Nathan DO Signed By: <Electronically signed by Jacki Nathan DO in OV> 10/07/24 1353 DD/ 0910 TD/TT: 09/29/24 0920 Learning [employer] Specialist: [facility] [address] [place] [address] [place] [address] Mammography Report Signed Patient: Swati Coreas MR#: [id number] 1 : 1950 Acct:[id number] Age/Sex: 74 / F ADM Date: 09/29/24 Loc: MAMMYuridia Attending Dr: Homero Jones MD Ordering Physician: Homero Jones MD Results: 1Ne gative Date of Service: 09/29/24 Follow Up: 1 Year From Orig inal Mammogram Procedure(s): MM tomosynthesis screening BI Accession Number(s): [id number] cc: Homero Jones MD EXAMINATION: MM SCREENING [...] by: Jacki Nathan DO 10/07/2024 01:53 PM [facility] [place]ict[place] By: Jacki Nathan DO Signed By: <Electronically signed by Jacki Nathan DO in OV> 10/07/24 1353 DD/ 0910 TD/TT: 09/29/24 0920 [employer] Specialist: Francesco Hsu Reviewed date:03/22/2025 12:18:08 PM Interpretation: Performing Lab:[facility], [address] [place] [phone] Notes/Report: Francesco Hsu See Note Specimen held untested for 24 hours; Call to request Chemistry testing. Urine Culture Reviewed date:06/03/2025 12:40:10 PM Interpretation: Performing Lab:[facility], [address] [place] [phone] Notes/Report: Urine Culture Report Result Urine Culture 10,000 to 50,000 cfu/ml Urine Culture Mixed bacterial tamia a characteristic of Urine Culture urogenital contamination. Reason For Referral Reason skin lesion see no te attached Diagnosis 1 Skin lesion (L98.9) Referral Organization Homero Jones MD Referring Provider First Name Homero Referring Provider Last Name Karen Referring Provider Speciality Internal M edicine Referred Provider [facility] robyn [place] Referred Provider Specialty Dermatology General Notes Leonor [...] Risk Notes Problem Atherosclerotic heart disease of [place] coronary artery without angina pectoris (309832623388235) Atherosclerotic heart disease of [place] coronary artery without angina pectoris (I25.10) Active confirmed Problem 461731204 Neuropathy (G62.9) Active confirmed Problem 651494678 Other specified menopausal and perimenopausal disorders (N95.8) Active confirmed Problem Artificial knee joint present (716489514183) Presence of left artificial knee joint (Z96.652) Active confirmed Problem 78791854 Essential hypert ension (I10) Active confirmed Problem 29621852 Type 2 diabetes mellitus without complication (E11.9) Active confirmed Problem 679759126 Non morbid obesi ty due to excess calories (E66.09) Active confirmed Problem 836806554795778 Stenosis of righ t carotid artery (I65.21) Active confirmed Problem 620208013 GONZALES (nonalcohol ic steatohepatitis) (K75.81) Active confirmed Problem 64459029 Intrinsic eczema (L20.84) Active confirmed Problem 040338373 Acute non intrac table tension-type headache (G44.209) Active confirmed Problem 949849932 Schatzki's ring (K22.2) Active confirmed Problem 116472791 Leukocytosis, unspecified type (D72.829) Active confirmed Problem 85607075 Dysthymia (F34.1) Active confirmed Problem 517587848 Pure hypercholesterolemia (E78.00) Active confirmed Problem Microcytic anemia (500847125) Microcytic anemia (D50.9) Active confirmed Problem 187427578 Mild intermitten t asthmatic bronchitis with acute exacerbation (J45.21) Active confirmed Problem 375944108 Altered mental s tatus, unspecified altered mental status type (R41.82) Active confirmed Vital Signs Blood pressure diastolic 64 mm Hg 03/28/2025 Height 64.5 in 03/28/2025 Blood pressure systolic 118 mm Hg 03/28/2025 Weight 189 lbs 03/28/2025 BMI 31.94 kg/m2 03/28/2025 Encounters Encounter Location Date Provider Diagnosis Homero Jones MD [address] [place] [id number] 09/16/2024 Homero Jones Essential hypertensi on I10 ; Type 2 diabetes mellitus without complication E11.9 ; Pure hypercholesterolemia E78.00 and GONZALES (nonalcoholic steatohepatitis) K75.81 Homero Jones MD [address] [place] [id number] 03/22/2025 Homero Jones Type 2 diabetes vesna itus without complication E11.9 and Pure hypercholesterolemia E78.00 Homero Jones MD [address] [place] [id number] 06/02/2025 Homero Jones UTI (urinary tract infection) N39.0 and Encounter for administration of vaccine Z23 Homero Jones MD [address] [place] [id number] 08/16/2024 Homero Jones Essential hypertensi on I10 ; GONZALES (nonalcoholic steatohepatitis) K75.81 ; Contusion of rib on right side, subsequent encounter S20.211D and Encounter for immunization Z23 Homero Jones MD [address] [place] [address] [id number] 09/28/2024 Homero Jones Type 2 diabetes vesna itus without complication E11.9 ; Essential hypertension I10 ; Skin lesion L98.9 ; Pure hypercholesterolemia E78.00 ; Microcytic anemia D50.9 ; Colon cancer screening Z12.11 and Depression screening Z13.31 Homero Jones MD [address] [facility] [address] [id number] 03/28/2025 Homero Jones Type 2 diabetes vesna itus without complication E11.9 ; Pure hypercholesterolemia E78.00 and Essential hypertension I10 Homero Jones MD [address] [facility] [address] [id number] 08/12/2024 Homero Jones MD [address] [place] [address] [id number] 11/15/2024 Homero Jones Assessments Encounter Date Diagnosis (ICD Code) Assessment Notes Treatment Notes Treatment Clinical Notes Section Notes 09/16/2024 Essential hypertensi on (ICD-10 - I10) 09/16/2024 Type 2 diabetes mellitus without complication (ICD-10 - E11.9) 03/22/2025 Type 2 diabetes mellitus without complication (ICD-10 - E11.9) 06/02/2025 UTI (urinary tract infection) (ICD-10 - N39.0) 06/02/2025 Encounter for administration of vaccine (ICD-10 - Z23) 08/16/2024 Essential hypertensi on (ICD-10 - I10) [...] DOPPLER 02/25/2023 Next Appt Details Provider Name:Homero porterr, 09/23/2025 07:45:00 AM, [address] [place] [address], [address], [phone], Provider Name:Homero Romano ier, 09/30/2025 11:00:00 AM, [address] [place] [address], [place] [address], [place], [place], [phone], Insurance Providers Payer Name Payer Address Payer Phone Subscriber Number Group Number Insured Name Patient Relationship to Insured Coverage Start Date Coverage End Date [employer] [address] [place] [address] [id number] Swati Coreas Self - patient is the insured [facility] [address] [place] [id number] Swati Coreas Self - patient is the insured Medical (General) History Medical History History ICD Code colonoscopy 2002 colonoscopy in 2002; colonos copy done 01/12/2013 - repeat in 10 years; endoscopy 02/23/15 (Dr. Moura); colonoscopy done 11/12/[address] 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
--- OUTSIDE RECORDS SUMMARY | 2025-07-28 17:56 | XMS_ITS | Data Portability ---
Author Organization [facility] Teo Mcfarlane [facility], [facility] Address [address] [place] [address] Care Team Providers Care Addiction Medicine Physician Name Role Phone DAPHNIE ANG Primary Care [...] Colace, pantoprazole and pain medications filled at [facility] prior to discharge. The patient will receive 1 week of in-home physical therapy postoperatively. CONTACTS: Her gwhqxn-hu-mij, Lisa, with a cell phone [phone]. jean Not available 05/19/2024 13:12:46 06/28/2024 06/28/2024 [...] to a physical therapist outside of the [facility] institution. PLAN The patient is going [...] X-rays reviewed in the office today on [facility] PACS: Weightbearing AP of both knees, lateral [...] of their questions today in the office. Consult A Doctor speech recognition application security engineer software was used to create portions of this document. An attempt at proofreading has been made to minimize errors. Please call for corrections. [email or web address] Not available 09/16/2024 09:19:33 Plan of Treatment Reminders Order Date Submit Date Provider Last Modified By Organization Details Last Modified Time Details Appointments None record ed. Lab None record ed. Referral None record ed. Procedures None record ed. Surgeries None record ed. Imaging XR, knee, 3 view - ROOM 209, 1st PO REV LTKR 4 SJK 024 06/10/20 24 [email or web address] 47 [facility] Office, [address], [address], [place], [address], 4 16:11:45 Medication Orders None record ed. Patient TargetsNo targets recorded. Patient InstructionsNo instructions recorded. Reason for Referral None Reported. Results Created Date Observation Date Name Description Value Unit Range Abnormal Flag Note LastModifiedBy Organization Detail LastModifiedTime 05/21/20 24 05/14/2024 cardi ac clear ance* No observ ation record ed. zradclluiza [facility] (Medical Records) [address] [facility], [place], [address], 05/21/2024 13:33:33 05/25/20 24 05/25/2024 XR, knee, 1 or 2 view No observ ation record ed. nhulse [facility] [address], [place], [address], 05/26/2024 08:41:58 06/10/20 24 06/10/2024 XR, knee, 3 view [email or web address]:/ [email or web address] ?Encry pted=s hAaTro YD8dLq bEUv6g %2BXZw aYqtaq 0bqfl% 2Fg9IQ a4ajBk vP9nXo QUaueC m3YtLR FvZlJ JJ8mAn HZtai3 7x9829 AC0Kqa 3%2BGV 6WkKiQ trMwF INTERFACE [facility] [address] [facility] [address], [place], [address], 06/10/2024 16:02:29 06/10/20 24 06/10/2024 XR, knee, 3 view [email or web address]:/ [email or web address] ?Encry pted=s hAaTro YD8dLq bEUv6g %2BXZw aYqtaq 0bqfl% 2Fg9IQ a4ajBk vP9nXo QUaueC m3YtLR FvZl J8mAn tai3 1p6515 AC0Kqa 3%2BGV 6WkKiQ trMwF INTERFACE [facility] [address] [facility] [address], [place], [address], 06/10/2024 16:02:31 Result Notes Documentation Provider Name and Address Organization Details Recorded Time Xr, Knee, 3 View : [email or web address] Encrypted=glWbWrvPU4bCgpR Uv6g%2WYTmmIbldm9bejt%2Fg 5ENo4zeAhoL1oNiGKfboVm0Pg CTGpHjpFFZ7gMyXIpbp09q416 3QJ7Ikq5%5QCT7TlKkJgwKiL Not Available [facility] 06/10/2024 16:0 2:29 Xr, Knee, 3 View : [email or web address] Encrypted=kyVpBmuOZ7jWvaG Uv6g%3KUYptTjvly9ajya%2Fg 7AOq4asQfvC1vDzSUssqLp2Mw LBBhZteNUG9qDyPAxih70e726 5OG0Pzt0%7QBP7IfBmLdyAwS Not Available [facility] 06/10/2024 16:0 2:31 Problems Name Problem SNOMED Code Status Onset Date Resolution Date Notes Provider Name and Address Organization Details Recorded Time Osteoarthri tis of right knee joint 4154726194697 00 Active 2023 Jennifer Minaya PA-C [address], [place], [address], [facility] 19:26:02 Problem Notes None recorded. Procedures Surgical History Date Name Laterality Status Provider Name and Address Organization Details Recorded Time Knee Kenalog 1cc L/R completed Jennifer Minaya PA-C [address], [place], [address], [facility] 03/21/2025 19:25:54 Imaging Results [...] Updated DateTime 03/21/2025 165.1 cm 32.3 kg/m2 65611.92 g SIVA ROSEMARIE [facility] 03/21/2025 13:19:35 Date Recorded Body height Body mass index (BMI) Body weight Provider Name and Address Organization Details Last Updated DateTime 05/19/2024 165.1 cm 32.3 kg/m2 06798.92 g JONNY SHELTON [facility] 05/19/2024 10:15:11 Date Recorded Body height Body mass index (BMI) Body weight Provider Name and Address Organization Details Last Updated DateTime 06/10/2024 165.1 cm 32.3 kg/m2 23175.92 g Giles Condon [facility] 06/10/2024 15:46:30 Date Recorded Body height Provider Name an d Address Organization Details Last Updated DateTime 06/28/2024 165.[facility] 06/28/2024 11:17:15 Social History None recorded. Functional Status None recorded. Mental Status None recorded. Family History Nothing Reported. Medical History Condition Response Allergies/Hayfever N Coronary Artery Disease N Breathing or lung disorders N Anxiety/Depression N Emphysema N Nerve Disorders N Thyroid Problems N COPD N Pacemaker N Kidney/Bladder Problems N Anemia N Vascular Disease N Heart Trouble Y Heart Attack ([place]) N Gastrointestinal Disease N Cholesterol Y Diabetes Y Autoimmune disease N Inflammatory Joint disease N Bleeding Disorder N Orthotics N Seizures/Epilepsy N Arthritis N Blood Clot N AIDS/HIV N Congestive Heart Failure (CHF) N Acid Reflux (GERD) N Cancer N Stroke N Asthma N Circulation Problems N Peripheral Vascular Disease N Sleep Apnea N Hepatitis N Heart Disease N Rheumatoid Arthritis N Pulmonary Embolism N Arrhythmia N Headaches N Fibromyalgia N Hypertension Y Osteoporosis N Gynecological HistoryNo gynecological history recorded. Obstetrics History GPAL:G 0 P 0 0 0 0 Past Encounters Encounter ID Performer Location Encounter Start Date Encounter Closed Date Diagnosis/Indication Diagnosis SNOMED-CT Code Diagnosis ICD10 Code Diagnosis IMO Codes Diagnosis Note [id number] KAMI Sarabia [address] [place] [address] 02/06/2024 13:11:09 02/27/2024 12:49:29 Pain of bilateral knee joints 3339090050 41698 M25.561 M25.562 Pain of le ft knee joint 4160891072 80180 M25.562 Knee joint prosthesis present 4629993583 02 Z96.652 Osteoarthr itis of right knee joint 4167105068 11170 M17.11 [id number] MD Robby Leenishabnam [address] [place], [place] [address] 02/26/2024 08:40:53 03/23/2024 14:36:00 History of left total knee replacement 8524248712 972039 Z96.945 [id number] Enderkhushbooteresa Jolly, EARLY INTERVENTIONIST [facility] [address] [place] [address] 05/19/2024 10:08:44 06/01/2024 15:08:10 [id number] Ruddy Elise MD [facility] [address] [place] [address] 05/19/2024 12:28:04 06/11/2024 04:05:00 [id number] KAMI Elainenishabnam [address] [place] [address] 06/10/2024 15:27:48 06/10/2024 16:11:45 Postoperative care 093934024 Z48.89 History of left total knee replacement 1380517715 068565 Z96.632 [id number] Jose R Conde NP [facility] [address] [place] [address] 06/28/2024 11:11:19 07/19/2024 14:18:19 [id number] MD JUANA Lee [facility] [address] [place] [address] 09/16/2024 08:41:52 09/28/2024 14:51:06 History of left total knee replacement 6058445700 902800 Z96.652 [id number] Jennifer Minaya PA-C [facility] - [facility] [address] [place] [address] 03/21/2025 12:40:47 03/30/2025 13:21:37 Osteoarthritis of right knee joint 5952479809 73937 M17.11 [id number] Health Concerns Section Related Observation LastModified by Organization Detai ls LastModified Time None Recorded Concern Status LastModified by Organization Details LastModified Time None Recorded Advance Directives Directive None Recorded Payers Insurance Date Sequence Insurance Name Policy Number Policy Atkinson Covered Member ID Atkinson Member ID Guarantor Name 03/30/2025 2 [facility] (MEDICARE SUPPLEMENT) Swati Coreas [id number] Swati Coreas 03/21/2025 1 [place]IC[place]: [employer] Swati Coreas [id number] Swati Coreas Notes Date Note Type [...] limits. X-rays ordered, obtained and reviewed at [facility] 3 views of the left total [...] the total knee replacement. Savage Kidd PA-C [address] [place], [place] [address], [place], [address], [facility] 06/10/2024 16:07:39 03/21/2025 text/html [...] as every 3 months. Jennifer Minaya PA-C [address] [place], [place] [address] [address], [place], [address], [facility] 03/21/2025 19:26:24 OBGyn Episode No OBEpisode recorded.
--- NOTE | 2025-08-23 12:52 | HO.ANESPROP2 ---
Documented by User: Milvia Marshall NP 08/23/25 13:08 HPI - Anesthesia Eval Consult details Narrative: 75yo F for Colonoscopy Follows [facility] Cardiology. Stable at 04/2025 routine visit with 1 year f/u Nonobstructive CAD - asa/statin PVCs controlled on beta block HTN: well controlled. ? carotid stenosis - none documented in notes or on imaging. Unable to reach patient d/t phone line issues. PMFSH Active Problems Active Problems: All Active Problems PVC (premature ventricular contraction) (Acute) Hyperlipidemia (Acute) HTN (hypertension) (Acute) Arteriosclerosis of coronary artery (Acute) Osteoarthritis of left knee (Acute) DM (diabetes mellitus), secondary (Acute) Patellofemoral arthritis of left knee (Acute) Past Medical History Medical History History of revision of total replacement of left knee joint Urinary incontinence GERD (gastroesophageal reflux disease) Carotid stenosis Osteoarthritis of knees, bilateral Varicose veins of bilateral lower extremities with pain Diabetes Diastolic dysfunction PVC (premature ventricular contraction) HTN (hypertension) Arteriosclerosis of coronary artery Hyperlipidemia Surgical History Surgical History Hx of varicose vein ligation History of total left knee replacement History of bladder suspension procedure Hx of cholecystectomy History of esophagogastroduodenoscopy (EGD) History of cardiac catheterization History of colonoscopy Social History Social History Alcohol intake: current Alcohol intake frequency: holidays/special occasions only Patient Tobacco Use Status: Former Tobacco user Tobacco use type: Cigarette Use of substances other than those prescribed or required for medical reasons: No Are you DNR?: No Advance Directives: No Advance Directives Information Provided: Yes Current occupational status: retired Current occupation: rt handed Meds Allergies Allergy/AdvReac Type Severity Reaction Status Date / Time No Known Allergies (No Known Allergy Verified 08/26/25 10:06 Allergies*) Home Medications ?Medication ?Instructions ?Recorded ?Confirmed ?Last Taken ?Type amlodipine 5 mg tablet 5 mg PO DAILY 08/18/20 08/26/25 08/26/25 08:00 History aspirin 81 mg tablet,delayed 81 mg PO DAILY 08/18/20 08/26/25 08/24/25 History release atorvastatin 40 mg tablet 40 mg PO DAILY 08/18/20 08/26/25 Unknown History metoprolol succinate 25 mg 25 mg PO DAILY 08/18/20 08/26/25 08/26/25 08:00 History tablet,extended release 24 hr omeprazole 20 mg capsule,delayed 20 mg PO DAILY PRN Acid Reflux 08/18/20 08/26/25 Unknown History release clobetasol 0.05 % topical cream 1 appl topical DAILY 02/12/21 08/26/25 Unknown History ibuprofen 600 mg tablet (IBU) 600 mg PO TID 02/12/21 08/26/25 Unknown History escitalopram oxalate 10 mg tablet 10 mg PO DAILY 02/12/22 08/26/25 Unknown History metformin 500 mg tablet,extended 500 mg PO TID 02/13/23 08/26/25 Unknown History release 24 hr oxybutynin chloride 10 mg 10 mg PO DAILY 02/13/23 08/26/25 Unknown History tablet,extended release 24 hr valsartan 160 1 tab PO DAILY 02/13/23 08/26/25 Unknown History mg-hydrochlorothiazide 12.5 mg tablet Exam Narrative Narrative: NV cardiolite stress test 2023 Impression: 1. Myocardial perfusion imaging study shows likely normal myocardial perfusion 2. Gated LVEF is 67% 3. Transient ischemic dilatation not present Nondiagnostic changes on EKG. ECHO 2023 Conclusions: - The left ventricular systolic function is normal. The calculated ejection fraction is 67% by biplane method. - The left atrium is moderately dilated. - No obvious valvular pathology seen on this study. Assessment and Plan Assessment Anesthesia Assessment: Chart Reviewed Documented by User: Edilberto Luque MD 08/26/25 11:14 [facility] Past Medical History Medical History History of revision of total replacement of left knee joint Urinary incontinence GERD (gastroesophageal reflux disease) Carotid stenosis Osteoarthritis of knees, bilateral Varicose veins of bilateral lower extremities with pain Diabetes Diastolic dysfunction PVC (premature ventricular contraction) HTN (hypertension) Arteriosclerosis of coronary artery Hyperlipidemia Functional capacity: independent ambulation Family History Family history of problems with anesthesia: No Surgical History Surgical History Hx of varicose vein ligation History of total left knee replacement History of bladder suspension procedure Hx of cholecystectomy History of esophagogastroduodenoscopy (EGD) History of cardiac catheterization History of colonoscopy History of Problems with Anesthesia: No Social History Social History Alcohol intake: current Alcohol intake frequency: holidays/special occasions only Patient Tobacco Use Status: Former Tobacco user Tobacco use type: Cigarette Use of substances other than those prescribed or required for medical reasons: No Are you DNR?: No Advance Directives: No Advance Directives Information Provided: Yes Current occupational status: retired Current occupation: rt [employer] Allergies Allergy/AdvReac Type Severity Reaction Status Date / Time No Known Allergies (No Known Allergy Verified 08/26/25 10:06 Allergies*) Home Medications ?Medication ?Instructions ?Recorded ?Confirmed ?Last Taken ?Type amlodipine 5 mg tablet 5 mg PO DAILY 08/18/20 08/26/25 08/26/25 08:00 History aspirin 81 mg tablet,delayed 81 mg PO DAILY 08/18/20 08/26/25 08/24/25 History release atorvastatin 40 mg tablet 40 mg PO DAILY 08/18/20 08/26/25 Unknown History metoprolol succinate 25 mg 25 mg PO DAILY 08/18/20 08/26/25 08/26/25 08:00 History tablet,extended release 24 hr omeprazole 20 mg capsule,delayed 20 mg PO DAILY PRN Acid Reflux 08/18/20 08/26/25 Unknown History release clobetasol 0.05 % topical cream 1 appl topical DAILY 02/12/21 08/26/25 Unknown History ibuprofen 600 mg tablet (IBU) 600 mg PO TID 02/12/21 08/26/25 Unknown History escitalopram oxalate 10 mg tablet 10 mg PO DAILY 02/12/22 08/26/25 Unknown History metformin 500 mg tablet,extended 500 mg PO TID 02/13/23 08/26/25 Unknown History release 24 hr oxybutynin chloride 10 mg 10 mg PO DAILY 02/13/23 08/26/25 Unknown History tablet,extended release 24 hr valsartan 160 1 tab PO DAILY 02/13/23 08/26/25 Unknown History mg-hydrochlorothiazide 12.5 mg tablet Exam Exam Date and Time: 08/24/2025 Airway TM Dist: >3cm Loose/Missing/Broken Teeth: No Heart: normal Lungs: normal Other: normal Assessment and Plan Assessment Anesthesia Assessment: Anesthesia Plan Discussed Final Anesthetic Review Family History of Problems with Anesthesia: No History of Problems with Anesthesia: No NPO: Yes ASA Class: II Final Preanesthetic Review: No Changes in Pt Med Stat, Meds/Allgs Chart Reviewed, Consent Obtained/Reviewed and Anes Risks/Benef Reviewed Patient Risk: Low
[2025-08-24 15:20] VITALS: BMI 32.3
[2025-08-26 10:12] VITALS: BMI 31.1
[2025-08-26 10:15] VITALS: BP 138/60; PULSE 70; RESP 15; TEMP 36.3; O2SAT 98
[2025-08-26 10:26] LABS: Glucose, Whole Blood 131 mg/dL (60-115)
[2025-08-26] MEDS: Lactated Ringers 1,000 ML 100 ML IVCONT (10:39)
[2025-08-26 12:21] VITALS: BP 137/64; PULSE 71; RESP 15; TEMP 36.7; O2SAT 99
--- NOTE | 2025-08-26 12:24 | PM.OP ---
Brief Operative Note Date of Service: 08/26/25 Pre-op diagnosis: Screening Post-op diagnosis: other (Colon polyp) Procedure: Colonoscopy to the cecum and TI with cold snare polypectomy x 1 Surgeon: Louis Moura MD Anesthesia: MAC Was an [employer] Laboratory Assistant used for this Procedure?: No Estimated blood loss (mL): 2.0 Pathology: other (A. Polyp at 15cm) Condition: stable Disposition: PACU
[2025-08-26 12:36] VITALS: BP 136/62; PULSE 63; RESP 16; TEMP 36.2; O2SAT 99
--- NOTE | 2025-08-26 12:45 | OP_ITS ---
DATE OF SERVICE: 08/26/2025 SURGEON: Louis Moura MD INDICATIONS: The patient presents for evaluation of colorectal cancer screening, personal history of colon polyps, and family history of colon cancer. PREOPERATIVE DIAGNOSIS: POSTOPERATIVE DIAGNOSIS: PROCEDURE PERFORMED: Colonoscopy to the cecum and terminal ileum with cold snare polypectomy. ESTIMATED BLOOD LOSS: COMPLICATIONS: ANESTHESIA: Medications used; monitored anesthesia care. ASSISTANTS: SPECIMENS: PREOPERATIVE DIAGNOSES: The patient presents for evaluation of colorectal cancer screening, personal history of colon polyps, and family history of colon cancer, colon polyp, diverticulosis, and internal hemorrhoids. DESCRIPTION OF PROCEDURE: The patient was placed in the left lateral decubitus position. The digital rectal exam revealed some small external hemorrhoids. The Olympus video pediatric colonoscope was entered into the rectum and advanced easily to the cecum. Once in the cecum, I did identify normal-appearing cecal pouch with appendiceal orifice and a normal-appearing ileocecal valve. The terminal ileum was cannulated and appeared normal. The scope was withdrawn back in the colon. The entire cecum and ileocecal valve appeared normal. The scope was slowly withdrawn assessing all mucosal surfaces carefully. Preparation was excellent. At 15 cm, there was a flat, but raised approximately 6 mm polyp, which was removed by cold snare polypectomy and recovered by suction. The polypectomy site appeared clean, without any sign of residual polyp nor significant bleeding. I did not visualize any other polyps, colitis, nor angiodysplasia. There was a mild amount of sigmoid diverticulosis. In the rectum, scope was retroflexed visualizing internal hemorrhoids, but no other pathology. The rectal mucosa appeared normal. The scope was straightened and withdrawn from the patient. She tolerated the procedure well and was returned to the recovery area in stable condition. IMPRESSION: 1. Colon polyp. 2. Diverticulosis. 3. Internal hemorrhoids. PLAN: The results of the pathology will be checked. Even if it is a tubular adenoma, I do not think she will need any further screening colonoscopies given her age of 75. She was advised to not use any NSAIDs for 1 week. She was advised to resume her aspirin in 3 days. She will otherwise see me as needed. MD NICHOLE Boo/TREVON / [phone]
== END 2025-08-26 13:06 | disposition home or self-care (01) ==
PROVIDERS: PCP Internal Medicine; Visit Provider Internal Medicine
PROC: 0DJD8ZZ Inspection of Lower Intestinal Tract, Via Natural or Artificial Opening Endoscopic (ICD-10-PCS; CPT 45378; principal; 2025-08-26 11:00)
DX: Z12.11 Encounter for screening for malignant neoplasm of colon (principal); Z80.0 Family history of malignant neoplasm of digestive organs; Z86.0101 Personal history of adenomatous and serrated colon polyps; K57.30 Diverticulosis of large intestine without perforation or abscess without bleeding; K64.8 Other hemorrhoids; K63.5 Polyp of colon; E11.9 Type 2 diabetes mellitus without complications
CPT/HCPCS: 45385; 82947; 88305; J2003; J2704; J3010